=== PATIENT | female | born 1950 | race Caucasian/White ===

== ENCOUNTER 2016-08-06 10:22 | Inpatient (IN) | payer MEDICARE, OTHER ==
[2016-08-06] MEDS ORDERED: SODIUM CHLORIDE 0.9% 1,000 ML IV STA (10:56)
[2016-08-06 11:36] LABS: Basophils % (A) 0 %; CH 31.3; CHCM 31.7; Eosinophils # (A) 0.1 k/uL (0-0.7); Eosinophils % (A) 1 %; HCT 41.4 % (34.0-46.0); HDW 2.43; HGB 13.2 gm/dL (11.4-16.0); Luc # (Auto) 0.05; Luc % (Auto) 0; Lymphocytes # (A) 0.2 k/uL (1.0-4.8); Lymphocytes % (A) 2 %; MCH 31.8 pg (25.0-35.0); MCV 99.3 fL (80.0-100.0); Mean Platelet Volume 8.4; Monocytes # (A) 0.2 k/uL (0-1.0); Monocytes % (A) 2 %; Neutrophils # (A) 13.1 k/uL (1.3-7.7); Neutrophils % (A) 95 %; RBC 4.17 m/uL (3.80-5.40); RDW 14.1 % (11.5-15.5); WBC 13.8 k/uL (3.8-10.6); WBC (Perox) 14.53
[2016-08-06 11:41] LABS: Partial Thromboplastin Time 22.1 sec (22.0-30.0); Prothrombin Time 10.2 sec (9.0-12.0)
[2016-08-06 11:43] LABS: ALT 200 U/L (9-52); AST 137 U/L (14-36); Alkaline Phosphatase 467 U/L (38-126); Amylase <30 U/L (30-110); Anion Gap 12 mmol/L; Bilirubin, Delta 2.8 mg/dL (0.0-0.2); Blood Urea Nitrogen 17 mg/dL (7-17); Calcium 9.4 mg/dL (8.4-10.2); Carbon Dioxide 22 mmol/L (22-30); Chloride 102 mmol/L (98-107); GGT 499 U/L (12-43); Glucose 288 mg/dL (74-99); Magnesium 1.9 mg/dL (1.6-2.3); Non-African American GFR(MDRD) >60 (>60 ml/min/1.73 sqM); Sodium 136 mmol/L (137-145); Total Bilirubin 7.8 mg/dL (0.2-1.3); Total Protein 7.1 g/dL (6.3-8.2)
--- NOTE | 2016-08-06 11:44 | XR ---
EXAMINATION TYPE: XR chest 2V DATE OF EXAM: 08/06/2016 11:40 AM HISTORY: Jaundice. REFERENCE: NONE. FINDINGS: The lungs are clear. Pleural space are clear. Heart size is normal. IMPRESSION: NORMAL CHEST.
--- NOTE | 2016-08-06 11:45 | XR ---
EXAMINATION TYPE: XR KUB DATE OF EXAM ORDERED: 08/06/2016 11:41 AM HISTORY: Jaundice. COMPARISON: None. FINDINGS: The abdominal gas pattern is normal. There is no evidence of obstruction or free air. Ther e are vascular calcifications within the pelvis. There are surgical clips in the mid abdomen. IMPRESSION: NO ACUTE INTRA-ABDOMINAL ABNORMALITY.
[2016-08-06 12:02] LABS: Potassium 4.1 mmol/L (3.5-5.1)
--- NOTE | 2016-08-06 12:20 | ED ---
Abdominal Pain HPI - General Source: patient, family, parts interpreter, RN notes reviewed, old records reviewed Mode of arrival: wheelchair Limitations: language barrier <Wyatt Hargrove - Last Filed: 08/06/16 12:36> <Vaughn Aquino - Last Filed: 08/10/16 15:05> - General Chief Complaint: Abdominal Pain Stated Complaint: jaundice,abd pain Time Seen by Provider: 08/06/16 10:44 - History of Present Illness Initial Comments: 66-year-old female presents emergency Department chief complaints of jaundice. Patient is here with sister who brought her from primary care physician's office secondary to jaundice. Patient had her liver enzymes monitored over the last year or 2. They have been turning off at this point she is jaundice. Patient had a cholecystectomy performed at [facility] in which they did make one of her bile ducts and she had a stent. Patient does complain of some abdominal discomfort. Patient denies any cold like symptoms. Patient states she had some nausea no vomiting. Patient states her stool has been brown and slightly anderson in color. Denies any dysuria hematuria. Patient did not note fever she is told that she was afebrile at her primary care physician's office. (Wyatt Hargrove) - Related Data Home Medications Medication Instructions Recorded Confirmed Aspirin [Adult Low Dose Aspirin EC] 81 mg PO QAM 07/22/15 08/06/16 Calcium Carbonate/Vitamin D3 1 tab PO DAILY 08/22/15 08/06/16 [Os-Triston 500+D3 Caplet] Ursodiol 300 mg PO DAILY 08/22/15 08/06/16 Multivits-Min/Iron/FA/Lutein 1 tab PO DAILY 08/06/16 08/06/16 [Centrum Silver Women Tablet] glipiZIDE [Glipizide ER] 5 mg PO W/BRKFST 08/06/16 08/06/16 Allergies Allergy/AdvReac Type Severity Reaction Status Date / Time No Known Allergies Allergy Verified 08/06/16 11:38 Review of Systems ROS Other: All systems not noted in ROS Statement are negative. <Wyatt Hargrove - Last Filed: 08/06/16 12:36> ROS Other: All systems not noted in ROS Statement are negative. <Vaughn Aquino - Last Filed: 08/10/16 15:05> ROS Statement: Those systems with pertinent positive or pertinent negative responses have been documented in the HPI. Past Medical History Past Medical History: CVA/TIA, Diabetes Mellitus, Hearing Disorder / Deafness, Hyperlipidemia Additional Past Medical History / Comment(s): understands sign language, some lip reading, cannot tolerate diabetic medications, diet controlled at this time ; CVA/TIA residual "memory loss"; History of Any Multi-Drug Resistant Organisms: None Reported Past Surgical History: Cholecystectomy Additional Past Surgical History / Comment(s): september 2014 - gallbladder removed , bypass of liver duct, left carotid endarterectomy September 2014 due to post operative stroke. Past Anesthesia/Blood Transfusion Reactions: No Reported Reaction Past Psychological History: No Psychological Hx Reported Smoking Status: Former smoker Past Alcohol Use History: None Reported Additional Past Alcohol Use History / Comment(s): alcoholic - quit etoh 22 years age. smoking: stopped 09/2014 1ppd Past Drug Use History: None Reported - Past Family History Brother(s) Family Medical History: CVA/TIA Mother Family Medical History: Memory Impairment Additional Family Medical History / Comment(s): "Alzheimer's" Father Family Medical History: No Reported History <Wyatt Hargrove M - Last Filed: 08/06/16 12:36> General Exam Limitations: language barrier General appearance: alert, in no apparent distress Head exam: Present: atraumatic, normocephalic, normal inspection Eye exam: Present: PERRL, EOMI, scleral icterus. Absent: conjunctival injection , periorbital swelling Respiratory exam: Present: normal lung sounds bilaterally. Absent: respiratory distress, wheezes, rales, rhonchi, stridor Cardiovascular Exam: Present: regular rate, normal rhythm, normal heart sounds. Absent: systolic murmur, diastolic murmur, rubs, gallop, clicks GI/Abdominal exam: Present: soft, tenderness (Mild), normal bowel sounds. Absent: distended, guarding, rebound, rigid Back exam: Absent: CVA tenderness (R), CVA tenderness (L) Neurological exam: Present: alert, oriented X3, CN II-XII intact Skin exam: Present: warm, dry, intact. Absent: normal color (Jaundiced), rash <Wyatt Hargrove - Last Filed: 08/06/16 12:36> Medical Decision Making - Lab Data Result diagrams: 08/06/16 11:20 08/06/16 11:20 <Wyatt Hargrove - Last Filed: 08/06/16 12:36> - Lab Data Result diagrams: 08/10/16 09:20 08/10/16 09:20 <Vaughn Aquino - Last Filed: 08/10/16 15:05> - Medical Decision Making I saw this patient in conjunction with the physician law office assistant. I performed independent history and physical exam. Agree with case management. (Vaughn Aquino) - Lab Data Lab Results 08/06/16 08/06/16 08/06/16 Range/Units 11:20 11:20 11:20 WBC 13.8 H (3.8-10.6) k/uL RBC 4.17 (3.80-5.40) m/uL Hgb 13.2 (11.4-16.0) gm/dL Hct 41.4 (34.0-46.0) % MCV 99.3 (80.0-100.0) fL MCH 31.8 (25.0-35.0) pg MCHC 32.0 (31.0-37.0) g/dL RDW 14.1 (11.5-15.5) % Plt Count 263 (150-450) k/uL Neutrophils % 95 % Lymphocytes % 2 % Monocytes % 2 % Eosinophils % 1 % Basophils % 0 % Neutrophils # 13.1 H (1.3-7.7) k/uL Lymphocytes # 0.2 L (1.0-4.8) k/uL Monocytes # 0.2 (0-1.0) k/uL Eosinophils # 0.1 (0-0.7) k/uL Basophils # 0.0 (0-0.2) k/uL PT 10.2 (9.0-12.0) sec INR 1.0 (<1.1) APTT 22.1 (22.0-30.0) sec Sodium 136 L (137-145) mmol/L Potassium 4.1 (3.5-5.1) mmol/L Chloride 102 (98-107) mmol/L Carbon Dioxide 22 (22-30) mmol/L Anion Gap 12 mmol/L BUN 17 (7-17) mg/dL Creatinine 0.70 (0.52-1.04) mg/dL Est GFR (MDRD) Af Amer >60 (>60 ml/min/1.73 sqM) Est GFR (MDRD) Non-Af >60 (>60 ml/min/1.73 sqM) Glucose 288 H (74-99) mg/dL Estimated Ave Glu mg/dL mg/dL Hemoglobin A1c (4.2-6.1) % Calcium 9.4 (8.4-10.2) mg/dL Magnesium 1.9 (1.6-2.3) mg/dL Total Bilirubin 7.8 H (0.2-1.3) mg/dL Conjugated Bilirubin 4.0 H (0.0-0.3) mg/dL Unconjugated Bilirubin 1.0 (0.0-1.1) mg/dL Delta Bilirubin 2.8 H (0.0-0.2) mg/dL GGT 499 H (12-43) U/L AST 137 H (14-36) U/L ALT 200 H (9-52) U/L Alkaline Phosphatase 467 H (38-126) U/L Ammonia (<30) umol/L Total Protein 7.1 (6.3-8.2) g/dL Albumin 3.2 L (3.5-5.0) g/dL Amylase <30 L (30-110) U/L Lipase 37 (23-300) U/L 08/06/16 08/06/16 Range/Units 11:20 11:20 WBC (3.8-10.6) k/uL RBC (3.80-5.40) m/uL Hgb (11.4-16.0) gm/dL Hct (34.0-46.0) % MCV (80.0-100.0) fL MCH (25.0-35.0) pg MCHC (31.0-37.0) g/dL RDW (11.5-15.5) % Plt Count (150-450) k/uL Neutrophils % % Lymphocytes % % Monocytes % % Eosinophils % % Basophils % % Neutrophils # (1.3-7.7) k/uL Lymphocytes # (1.0-4.8) k/uL Monocytes # (0-1.0) k/uL Eosinophils # (0-0.7) k/uL Basophils # (0-0.2) k/uL PT (9.0-12.0) sec INR (<1.1) APTT (22.0-30.0) sec Sodium (137-145) mmol/L Potassium (3.5-5.1) mmol/L Chloride (98-107) mmol/L Carbon Dioxide (22-30) mmol/L Anion Gap mmol/L BUN (7-17) mg/dL Creatinine (0.52-1.04) mg/dL Est GFR (MDRD) Af Amer (>60 ml/min/1.73 sqM) Est GFR (MDRD) Non-Af (>60 ml/min/1.73 sqM) Glucose (74-99) mg/dL Estimated Ave Glu mg/dL 214 mg/dL Hemoglobin A1c 9.1 H (4.2-6.1) % Calcium (8.4-10.2) mg/dL Magnesium (1.6-2.3) mg/dL Total Bilirubin (0.2-1.3) mg/dL Conjugated Bilirubin (0.0-0.3) mg/dL Unconjugated Bilirubin (0.0-1.1) mg/dL Delta Bilirubin (0.0-0.2) mg/dL GGT (12-43) U/L AST (14-36) U/L ALT (9-52) U/L Alkaline Phosphatase (38-126) U/L Ammonia <9 (<30) umol/L Total Protein (6.3-8.2) g/dL Albumin (3.5-5.0) g/dL Amylase (30-110) U/L Lipase (23-300) U/L Disposition <Wyatt Hargrove - Last Filed: 08/06/16 12:36> <Vaughn Aquino - Last Filed: 08/10/16 15:05> Clinical Impression: Jaundice, Hepatitis Disposition: ADMITTED IP TO THIS HOSP Condition: Stable
[2016-08-06] MEDS ORDERED: ONDANSETRON 4 MG/2 ML VIAL IVP PRN (12:37)
[2016-08-06] MEDS: SODIUM CHLORIDE 0.9% 1,000 ML IV SCH (14:25)
[2016-08-06 14:52] VITALS: BMI 23.7
[2016-08-06 15:02] LABS: Appearance,Urine Clear (Clear); Bacteria,Urine Rare /hpf; Bilirubin,Urine 2+ (Negative); Glucose,Urine (UA) 4+ (Negative); Ketones,Urine 1+ (Negative); Leukocyte Esterase,Urine Moderate (Negative); Mucus,Urine Rare /hpf; Nitrite,Urine Negative (Negative); Particle Count 4427; Protein,Urine Trace (Negative); RBC,Urine 1 /hpf (0-5); Squamous Epithelial Cell,Urine 1 /hpf (0-4); UA Billing (MACRO vs. MICRO) MICRO; WBC,Urine 15 /hpf (0-5)
[2016-08-06 17:22] LABS: Glucose,Whole Blood 304 mg/dL (75-99)
[2016-08-06] MEDS: INSULIN LISPRO (humaLOG) 300 UNIT/3 ML VIAL SQ SCH ×2 (17:37→21:46)
[2016-08-06] MEDS: IBUPROFEN 200 MG TAB PO PRN (19:57)
[2016-08-06 20:18] LABS: Hemoglobin A1C 9.1 % (4.2-6.1)
[2016-08-06 21:36] LABS: Glucose,Whole Blood 246 mg/dL (75-99)
[2016-08-07] MEDS: SODIUM CHLORIDE 0.9% 1,000 ML IV SCH ×2 (02:07→17:28)
[2016-08-07] MEDS: LEVOFLOXACIN 500MG-D5W PMX 500 MG in DEXTROSE/WATER 1 100ML.BAG IVPB SCH (04:55)
[2016-08-07 07:07] LABS: Glucose,Whole Blood 107 mg/dL (75-99)
[2016-08-07] MEDS: INSULIN LISPRO (humaLOG) 300 UNIT/3 ML VIAL SQ SCH ×4 (07:39→20:27)
[2016-08-07] MEDS: PIPERACILLIN-TAZOBACTAM 3.375 GM in DEXTROSE/WATER 1 50ML.BAG IVPB SCH ×3 (08:13→23:11)
[2016-08-07] MEDS: ASPIRIN 81 MG CHEW PO SCH (08:13)
[2016-08-07] MEDS: URSODIOL 300 MG CAP PO SCH (08:13)
[2016-08-07 11:47] LABS: Glucose,Whole Blood 162 mg/dL (75-99)
[2016-08-07] MEDS ORDERED: RX INFO: IV CONTRAST WAS GIVEN 1 EACH MISC MISCELLANE PRN (12:08)
[2016-08-07] MEDS: IOHEXOL 350 MG/ML 25 ML BOTTLE (ORAL USE) PO PRN ×2 (12:32→13:30)
[2016-08-07 13:02] LABS: Basophils % (A) 0 %; CH 30.9; CHCM 30.7; Eosinophils # (A) 0.1 k/uL (0-0.7); Eosinophils % (A) 1 %; HCT 37.3 % (34.0-46.0); HGB 11.7 gm/dL (11.4-16.0); Hypochromasia Slight; Luc # (Auto) 0.25; Luc % (Auto) 3; Lymphocytes # (A) 1.2 k/uL (1.0-4.8); Lymphocytes % (A) 16 %; MCH 31.7 pg (25.0-35.0); MCHC 31.3 g/dL (31.0-37.0); MCV 101.3 fL (80.0-100.0); Macrocytosis Slight; Mean Platelet Volume 8.5; Monocytes # (A) 0.3 k/uL (0-1.0); Monocytes % (A) 5 %; Neutrophils # (A) 5.4 k/uL (1.3-7.7); Neutrophils % (A) 74 %; RBC 3.68 m/uL (3.80-5.40); RDW 14.1 % (11.5-15.5); WBC 7.2 k/uL (3.8-10.6); WBC (Perox) 7.55
[2016-08-07 13:08] LABS: ALT 182 U/L (9-52); AST 150 U/L (14-36); Alkaline Phosphatase 339 U/L (38-126); Anion Gap 12 mmol/L; Blood Urea Nitrogen 11 mg/dL (7-17); Calcium 8.7 mg/dL (8.4-10.2); Carbon Dioxide 20 mmol/L (22-30); Chloride 105 mmol/L (98-107); Glucose 140 mg/dL (74-99); Non-African American GFR(MDRD) >60 (>60 ml/min/1.73 sqM); Potassium 4.2 mmol/L (3.5-5.1); Sodium 137 mmol/L (137-145); Total Bilirubin 4.8 mg/dL (0.2-1.3); Total Protein 6.4 g/dL (6.3-8.2)
--- NOTE | 2016-08-07 14:33 | P.HPIM ---
History of Present Illness H&P Date: 08/07/16 Chief Complaint: Abdominal pain and jaundice Patient is a 66-year-old female who presented to [facility] emergency room was a chief complaint of abdominal pain and jaundice, patient has known history of common bile duct injury during surgery for cholecystectomy about 2 years ago. At that time patient was transferred from [facility] to [facility] where she underwent common bile duct repair, since then patient had episodes off and on off jaundice and abdominal pain she has been followed by her primary care physician, however at this time she had worsening jaundice and abdominal pain she was sent to emergency room, and subsequently she was admitted to medical floor. Abdomen x-ray in the ER was negative. Abdomen ultrasound and computed tomography scan of the abdomen were ordered and results are still pending. Gastroenterology consultation was requested and case was discussed was Dr. Kinza Rubio. Past Medical History Past Medical History: CVA/TIA, Diabetes Mellitus, Hearing Disorder / Deafness, Hyperlipidemia Additional Past Medical History / Comment(s): Pt is deaf-understands ASL and some lip reading, CVA residual "memory loss"; NIDDM type II. History of Any Multi-Drug Resistant Organisms: None Reported Past Surgical History: Cholecystectomy Additional Past Surgical History / Comment(s): september- gallbladder removed , bypass of liver duct/stent done at [facility], left carotid endarterectomy September 2014 , colonoscopy. Past Anesthesia/Blood Transfusion Reactions: No Reported Reaction Past Psychological History: Anxiety Additional Psychological History / Comment(s): Pt resides alone. She is indendent. She drives. Smoking Status: Former smoker Past Alcohol Use History: None Reported Additional Past Alcohol Use History / Comment(s): alcoholic - quit etoh 25 years age. smoking: stopped 09/2014 1ppd Past Drug Use History: None Reported - Past Family History Brother(s) Family Medical History: CVA/TIA Mother Family Medical History: Memory Impairment Additional Family Medical History / Comment(s): "Alzheimer's". Mother is . Father Family Medical History: No Reported History Additional Family Medical History / Comment(s): Father is 93 yrs old. Medications and Allergies Home Medications Medication Instructions Recorded Confirmed Type Aspirin [Adult Low Dose Aspirin EC] 81 mg PO QAM 07/22/15 08/06/16 History Calcium Carbonate/Vitamin D3 1 tab PO DAILY 08/22/15 08/06/16 History [Os-Triston 500+D3 Caplet] Ursodiol 300 mg PO DAILY 08/22/15 08/06/16 History Multivits-Min/Iron/FA/Lutein 1 tab PO DAILY 08/06/16 08/06/16 History [Centrum Silver Women Tablet] glipiZIDE [Glipizide ER] 5 mg PO W/BRKFST 08/06/16 08/06/16 History Allergies Allergy/AdvReac Type Severity Reaction Status Date / Time No Known Allergies Allergy Verified 08/06/16 11:38 Physical Exam Vitals: Vital Signs Temp Pulse Resp BP BP Pulse Ox 08/07/16 08:00 24 08/07/16 07:00 97.6 F 67 24 111/61 95 08/06/16 21:47 96.8 F L 70 16 95/50 96 08/06/16 15:27 18 08/06/16 15:00 97.7 F 98 18 120/72 98 Intake and Output 08/06/16 08/07/16 08/07/16 22:59 06:59 14:59 Intake Total 350 250 Balance 350 250 Intake: Oral 350 250 Other: Voiding Method Toilet Toilet # Voids 2 2 In general patient is alert and oriented in no distress, patient is deaf HEENT head normocephalic and atraumatic Neck is supple no JVD no goiter no lymphadenopathy Chest exam is clear to auscultation no crackles no wheezing Cardiac exam reveals regular heart sounds S1 and S2 no gallops no murmurs Abdomen is soft with mild epigastric and right upper quadrant tenderness no organomegaly no distention no guarding or rebound no rigidity normal bowel sounds Extremity exam reveals no edema no cyanosis or clubbing Results CBC & Chem 7: 08/07/16 12:28 08/07/16 12:28 Labs: Abnormal Lab Results - Last 24 Hours (Table) 08/06/16 08/06/16 08/06/16 Range/Units 14:35 17:19 21:05 RBC (3.80-5.40) m/uL MCV (80.0-100.0) fL Carbon Dioxide (22-30) mmol/L Creatinine (0.52-1.04) mg/dL Glucose (74-99) mg/dL POC Glucose (mg/dL) 304 H 246 H (75-99) mg/dL Total Bilirubin (0.2-1.3) mg/dL AST (14-36) U/L ALT (9-52) U/L Alkaline Phosphatase (38-126) U/L Albumin (3.5-5.0) g/dL Urine Protein Trace H (Negative) Urine Glucose (UA) 4+ H (Negative) Urine Ketones 1+ H (Negative) Urine Bilirubin 2+ H (Negative) Ur Leukocyte Esterase Moderate H (Negative) Urine WBC 15 H (0-5) /hpf Urine Bacteria Rare H (None) /hpf Urine Mucus Rare H (None) /hpf 08/07/16 08/07/16 08/07/16 Range/Units 07:06 11:45 12:28 RBC 3.68 L (3.80-5.40) m/uL MCV 101.3 H (80.0-100.0) fL Carbon Dioxide (22-30) mmol/L Creatinine (0.52-1.04) mg/dL Glucose (74-99) mg/dL POC Glucose (mg/dL) 107 H 162 H (75-99) mg/dL Total Bilirubin (0.2-1.3) mg/dL AST (14-36) U/L ALT (9-52) U/L Alkaline Phosphatase (38-126) U/L Albumin (3.5-5.0) g/dL Urine Protein (Negative) Urine Glucose (UA) (Negative) Urine Ketones (Negative) Urine Bilirubin (Negative) Ur Leukocyte Esterase (Negative) Urine WBC (0-5) /hpf Urine Bacteria (None) /hpf Urine Mucus (None) /hpf 08/07/16 Range/Units 12:28 RBC (3.80-5.40) m/uL MCV (80.0-100.0) fL Carbon Dioxide 20 L (22-30) mmol/L Creatinine 0.51 L (0.52-1.04) mg/dL Glucose 140 H (74-99) mg/dL POC Glucose (mg/dL) (75-99) mg/dL Total Bilirubin 4.8 H (0.2-1.3) mg/dL AST 150 H (14-36) U/L ALT 182 H (9-52) U/L Alkaline Phosphatase 339 H (38-126) U/L Albumin 2.7 L (3.5-5.0) g/dL Urine Protein (Negative) Urine Glucose (UA) (Negative) Urine Ketones (Negative) Urine Bilirubin (Negative) Ur Leukocyte Esterase (Negative) Urine WBC (0-5) /hpf Urine Bacteria (None) /hpf Urine Mucus (None) /hpf Microbiology - Last 24 Hours (Table) 08/06/16 14:35 Urine Culture - Preliminary Urine,Clean Catch Thrombosis Risk Factor Assmnt - Choose All That Apply Any of the Below Risk Factors Present?: Yes Other Risk Factors: Yes Each Risk Factor Represents 2 Points: Age 61-74 years Other congenital or acquired thrombophilia - If yes, enter type in comment: No Thrombosis Risk Factor Assessment Total Risk Factor Score: 2 Thrombosis Risk Factor Assessment Level: Low Risk Assessment and Plan Plan: #1 obstructive jaundice with abdominal pain #2 previous history of common bile duct injury with surgical repair at [facility] At this time gastroenterology consultation was requested and patient was seen by Dr. Castro ultrasound and computed tomography scan of the abdomen were ordered. Depending on results patient may need a transfer back to [facility] for intervention on common bile duct Shouldn't was started on IV antibiotic in the emergency room will continue at this time
[2016-08-07] MEDS: MULTIVITAMINS, THERA 1 EACH TAB PO SCH (14:43)
[2016-08-07] MEDS: CALCIUM CARB-VIT D 500MG-200UN 1 EACH TAB PO SCH (14:43)
--- NOTE | 2016-08-07 14:50 | CT ---
EXAMINATION TYPE: CT abdomen pelvis w con DATE OF EXAM: 08/07/2016 2:42 PM COMPARISON: 04/11/2015 HISTORY: Jaundice CT DLP: 552 mGycm Automated exposure control for dose reduction was used. TECHNIQUE: Helical acquisition of images was performed from the lung bases through the pelvis. CONTRAST: Performed with Oral Contrast and with IV Contrast, patient injected with 100 mL of Omnipaque 300. FINDINGS: Lung bases are clear of consolidation. There is no pleural effusion. There are air bubbles in the biliary tree. Cholecystectomy is noted. Bile ducts are not dilated. Ther e is no focal liver defect. Spleen and pancreas appear normal. There is no adrenal mass. Kidneys show satisfactory contrast opacification. There is no hydronephrosi s. There is no retroperitoneal adenopathy. Abdominal aorta is atheromatous. I see no intestinal wall thickening. There are no dilated loops. Appendix appears normal. Bladder dis tends smoothly. There is no sign of a pelvic mass. I see no bony destructive process. IMPRESSION: THERE ARE A FEW AIR BUBBLES IN THE BILIARY TREE CONSISTENT WITH PREVIOUS SURGERY. THIS IS SIMILAR TO OLD CT SCAN. NO SIGN OF ACUTE ABDOMEN AND PELVIS. ATHEROSCLEROTIC VASCULAR DISEASE. I DO NOT SEE A CA USE FOR JAUNDICE. NO FOCAL LIVER DEFECT.
--- NOTE | 2016-08-07 15:37 | CONS ---
DATE OF CONSULTATION: 08/07/2016 REASON FOR CONSULTATION: Painless obstructive jaundice. HISTORY OF PRESENT ILLNESS: The patient is a 66-year-old pleasant lady who is deaf and nonverbal, has a senior gamemaster at the bedside, was brought into the emergency room by her sister and she noticed jaundice for the last 3 to 4 days duration. The patient was diagnosed with diabetes mellitus recently and follows with Dr. Post on an outpatient basis. Recently she was started on glipizide and despite which her blood sugars were somewhat high and the medication dose has been changed. In the meantime on her routine labs about 2 weeks ago, she was told that her LFTs were slightly elevated; however, in the meantime, her sister noticed her to become extremely fatigued, tired with some vague epigastric discomfort, some nausea and vomiting, and became more concerned and brought her to the emergency room. She was noted to have a bilirubin of 7.8 and alkaline phosphatase of 467 with ALT and AST in the range of 137 and 200 respectively. The patient states that in September of 2013 she was admitted to [facility] wherein she underwent gallbladder surgery by Dr. Trujillo and during the surgery she encountered some problem and the patient was flown out to [facility]. The next morning, according to patient's family, she had another surgery done and apparently there was some injury noted to the common bile duct and underwent bypass surgery, possibly hepaticojejunostomy as per the patient's family. Subsequently she was in the hospital for a whole month before being discharged. Following discharge from the hospital, she had done extremely well. No records available at the time of this dictation. Most of this history was obtained from the patient's sister who is at the bedside. She denies any fever, chills, night sweats. She reports no recent weight loss, other than 5 pounds since her diabetes has been uncontrolled. Her past medical history is significant for diabetes mellitus. MEDICATIONS AT HOME: 1. Multivitamin. 2. Ursodiol. 3. Glipizide. 4. Aspirin. 5. Calcium. 6. Vitamin D. ALLERGIES: None. SOCIAL HISTORY: No smoking. No alcohol use. FAMILY HISTORY: Father had a CVA. Mother had Alzheimer's. REVIEW OF SYSTEMS: CARDIOPULMONARY: She denies any chest pain or shortness of breath. GENITOURINARY: No dysuria or hematuria. MUSCULOSKELETAL: Unremarkable. SKIN: Unremarkable. ENDOCRINE: Unremarkable. PSYCHIATRIC: Unremarkable. NEUROLOGY: Unremarkable. ENT/VISION: Unremarkable. CONSTITUTIONAL: No recent weight loss. No fever, chills or night sweats. On physical examination, blood pressure 95/50, pulse rate 70, temperature 98.6. HEENT EXAMINATION: Unremarkable. Conjunctivae pink. Sclera icteric. Oral cavity, no lesions. NECK: No JVD or lymph node enlargement. Chest was clear to auscultation. HEART: Regular rate and rhythm. ABDOMEN: Soft. Bowel sounds are positive. No organomegaly. Liver and spleen were not palpable. EXTREMITIES: No pedal edema. SKIN: No rashes. NEURO: Alert and oriented x3. No focal deficits. The following are the labs that were done at the time of admission to the hospital: T-bili was 7.8, alkaline phosphatase 467. AST was 137, ALT was 200. CBC ( ) WBC 13.8, hemoglobin 13.2, platelets are normal. PT, INR is within normal limits. Amylase and lipase are normal IMPRESSION: This is a lady who presents to the hospital with painless jaundice for the last 3 or 4 days duration. Apparently was noted to have mild elevation of serum transaminases about 2 weeks ago on routine labs done on an outpatient basis. Lately for the last few days has been having some vague epigastric discomfort, some nausea and vomiting and weight loss of about 5 pounds. She has history of common bile duct injury at the time of gallbladder surgery in September 2013, at which time she was transferred to [facility] and it sounds like she had hepaticojejunostomy and had a prolonged hospitalization for almost a month at that time complicated with ( ). At this time it appears that most likely, we may be dealing with a stricture of the anastomosis of the hepaticojejunostomy, but at the present time other etiologies cannot be entirely excluded. RECOMMENDATIONS: 1. Will obtain CT of the abdomen and pelvis as well as ultrasound of the abdomen today to evaluate the biliary system. 2. Based on the results, we will decide if she needs tertiary care transfer for further management. The plan was discussed with the patient as well as her sister who is at the bedside. Thank you for this consultation.
[2016-08-07 17:04] LABS: Glucose,Whole Blood 226 mg/dL (75-99)
[2016-08-07] MEDS: ZOLPIDEM 5 MG TAB PO PRN (20:27)
[2016-08-07 20:47] LABS: Glucose,Whole Blood 129 mg/dL (75-99)
[2016-08-08] MEDS: LEVOFLOXACIN 500MG-D5W PMX 500 MG in DEXTROSE/WATER 1 100ML.BAG IVPB SCH (05:07)
[2016-08-08] MEDS: SODIUM CHLORIDE 0.9% 1,000 ML IV SCH ×2 (05:10→15:50)
[2016-08-08 06:49] LABS: Glucose,Whole Blood 168 mg/dL (75-99)
[2016-08-08] MEDS: PIPERACILLIN-TAZOBACTAM 3.375 GM in DEXTROSE/WATER 1 50ML.BAG IVPB SCH ×3 (08:05→23:28)
[2016-08-08] MEDS: ASPIRIN 81 MG CHEW PO SCH (08:06)
[2016-08-08] MEDS: INSULIN LISPRO (humaLOG) 300 UNIT/3 ML VIAL SQ SCH ×4 (08:06→21:33)
[2016-08-08] MEDS: URSODIOL 300 MG CAP PO SCH (08:06)
--- NOTE | 2016-08-08 09:15 | US ---
EXAMINATION TYPE: US abdomen complete DATE OF EXAM: 08/07/2016 2:02 PM COMPARISON: NONE CLINICAL HISTORY: abdominal pain, jaundice. cholecystectomy EXAM MEASUREMENTS: Liver Length: 13.9 cm CBD: 0.5 cm Spleen: 10.0 cm Right Kidney: 10.2 x 4.7 x 4.4 cm Left Kidney: 10.8 x 5.1 x 4.4 cm TECHNOLOGIST IMPRESSION: Limited due to pt unable to hold breath well. Pancreas: not visualized due to overlying bowel gas Liver: portions visualized appear slightly echogenic ?fatty liver Gallbladder: SA Evidence for sonographic Jacob's sign: GB SA CBD: wnl for post cholecystectomy Spleen: wnl Right Kidney: wnl Left Kidney: wnl Upper IVC: portions visualized appear wnl Abd Aorta: portions visualized appear wnl The liver is slightly echogenic, however portal triads and hemidiaphragm are well visualized. The in trahepatic portion of the IVC and proximal abdominal aorta are within normal limits. The gallbladder is surgically absent. Common bile duct is unremarkable. The pancreas is not visualized due to over lying bowel gas. The spleen is unremarkable. Kidneys are symmetric and free of hydronephrosis. No renal lesions are seen. IMPRESSION: Surgical absence of the gallbladder with normal caliber of the common bile duct. Nonvisualization of the pancreas, otherwise unremarkable abdominal ultrasound.
--- NOTE | 2016-08-08 11:19 | PN ---
DATE OF SERVICE: 08/08/2016 REQUESTING PHYSICIAN: Dr. Post. Patient is a 66-year-old pleasant lady admitted to the hospital with mild abdominal discomfort, nausea, vomiting, and jaundice for the last few days duration. At the time of admission to the hospital she was noted to have T-bili 7.2 with alkaline phosphatase of 497 and ALT and AST in the range of 200. She has prior history of gallbladder surgery, which was complicated by CBD injury for which she was transferred to [facility] and underwent hepaticojejunostomy in September 2013. Records are not available at the time of this dictation. She had a CT of the abdomen and pelvis done yesterday that showed few air bubbles the biliary system in the biliary tree consistent with patient's previous surgery, but no evidence of intrahepatic biliary ductal dilation. She also had ultrasound of abdomen done that showed a normal appearing CBD, fatty liver, but otherwise unremarkable. This morning the patient is feeling better. She has some vague abdominal discomfort. No nausea, no vomiting. On physical examination, appears comfortable in no apparent distress. Vitals as are stable. Blood pressure is 115/63, pulse of 71, temperature 97. HEENT: Unremarkable. Conjunctivae pink. Sclerae slightly icteric. Oral cavity with no lesions. NECK: No JVD or chest was clear to auscultation. HEART: Regular rate and rhythm. ABDOMEN: Soft. Bowel sounds are positive. Mild tenderness in the epigastric area. EXTREMITIES: No pedal edema. SKIN: No rashes. NEURO: Alert and oriented x3. No focal deficits. Labs from today: WBC 7.2, hemoglobin 11.7, platelets are within normal limits. T-bili is down to 4.8. AST 150, ALT 182 and alkaline phosphatase is 339. IMPRESSION: This is a lady who presents with vague abdominal pain, nausea, vomiting, and jaundice for the last 1 or 2 weeks' duration. She has prior history of gallbladder surgery in September 2013 complicated by common bile duct injury for which she was transferred to [facility] and it appears that she had a hepaticojejunostomy and was uneventful. She now presents with elevated serum transaminases and jaundice and ultrasound as well as CAT scan of the abdomen that were done yesterday did not show any evidence of intrahepatic biliary ductal dilation and no obvious etiology identified. It is likely we are dealing with a stricture at the hepaticojejunostomy. Of course, other etiologies cannot be excluded. The patient was empirically started on broad-spectrum antibiotics today and doing much better. She was also noted to have gram-negative bacilli in the blood. Cultures are still pending. This raises the possibility of ascending cholangitis. RECOMMENDATIONS: 1. Continue with broad-spectrum antibiotics. 2. Will obtain M.R.C.P. to delineate the biliary system. 3. I had a discussion with the patient as well as her sister who is at the bedside about transferring her to [facility], but at this time they would like to continue further care in this hospital, unless it is absolutely necessary. Hence, at this time I suggested that we will proceed with an M.R.C.P. today and based on her response to the antibiotics as well as in the findings of M.R.C.P. further decisions will be made. Thank you for this consultation.
[2016-08-08 11:40] LABS: Glucose,Whole Blood 186 mg/dL (75-99)
[2016-08-08] MEDS: MULTIVITAMINS, THERA 1 EACH TAB PO SCH (12:47)
[2016-08-08] MEDS: CALCIUM CARB-VIT D 500MG-200UN 1 EACH TAB PO SCH (12:47)
--- NOTE | 2016-08-08 15:05 | P.PN ---
Subjective Principal diagnosis: Elevated liver enzymes, sepsis Patient is a 66-year-old female admitted to [facility] was abdominal pain and jaundice and elevated liver enzymes, she had previous history of cholecystectomy with injury to the common bile duct requiring surgical repair 3 years ago. At this time she is present presenting with jaundice and abdominal pain. She was admitted to medical floor computed tomography scan and ultrasound of the abdomen were ordered consultation for gastroenterology was requested. Yesterday patient had positive blood cultures she was started on IV Zosyn and IV Levaquin possible acute cholangitis infectious disease consultation was requested. Clinically patient is feeling better abdominal pain has resolved since yesterday. Objective - Vital Signs Vital signs: Vital Signs Temp 97.4 F L 08/08/16 07:00 Pulse 81 08/08/16 07:00 Resp 20 08/08/16 14:47 BP 135/72 08/08/16 07:00 Pulse Ox 95 08/08/16 07:00 Intake & Output 08/07/16 08/08/16 08/08/16 18:59 06:59 18:59 Intake Total 700 Balance 700 Intake: Oral 700 Other: Voiding Method Toilet Toilet Toilet # Voids 2 5 - Exam In general patient is alert and oriented she is deaf HEENT without any acute abnormality Neck is supple no JVD no goiter no lymphadenopathy Chest is clear to auscultation no wheezing Cardiac exam reveals regular heart sounds no murmurs Abdomen is soft nontender no organomegaly Extremity exam reveals no edema - Labs CBC & Chem 7: 08/07/16 12:28 08/07/16 12:28 Labs: Abnormal Lab Results - Last 24 Hours (Table) 08/07/16 08/07/16 08/08/16 Range/Units 17:02 20:08 06:47 POC Glucose (mg/dL) 226 H 129 H 168 H (75-99) mg/dL 08/08/16 Range/Units 11:38 POC Glucose (mg/dL) 186 H (75-99) mg/dL Microbiology - Last 24 Hours (Table) 08/06/16 14:35 Urine Culture - Final Urine,Clean Catch Strep agalactiae - (group b) Assessment and Plan Plan: #1 obstructive jaundice with abdominal pain #2 previous history of common bile duct injury with surgical repair at [facility] #3 sepsis with positive blood cultures patient was started on IV Zosyn and IV Levaquin consultation for Dr. Peterson was initiated At this time gastroenterology consultation was requested and patient was seen by Dr. Castro at this time she is recommending MRCP Continue with current management will follow in a.m.
[2016-08-08 16:57] LABS: Basophils % (A) 1 %; CH 31.2; CHCM 31.3; Eosinophils # (A) 0.1 k/uL (0-0.7); Eosinophils % (A) 2 %; HCT 38.9 % (34.0-46.0); HDW 2.54; HGB 12.3 gm/dL (11.4-16.0); Hypochromasia Slight; Luc # (Auto) 0.16; Luc % (Auto) 3; Lymphocytes # (A) 1.3 k/uL (1.0-4.8); Lymphocytes % (A) 25 %; MCH 31.8 pg (25.0-35.0); MCHC 31.6 g/dL (31.0-37.0); MCV 100.5 fL (80.0-100.0); Macrocytosis Slight; Mean Platelet Volume 9.4; Monocytes # (A) 0.4 k/uL (0-1.0); Monocytes % (A) 8 %; Neutrophils % (A) 60 %; RBC 3.87 m/uL (3.80-5.40); RDW 14.3 % (11.5-15.5); WBC (Perox) 5.02
[2016-08-08 16:59] LABS: Glucose,Whole Blood 183 mg/dL (75-99)
[2016-08-08 17:04] LABS: ALT 153 U/L (9-52); AST 98 U/L (14-36); Alkaline Phosphatase 341 U/L (38-126); Anion Gap 10 mmol/L; Blood Urea Nitrogen 7 mg/dL (7-17); Calcium 8.9 mg/dL (8.4-10.2); Carbon Dioxide 24 mmol/L (22-30); Chloride 103 mmol/L (98-107); Glucose 180 mg/dL (74-99); Non-African American GFR(MDRD) >60 (>60 ml/min/1.73 sqM); Potassium 4.4 mmol/L (3.5-5.1); Sodium 137 mmol/L (137-145); Total Bilirubin 2.9 mg/dL (0.2-1.3); Total Protein 6.4 g/dL (6.3-8.2)
[2016-08-08 17:31] LABS: Large Platelets Present; Manual Review Performed; Target Cells Present
--- NOTE | 2016-08-08 20:49 | P.CONS ---
History of Present Illness - Reason for Consult Consult date: 08/08/16 - Chief Complaint Jaundice - History of Present Illness 66-year-old female presents to Hospital after being noted to have difficulties with jaundice without significant pain. This pleasant woman does have a history of being deaf and mute and has a wind farm designer present to help with the evaluation. She relates that she' s feeling better evidence since coming to hospital. She relates that in the days before coming to hospital she wasn't feeling well. Increasing fatigue and malaise. She had some epigastric discomfort that was associated with nausea and emesis. Her urine was dark. She had not had high- grade fever, chills or rigors. The was feeling considerably worse. In 2013 she has a history of significant cholelithiasis and underwent surgical resection by Dr. Griffin at [facility]. She over had complications required care and further surgery at the [facility]. She did have a biliary bypass performed. She had a protracted hospitalization at that time. But has done well since. No difficulties with her gastrointestinal system or jaundice until the onset of the current illness. She is noted to have recent diagnosis of diabetes and was started on glipizide and follow blood work was showing the increasing liver function tests. And now is hospitalized. Patient denies other acute changes. Her pain is improved tonight. She is not having fever, chills or rigors. Review of Systems HEENT:Denies headache or acute visual change. Denies sinus or mouth discomforts. Denies neck stiffness or pain. Denies significant oral cavity pain. Denies difficulty on swallowing. Lungs: Denies significant shortness of breath, cough, sputum production, or hemoptysis. Cardiovascular: Denies significant shortness of breath, chest pain, chest wall pain, orthopnea, dyspnea on exertion, syncope Gastrointestinal:Denies nausea, vomiting, diarrhea, constipation, hematemesis, melena, hematochezia. No no significant change of bowel habit noticed. Musculoskeletal: denies significant myalgias or arthralgias. No new joint swelling. Denies new back pain. Skin: Sr. noted onset of jaundice Neuro: Denies headache or visual change. Denies any new onset weakness or difficulty with ambulation. Denies falls or seizures. Psychiatric:Denies anxiety or depression. Endocrine: Fatigue but without weight change has occurred Past Medical History Past Medical History: CVA/TIA, Diabetes Mellitus, Hearing Disorder / Deafness, Hyperlipidemia Additional Past Medical History / Comment(s): Pt is deaf-understands ASL and some lip reading, CVA residual "memory loss"; NIDDM type II. History of Any Multi-Drug Resistant Organisms: None Reported Past Surgical History: Cholecystectomy Additional Past Surgical History / Comment(s): september- gallbladder removed , bypass of liver duct/stent done at [facility], left carotid endarterectomy September 2014 , colonoscopy. Past Anesthesia/Blood Transfusion Reactions: No Reported Reaction Past Psychological History: Anxiety Additional Psychological History / Comment(s): Pt resides alone. She is indendent. She drives. Sister is the primary contact. Retired. No experience. Tobacco smoker stopped in 2013. 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 smoking: stopped 09/2014 1ppd Past Drug Use History: None Reported - Past Family History Brother(s) Family Medical History: CVA/TIA Mother Family Medical History: Memory Impairment Additional Family Medical History / Comment(s): "Alzheimer's". Mother is . Father Family Medical History: No Reported History Additional Family Medical History / Comment(s): Father is 93 yrs old. Medications and Allergies Home Medications and Allergies Comment(s): Current Medications Aspirin (Aspirin) 81 mg PO QAM [facility] Last Admin: 08/08/16 08:06 Dose: 81 mg Calcium Carbonate (Oscal 500+D) 1 each PO 1200 [facility] Last Admin: 08/08/16 12:47 Dose: 1 each Diazepam (Valium) 5 mg PO ONCE PRN PRN Reason: Anxiety Sodium Chloride (Saline 0.9%) 1,000 mls @ 75 mls/hr IV .[id number] [facility] Last Admin: 08/08/16 15:50 Dose: 75 mls/hr Piperacillin/Tazobactam/ (Dextrose 3.375 gm/ IV Solution) 50 mls @ 12.5 mls/hr IVPB Q8HR [facility] Last Admin: 08/08/16 15:49 Dose: 12.5 mls/hr Ibuprofen (Advil) 200 mg PO Q6HR PRN PRN Reason: Pain Last Admin: 08/06/16 19:57 Dose: 200 mg Insulin Human Lispro (Humalog) 0 unit SQ ACHS [facility] PRN Reason: Protocol Last Admin: 08/08/16 18:02 Dose: 2 unit Miscellaneous Information (Rx Info: Iv Contrast Was Given) 1 each MISCELLANE DAILY PRN PRN Reason: Per Protocol Stop: 08/09/16 12:09 Multivitamins (Theragran) 1 each PO 1200 [facility] Last Admin: 08/08/16 12:47 Dose: 1 each Ondansetron HCl (Zofran) 4 mg IVP Q8HR PRN PRN Reason: Nausea And Vomiting Ursodiol (Actigall) 300 mg PO DAILY [facility] Last Admin: 08/08/16 08:06 Dose: 300 mg Zolpidem Tartrate (Ambien) 5 mg PO HS PRN PRN Reason: Insomnia Last Admin: 08/07/16 20:27 Dose: 5 mg Home Medications Medication Instructions Recorded Confirmed Type Aspirin [Adult Low Dose Aspirin EC] 81 mg PO QAM 07/22/15 08/06/16 History Calcium Carbonate/Vitamin D3 1 tab PO DAILY 08/22/15 08/06/16 History [Os-[place] 500+D3 Caplet] Ursodiol 300 mg PO DAILY 08/22/15 08/06/16 History Multivits-Min/Iron/FA/Lutein 1 tab PO DAILY 08/06/16 08/06/16 History [Centrum Silver Women Tablet] glipiZIDE [Glipizide ER] 5 mg PO W/BRKFST 08/06/16 08/06/16 History Allergies Allergy/AdvReac Type Severity Reaction Status Date / Time No Known Allergies Allergy Verified 08/06/16 11:38 Physical Exam Vitals: Vital Signs Temp Pulse Resp BP Pulse Ox 08/08/16 15:00 97.6 F 61 16 136/65 96 08/08/16 14:47 20 08/08/16 08:00 20 08/08/16 07:00 97.4 F L 81 20 135/72 95 08/07/16 23:00 97.1 F L 71 18 115/63 95 Intake and Output 08/08/16 08/08/16 08/08/16 06:59 14:59 22:59 Intake Total 350 Balance 350 Intake: Oral 350 Other: Voiding Method Toilet # Voids 5 2 Pleasant 60 for a woman who is in no gwendolyn distress. HEENT: Sclera still mildly icteric, conjunctiva are pink and moist nasal mucosa grossly intact without significant lesions, there is no thrush. Neck: The neck is supple without significant lymphadenopathy or thyromegaly. Lungs: Good bilateral air entry without significant crackles or wheezing. There is no significant bronchial sounds. There is no egophony or dullness. Heart: Regular rate and rhythm with an audible S1-S2, no S3 no S4. There is no significant murmur click or rub, PMI was nondisplaced. Abdomen: Positive bowel sounds soft without palpable masses or organomegaly. There was no guarding or rebound. Does have tenderness to the right flank on exam no bruising or ecchymosis is noted in the region. Extremities: The upper extremities have excellent pulses they are symmetric, no significant petechiae or telangiectasia. No splinter hemorrhages were noted. The lower extremities are free from significant edema. The peripheral pulses were 2+ and symmetric. Neuro: Awake alert oriented to person place and time. There are no acute new gross focal sensory motor deficits. As noted deaf and mute but with the wind farm designer is an excellent historian Results CBC & Chem 7: 08/08/16 16:07 08/08/16 16:07 Labs: Abnormal Lab Results - Last 24 Hours (Table) 08/07/16 08/08/16 08/08/16 Range/Units 20:08 06:47 11:38 MCV (80.0-100.0) fL Glucose (74-99) mg/dL POC Glucose (mg/dL) 129 H 168 H 186 H (75-99) mg/dL Total Bilirubin (0.2-1.3) mg/dL AST (14-36) U/L ALT (9-52) U/L Alkaline Phosphatase (38-126) U/L Albumin (3.5-5.0) g/dL 08/08/16 08/08/16 08/08/16 Range/Units 16:07 16:07 16:56 MCV 100.5 H (80.0-100.0) fL Glucose 180 H (74-99) mg/dL POC Glucose (mg/dL) 183 H (75-99) mg/dL Total Bilirubin 2.9 H (0.2-1.3) mg/dL AST 98 H (14-36) U/L ALT 153 H (9-52) U/L Alkaline Phosphatase 341 H (38-126) U/L Albumin 2.8 L (3.5-5.0) g/dL Microbiology - Last 24 Hours (Table) 08/06/16 14:35 Urine Culture - Final Urine,Clean Catch Strep agalactiae - (group b) Laboratory Results WBC 5.0 k/uL (3.8-10.6) 08/08/16 16:07 RBC 3.87 m/uL (3.80-5.40) 08/08/16 16:07 Hgb 12.3 gm/dL (11.4-16.0) 08/08/16 16:07 Hct 38.9 % (34.0-46.0) 08/08/16 16:07 MCV 100.5 fL (80.0-100.0) H 08/08/16 16:07 MCH 31.8 pg (25.0-35.0) 08/08/16 16:07 MCHC 31.6 g/dL (31.0-37.0) 08/08/16 16:07 RDW 14.3 % (11.5-15.5) 08/08/16 16:07 Plt Count 244 k/uL (150-450) 08/08/16 16:07 Neutrophils % 60 % 08/08/16 16:07 Lymphocytes % 25 % 08/08/16 16:07 Monocytes % 8 % 08/08/16 16:07 Eosinophils % 2 % 08/08/16 16:07 Basophils % 1 % 08/08/16 16:07 Neutrophils # 3.0 k/uL (1.3-7.7) 08/08/16 16:07 Lymphocytes # 1.3 k/uL (1.0-4.8) 08/08/16 16:07 Monocytes # 0.4 k/uL (0-1.0) 08/08/16 16:07 Eosinophils # 0.1 k/uL (0-0.7) 08/08/16 16:07 Basophils # 0.0 k/uL (0-0.2) 08/08/16 16:07 Manual Slide Review Performed 08/08/16 16:07 Large Platelets Present 08/08/16 16:07 Hypochromasia Slight 08/08/16 16:07 Macrocytosis Slight 08/08/16 16:07 Target Cells Present 08/08/16 16:07 PT 10.2 sec (9.0-12.0) 08/06/16 11:20 INR 1.0 (<1.1) 08/06/16 11:20 APTT 22.1 sec (22.0-30.0) 08/06/16 11:20 Sodium 137 mmol/L (137-145) 08/08/16 16:07 Potassium 4.4 mmol/L (3.5-5.1) 08/08/16 16:07 Chloride 103 mmol/L (98-107) 08/08/16 16:07 Carbon Dioxide 24 mmol/L (22-30) 08/08/16 16:07 Anion Gap 10 mmol/L 08/08/16 16:07 BUN 7 mg/dL (7-17) 08/08/16 16:07 Creatinine 0.59 mg/dL (0.52-1.04) 08/08/16 16:07 Est GFR (MDRD) Af Amer >60 (>60 ml/min/1.73 sqM) 08/08/16 16:07 Est GFR (MDRD) Non-Af >60 (>60 ml/min/1.73 sqM) 08/08/16 16:07 Glucose 180 mg/dL (74-99) H 08/08/16 16:07 POC Glucose (mg/dL) 183 mg/dL (75-99) H 08/08/16 16:56 POC Glu Mathematics Academic Chair ID Destinee Chaves 08/08/16 16:[address] Glu mg/dL 214 mg/dL 08/06/16 11:20 Hemoglobin A1c 9.1 % (4.2-6.1) H 08/06/16 11:20 Calcium 8.9 mg/dL (8.4-10.2) 08/08/16 16:07 Magnesium 1.9 mg/dL (1.6-2.3) 08/06/16 11:20 Total Bilirubin 2.9 mg/dL (0.2-1.3) H 08/08/16 16:07 Conjugated Bilirubin 4.0 mg/dL (0.0-0.3) H 08/06/16 11:20 Unconjugated Bilirubin 1.0 mg/dL (0.0-1.1) 08/06/16 11:20 Delta Bilirubin 2.8 mg/dL (0.0-0.2) H 08/06/16 11:20 GGT 499 U/L (12-43) H 08/06/16 11:20 AST 98 U/L (14-36) H 08/08/16 16:07 ALT 153 U/L (9-52) H 08/08/16 16:07 Alkaline Phosphatase 341 U/L (38-126) H 08/08/16 16:07 Ammonia <9 umol/L (<30) 08/06/16 11:20 Total Protein 6.4 g/dL (6.3-8.2) 08/08/16 16:07 Albumin 2.8 g/dL (3.5-5.0) L 08/08/16 16:07 Amylase <30 U/L (30-110) L 08/06/16 11:20 Lipase 37 U/L (23-300) 08/06/16 11:20 Urine Color Dark Yellow 08/06/16 14:35 Urine Appearance Clear (Clear) 08/06/16 14:35 Urine pH 6.0 (5.0-8.0) 08/06/16 14:35 Ur Specific [place] 1.020 (1.001-1.035) 08/06/16 14:35 Urine Protein Trace (Negative) H 08/06/16 14:35 Urine Glucose (UA) 4+ (Negative) H 08/06/16 14:35 Urine Ketones 1+ (Negative) H 08/06/16 14:35 Urine Blood Negative (Negative) 08/06/16 14:35 Urine Nitrate Negative (Negative) 08/06/16 14:35 Urine Bilirubin 2+ (Negative) H 08/06/16 14:35 Urine Urobilinogen 2.0 mg/dL (<2.0) 08/06/16 14:35 Ur Leukocyte Esterase Moderate (Negative) H 08/06/16 14:35 Urine RBC 1 /hpf (0-5) 08/06/16 14:35 Urine WBC 15 /hpf (0-5) H 08/06/16 14:35 Ur Squamous Epith Cells 1 /hpf (0-4) 08/06/16 14:35 Urine Bacteria Rare /hpf (None) H 08/06/16 14:35 Urine Mucus Rare /hpf (None) H 08/06/16 14:35 Microbiology 08/06/16 14:35 Urine,Clean Catch Urine Culture - Final Strep agalactiae - (group b) 08/06/16 11:20 Blood Blood Culture Gram Stain - Preliminary 08/06/16 11:20 Blood Blood Culture - Preliminary Gram Neg Bacilli 08/06/16 11:20 Blood Blood Culture - Preliminary Bilirubin admission was 7.8 now improved Assessment and Plan (1) Jaundice Status: Acute (2) Gram negative sepsis Narrative/Plan: 66-year-old woman with a history of cholelithiasis. She had a cholecystectomy but had significant complications and requires what appears to be have had a hepaticojejunostomy.. She has been seen by gastroenterology with concerns with potential stricture of the site. Infectious disease consult regarding the significant sepsis that she is suffering from. She is evidence of gram-negative bacteria in her blood at this point in time await identification. Given biliary tract origination piperacillin tazobactam is being utilized pending further cultures and vancomycin may be discontinued. Follow up blood cultures have been requested Ongoing supportive care Patient has had a marked improvement of her status with hydration and supportive care. She's being followed by gastroenterology after her computed tomography scan and ultrasound, neither have shown significant obstruction. However she could have had a small biliary stone that caused some obstruction that is now relieved. Fortunately she is improving. Cultures with a retrohepatic therapy once they are available as to whether will be intravenous or oral will be determined at that time. She's having some mild right flank pain likely related to the current infection. Status: Acute (3) Biliary obstruction Status: Acute
[2016-08-08 20:51] LABS: Glucose,Whole Blood 217 mg/dL (75-99)
[2016-08-08] MEDS: ZOLPIDEM 5 MG TAB PO PRN (21:34)
[2016-08-09 07:11] LABS: Glucose,Whole Blood 131 mg/dL (75-99)
[2016-08-09] MEDS: INSULIN LISPRO (humaLOG) 300 UNIT/3 ML VIAL SQ SCH ×4 (07:51→21:14)
[2016-08-09] MEDS: PIPERACILLIN-TAZOBACTAM 3.375 GM in DEXTROSE/WATER 1 50ML.BAG IVPB SCH ×2 (07:52→17:40)
[2016-08-09] MEDS ORDERED: DIAZEPAM 5 MG TAB PO PRN (08:00)
[2016-08-09 08:06] LABS: Basophils # (A) 0.1 k/uL (0-0.2); Basophils % (A) 1 %; CH 31.1; CHCM 31.3; Eosinophils # (A) 0.1 k/uL (0-0.7); Eosinophils % (A) 3 %; HCT 41.3 % (34.0-46.0); HDW 2.54; HGB 12.6 gm/dL (11.4-16.0); Hypochromasia Slight; Luc # (Auto) 0.16; Luc % (Auto) 3; Lymphocytes # (A) 1.2 k/uL (1.0-4.8); Lymphocytes % (A) 23 %; MCH 30.6 pg (25.0-35.0); MCHC 30.5 g/dL (31.0-37.0); MCV 100.1 fL (80.0-100.0); Macrocytosis Slight; Mean Platelet Volume 9.3; Monocytes # (A) 0.4 k/uL (0-1.0); Monocytes % (A) 7 %; Neutrophils # (A) 3.4 k/uL (1.3-7.7); Neutrophils % (A) 64 %; RBC 4.13 m/uL (3.80-5.40); RDW 14.2 % (11.5-15.5); WBC 5.3 k/uL (3.8-10.6)
[2016-08-09 08:15] LABS: ALT 144 U/L (9-52); AST 89 U/L (14-36); Alkaline Phosphatase 342 U/L (38-126); Anion Gap 11 mmol/L; Blood Urea Nitrogen 6 mg/dL (7-17); Calcium 9.1 mg/dL (8.4-10.2); Carbon Dioxide 26 mmol/L (22-30); Chloride 104 mmol/L (98-107); Glucose 146 mg/dL (74-99); Non-African American GFR(MDRD) >60 (>60 ml/min/1.73 sqM); Sodium 141 mmol/L (137-145); Total Bilirubin 3.3 mg/dL (0.2-1.3); Total Protein 6.6 g/dL (6.3-8.2)
[2016-08-09 08:17] LABS: Potassium 4.3 mmol/L (3.5-5.1)
[2016-08-09 12:27] LABS: Glucose,Whole Blood 131 mg/dL (75-99)
[2016-08-09] MEDS ORDERED: Magnesium Replacement Protocol 1 EACH MISC MISCELLANE PRN (13:01)
[2016-08-09] MEDS ORDERED: Potassium Replacement Protocol 1 EACH MISC MISCELLANE PRN (13:01)
[2016-08-09] MEDS ORDERED: ONDANSETRON 4 MG/2 ML VIAL IVP PRN (13:02)
--- NOTE | 2016-08-09 13:07 | P.PN ---
Subjective Patient is doing fairly well today. Signed buckle sorter not available at bedside but I was able to communicate with patient via writing on a piece of paper. She denies any pain or discomfort. She is nothing by mouth for anticipated MRCP later today. She does not have any concerns. Objective - Vital Signs Vital signs: Vital Signs Temp 97.3 F L 08/09/16 07:00 Pulse 90 08/09/16 07:00 Resp 16 08/09/16 08:00 BP 141/89 08/09/16 07:00 Pulse Ox 95 08/09/16 07:00 Intake & Output 08/08/16 08/09/16 08/09/16 18:59 06:59 18:59 Other: Voiding Method Toilet Toilet # Voids 2 4 - Exam General: The patient is awake and alert, in no distress Eye: there is normal conjunctiva bilaterally. Neck: The neck is supple, there is no JVD. Cardiovascular: Normal S1-S2, no S3-S4, no murmurs. Respiratory: Lungs clear to auscultation bilaterally Gastrointestinal: Abdomen is soft, nontender Musculoskeletal: There is no pedal edema. Skin: Skin is warm and dry - Labs CBC & Chem 7: 08/09/16 07:38 08/09/16 07:38 Labs: Abnormal Lab Results - Last 24 Hours (Table) 08/08/16 08/08/16 08/08/16 Range/Units 16:07 16:07 16:56 MCV 100.5 H (80.0-100.0) fL MCHC (31.0-37.0) g/dL BUN (7-17) mg/dL Glucose 180 H (74-99) mg/dL POC Glucose (mg/dL) 183 H (75-99) mg/dL Total Bilirubin 2.9 H (0.2-1.3) mg/dL AST 98 H (14-36) U/L ALT 153 H (9-52) U/L Alkaline Phosphatase 341 H (38-126) U/L Albumin 2.8 L (3.5-5.0) g/dL 08/08/16 08/09/16 08/09/16 Range/Units 20:50 07:06 07:38 MCV 100.1 H (80.0-100.0) fL MCHC 30.5 L (31.0-37.0) g/dL BUN (7-17) mg/dL Glucose (74-99) mg/dL POC Glucose (mg/dL) 217 H 131 H (75-99) mg/dL Total Bilirubin (0.2-1.3) mg/dL AST (14-36) U/L ALT (9-52) U/L Alkaline Phosphatase (38-126) U/L Albumin (3.5-5.0) g/dL 08/09/16 08/09/16 Range/Units 07:38 12:20 MCV (80.0-100.0) fL MCHC (31.0-37.0) g/dL BUN 6 L (7-17) mg/dL Glucose 146 H (74-99) mg/dL POC Glucose (mg/dL) 131 H (75-99) mg/dL Total Bilirubin 3.3 H (0.2-1.3) mg/dL AST 89 H (14-36) U/L ALT 144 H (9-52) U/L Alkaline Phosphatase 342 H (38-126) U/L Albumin 2.9 L (3.5-5.0) g/dL Assessment and Plan Plan: #1 obstructive jaundice with abdominal pain #2 previous history of common bile duct injury status post hepaticojejunostomy in September 2013 #3 sepsis with E. coli bacteremia awaiting sensitivity Patient is improving clinically overall. Bilirubin trending down. Scheduled for MRCP today. Awaiting repeat blood culture. Appreciate netsuite consultant's recommendations. Repeat lab work in the morning.
[2016-08-09] MEDS: SODIUM CHLORIDE 0.9% 1,000 ML IV SCH (13:17)
--- NOTE | 2016-08-09 17:26 | PN ---
DATE OF DICTATION: 08/09/2016 Patient is a 66-year-old pleasant lady admitted to the hospital with abdominal pain, nausea, vomiting and jaundice. She was subsequently diagnosed with E coli bacteremia and is at present on broad-spectrum antibiotics. Dr. Peterson has been consulted. She has a history of cholecystectomy complicated by CBD injury, following which she was transferred to [facility] 2 years ago and had a hepaticojejunostomy. At the time of admission to the hospital, her bilirubin was up to 7. Today it is down to 3.4. She is feeling much better on broad-spectrum antibiotics. Abdominal pain has resolved. Nausea and vomiting have completely resolved. She did have an ultrasound as well as a CT scan of the abdomen done which did not show any significant abnormalities in the liver. No biliary ductal dilation. The patient was scheduled for an M.R.C.P. yesterday, but it was not done so far. On physical examination, she appears comfortable, in no apparent distress. Vitals signs are stable. Blood pressure 136/65, pulse rate 61, temperature 97.6. HEENT EXAMINATION: Unremarkable. Conjunctivae pink. Sclerae anicteric. Oral cavity: No lesions. NECK: No JVD or lymph node enlargement. Chest was clear to auscultation. HEART: Regular rate and rhythm. ABDOMEN: Soft. Bowel sounds are positive. No organomegaly. EXTREMITIES: No pedal edema. SKIN: No rashes. NEUROLOGICAL: Alert and oriented x3. No focal deficits. LABS FROM TODAY: T-bili is 3.3. AST is down to 89. ALT is down to 144. Alkaline phosphatase is 342. CBC shows a WBC of 5.3, hemoglobin 12.6, and platelets are normal. IMPRESSION: Escherichia coli bacteremia, most likely related to ascending cholangitis. Patient presented with jaundice, elevated LFTs and epigastric pain, most likely related to obstructive etiology, possibly stricture at the previous hepaticojejunostomy surgery done 2 years ago following the CBD injury curing gallbladder surgery. She is at present on broad-spectrum antibiotics, doing extremely well. Ultrasound and CT scan were negative. RECOMMENDATIONS: 1. Await M.R.C.P. results. 2. Continue broad-spectrum antibiotics. 3. Repeat labs in the morning. Will follow her closely.
[2016-08-09] MEDS: ASPIRIN 81 MG CHEW PO SCH (17:40)
[2016-08-09] MEDS: URSODIOL 300 MG CAP PO SCH (17:40)
[2016-08-09] MEDS: MULTIVITAMINS, THERA 1 EACH TAB PO SCH (17:40)
[2016-08-09] MEDS: CALCIUM CARB-VIT D 500MG-200UN 1 EACH TAB PO SCH (17:40)
[2016-08-09 17:46] LABS: Glucose,Whole Blood 121 mg/dL (75-99)
--- NOTE | 2016-08-09 18:47 | P.PN ---
Subjective Principal diagnosis: Jaundice 66-year-old female presents to Hospital after being noted to have difficulties with jaundice without significant pain. This pleasant woman does have a history of being deaf and mute and has a mechanical design engineer present to help with the evaluation. She relates that she' s feeling better evidence since coming to hospital. She relates that in the days before coming to hospital she wasn't feeling well. Increasing fatigue and malaise. She had some epigastric discomfort that was associated with nausea and emesis. Her urine was dark. She had not had high- grade fever, chills or rigors. The was feeling considerably worse. In 2013 she has a history of significant cholelithiasis and underwent surgical resection by Dr. Griffin at [facility]. She over had complications required care and further surgery at the [facility]. She did have a biliary bypass performed. She had a protracted hospitalization at that time. But has done well since. No difficulties with her gastrointestinal system or jaundice until the onset of the current illness. She is noted to have recent diagnosis of diabetes and was started on glipizide and follow blood work was showing the increasing liver function tests. And now is hospitalized. Patient denies other acute changes. Her pain is improved tonight. She is not having fever, chills or rigors. Will be going for her MRCP momentarily to evaluate for abnormality within the biliary tract Objective - Vital Signs Vital signs: Vital Signs Temp 97.6 F 08/09/16 15:00 Pulse 71 08/09/16 15:00 Resp 16 08/09/16 15:40 BP 134/76 08/09/16 15:00 Pulse Ox 94 L 08/09/16 15:00 Intake & Output 08/08/16 08/09/16 08/09/16 18:59 06:59 18:59 Other: Voiding Method Toilet Toilet # Voids 2 4 2 # Bowel Movements 0 - Exam Pleasant 62 for a woman who is in no gwendolyn distress. HEENT: Sclera still mildly icteric, conjunctiva are pink and moist nasal mucosa grossly intact without significant lesions, there is no thrush. Neck: The neck is supple without significant lymphadenopathy or thyromegaly. Lungs: Good bilateral air entry without significant crackles or wheezing. There is no significant bronchial sounds. There is no egophony or dullness. Heart: Regular rate and rhythm with an audible S1-S2, no S3 no S4. There is no significant murmur click or rub, PMI was nondisplaced. Abdomen: Positive bowel sounds soft without palpable masses or organomegaly. There was no guarding or rebound. The tenderness on the right flank is almost completely resolved, no bruising or ecchymosis is noted in the region. Extremities: The upper extremities have excellent pulses they are symmetric, no significant petechiae or telangiectasia. No splinter hemorrhages were noted. The lower extremities are free from significant edema. The peripheral pulses were 2+ and symmetric. Neuro: Awake alert oriented to person place and time. There are no acute new gross focal sensory motor deficits. As noted deaf and mute but with the mechanical design engineer is an excellent historian - Labs CBC & Chem 7: 08/09/16 07:38 08/09/16 07:38 Labs: Abnormal Lab Results - Last 24 Hours (Table) 08/08/16 08/09/16 08/09/16 Range/Units 20:50 07:06 07:38 MCV 100.1 H (80.0-100.0) fL MCHC 30.5 L (31.0-37.0) g/dL BUN (7-17) mg/dL Glucose (74-99) mg/dL POC Glucose (mg/dL) 217 H 131 H (75-99) mg/dL Total Bilirubin (0.2-1.3) mg/dL AST (14-36) U/L ALT (9-52) U/L Alkaline Phosphatase (38-126) U/L Albumin (3.5-5.0) g/dL 08/09/16 08/09/16 08/09/16 Range/Units 07:38 12:20 17:43 MCV (80.0-100.0) fL MCHC (31.0-37.0) g/dL BUN 6 L (7-17) mg/dL Glucose 146 H (74-99) mg/dL POC Glucose (mg/dL) 131 H 121 H (75-99) mg/dL Total Bilirubin 3.3 H (0.2-1.3) mg/dL AST 89 H (14-36) U/L ALT 144 H (9-52) U/L Alkaline Phosphatase 342 H (38-126) U/L Albumin 2.9 L (3.5-5.0) g/dL Laboratory Results WBC 5.3 k/uL (3.8-10.6) 08/09/16 07:38 RBC 4.13 m/uL (3.80-5.40) 08/09/16 07:38 Hgb 12.6 gm/dL (11.4-16.0) 08/09/16 07:38 Hct 41.3 % (34.0-46.0) 08/09/16 07:38 MCV 100.1 fL (80.0-100.0) H 08/09/16 07:38 MCH 30.6 pg (25.0-35.0) 08/09/16 07:38 MCHC 30.5 g/dL (31.0-37.0) L 08/09/16 07:38 RDW 14.2 % (11.5-15.5) 08/09/16 07:38 Plt Count 262 k/uL (150-450) 08/09/16 07:38 Neutrophils % 64 % 08/09/16 07:38 Lymphocytes % 23 % 08/09/16 07:38 Monocytes % 7 % 08/09/16 07:38 Eosinophils % 3 % 08/09/16 07:38 Basophils % 1 % 08/09/16 07:38 Neutrophils # 3.4 k/uL (1.3-7.7) 08/09/16 07:38 Lymphocytes # 1.2 k/uL (1.0-4.8) 08/09/16 07:38 Monocytes # 0.4 k/uL (0-1.0) 08/09/16 07:38 Eosinophils # 0.1 k/uL (0-0.7) 08/09/16 07:38 Basophils # 0.1 k/uL (0-0.2) 08/09/16 07:38 Manual Slide Review Performed 08/08/16 16:07 Large Platelets Present 08/08/16 16:07 Hypochromasia Slight 08/09/16 07:38 Macrocytosis Slight 08/09/16 07:38 Target Cells Present 08/08/16 16:07 PT 10.2 sec (9.0-12.0) 08/06/16 11:20 INR 1.0 (<1.1) 08/06/16 11:20 APTT 22.1 sec (22.0-30.0) 08/06/16 11:20 Sodium 141 mmol/L (137-145) 08/09/16 07:38 Potassium 4.3 mmol/L (3.5-5.1) 08/09/16 07:38 Chloride 104 mmol/L (98-107) 08/09/16 07:38 Carbon Dioxide 26 mmol/L (22-30) 08/09/16 07:38 Anion Gap 11 mmol/L 08/09/16 07:38 BUN 6 mg/dL (7-17) L 08/09/16 07:38 Creatinine 0.64 mg/dL (0.52-1.04) 08/09/16 07:38 Est GFR (MDRD) Af Amer >60 (>60 ml/min/1.73 sqM) 08/09/16 07:38 Est GFR (MDRD) Non-Af >60 (>60 ml/min/1.73 sqM) 08/09/16 07:38 Glucose 146 mg/dL (74-99) H 08/09/16 07:38 POC Glucose (mg/dL) 121 mg/dL (75-99) H 08/09/16 17:43 POC Glu [employer] ID 08/09/16 17:[address] Glu mg/dL 214 mg/dL 08/06/16 11:20 Hemoglobin A1c 9.1 % (4.2-6.1) H 08/06/16 11:20 Calcium 9.1 mg/dL (8.4-10.2) 08/09/16 07:38 Magnesium 1.9 mg/dL (1.6-2.3) 08/06/16 11:20 Total Bilirubin 3.3 mg/dL (0.2-1.3) H 08/09/16 07:38 Conjugated Bilirubin 4.0 mg/dL (0.0-0.3) H 08/06/16 11:20 Unconjugated Bilirubin 1.0 mg/dL (0.0-1.1) 08/06/16 11:20 Delta Bilirubin 2.8 mg/dL (0.0-0.2) H 08/06/16 11:20 GGT 499 U/L (12-43) H 08/06/16 11:20 AST 89 U/L (14-36) H 08/09/16 07:38 ALT 144 U/L (9-52) H 08/09/16 07:38 Alkaline Phosphatase 342 U/L (38-126) H 08/09/16 07:38 Ammonia <9 umol/L (<30) 08/06/16 11:20 Total Protein 6.6 g/dL (6.3-8.2) 08/09/16 07:38 Albumin 2.9 g/dL (3.5-5.0) L 08/09/16 07:38 Amylase <30 U/L (30-110) L 08/06/16 11:20 Lipase 37 U/L (23-300) 08/06/16 11:20 Urine Color Dark Yellow 08/06/16 14:35 Urine Appearance Clear (Clear) 08/06/16 14:35 Urine pH 6.0 (5.0-8.0) 08/06/16 14:35 Ur Specific Trinity 1.020 (1.001-1.035) 08/06/16 14:35 Urine Protein Trace (Negative) H 08/06/16 14:35 Urine Glucose (UA) 4+ (Negative) H 08/06/16 14:35 Urine Ketones 1+ (Negative) H 08/06/16 14:35 Urine Blood Negative (Negative) 08/06/16 14:35 Urine Nitrate Negative (Negative) 08/06/16 14:35 Urine Bilirubin 2+ (Negative) H 08/06/16 14:35 Urine Urobilinogen 2.0 mg/dL (<2.0) 08/06/16 14:35 Ur Leukocyte Esterase Moderate (Negative) H 08/06/16 14:35 Urine RBC 1 /hpf (0-5) 08/06/16 14:35 Urine WBC 15 /hpf (0-5) H 08/06/16 14:35 Ur Squamous Epith Cells 1 /hpf (0-4) 08/06/16 14:35 Urine Bacteria Rare /hpf (None) H 08/06/16 14:35 Urine Mucus Rare /hpf (None) H 08/06/16 14:35 Microbiology 08/06/16 11:20 Blood Blood Culture Gram Stain - Final 08/06/16 11:20 Blood Blood Culture - Final Escherichia coli 08/06/16 14:35 Urine,Clean Catch Urine Culture - Final Strep agalactiae - (group b) 08/06/16 11:20 Blood Blood Culture - Preliminary Assessment and Plan (1) Jaundice Status: Acute (2) Gram negative sepsis Narrative/Plan: 66-year-old woman with a history of cholelithiasis. She had a cholecystectomy but had significant complications and requires what appears to be have had a hepaticojejunostomy.. She has been seen by gastroenterology with concerns with potential stricture of the site. Infectious disease consult regarding the significant sepsis that she is suffering from. She is evidence of gram-negative bacteria in her blood at this point in time await identification. Given biliary tract origination piperacillin tazobactam is being utilized pending further cultures and vancomycin was discontinued. The culture is finalized to Escherichia coli. It is quinolone resistant. It is also trimethoprim sulfamethoxazole resistant. Depending on the findings of the MRCP determine the need for intravenous antibiotic therapy at home and the potential need for further surgical intervention. Follow up blood cultures have been requested Ongoing supportive care Patient has had a marked improvement of her status with hydration and supportive care. She's being followed by gastroenterology after her computed tomography scan and ultrasound, neither have shown significant obstruction. However she could have had a small biliary stone that caused some obstruction that is now relieved. Fortunately she is improving. She's having some mild right flank pain likely related to the current infection. MRCP will be helpful in determining further evidence of blockage. Status: Acute (3) Biliary obstruction Status: Acute
--- NOTE | 2016-08-09 21:04 | MR ---
"EXAMINATION TYPE: MR MRCP DATE OF EXAM: 08/09/2016 5:55 PM COMPARISON: CT abdomen and pelvis August 07, 2016 HISTORY: Abd pain, jaundice. History of hepatocolic jejunostomy per order and 2014. Standard multiplanar, multisequence MRI departmental protocol. Thin and thick slice MRCP imaging is a cquired without contrast. Imaging of the abdomen focusing on the liver pancreas and biliary system is performed. FINDINGS: Exam is noted suboptimal as patient is deaf and thus cannot cooperate with MRI audible inst ructions. LIVER/GB/PANCREAS/BILIARY SYSTEM: Liver is normal to somewhat small in size. No suspicious solid or c ystic intrahepatic mass is identified. Pancreas is felt within normal limits. Gallbladder is not iden tified and presumed surgically absent. Surgical clips anterior to left lobe of liver seen better on C T. There is no pancreatic ductal dilatation. There is no central intrahepatic or extrahepatic biliary dilatation. Portions of bile duct are obscur ed possibly by overlying artifact particularly near milli hepatis. There is suggestion of a round les ion at this level on CT coronal image 40 just inferior to the main portal vein. It however is not cau sing significant biliary dilatation. Consider focal blood clot as is soft tissue density on CT. Bile duct distal to this shows no suspicious dilatation with better filling to the ampulla on MRCP imaging . There may be additional filling defect left central intrahepatic portal vein on image 34 series 901 . Seen better on recent CT there is pneumobilia. There is also clot suspected in the main and right por juana vein branches. OTHER: Heart size is upper limits of normal. No pleural or pericardial effusion is seen. Spleen and both adrenal glands are normal in size and appear grossly unremarkable. There is no suspicious small or large bowel dilatation. Visualized portion of kidneys is felt within normal limits. There is promi nent hemangioma at left L3 vertebral body level. There is overall heterogeneity of bone marrow signal intensity. There is no suspicious abdominal fluid collection. No concerning abdominal adenopathy is seen. IMPRESSION: Suboptimal study, there is suggestion of possible filling defects in the biliary system near the leve l of milli hepatis but no suspicious intrahepatic or extra hepatic biliary dilatation. Consider blood clots and fungal balls as possible etiologies. Consider ERCP correlation. Pneumobilia is noted. More importantly partial occlusive thrombus in the main and right portal vein branches is suspected, lena ot exclude linear clot extending into intrahepatic IVC on CT imaging. A Yellow message has been communicated to Kinza Rubio via the [employer] [facility] | Critical Result syst em on 08/09/2016 9:01 PM, Message ID [id number]."
[2016-08-09 21:08] LABS: Glucose,Whole Blood 214 mg/dL (75-99)
[2016-08-09] MEDS: HEPARIN SODIUM,PORCINE 5,000 UNIT/ML 1 ML VIAL SQ SCH (21:14)
[2016-08-09] MEDS: ZOLPIDEM 5 MG TAB PO PRN (21:21)
[2016-08-10] MEDS: PIPERACILLIN-TAZOBACTAM 3.375 GM in DEXTROSE/WATER 1 50ML.BAG IVPB SCH ×3 (01:00→17:13)
[2016-08-10 07:23] LABS: Glucose,Whole Blood 131 mg/dL (75-99)
[2016-08-10 07:36] VITALS: RESP 18
[2016-08-10] MEDS: INSULIN LISPRO (humaLOG) 300 UNIT/3 ML VIAL SQ SCH ×3 (07:43→17:44)
[2016-08-10] MEDS: ASPIRIN 81 MG CHEW PO SCH (07:43)
[2016-08-10] MEDS: URSODIOL 300 MG CAP PO SCH (07:43)
[2016-08-10] MEDS: HEPARIN SODIUM,PORCINE 5,000 UNIT/ML 1 ML VIAL SQ SCH (07:43)
[2016-08-10 10:13] LABS: Basophils % (A) 1 %; CH 30.9; CHCM 31.1; Eosinophils # (A) 0.1 k/uL (0-0.7); Eosinophils % (A) 3 %; HCT 42.1 % (34.0-46.0); HDW 2.41; HGB 13.2 gm/dL (11.4-16.0); Hypochromasia Slight; Luc % (Auto) 3; Lymphocytes # (A) 0.7 k/uL (1.0-4.8); Lymphocytes % (A) 19 %; MCH 31.2 pg (25.0-35.0); MCHC 31.2 g/dL (31.0-37.0); Macrocytosis Slight; Mean Platelet Volume 8.3; Monocytes # (A) 0.2 k/uL (0-1.0); Monocytes % (A) 6 %; Neutrophils # (A) 2.7 k/uL (1.3-7.7); Neutrophils % (A) 70 %; RBC 4.21 m/uL (3.80-5.40); RDW 14.4 % (11.5-15.5); WBC 3.9 k/uL (3.8-10.6); WBC (Perox) 4.15
--- NOTE | 2016-08-10 10:20 | P.PN ---
Subjective Principal diagnosis: Jaundice 66-year-old female admitted with E. coli bacteremia with a history of hepaticojejunostomy 2 years ago secondary to complicated cholecystectomy with CBD injury. MRCP yesterday reported possible filling defect in the biliary system near the level of milli hepatis without intra-or extrahepatic biliary dilatation. Blood clots and fungal balls as possible etiology. Partial occlusive thrombus in the main and right portal vein branches suspected, could not exclude linear clot extending into the intrahepatic IVC. Resting comfortably. Presently denies abdominal pain. Afebrile. White count 3.9. Objective - Vital Signs Vital signs: Vital Signs Temp 97.7 F 08/10/16 07:00 Pulse 82 08/10/16 07:00 Resp 18 08/10/16 07:00 BP 126/78 08/10/16 07:00 Pulse Ox 96 08/10/16 07:00 Intake & Output 08/09/16 08/10/16 08/10/16 18:59 06:59 18:59 Other: Voiding Method Toilet # Voids 2 3 # Bowel Movements 0 - Exam General appearance: The patient is alert, oriented, in no acute distress. Deaf. Capacity Analyst at bedside. HET: Head is normocephalic and atraumatic. Pupils are equal and reactive. Oropharynx is clear without lesions. Neck: Supple without lymphadenopathy. Trachea midline. Heart: S1 S2. Regular rate and rhythm. Lungs: No crackles or wheezes are heard. Abdomen: Soft, nontender, nondistended with bowel sounds. No peritoneal signs. No palpable organomegaly or masses. Extremities: Normal skin color and turgor. No cyanosis, rash, ulceration, clubbing, or edema. Radial and pedal pulses are 2/4 bilaterally. Neurological: No focal deficits. Strength and sensation are grossly intact. - Labs CBC & Chem 7: 08/10/16 09:20 08/09/16 07:38 Labs: Abnormal Lab Results - Last 24 Hours (Table) 08/09/16 08/09/16 08/09/16 Range/Units 12:20 17:43 21:06 Lymphocytes # (1.0-4.8) k/uL POC Glucose (mg/dL) 131 H 121 H 214 H (75-99) mg/dL 08/10/16 08/10/16 Range/Units 07:17 09:20 Lymphocytes # 0.7 L (1.0-4.8) k/uL POC Glucose (mg/dL) 131 H (75-99) mg/dL Microbiology - Last 24 Hours (Table) 08/09/16 07:38 Blood Culture - Preliminary Blood No Growth after 24 hours Assessment and Plan Plan: Impression: 1. E. coli bacteremia with MRCP reporting possible filling defect in the biliary system to the level of milli hepatis without extra or intrahepatic biliary dilatation. Possible blood clots and fungal balls as possible etiologies. Partial occlusive thrombus in the main and right portal vein branches suspected cannot exclude a linear clot extending into intrahepatic IVC. 2. History of complicated cholecystectomy with CBD injury with hepaticojejunostomy 2 years ago at [facility]. 3. Jaundice with elevated transaminases and hyperbilirubinemia. Plan: 1. Case was discussed with Dr. Peterson infectious disease. MRCP findings were reviewed together. Recommend transfer to tertiary care center; [facility] for further evaluation and care. Patient and her sister were updated with MRCP findings and GI recommendations; they are agreeable with plan of care and transfer. Continue supportive measures and antibiotics. Assessment and plan a care discussed with Dr. Rubio.
[2016-08-10 10:34] LABS: Anion Gap 13 mmol/L; Blood Urea Nitrogen 9 mg/dL (7-17); Carbon Dioxide 23 mmol/L (22-30); Chloride 101 mmol/L (98-107); Glucose 300 mg/dL (74-99); Magnesium 1.9 mg/dL (1.6-2.3); Non-African American GFR(MDRD) >60 (>60 ml/min/1.73 sqM); Phosphorous 3.5 mg/dL (2.5-4.5); Potassium 4.4 mmol/L (3.5-5.1); Sodium 137 mmol/L (137-145)
[2016-08-10] MEDS ORDERED: HEPARIN SODIUM,PORCINE/D5W PMX 25,000 UNIT in DEXTROSE/WATER 1 500ML.BAG IV SCH (11:15)
--- NOTE | 2016-08-10 12:44 | P.DS ---
Providers Date of admission: 08/06/16 12:37 Expected date of discharge: 08/10/16 Attending physician: Latoya Cr Consults: 08/08/16 14:58 Consult Physician Routine Consulting Provider: Delroy Peterson Consult Reason/Comments: sepsis Do you want consulting provider notified?: Yes Primary care physician: [facility] Course: This is a 66-year-old very pleasant and legally deaf female with past medical history detailed in her chart significant for prior cholecystectomy in September 2013 at [facility] for her on that was complicated and subsequently patient was transferred to [facility] where she underwent hepatic jejunostomy. Patient has been doing fairly well since then. She presented to the emergency room said that her primary care physician with concerns about possible UTI as she was having problem with foul-smelling and dark urine. Patient was evaluated in the emergency room and was found to be septic. Initial bilirubin was noted to be 7.8. Patient remained hemodynamically stable. She was started on broad-spectrum antibiotic with suspected ascending cholangitis. Patient underwent computed tomography scan of the abdomen and ultrasound of the liver in the emergency room that were nonremarkable. She was admitted and was seen and evaluated by GI. MRCP was done showing findings suspicious for portal vein thrombosis. Or so filling defects noted within the biliary system with blood clots and fungal ball in the differential. Portal vein ultrasound ordered awaiting report. Patient was started on anticoagulation with IV heparin. ERCP recommended for direct visualization but given the complexity of her anatomy patient will be transferred to [facility] for GI and possibly surgery evaluation. Patient has improved clinically throughout her hospital stay. She does not have any abdominal pain. She is able to tolerate diet with no difficulty. Below is a list of her medical problems 1. Suspected cholangitis on presentation 2. E. coli bacteremia: Repeat blood cultures are negative 3. Suspected portal vein thrombosis 4. Prior cholecystectomy with hepatojejunostomy in September 2013 5. Bilateral hearing loss/legally deaf Patient Condition at Discharge: Stable Plan - Discharge Summary Discharge Medication List Aspirin [Adult Low Dose Aspirin EC] 81 mg PO QAM 07/22/15 [History] Calcium Carbonate/Vitamin D3 [Os-T[place] 500+D3 Caplet] 1 tab PO DAILY 08/22/15 [ History] Ursodiol 300 mg PO DAILY 08/22/15 [History] Multivits-Min/Iron/FA/Lutein [Centrum Silver Women Tablet] 1 tab PO DAILY [History] glipiZIDE [Glipizide ER] 5 mg PO W/BRKFST 08/06/16 [History] Follow up Appointment(s)/Referral(s): Capri Post MD [Primary Care Provider] - 1-2 days [facility], [NON-STAFF] - Patient Instructions/Handouts: Type 2 Diabetes in Adults (DC)
[2016-08-10 13:00] LABS: Glucose,Whole Blood 175 mg/dL (75-99)
[2016-08-10] MEDS: MULTIVITAMINS, THERA 1 EACH TAB PO SCH (13:04)
[2016-08-10] MEDS: CALCIUM CARB-VIT D 500MG-200UN 1 EACH TAB PO SCH (13:04)
--- NOTE | 2016-08-10 13:12 | US ---
EXAMINATION TYPE: US portal vein DATE OF EXAM: 08/10/2016 12:44 PM COMPARISON: NONE CLINICAL HISTORY: VTE?. Gb removed and bypass to liver in 09/2013 EXAM MEASUREMENTS: Liver Length: 13.0 cm Gallbladder Wall: surgically removed CBD: 0.3 cm Right Kidney: 9.1 x 4.6 x 4.0 cm TECHNOLOGIST IMPRESSION: Limited exam. Occlusion not seen on ultrasound from previous MR study due to small vessel Pancreas: Obscured by bowel gas. Liver: Homogeneous without mass. Color flow patency within the portal vein: yes Portal Vein Flow: Hepatopetal grade portal vein appears patent. Gallbladder: Surgically removed CBD: wnl Right Kidney: wnl Ascites noted? No IMPRESSION: 1. Portal vein demonstrates hepatopedal flow. Areas suspicious for filling defect and portal vein thr ombus on the MRI is not well seen by ultrasound.
[2016-08-10 14:42] VITALS: BP 118/64; PULSE 65; TEMP 97
[2016-08-10 17:17] LABS: Glucose,Whole Blood 154 mg/dL (75-99)
[2016-08-10] MEDS: IBUPROFEN 200 MG TAB PO PRN (17:44)
--- NOTE | 2016-08-10 23:22 | P.PN ---
Subjective Principal diagnosis: Jaundice 66-year-old female presents to Hospital after being noted to have difficulties with jaundice without significant pain. This pleasant woman does have a history of being deaf and mute and has a instructor industrial design present to help with the evaluation. She relates that she' s feeling better evidence since coming to hospital. She relates that in the days before coming to hospital she wasn't feeling well. Increasing fatigue and malaise. She had some epigastric discomfort that was associated with nausea and emesis. Her urine was dark. She had not had high- grade fever, chills or rigors. The was feeling considerably worse. In 2013 she has a history of significant cholelithiasis and underwent surgical resection by Dr. Griffin at [facility]. She over had complications required care and further surgery at the [facility] She did have a biliary bypass performed. She had a protracted hospitalization at that time. But has done well since. No difficulties with her gastrointestinal system or jaundice until the onset of the current illness. She is noted to have recent diagnosis of diabetes and was started on glipizide and follow blood work was showing the increasing liver function tests. And now is hospitalized. Patient denies other acute changes. Her pain is improved tonight. She is not having fever, chills or rigors. Has had MRCP with abnormality to the hepatic veins with clot Objective - Vital Signs Vital signs: Vital Signs Temp 97.0 F L 08/10/16 14:42 Pulse 65 08/10/16 14:42 Resp 18 08/10/16 14:42 BP 118/64 08/10/16 14:42 Pulse Ox 96 08/10/16 14:42 Intake & Output 08/10/16 08/10/16 08/11/16 06:59 18:59 06:59 Intake Total 500 Balance 500 Intake: Oral 500 Other: # Voids 3 3 # Bowel Movements 0 - Exam Pleasant 62 for a woman who is in no gwendolyn distress. HEENT: Sclera still mildly icteric, conjunctiva are pink and moist nasal mucosa grossly intact without significant lesions, there is no thrush. Neck: The neck is supple without significant lymphadenopathy or thyromegaly. Lungs: Good bilateral air entry without significant crackles or wheezing. There is no significant bronchial sounds. There is no egophony or dullness. Heart: Regular rate and rhythm with an audible S1-S2, no S3 no S4. There is no significant murmur click or rub, PMI was nondisplaced. Abdomen: Positive bowel sounds soft without palpable masses or organomegaly. There was no guarding or rebound. The tenderness on the right flank is almost completely resolved, no bruising or ecchymosis is noted in the region. Extremities: The upper extremities have excellent pulses they are symmetric, no significant petechiae or telangiectasia. No splinter hemorrhages were noted. The lower extremities are free from significant edema. The peripheral pulses were 2+ and symmetric. Neuro: Awake alert oriented to person place and time. There are no acute new gross focal sensory motor deficits. As noted deaf and mute but with the instructor industrial design is an excellent historian - Labs CBC & Chem 7: 08/10/16 09:20 08/10/16 09:20 Labs: Abnormal Lab Results - Last 24 Hours (Table) 08/10/16 08/10/16 08/10/16 Range/Units 07:17 09:20 09:20 Lymphocytes # 0.7 L (1.0-4.8) k/uL Glucose 300 H (74-99) mg/dL POC Glucose (mg/dL) 131 H (75-99) mg/dL 08/10/16 08/10/16 Range/Units 12:58 17:15 Lymphocytes # (1.0-4.8) k/uL Glucose (74-99) mg/dL POC Glucose (mg/dL) 175 H 154 H (75-99) mg/dL Microbiology - Last 24 Hours (Table) 08/09/16 08:02 Blood Culture - Preliminary Blood No Growth after 24 hours 08/09/16 07:38 Blood Culture - Preliminary Blood No Growth after 24 hours Laboratory Results WBC 3.9 k/uL (3.8-10.6) 08/10/16 09:20 RBC 4.21 m/uL (3.80-5.40) 08/10/16 09:20 Hgb 13.2 gm/dL (11.4-16.0) 08/10/16 09:20 Hct 42.1 % (34.0-46.0) 08/10/16 09:20 MCV 100.0 fL (80.0-100.0) 08/10/16 09:20 MCH 31.2 pg (25.0-35.0) 08/10/16 09:20 MCHC 31.2 g/dL (31.0-37.0) 08/10/16 09:20 RDW 14.4 % (11.5-15.5) 08/10/16 09:20 Plt Count 297 k/uL (150-450) 08/10/16 09:20 Neutrophils % 70 % 08/10/16 09:20 Lymphocytes % 19 % 08/10/16 09:20 Monocytes % 6 % 08/10/16 09:20 Eosinophils % 3 % 08/10/16 09:20 Basophils % 1 % 08/10/16 09:20 Neutrophils # 2.7 k/uL (1.3-7.7) 08/10/16 09:20 Lymphocytes # 0.7 k/uL (1.0-4.8) L 08/10/16 09:20 Monocytes # 0.2 k/uL (0-1.0) 08/10/16 09:20 Eosinophils # 0.1 k/uL (0-0.7) 08/10/16 09:20 Basophils # 0.0 k/uL (0-0.2) 08/10/16 09:20 Manual Slide Review Performed 08/08/16 16:07 Large Platelets Present 08/08/16 16:07 Hypochromasia Slight 08/10/16 09:20 Macrocytosis Slight 08/10/16 09:20 Target Cells Present 08/08/16 16:07 PT 10.2 sec (9.0-12.0) 08/06/16 11:20 INR 1.0 (<1.1) 08/06/16 11:20 APTT 22.1 sec (22.0-30.0) 08/06/16 11:20 Sodium 137 mmol/L (137-145) 08/10/16 09:20 Potassium 4.4 mmol/L (3.5-5.1) 08/10/16 09:20 Chloride 101 mmol/L (98-107) 08/10/16 09:20 Carbon Dioxide 23 mmol/L (22-30) 08/10/16 09:20 Anion Gap 13 mmol/L 08/10/16 09:20 BUN 9 mg/dL (7-17) 08/10/16 09:20 Creatinine 0.72 mg/dL (0.52-1.04) 08/10/16 09:20 Est GFR (MDRD) Af Amer >60 (>60 ml/min/1.73 sqM) 08/10/16 09:20 Est GFR (MDRD) Non-Af >60 (>60 ml/min/1.73 sqM) 08/10/16 09:20 Glucose 300 mg/dL (74-99) H 08/10/16 09:20 POC Glucose (mg/dL) 154 mg/dL (75-99) H 08/10/16 17:15 POC Glu Celery Wrapper ID Catherine Sheeahn 08/10/16 17:[address] Glu mg/dL 214 mg/dL 08/06/16 11:20 Hemoglobin A1c 9.1 % (4.2-6.1) H 08/06/16 11:20 Calcium 9.0 mg/dL (8.4-10.2) 08/10/16 09:20 Phosphorus 3.5 mg/dL (2.5-4.5) 08/10/16 09:20 Magnesium 1.9 mg/dL (1.6-2.3) 08/10/16 09:20 Total Bilirubin 3.3 mg/dL (0.2-1.3) H 08/09/16 07:38 Conjugated Bilirubin 4.0 mg/dL (0.0-0.3) H 08/06/16 11:20 Unconjugated Bilirubin 1.0 mg/dL (0.0-1.1) 08/06/16 11:20 Delta Bilirubin 2.8 mg/dL (0.0-0.2) H 08/06/16 11:20 GGT 499 U/L (12-43) H 08/06/16 11:20 AST 89 U/L (14-36) H 08/09/16 07:38 ALT 144 U/L (9-52) H 08/09/16 07:38 Alkaline Phosphatase 342 U/L (38-126) H 08/09/16 07:38 Ammonia <9 umol/L (<30) 08/06/16 11:20 Total Protein 6.6 g/dL (6.3-8.2) 08/09/16 07:38 Albumin 2.9 g/dL (3.5-5.0) L 08/09/16 07:38 Amylase <30 U/L (30-110) L 08/06/16 11:20 Lipase 37 U/L (23-300) 08/06/16 11:20 Urine Color Dark Yellow 08/06/16 14:35 Urine Appearance Clear (Clear) 08/06/16 14:35 Urine pH 6.0 (5.0-8.0) 08/06/16 14:35 Ur Specific Marion 1.020 (1.001-1.035) 08/06/16 14:35 Urine Protein Trace (Negative) H 08/06/16 14:35 Urine Glucose (UA) 4+ (Negative) H 08/06/16 14:35 Urine Ketones 1+ (Negative) H 08/06/16 14:35 Urine Blood Negative (Negative) 08/06/16 14:35 Urine Nitrate Negative (Negative) 08/06/16 14:35 Urine Bilirubin 2+ (Negative) H 08/06/16 14:35 Urine Urobilinogen 2.0 mg/dL (<2.0) 08/06/16 14:35 Ur Leukocyte Esterase Moderate (Negative) H 08/06/16 14:35 Urine RBC 1 /hpf (0-5) 08/06/16 14:35 Urine WBC 15 /hpf (0-5) H 08/06/16 14:35 Ur Squamous Epith Cells 1 /hpf (0-4) 08/06/16 14:35 Urine Bacteria Rare /hpf (None) H 08/06/16 14:35 Urine Mucus Rare /hpf (None) H 08/06/16 14:35 Microbiology 08/09/16 08:02 Blood Blood Culture - Preliminary No Growth after 24 hours 08/09/16 07:38 Blood Blood Culture - Preliminary No Growth after 24 hours 08/06/16 11:20 Blood Blood Culture Gram Stain - Final 08/06/16 11:20 Blood Blood Culture - Final Escherichia coli 08/06/16 14:35 Urine,Clean Catch Urine Culture - Final Strep agalactiae - (group b) 08/06/16 11:20 Blood Blood Culture - Preliminary Assessment and Plan (1) Jaundice Status: Acute (2) Gram negative sepsis Narrative/Plan: 66-year-old woman with a history of cholelithiasis. She had a cholecystectomy but had significant complications and requires what appears to be have had a hepaticojejunostomy.. She has been seen by gastroenterology with concerns with potential stricture of the site. Infectious disease consult regarding the significant sepsis that she is suffering from. She is evidence of gram-negative bacteria in her blood at this point in time await identification. Given biliary tract origination piperacillin tazobactam is being utilized pending further cultures and vancomycin was discontinued. The culture is finalized to Escherichia coli. It is quinolone resistant. It is also trimethoprim sulfamethoxazole resistant. Depending on the findings of the MRCP determine the need for intravenous antibiotic therapy at home and the potential need for further surgical intervention. Follow up blood cultures have been requested Ongoing supportive care Patient has had a marked improvement of her status with hydration and supportive care. She's being followed by gastroenterology after her computed tomography scan and ultrasound, neither have shown significant obstruction. Fortunately she is improving. She's having some mild right flank pain likely related to the current infection. MRCP Reveal evidence of clot within the hepatic veins. This is a great significance given her E. coli bacteremia and gwendolyn jaundice at admission. Given her history of prior surgical intervention arrangements are being made for her to be transferred to [facility] for reevaluation by her surgeons from her prior hepaticojejunostomy. Status: Acute (3) Biliary obstruction Status: Acute
== END 2016-08-10 19:45 | disposition short-term general hospital (02) | DRG 872 ==
LOC: EC 10:22 → 4MS4W 12:37
PROVIDERS: ADMIT Internal Medicine; ATTEND Internal Medicine
DX: A41.51 Sepsis due to Escherichia coli [E. coli] (principal); K83.0 Cholangitis; K76.0 Fatty (change of) liver, not elsewhere classified; E11.9 Type 2 diabetes mellitus without complications; E78.5 Hyperlipidemia, unspecified; Z87.891 Personal history of nicotine dependence; H91.93 Unspecified hearing loss, bilateral; H91.90 Unspecified hearing loss, unspecified ear; Z79.82 Long term (current) use of aspirin; Z86.73 Personal history of transient ischemic attack (TIA), and cerebral infarction without residual deficits; Z82.3 Family history of stroke; Z90.49 Acquired absence of other specified parts of digestive tract; Z79.4 Long term (current) use of insulin
CPT/HCPCS: 36415; 71020; 74000; 74177; 74181; 76700; 80048; 80053; 81001; 82140; 82150; 82248; 82977; 83036; 83690; 83735; 84100; 85025; 85610; 85730; 87040; 87077; 87086; 87186; 93976; 96360; 96361; 99285

== ENCOUNTER → 2017-01-18 | Outpatient (CLI) | payer MEDICARE, OTHER ==
--- NOTE | 2017-01-18 08:53 | US ---
EXAMINATION TYPE: US abdomen limited DATE OF EXAM: 01/18/2017 COMPARISON: 08/07/2016 CLINICAL HISTORY: 66-year-old female R74.8 elevated liver enzymes R17 jaundice. GB removed September 2015 . TECHNIQUE: Multiple sonographic images of the right upper quadrant are obtained. FINDINGS: Liver Length: 12.1 cm CBD: 0.5 cm Right Kidney: 10.2 x 4.1 x 4.2 cm Pancreas: Obscured by bowel gas. Only a small portion of the pancreatic neck and distal body is seen . Liver: No focal lesion. There is branching echogenicity along the milli hepatic biliary tree. Gallbladder: Surgically absent Evidence for sonographic Jacob's sign: neg CHD: wnl Right Kidney: No hydronephrosis IMPRESSION: 1. Branching pattern of echogenicity within the central liver. Findings are suggestive of pneumobilia as seen on prior CT. 2. Status post cholecystectomy. No biliary ductal dilatation. 3. Suboptimal visualization of the pancreas.
== END | disposition home or self-care (01) ==
LOC: RADUSWWP 06:42
PROVIDERS: ATTEND Family Medicine
DX: K76.9 Liver disease, unspecified (principal); R74.8 Abnormal levels of other serum enzymes; Z90.49 Acquired absence of other specified parts of digestive tract
CPT/HCPCS: 76705

== ENCOUNTER 2017-03-07 14:18 | Inpatient (IN) | payer MEDICARE, OTHER ==
[2017-03-07] MEDS ORDERED: HYDROcodone/APAP 5-325MG 1 EACH TAB PO STA (16:14)
--- NOTE | 2017-03-07 16:26 | ED ---
General Adult HPI - General Chief complaint: Back Pain/Injury Stated complaint: back pain Time Seen by Provider: 03/07/17 15:58 Source: patient, family, RN notes reviewed Mode of arrival: wheelchair Limitations: no limitations, language barrier - History of Present Illness Initial comments: Chief complaint history of present illness a 66-year-old female here with her brother. The patient's he uses sign language to communicate. He states 1 week ago she started having pain he went over to assess she lives across the street from them. She was on the floor. She denies falling or injuring herself. Throughout the week or pains become persistently worse. She does have an appointment to follow-up with a family physician tomorrow but she needed to come today because of the discomfort. Patient points to the right paralumbar region into the right buttock area. She indicates through him by translation and sign language that she did not fall. No bruising noted in the area. - Related Data Home Medications Medication Instructions Recorded Confirmed Calcium Carbonate/Vitamin D3 1 tab PO DAILY 08/22/15 03/07/17 [[place] 500+D3 Caplet] Ursodiol 300 mg PO DAILY 08/22/15 03/07/17 Multivitamins, Thera [Multivitamin 1 tab PO DAILY 03/07/17 03/07/17 (formulary)] Omeprazole [PriLOSEC] 40 mg PO BID 03/07/17 03/07/17 Allergies Allergy/AdvReac Type Severity Reaction Status Date / Time No Known Allergies Allergy Verified 03/07/17 15:59 Review of Systems ROS Statement: Those systems with pertinent positive or pertinent negative responses have been documented in the HPI. Review of systems she is not complaining of any headache chest pain shows breath GI/ problems. Her pain is the right paralumbar to the right buttock and hip area. Does not radiate past that. Again denies any direct injury or trauma. Brother reports that she's never had lumbar pain or sciatica in the past. He denies it denies any other significant medical problems. Past medical problems TIA from what she really covered. Non-insulin diabetes mellitus, patient is deaf. She has hyperlipidemia. Surgeries cholecystectomy in September 2014. Family history noncontributory no known ALLERGIES. The patient quit smoking denies alcohol use ROS Other: All systems not noted in ROS Statement are negative. Past Medical History Past Medical History: CVA/TIA, Diabetes Mellitus, Hearing Disorder / Deafness, Hyperlipidemia Additional Past Medical History / Comment(s): Pt is deaf-understands ASL and some lip reading, CVA residual "memory loss"; NIDDM type II. History of Any Multi-Drug Resistant Organisms: None Reported Past Surgical History: Cholecystectomy Additional Past Surgical History / Comment(s): september- gallbladder removed , bypass of liver duct/stent done at [facility], left carotid endarterectomy September 2014 , colonoscopy. Past Anesthesia/Blood Transfusion Reactions: No Reported Reaction Past Psychological History: Anxiety Smoking Status: Former smoker Past Alcohol Use History: None Reported Past Drug Use History: None Reported - Past Family History Brother(s) Family Medical History: CVA/TIA Mother Family Medical History: Memory Impairment Additional Family Medical History / Comment(s): "Alzheimer's". Mother is . Father Family Medical History: No Reported History Additional Family Medical History / Comment(s): Father is 93 yrs old. General Exam - General Exam Comments Initial Comments: General: The patient is awake and alert, planes still complains of pain to the right lumbar to the right hip area. Vital signs temperature 97.3 pulse 72 respiratory rate 18 pulse ox 93% room air blood pressure 93/50 Eye: Pupils are equal, round and reactive to light, extra-ocular movements are intact ; there is normal conjunctiva bilaterally. No signs of icterus. Ears, nose, mouth and throat: There are moist mucous membranes and no oral lesions. Patient is edentulous. Neck: The neck is supple, there is no tenderness Cardiovascular: There is a regular rate and rhythm. No murmur, rub or gallop is appreciated. Respiratory: Upper rales appreciated on auscultation, respirations are non-labored, Gastrointestinal: Soft, non-distended, non-tender abdomen without masses or organomegaly noted. Back: Pain for the right paralumbar region to the buttock the top of the posterior right thigh. No evidence of any bumps bruise injuries. Pain increases with active and passive range of motion. No evidence of any rash. Early shingles was discussed. Musculoskeletal: Right sciatica type distribution pain Neurological: Right paralumbar pain Skin: Skin is warm and dry and no rashes or lesions are noted. Limitations: no limitations, language barrier Course Vital Signs 03/07/17 03/07/17 03/07/17 14:58 16:31 18:50 Temperature 97.3 F L Pulse Rate 72 76 Respiratory 18 55 H 18 Rate Blood Pressure 93/50 109/60 91/49 O2 Sat by Pulse 93 L 95 95 Oximetry 03/07/17 20:10 Temperature 103.0 F H Pulse Rate 96 Respiratory 24 Rate Blood Pressure O2 Sat by Pulse 95 Oximetry Medical Decision Making - Medical Decision Making Medical decision making; the patient's labs show white count of 17.4 hemoglobin 11 hematocrit 36. Potassium is 4.6 with a BUN of 31 creatinine 0.6 GFR greater than 60. Glucose is elevated at 468. Total bilirubin mildly elevated 1.6, AST ALT mildly elevated. Acetone negative. Patient received IV fluids +5 units of insulin and a repeat Accu-Chek was 380. This will be checked hourly. X-ray of the lumbosacral spine were done and reviewed by radiologist findings include changes of osteomalacia the lumbar spine. No acute fracture seen. No significant change compared to computed tomography scan of 08/07/2016 Chest x-ray done 2 views reviewed by radiologist and his impression is there is mild coarsening of interstitial markings and more in the right middle lobe and lingual left upper lobe. There is some coalescent density in the anterior right middle lobe. There is no heart failure. There is no pleural effusion. Bones are osteopenic. Impression pulmonary fibrotic changes. Right middle lobe pneumonia compared to old exam. Atheromatous aorta. As read by Dr. Valenzuela X-rays of the pelvis is done and reviewed by radiologist his impression is the pelvic ring is intact. Proximal femurs and hip joints are intact. Sacroiliac joints appear normal. Impression negative pelvic x-ray exam. As read by Dr. Valenzuela Once the diagnosis of pneumonia was made by chest x-ray the patient was started on Levaquin. She the starting Levaquin the patient starting having shakes. Repeat temperature showed a fever to be 103. No ALLERGIES known. It is felt that the rigors were secondary to her fever. No rash, no difficulty breathing. Patient also receiving 750 bolus of fluid. Her initial vital signs show temperature 97.3 pulse 72 respiratory rate 18 pulse ox 93% room air blood pressure 93/50. Several hours after being here she started to have rigors her temperature was rechecked at 103 orally a heart rate of 100. Respiratory rate 20. Blood pressure better than upon arrival. The patient be admitted diagnosis of pneumonia and suspected sepsis. As well as uncontrolled diabetes. The patient will be admitted for Dr. Cr service - Lab Data Result diagrams: 03/07/17 17:27 03/07/17 17:27 Lab Results 03/07/17 03/07/17 03/07/17 Range/Units 17:27 17:27 18:22 WBC 17.4 H (3.8-10.6) k/uL RBC 3.73 L (3.80-5.40) m/uL Hgb 11.6 (11.4-16.0) gm/dL Hct 36.1 (34.0-46.0) % MCV 96.7 (80.0-100.0) fL MCH 31.2 (25.0-35.0) pg MCHC 32.2 (31.0-37.0) g/dL RDW 15.3 (11.5-15.5) % Plt Count 275 (150-450) k/uL Neutrophils % 91 % Lymphocytes % 4 % Monocytes % 3 % Eosinophils % 0 % Basophils % 0 % Neutrophils # 15.8 H (1.3-7.7) k/uL Lymphocytes # 0.7 L (1.0-4.8) k/uL Monocytes # 0.5 (0-1.0) k/uL Eosinophils # 0.0 (0-0.7) k/uL Basophils # 0.0 (0-0.2) k/uL Sodium 123 L (137-145) mmol/L Potassium 4.6 (3.5-5.1) mmol/L Chloride 96 L (98-107) mmol/L Carbon Dioxide 18 L (22-30) mmol/L Anion Gap 9 mmol/L BUN 31 H (7-17) mg/dL Creatinine 0.60 (0.52-1.04) mg/dL Est GFR (MDRD) Af Amer >60 (>60 ml/min/1.73 sqM) Est GFR (MDRD) Non-Af >60 (>60 ml/min/1.73 sqM) Glucose 468 H* (74-99) mg/dL POC Glucose (mg/dL) (75-99) mg/dL POC Glu Certified Registered Dental Assistant ID Calcium 8.8 (8.4-10.2) mg/dL Total Bilirubin 1.6 H (0.2-1.3) mg/dL AST 121 H (14-36) U/L ALT 82 H (9-52) U/L Alkaline Phosphatase 446 H (38-126) U/L Total Protein 6.2 L (6.3-8.2) g/dL Albumin 2.6 L (3.5-5.0) g/dL Acetone, Qual Negative (Negative) 03/07/17 Range/Units 19:32 WBC (3.8-10.6) k/uL RBC (3.80-5.40) m/uL Hgb (11.4-16.0) gm/dL Hct (34.0-46.0) % MCV (80.0-100.0) fL MCH (25.0-35.0) pg MCHC (31.0-37.0) g/dL RDW (11.5-15.5) % Plt Count (150-450) k/uL Neutrophils % % Lymphocytes % % Monocytes % % Eosinophils % % Basophils % % Neutrophils # (1.3-7.7) k/uL Lymphocytes # (1.0-4.8) k/uL Monocytes # (0-1.0) k/uL Eosinophils # (0-0.7) k/uL Basophils # (0-0.2) k/uL Sodium (137-145) mmol/L Potassium (3.5-5.1) mmol/L Chloride (98-107) mmol/L Carbon Dioxide (22-30) mmol/L Anion Gap mmol/L BUN (7-17) mg/dL Creatinine (0.52-1.04) mg/dL Est GFR (MDRD) Af Amer (>60 ml/min/1.73 sqM) Est GFR (MDRD) Non-Af (>60 ml/min/1.73 sqM) Glucose (74-99) mg/dL POC Glucose (mg/dL) 380 H (75-99) mg/dL POC Glu Certified Registered Dental Assistant ID Kimmy Mg Calcium (8.4-10.2) mg/dL Total Bilirubin (0.2-1.3) mg/dL AST (14-36) U/L ALT (9-52) U/L Alkaline Phosphatase (38-126) U/L Total Protein (6.3-8.2) g/dL Albumin (3.5-5.0) g/dL Acetone, Qual (Negative) Disposition Clinical Impression: Pneumonia, Uncontrolled diabetes mellitus, Right sided sciatica Disposition: ADMITTED IP TO THIS [facility] Condition: Serious Referrals: Capri Post MD [Primary Care Provider] - 1-2 days
[2017-03-07 17:40] LABS: Basophils % (A) 0 %; CH 30.9; CHCM 32.2; Eosinophils % (A) 0 %; HCT 36.1 % (34.0-46.0); HDW 2.82; HGB 11.6 gm/dL (11.4-16.0); Luc % (Auto) 2; Lymphocytes # (A) 0.7 k/uL (1.0-4.8); Lymphocytes % (A) 4 %; MCH 31.2 pg (25.0-35.0); MCHC 32.2 g/dL (31.0-37.0); MCV 96.7 fL (80.0-100.0); Monocytes # (A) 0.5 k/uL (0-1.0); Monocytes % (A) 3 %; Neutrophils # (A) 15.8 k/uL (1.3-7.7); Neutrophils % (A) 91 %; RBC 3.73 m/uL (3.80-5.40); RDW 15.3 % (11.5-15.5); WBC 17.4 k/uL (3.8-10.6)
[2017-03-07 18:02] LABS: ALT 82 U/L (9-52); AST 121 U/L (14-36); Alkaline Phosphatase 446 U/L (38-126); Anion Gap 9 mmol/L; Blood Urea Nitrogen 31 mg/dL (7-17); Calcium 8.8 mg/dL (8.4-10.2); Carbon Dioxide 18 mmol/L (22-30); Chloride 96 mmol/L (98-107); Non-African American GFR(MDRD) >60 (>60 ml/min/1.73 sqM); Potassium 4.6 mmol/L (3.5-5.1); Sodium 123 mmol/L (137-145); Total Bilirubin 1.6 mg/dL (0.2-1.3); Total Protein 6.2 g/dL (6.3-8.2)
[2017-03-07 18:13] LABS: Glucose 468 mg/dL (74-99)
[2017-03-07] MEDS ORDERED: INSULIN REGULAR 100 UNIT/ML VIAL IV ONE (18:30)
--- NOTE | 2017-03-07 18:45 | XR ---
EXAMINATION TYPE: XR pelvis AP view DATE OF EXAM: 03/07/2017 COMPARISON: NONE HISTORY: Back pain TECHNIQUE: Single view FINDINGS: The pelvic ring is intact. Proximal femurs and hip joints are intact. Sacroiliac joints haylee ear normal. IMPRESSION: Negative pelvis x-ray exam.
--- NOTE | 2017-03-07 18:47 | XR ---
EXAMINATION TYPE: XR lumbosacral spine min 4V DATE OF EXAM: 03/07/2017 COMPARISON: NONE HISTORY: Low back pain TECHNIQUE: 5 views FINDINGS: Vertebra have fairly normal alignment. There is mild biconcave change in the L4 vertebra. T here is osteopenia. Abdominal aorta is atheromatous. Sacroiliac joints are intact. There is a 1 cm ar ea of sclerosis in the left iliac bone that is probably bone island. IMPRESSION: There are changes of osteomalacia in the lumbar spine. No acute fracture seen. No signifi cant change compared to CT scan of 08/07/2016
--- NOTE | 2017-03-07 18:49 | XR ---
EXAMINATION TYPE: XR chest 2V DATE OF EXAM: 03/07/2017 COMPARISON: 08/06/2016 HISTORY: Cough TECHNIQUE: Frontal and lateral views of the chest are obtained. FINDINGS: There is mild coarsening of interstitial markings and more in the right middle lobe and li ngula left upper lobe. There is some coalescent density in the anterior right middle lobe. There is n o heart failure. There is no pleural effusion. Bones are osteopenic. IMPRESSION: Pulmonary fibrotic changes. New right middle lobe pneumonia compared to old exam. Athero matous aorta. .
[2017-03-07] MEDS ORDERED: LEVOFLOXACIN 500MG-D5W PMX 500 MG in DEXTROSE/WATER 1 100ML.BAG IVPB STA (19:11)
[2017-03-07] MEDS: SODIUM CHLORIDE 0.9% 1,000 ML IV SCH ×2 (19:29→20:42)
[2017-03-07 19:35] LABS: Glucose,Whole Blood 380 mg/dL (75-99)
[2017-03-07] MEDS ORDERED: NALOXONE 0.4 MG/ML 1 ML VIAL IV PRN (20:25)
[2017-03-07] MEDS ORDERED: IBUPROFEN 600 MG TAB PO STA (20:25)
[2017-03-07] MEDS ORDERED: ONDANSETRON 4 MG/2 ML VIAL IVP PRN (20:25)
[2017-03-07] MEDS ORDERED: SODIUM CHLORIDE 0.9% 750 ML IV STA (20:39)
[2017-03-07 20:55] LABS: Appearance,Urine Clear (Clear); Bacteria,Urine Rare /hpf; Bilirubin,Urine Negative (Negative); Glucose,Urine (UA) 4+ (Negative); Ketones,Urine Negative (Negative); Leukocyte Esterase,Urine Negative (Negative); Mucus,Urine Rare /hpf; Nitrite,Urine Negative (Negative); Particle Count 91342; Protein,Urine Negative (Negative); RBC,Urine 4 /hpf (0-5); Specific Gravity,Urine 1.019 (1.001-1.035); Squamous Epithelial Cell,Urine 1 /hpf (0-4); UA Billing (MACRO vs. MICRO) MICRO; Urobilinogen,Urine <2.0 mg/dL (<2.0); WBC,Urine 2 /hpf (0-5)
[2017-03-07 21:40] LABS: Glucose,Whole Blood 307 mg/dL (75-99)
[2017-03-07 23:14] LABS: Glucose,Whole Blood 249 mg/dL (75-99)
[2017-03-08] MEDS ORDERED: SODIUM CHLORIDE 0.9% 500 ML IV ONE ×2 (02:10→14:45)
[2017-03-08] MEDS: ACETAMINOPHEN TAB 325 MG TAB PO PRN ×2 (03:03→16:10)
[2017-03-08 05:54] LABS: Glucose,Whole Blood 246 mg/dL (75-99)
[2017-03-08] MEDS: INSULIN LISPRO (humaLOG) 300 UNIT/3 ML VIAL SQ SCH ×4 (06:47→17:13)
[2017-03-08 07:02] LABS: Basophils % (A) 0 %; CH 30.4; CHCM 30.4; Eosinophils # (A) 0.1 k/uL (0-0.7); Eosinophils % (A) 1 %; HDW 2.71; HGB 10.2 gm/dL (11.4-16.0); Hypochromasia Moderate; Luc % (Auto) 4; Lymphocytes # (A) 0.8 k/uL (1.0-4.8); Lymphocytes % (A) 6 %; MCH 31.1 pg (25.0-35.0); MCHC 30.8 g/dL (31.0-37.0); MCV 100.8 fL (80.0-100.0); Macrocytosis Slight; Mean Platelet Volume 9.5; Monocytes # (A) 0.5 k/uL (0-1.0); Monocytes % (A) 4 %; Neutrophils # (A) 11.8 k/uL (1.3-7.7); Neutrophils % (A) 86 %; RBC 3.28 m/uL (3.80-5.40); WBC 13.7 k/uL (3.8-10.6); WBC (Perox) 15.09
[2017-03-08] MEDS: FAMOTIDINE 20 MG TAB PO SCH ×3 (07:07→22:11)
[2017-03-08] MEDS: SODIUM CHLORIDE 0.9% 1,000 ML IV SCH ×4 (07:09→17:18)
[2017-03-08 07:24] LABS: ALT 115 U/L (9-52); AST 141 U/L (14-36); Alkaline Phosphatase 322 U/L (38-126); Anion Gap 8 mmol/L; Blood Urea Nitrogen 30 mg/dL (7-17); Calcium 8.1 mg/dL (8.4-10.2); Carbon Dioxide 16 mmol/L (22-30); Chloride 105 mmol/L (98-107); Glucose 258 mg/dL (74-99); Non-African American GFR(MDRD) >60 (>60 ml/min/1.73 sqM); Potassium 4.6 mmol/L (3.5-5.1); Sodium 129 mmol/L (137-145); Total Bilirubin 1.6 mg/dL (0.2-1.3); Total Protein 5.1 g/dL (6.3-8.2)
[2017-03-08] MEDS: MULTIVITAMINS, THERA 1 EACH TAB PO SCH (08:52)
[2017-03-08] MEDS: CALCIUM CARB-VIT D 500MG-200UN 1 EACH TAB PO SCH (08:52)
[2017-03-08] MEDS: URSODIOL 300 MG CAP PO SCH (08:52)
[2017-03-08] MEDS: oxyCODONE-APAP 5-325MG 1 EACH TAB PO PRN ×2 (11:19→15:51)
[2017-03-08] MEDS ORDERED: Magnesium Replacement Protocol 1 EACH MISC MISCELLANE PRN (14:30)
[2017-03-08] MEDS ORDERED: Potassium Replacement Protocol 1 EACH MISC MISCELLANE PRN (14:30)
[2017-03-08] MEDS ORDERED: ONDANSETRON 4 MG/2 ML VIAL IVP PRN (14:35)
--- NOTE | 2017-03-08 15:36 | P.HPIM ---
History of Present Illness H&P Date: 03/08/17 Chief Complaint: Back pain Patient is legally deaf and medical history was obtained with the assistance of a sign spanish interpreter/translator. Patient is a relatively poor historian. Most of the medical history was obtained by her brother at bedside as well as nursing staff and chart review. This is a 66-year-old female with past medical history noted below who presented to the emergency room with worsening back pain. Apparently patient was found on the floor approximately a week ago but at that time she was doing okay. Subsequently her pain was getting persistently worse. She tried taking [id number] pain medication with minimal relief. She was scheduled to see her primary care physician but was in a lot of pain so decided to come to the emergency room for further evaluation. In the emergency room, x-rays of the lumbar spine and pelvis were unremarkable for any acute fractures. Patient was noted to be septic and was diagnosed with a right middle lobe pneumonia and is currently admitted to the hospital for further evaluation. She was associated with adequate IV fluid that her blood pressure is still borderline low. Lactic acid has resolved. She is currently on IV Levaquin. Patient herself denies any significant cough or shortness of breath. Her main complaint is back pain. When I saw her she appeared very comfortable. She was unable to sit up in bed secondary to pain. I was able to trigger severe tenderness to palpation to spinal processes of the lumbar spine level. Review of Systems Review of system: 14 points review of systems were obtained and were negative except to what were mentioned in the HPI. Past Medical History Past Medical History: CVA/TIA, Diabetes Mellitus, Hearing Disorder / Deafness, Hyperlipidemia Additional Past Medical History / Comment(s): Pt is deaf-understands ASL and some lip reading, CVA residual "memory loss"; NIDDM type II. History of Any Multi-Drug Resistant Organisms: None Reported Past Surgical History: Cholecystectomy Additional Past Surgical History / Comment(s): september- gallbladder removed , bypass of liver duct/stent done at [facility], left carotid endarterectomy September 2014 , colonoscopy. Past Anesthesia/Blood Transfusion Reactions: No Reported Reaction Past Psychological History: Anxiety Additional Psychological History / Comment(s): PT LIVES WITH HER BROTHER. She is indendent. She drives. Sister is the primary contact. Retired. No experience. Tobacco smoker stopped in 2013. 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 smoking: stopped 09/2014 1ppd Past Drug Use History: None Reported - Past Family History Brother(s) Family Medical History: CVA/TIA Mother Family Medical History: Memory Impairment Additional Family Medical History / Comment(s): "Alzheimer's". Mother is . Father Family Medical History: No Reported History Additional Family Medical History / Comment(s): Father is 93 yrs old. Medications and Allergies Home Medications Medication Instructions Recorded Confirmed Type Calcium Carbonate/Vitamin D3 1 tab PO DAILY 08/22/15 03/07/17 History [Os-Triston 500+D3 Caplet] Ursodiol 300 mg PO DAILY 08/22/15 03/07/17 History Multivitamins, Thera [Multivitamin 1 tab PO DAILY 03/07/17 03/07/17 History (formulary)] Omeprazole [PriLOSEC] 40 mg PO BID 03/07/17 03/07/17 History Allergies Allergy/AdvReac Type Severity Reaction Status Date / Time No Known Allergies Allergy Verified 03/07/17 15:59 Physical Exam Vitals: Vital Signs Temp Pulse Pulse Resp BP BP BP 03/08/17 12:00 96.3 F L 79 18 92/49 03/08/17 07:55 97.3 F L 73 18 80/42 03/08/17 04:00 98.8 F 92 17 140/77 03/08/17 00:00 98.2 F 81 18 85/73 03/07/17 21:52 99.2 F 92 18 77/52 03/07/17 21:41 100.6 F H 98 18 91/53 03/07/17 20:25 132 H 154/83 03/07/17 20:10 103.0 F H 96 24 03/07/17 18:50 76 18 91/49 03/07/17 16:31 55 H 109/60 Pulse Ox 03/08/17 12:00 93 L 03/08/17 07:55 93 L 03/08/17 04:00 96 03/08/17 00:00 95 03/07/17 21:52 97 03/07/17 21:41 96 03/07/17 20:25 94 L 03/07/17 20:10 95 03/07/17 18:50 95 03/07/17 16:31 95 Intake and Output 03/08/17 03/08/17 03/08/17 06:59 14:59 22:59 Intake Total 1500 237 Output Total 100 Balance 1400 237 Intake: IV 1000 Levofloxacin 500Mg-D5w 100 Pmx 500 mg In Dextrose/ Water 1 100ml.bag @ 100 mls/hr IVPB ONCE STA Rx#: [id number] Sodium Chloride 0.9% 1, 900 000 ml @ 100 mls/hr IV . Q10H MEGHAN Rx#:[id number] Intake, IV Titration 500 Amount Sodium Chloride 0.9% 500 500 ml @ 999 mls/hr IV .Q31M ONE Rx#:[id number] Oral 237 Output: Urine 100 Other: # Voids 1 Weight 59 kg 59 kg Patient Weight 03/09/17 06:59 Weight 59 kg General: The patient is sleepy but easily arousable Eye: there is normal conjunctiva bilaterally. Neck: The neck is supple, there is no JVD. Cardiovascular: Normal S1-S2, no S3-S4, no murmurs. Respiratory: Lungs clear to auscultation bilaterally Gastrointestinal: Abdomen is soft, nontender Musculoskeletal: There is no pedal edema. Skin: Skin is warm and dry Results CBC & Chem 7: 03/08/17 06:43 03/08/17 06:43 Labs: Abnormal Lab Results - Last 24 Hours (Table) 03/07/17 03/07/17 03/07/17 Range/Units 17:27 17:27 17:27 WBC 17.4 H (3.8-10.6) k/uL RBC 3.73 L (3.80-5.40) m/uL Hgb (11.4-16.0) gm/dL Hct (34.0-46.0) % MCV (80.0-100.0) fL MCHC (31.0-37.0) g/dL Neutrophils # 15.8 H (1.3-7.7) k/uL Lymphocytes # 0.7 L (1.0-4.8) k/uL Sodium 123 L (137-145) mmol/L Chloride 96 L (98-107) mmol/L Carbon Dioxide 18 L (22-30) mmol/L BUN 31 H (7-17) mg/dL Glucose 468 H* (74-99) mg/dL POC Glucose (mg/dL) (75-99) mg/dL Hemoglobin A1c 10.0 H (4.2-6.1) % Plasma Lactic Acid Nazario (0.7-2.0) mmol/L Calcium (8.4-10.2) mg/dL Total Bilirubin 1.6 H (0.2-1.3) mg/dL AST 121 H (14-36) U/L ALT 82 H (9-52) U/L Alkaline Phosphatase 446 H (38-126) U/L Total Protein 6.2 L (6.3-8.2) g/dL Albumin 2.6 L (3.5-5.0) g/dL Urine Glucose (UA) (Negative) Urine Blood (Negative) Urine WBC Clumps (None) /hpf Urine Bacteria (None) /hpf Urine Mucus (None) /hpf Urine Yeast (Budding) (None) /hpf 03/07/17 03/07/17 03/07/17 Range/Units 17:27 19:32 20:35 WBC (3.8-10.6) k/uL RBC (3.80-5.40) m/uL Hgb (11.4-16.0) gm/dL Hct (34.0-46.0) % MCV (80.0-100.0) fL MCHC (31.0-37.0) g/dL Neutrophils # (1.3-7.7) k/uL Lymphocytes # (1.0-4.8) k/uL Sodium (137-145) mmol/L Chloride (98-107) mmol/L Carbon Dioxide (22-30) mmol/L BUN (7-17) mg/dL Glucose (74-99) mg/dL POC Glucose (mg/dL) 380 H (75-99) mg/dL Hemoglobin A1c (4.2-6.1) % Plasma Lactic Acid Nazario 3.8 H* (0.7-2.0) mmol/L Calcium (8.4-10.2) mg/dL Total Bilirubin (0.2-1.3) mg/dL AST (14-36) U/L ALT (9-52) U/L Alkaline Phosphatase (38-126) U/L Total Protein (6.3-8.2) g/dL Albumin (3.5-5.0) g/dL Urine Glucose (UA) 4+ H (Negative) Urine Blood Trace H (Negative) Urine WBC Clumps Rare H (None) /hpf Urine Bacteria Rare H (None) /hpf Urine Mucus Rare H (None) /hpf Urine Yeast (Budding) Rare H (None) /hpf 03/07/17 03/07/17 03/08/17 Range/Units 21:39 23:12 05:53 WBC (3.8-10.6) k/uL RBC (3.80-5.40) m/uL Hgb (11.4-16.0) gm/dL Hct (34.0-46.0) % MCV (80.0-100.0) fL MCHC (31.0-37.0) g/dL Neutrophils # (1.3-7.7) k/uL Lymphocytes # (1.0-4.8) k/uL Sodium (137-145) mmol/L Chloride (98-107) mmol/L Carbon Dioxide (22-30) mmol/L BUN (7-17) mg/dL Glucose (74-99) mg/dL POC Glucose (mg/dL) 307 H 249 H 246 H (75-99) mg/dL Hemoglobin A1c (4.2-6.1) % Plasma Lactic Acid Nazario (0.7-2.0) mmol/L Calcium (8.4-10.2) mg/dL Total Bilirubin (0.2-1.3) mg/dL AST (14-36) U/L ALT (9-52) U/L Alkaline Phosphatase (38-126) U/L Total Protein (6.3-8.2) g/dL Albumin (3.5-5.0) g/dL Urine Glucose (UA) (Negative) Urine Blood (Negative) Urine WBC Clumps (None) /hpf Urine Bacteria (None) /hpf Urine Mucus (None) /hpf Urine Yeast (Budding) (None) /hpf 03/08/17 03/08/17 Range/Units 06:43 06:43 WBC 13.7 H (3.8-10.6) k/uL RBC 3.28 L (3.80-5.40) m/uL Hgb 10.2 L (11.4-16.0) gm/dL Hct 33.0 L (34.0-46.0) % MCV 100.8 H (80.0-100.0) fL MCHC 30.8 L (31.0-37.0) g/dL Neutrophils # 11.8 H (1.3-7.7) k/uL Lymphocytes # 0.8 L (1.0-4.8) k/uL Sodium 129 L (137-145) mmol/L Chloride (98-107) mmol/L Carbon Dioxide 16 L (22-30) mmol/L BUN 30 H (7-17) mg/dL Glucose 258 H (74-99) mg/dL POC Glucose (mg/dL) (75-99) mg/dL Hemoglobin A1c (4.2-6.1) % Plasma Lactic Acid Nazario (0.7-2.0) mmol/L Calcium 8.1 L (8.4-10.2) mg/dL Total Bilirubin 1.6 H (0.2-1.3) mg/dL AST 141 H (14-36) U/L ALT 115 H (9-52) U/L Alkaline Phosphatase 322 H (38-126) U/L Total Protein 5.1 L (6.3-8.2) g/dL Albumin 2.1 L (3.5-5.0) g/dL Urine Glucose (UA) (Negative) Urine Blood (Negative) Urine WBC Clumps (None) /hpf Urine Bacteria (None) /hpf Urine Mucus (None) /hpf Urine Yeast (Budding) (None) /hpf Microbiology - Last 24 Hours (Table) 03/07/17 20:35 Blood Culture Gram Stain - Preliminary Blood 03/07/17 20:35 Blood Culture - Final Blood 03/07/17 17:27 Urine Culture - Preliminary Urine,Voided Thrombosis Risk Factor Assmnt - Choose All That Apply Each Risk Factor Represents 2 Points: Age 61-74 years Thrombosis Risk Factor Assessment Total Risk Factor Score: 2 Thrombosis Risk Factor Assessment Level: Low Risk Assessment and Plan Plan: 1. Severe sepsis with septic shock 2. The right middle lobe pneumonia 3. Severe back pain with no acute findings on lumbar spine x-ray 4. Uncontrolled type 2 diabetes mellitus A1c 10.0 Today, I reviewed her medication list and lab work results. Continue IV fluid with normal saline at the 100 the med per hour. I will also ordered a bolus of 500 and then normal saline. Continue antibiotic with IV Levaquin 500 mg once a day. No more fever documented since admission. We'll consult infectious disease for further evaluation. Lactic acid is back to normal. Would obtain computed tomography scan of the lumbosacral spine for further evaluation of severe pain. Repeat lab work in the morning. Pain control.
[2017-03-08 15:54] LABS: Glucose,Whole Blood 311 mg/dL (75-99)
[2017-03-08] MEDS: PIPERACILLIN-TAZOBACTAM 3.375 GM in DEXTROSE/WATER 1 50ML.BAG IVPB SCH (16:10)
[2017-03-08 16:57] LABS: Glucose,Whole Blood 213 mg/dL (75-99)
--- NOTE | 2017-03-08 18:17 | CT ---
EXAMINATION TYPE: CT sacrum wo con DATE OF EXAM: 03/08/2017 COMPARISON: NONE HISTORY: Low back and buttock pain, CT DLP: 575.4 mGycm Automated exposure control for dose reduction was used. FINDINGS: Multiple axial sections were obtained from the level of L5-S5 with no contrast. The segments have normal alignment. There is mild narrowing at L5-S1 disc space. Sacroiliac joints ar e intact. There is a rounded fluid density on the right side of the spinal canal at the S1-S2 level c onsistent with a sacral cyst. There is a small amount of free fluid in the pelvis. Presacral soft ti ssues are not thickened. IMPRESSION: There is a small sacral cyst. Minimal free fluid in the pelvis of uncertain significance. No fracture. No focal bone destruction.
--- NOTE | 2017-03-08 18:24 | CT ---
EXAMINATION TYPE: CT lumbar spine wo con DATE OF EXAM: 03/08/2017 6:04 PM COMPARISON: NONE HISTORY: Low back and buttock pain, CT DLP: 545.7 mGycm Automated exposure control for dose reduction was used. Unenhanced CT of the lumbar spine was performed. Bone and soft tissue window settings are submitted as well as coronal and sagittal reconstructions. Lumbar vertebra have fairly normal alignment. There is osteopenia. There is a 2 cm defect in the supe rior endplate of L5 4 on the right side. There is some sclerosis around the lucency. There is some pa raspinal soft tissue air at L4 on the right side. There is also small air bubbles in the spinal canal posterior to the L4 vertebral body. I see no compression fracture. The facet joints are intact. Abdo colton aorta is atheromatous. IMPRESSION: Lucent lesion in the L4 vertebral body with some mild surrounding sclerosis. There is soft tissue par aspinal air as well as small air bubbles in the spinal canal at L4 level that is suggestive of discit is and osteomyelitis with developing paraspinal abscess. There are mild posterior lumbar disc herniat ions noted at L4-5 and L5-S1. There is developmentally adequate spinal canal and no spinal stenosis. There is room entry S1-S2 disc noted.
[2017-03-08] MEDS ORDERED: LEVOFLOXACIN 500MG-D5W PMX 500 MG in DEXTROSE/WATER 1 100ML.BAG IVPB SCH (19:00)
--- NOTE | 2017-03-08 20:09 | CONS ---
CONSULTATION DATE OF SERVICE: 03/08/2017 REASON FOR CONSULTATION: Dyspnea. This is a very pleasant 66-year-old female patient who is deaf and requires an recreation adviser for communication. She was brought in yesterday, 03/07/2017, with her brother, who state she lives across the street from them and when they went to check on her she was on the floor. She denied falling or injuring herself. She states she had been getting right paralumbar region and right buttock area pain that has been progressing throughout the week. She was planning to see a physician about that today. In the emergency room they found her to have uncontrolled diabetes mellitus, right- sided sciatica and possible pneumonia. Her chest x-ray revealed fibrotic changes and a new right middle lobe infiltrate compared to previous from July 2016. The patient does admit to having some shortness of breath. She has not been coughing. No fever, chills or night sweats. She is maintaining oxygen saturations in the 90s on room air. She is afebrile. She does have a significant smoking history; however, she has quit. She has not been seen by a sheet heater helper in the past. She is not on any inhalers. PAST MEDICAL HISTORY: Past medical history includes: 1. CVA/TIA. 2. Deafness. 3. Hyperlipidemia. PAST SURGICAL HISTORY: Past surgical history includes: 1. Cholecystectomy. 2. Biopsy of the liver. 3. Left carotid endarterectomy. 4. Colonoscopy. SOCIAL HISTORY: The patient is a former smoker. No excessive alcohol use or illicit drug use. FAMILY HISTORY: Positive for CVA in her brother and Alzheimer's in her mother. ALLERGIES: NO KNOWN DRUG ALLERGIES. HOME MEDICATIONS: 1. Ursodiol 300 mg daily. 2. Prilosec 40 mg b.i.d. 3. Multivitamin. 4. Vitamin D3. REVIEW OF SYSTEMS: Fourteen-point review of systems was conducted; all negative other than as mentioned in the HPI. PHYSICAL EXAM: She is alert and oriented, in no acute distress. Vital signs revealed blood pressure 92/49, heart rate 79, respirations 18, temperature 96.3. She has 93% oxygen saturation on room air. HEAD: Normocephalic. Sclerae anicteric. NECK: Supple. Trachea midline. LUNGS: A few scattered rhonchi, more so on the right. Her heart is regular. S1, S2. ABDOMEN: Soft, nontender. Bowel sounds are present. There is trace peripheral edema. No clubbing. No cyanosis. Peripheral pulses are intact. INVESTIGATIONS: Chest x-ray shows a new right middle lobe infiltrate. LABS: WBC 13.7, hemoglobin 10.2, platelet count 209,000. Sodium 129, potassium 4.6, chloride 105, CO2 16. BUN 30, creatinine 0.80. AST is 141, ALT 115, alkaline phosphatase 322. Her medications are reviewed. IMPRESSION: 1. Lumbar back pain with lower extremity weakness. X-ray revealed no acute fracture; no significant change compared to a CT scan in July 2016. There are changes of osteomalacia in the lumbar spine. 2. Dyspnea secondary to right middle lobe infiltrate/pneumonia. 3. History of chronic tobacco dependence. 4. Elevated liver enzymes of unclear etiology. 5. Diabetes mellitus. 6. ( ). 7. Hyperlipidemia. 8. History of cerebrovascular accident/transient ischemic attack with residual memory loss. PLAN: The patient was seen and evaluated by Dr. Galaviz. We are unable to visualize the chest x- ray based on the computers being down today. Report reveals a right middle lobe infiltrate. We will continue with her current medications. She probably has some component of COPD based on her multiple years of smoking. She is on Levaquin. Will add bronchodilators. We will continue to follow and make further recommendations based on her clinical status. MMODL / IJN: [id number] /
[2017-03-08 20:50] LABS: Glucose,Whole Blood 178 mg/dL (75-99)
[2017-03-08 21:57] LABS: CH 30.6; CHCM 31.5; HDW 2.85; HGB 9.4 gm/dL (11.4-16.0); Hypochromasia Slight; MCH 30.6 pg (25.0-35.0); MCHC 31.4 g/dL (31.0-37.0); MCV 97.7 fL (80.0-100.0); Mean Platelet Volume 9.9; RBC 3.07 m/uL (3.80-5.40); WBC 20.9 k/uL (3.8-10.6)
[2017-03-08 22:08] LABS: Anion Gap 8 mmol/L; Blood Urea Nitrogen 24 mg/dL (7-17); Carbon Dioxide 14 mmol/L (22-30); Chloride 109 mmol/L (98-107); Glucose 168 mg/dL (74-99); Non-African American GFR(MDRD) >60 (>60 ml/min/1.73 sqM); Potassium 4.3 mmol/L (3.5-5.1); Sodium 131 mmol/L (137-145)
[2017-03-08] MEDS: INSULIN GLARGINE 100 UNIT/ML 10 ML VIAL SQ SCH (22:11)
[2017-03-08] MEDS: HEPARIN SODIUM,PORCINE 5,000 UNIT/ML 1 ML VIAL SQ SCH (22:11)
[2017-03-08] MEDS ORDERED: IV VANCOMYCIN PER PHARMACY 1 EACH MISC MISCELLANE PRN (22:16)
[2017-03-08 22:47] LABS: Glucose,Whole Blood 177 mg/dL (75-99)
[2017-03-08] MEDS ORDERED: VANCOMYCIN 1,000 MG in SODIUM CHLORIDE 0.9% 250 ML IVPB SCH (23:00)
[2017-03-08 23:01] LABS: Magnesium 1.6 mg/dL (1.6-2.3); Phosphorous 2.9 mg/dL (2.5-4.5)
[2017-03-08 23:05] LABS: INR 1.1 (<1.2); Prothrombin Time 11.3 sec (9.0-12.0)
[2017-03-08] MEDS ORDERED: SODIUM CHLORIDE 0.9% 1,000 ML IV ONE (23:19)
[2017-03-09] MEDS: oxyCODONE-APAP 5-325MG 1 EACH TAB PO PRN ×2 (00:08→18:15)
[2017-03-09] MEDS: SODIUM CHLORIDE 0.9% 1,000 ML IV SCH ×3 (00:09→14:29)
[2017-03-09] MEDS: MAGNESIUM SULFATE-D5W PMX 1 GM in DEXTROSE/WATER 1 100ML.BAG IVPB SCH ×2 (00:09→01:53)
[2017-03-09] MEDS: PIPERACILLIN-TAZOBACTAM 3.375 GM in DEXTROSE/WATER 1 50ML.BAG IVPB SCH ×3 (00:15→15:44)
[2017-03-09] MEDS ORDERED: NOREPINEPHRIN 4 MG-0.9% NS PMX 4 MG/250 ML ML IV SCH (00:15)
[2017-03-09] MEDS: INSULIN LISPRO (humaLOG) 300 UNIT/3 ML VIAL SQ SCH ×4 (02:02→18:28)
[2017-03-09] MEDS: MORPHINE SULFATE 2 MG/ML SYRINGE IVP PRN ×4 (04:35→18:16)
[2017-03-09 05:05] LABS: Basophils % (A) 0 %; CH 30.2; CHCM 30.2; Eosinophils % (A) 0 %; HCT 35.9 % (34.0-46.0); HDW 2.95; HGB 10.8 gm/dL (11.4-16.0); Hypochromasia Marked; Luc # (Auto) 0.16; Luc % (Auto) 1; Lymphocytes # (A) 0.6 k/uL (1.0-4.8); Lymphocytes % (A) 4 %; MCH 30.4 pg (25.0-35.0); MCHC 30.2 g/dL (31.0-37.0); MCV 100.6 fL (80.0-100.0); Macrocytosis Slight; Mean Platelet Volume 9.7; Monocytes # (A) 0.2 k/uL (0-1.0); Monocytes % (A) 1 %; Neutrophils # (A) 14.3 k/uL (1.3-7.7); Neutrophils % (A) 93 %; RBC 3.57 m/uL (3.80-5.40); RDW 15.4 % (11.5-15.5); WBC 15.3 k/uL (3.8-10.6); WBC (Perox) 15.72
[2017-03-09 05:21] LABS: ALT 137 U/L (9-52); AST 145 U/L (14-36); Alkaline Phosphatase 384 U/L (38-126); Anion Gap 9 mmol/L; Blood Urea Nitrogen 20 mg/dL (7-17); Calcium 8.3 mg/dL (8.4-10.2); Carbon Dioxide 12 mmol/L (22-30); Chloride 110 mmol/L (98-107); Glucose 203 mg/dL (74-99); Magnesium 2.4 mg/dL (1.6-2.3); Non-African American GFR(MDRD) >60 (>60 ml/min/1.73 sqM); Potassium 4.1 mmol/L (3.5-5.1); Sodium 131 mmol/L (137-145); Total Bilirubin 1.7 mg/dL (0.2-1.3); Total Protein 5.2 g/dL (6.3-8.2)
[2017-03-09 08:02] LABS: Glucose,Whole Blood 192 mg/dL (75-99)
--- NOTE | 2017-03-09 08:38 | XR ---
EXAMINATION TYPE: XR chest 1V DATE OF EXAM: 03/09/2017 COMPARISON: 03/07/2017 HISTORY: 66 year-old female follow-up pneumonia TECHNIQUE: Single frontal view of the chest is obtained. FINDINGS: The heart is upper limits of normal in size. Atherosclerotic arch calcifications. Diffuse interstitia l prominence is unchanged and has a somewhat chronic appearance. Peribronchial cuffing is also presen t. Strandy atelectasis at the left base. Improving aeration at the medial right base. No significant pleural effusion. IMPRESSION: Chronic-appearing changes, possible chronic bronchitis/asthma. Suggestion of some probable atelectasi s, less likely infiltrate at the left base. Improved aeration in the region of the right middle lobe.
[2017-03-09] MEDS: HEPARIN SODIUM,PORCINE 5,000 UNIT/ML 1 ML VIAL SQ SCH (09:14)
[2017-03-09] MEDS: FAMOTIDINE 20 MG TAB PO SCH (09:14)
[2017-03-09] MEDS: URSODIOL 300 MG CAP PO SCH (09:15)
[2017-03-09] MEDS: CALCIUM CARB-VIT D 500MG-200UN 1 EACH TAB PO SCH (09:16)
[2017-03-09] MEDS: MULTIVITAMINS, THERA 1 EACH TAB PO SCH (09:16)
--- NOTE | 2017-03-09 10:01 | P.PN ---
Subjective This is a very pleasant 66 year-old female patient who is deaf and requires an videotape recording engineer for communication. She was admitted on 03/07/2017 after being found on the floor by her brother. She denied falling or significant injury. She's been having pain in her lumbar spine with radiation to the right buttock and her legs have been progressively weak. In the emergency room she was found to have possible pneumonia and we're consulted for the same. Her chest x-ray revealed fibrotic changes and a new right middle lobe infiltrate. The patient does have some shortness of breath. No real cough or congestion. At the time of her consult yesterday she is maintaining good O2 saturations in the 90s on room air. She was subsequently found to have hypotension and was transferred to the intensive care unit last evening. She was placed on levophed. She is now down to 1 mcg/m. She is awake and alert in no acute distress. She does have some shortness of breath. Still no cough or congestion. She is still having ongoing issues with lumbar pain. Computed tomography scan of the sacrum revealed a small sacral cyst and some free fluid in the pelvis of unclear significance. No focal bone destruction. No fracture. A computed tomography scan of the lumbar spine revealed soft tissue paraspinal air as well as small air bubbles in the spinal canal at L4 suggestive of discitis and osteomyelitis with developing paraspinal abscess. Orthopedics has been consulted. Objective - Vital Signs Vital signs: Vital Signs Temp 98.9 F 03/09/17 04:00 Pulse 88 03/09/17 07:00 Resp 22 03/09/17 07:00 BP 113/53 03/09/17 07:00 Pulse Ox 94 L 03/09/17 07:00 Intake & Output 03/08/17 03/09/17 03/09/17 18:59 06:59 18:59 Intake Total 1537 2255.0 145.938 Output Total 500 560 45 Balance 1037 1695.0 100.938 Weight 59 kg 60.2 kg Intake: IV 800 2212.5 100 Magnesium Sulfate-D5w Pmx 200 1 gm In Dextrose/Water 1 100ml.bag @ 100 mls/hr IVPB Q1H [facility] Rx#: [id number] Piperacillin-Tazobactam 3 62.5 .375 gm In Dextrose/Water 1 50ml.bag @ 12.5 mls/hr IVPB Q8HR [facility] Rx#: [id number] Sodium Chloride 0.9% 1, 800 700 100 000 ml @ 100 mls/hr IV . Q10H [facility] Rx#:[id number] Sodium Chloride 0.9% 1, 1000 000 ml @ 999 mls/hr IV . Q1H1M [facility] Rx#:[id number] Vancomycin 1,000 mg In 250 Sodium Chloride 0.9% 250 ml @ 125 mls/hr IVPB Q16H [facility] Rx#:[id number] Intake, IV Titration 500 42.5 45.938 Amount Norepinephrin 4 mg-0.9% 42.5 45.938 Ns Pmx 4 mg In 250 ml @ Titrate IV .Q0M [facility] Rx#: [id number] Sodium Chloride 0.9% 500 500 ml @ 999 mls/hr IV .Q31M [facility] Rx#:[id number] Oral 237 Output: Urine 500 560 45 Other: Voiding Method Indwelling Catheter # Voids 1 - Exam GENERAL EXAM: Deaf. Alert, fairly comfortable in no apparent distress. HEAD: Normocephalic. EYES: Normal reaction of pupils, equal size. NOSE: Clear with pink turbinates. THROAT: No erythema or exudates. NECK: No masses, no JVD. CHEST: No chest wall deformity. LUNGS: Equal air entry with no crackles, wheeze, rhonchi or dullness. CVS: S1 and S2 normal with no audible murmurs, regular rhythm. ABDOMEN: No hepatosplenomegaly, normal bowel sounds, no guarding or rigidity. SKIN: No rashes CENTRAL NERVOUS SYSTEM: No focal deficits, tone is normal in all 4 extremities. Extremities: There is trace peripheral edema. No clubbing, no cyanosis. Peripheral pulses are intact. - Labs CBC & Chem 7: 03/09/17 04:28 03/09/17 04:28 Labs: Abnormal Lab Results - Last 24 Hours (Table) 03/08/17 03/08/17 03/08/17 Range/Units 11:44 16:45 20:48 WBC (3.8-10.6) k/uL RBC (3.80-5.40) m/uL Hgb (11.4-16.0) gm/dL Hct (34.0-46.0) % MCV (80.0-100.0) fL MCHC (31.0-37.0) g/dL Neutrophils # (1.3-7.7) k/uL Lymphocytes # (1.0-4.8) k/uL Sodium (137-145) mmol/L Chloride (98-107) mmol/L Carbon Dioxide (22-30) mmol/L BUN (7-17) mg/dL Glucose (74-99) mg/dL POC Glucose (mg/dL) 311 H 213 H 178 H (75-99) mg/dL Calcium (8.4-10.2) mg/dL Ionized Calcium Margaux (4.5-5.3) mg/dL Magnesium (1.6-2.3) mg/dL Total Bilirubin (0.2-1.3) mg/dL AST (14-36) U/L ALT (9-52) U/L Alkaline Phosphatase (38-126) U/L Total Protein (6.3-8.2) g/dL Albumin (3.5-5.0) g/dL 03/08/17 03/08/17 03/08/17 Range/Units 21:45 21:45 22:45 WBC 20.9 H (3.8-10.6) k/uL RBC 3.07 L (3.80-5.40) m/uL Hgb 9.4 L (11.4-16.0) gm/dL Hct 30.0 L (34.0-46.0) % MCV (80.0-100.0) fL MCHC (31.0-37.0) g/dL Neutrophils # (1.3-7.7) k/uL Lymphocytes # (1.0-4.8) k/uL Sodium 131 L (137-145) mmol/L Chloride 109 H (98-107) mmol/L Carbon Dioxide 14 L (22-30) mmol/L BUN 24 H (7-17) mg/dL Glucose 168 H (74-99) mg/dL POC Glucose (mg/dL) 177 H (75-99) mg/dL Calcium 8.0 L (8.4-10.2) mg/dL Ionized Calcium Margaux (4.5-5.3) mg/dL Magnesium (1.6-2.3) mg/dL Total Bilirubin (0.2-1.3) mg/dL AST (14-36) U/L ALT (9-52) U/L Alkaline Phosphatase (38-126) U/L Total Protein (6.3-8.2) g/dL Albumin (3.5-5.0) g/dL 03/08/17 03/09/17 03/09/17 Range/Units 22:51 04:28 04:28 WBC 15.3 H (3.8-10.6) k/uL RBC 3.57 L (3.80-5.40) m/uL Hgb 10.8 L (11.4-16.0) gm/dL Hct (34.0-46.0) % MCV 100.6 H (80.0-100.0) fL MCHC 30.2 L (31.0-37.0) g/dL Neutrophils # 14.3 H (1.3-7.7) k/uL Lymphocytes # 0.6 L (1.0-4.8) k/uL Sodium 131 L (137-145) mmol/L Chloride 110 H (98-107) mmol/L Carbon Dioxide 12 L (22-30) mmol/L BUN 20 H (7-17) mg/dL Glucose 203 H (74-99) mg/dL POC Glucose (mg/dL) (75-99) mg/dL Calcium 8.3 L (8.4-10.2) mg/dL Ionized Calcium Margaux 5.4 H (4.5-5.3) mg/dL Magnesium 2.4 H (1.6-2.3) mg/dL Total Bilirubin 1.7 H (0.2-1.3) mg/dL AST 145 H (14-36) U/L ALT 137 H (9-52) U/L Alkaline Phosphatase 384 H (38-126) U/L Total Protein 5.2 L (6.3-8.2) g/dL Albumin 2.0 L (3.5-5.0) g/dL 03/09/17 Range/Units 08:00 WBC (3.8-10.6) k/uL RBC (3.80-5.40) m/uL Hgb (11.4-16.0) gm/dL Hct (34.0-46.0) % MCV (80.0-100.0) fL MCHC (31.0-37.0) g/dL Neutrophils # (1.3-7.7) k/uL Lymphocytes # (1.0-4.8) k/uL Sodium (137-145) mmol/L Chloride (98-107) mmol/L Carbon Dioxide (22-30) mmol/L BUN (7-17) mg/dL Glucose (74-99) mg/dL POC Glucose (mg/dL) 192 H (75-99) mg/dL Calcium (8.4-10.2) mg/dL Ionized Calcium Margaux (4.5-5.3) mg/dL Magnesium (1.6-2.3) mg/dL Total Bilirubin (0.2-1.3) mg/dL AST (14-36) U/L ALT (9-52) U/L Alkaline Phosphatase (38-126) U/L Total Protein (6.3-8.2) g/dL Albumin (3.5-5.0) g/dL Microbiology - Last 24 Hours (Table) 03/08/17 15:35 Blood Culture - Final Blood 03/08/17 15:35 Blood Culture Gram Stain - Preliminary Blood 03/07/17 17:27 Urine Culture - Preliminary Urine,Voided Gram Neg Bacilli 03/07/17 20:35 Blood Culture Gram Stain - Preliminary Blood Blood Culture - Preliminary Gram Neg Bacilli 03/07/17 20:35 Blood Culture - Final Blood Assessment and Plan Plan: Impression: #1 Lumbar back pain with lower extremity weakness. Computed tomography scan of the lumbar spine reveals a pleasant 30 with her last week and 5:30 yesterday with him which was soft tissue paraspinal air as well as small air bubbles in the spinal canal at L4 that is suggestive of discitis and osteomyelitis with a developing paraspinal abscess. Soft tissue paraspinal air as well as small air bubbles in the spinal canal at L4 level that is suggestive of discitis and osteomyelitis with developing paraspinal abscess. Orthopedics has been consulted. #2 Dyspnea secondary to right middle lobe infiltrate/pneumonia. #3 History of chronic tobacco dependence. #4 Elevated liver enzymes of unclear etiology. #5 Diabetes mellitus. #6 Hyperlipidemia. 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 #8 Hearing disorder. Plan: The patient was seen and evaluated by Dr. Galaviz. We will wean off the levo fed today and continue monitoring her blood pressure throughout the afternoon. She could be transferred out to the regular medical floor if she remains stable. We 'll continue with her current medications. We'll use cautious amounts of narcotics to avoid recurrent drops in blood pressure. Orthopedics has been consulted. She remains on antibiotics and bronchodilators. We'll continue to follow.
--- NOTE | 2017-03-09 10:42 | CONS ---
CONSULTATION DATE OF SERVICE: 03/08/2017 REASON FOR CONSULTATION: Fever and gram-negative bacteremia. HISTORY OF PRESENT ILLNESS: The patient is a 66-year-old female, who was legally deaf, has been brought into the ER by the family for her worsening back pain. Apparently, the patient was found on the floor approximately about a week ago. However, the patient was doing okay at that time. It was not clear to the level of injury to her; however, subsequently the patient started having pain in the lower back area, that is getting worse in her response to [id number] medication as the patient was brought into the ER for further evaluation. The patient did have lumbosacral spine x-rays that were negative for any acute fracture. A chest x-ray was suggestive of right middle lung pneumonia. The patient was spiking a fever of 103 degrees Fahrenheit and did have elevated white count of 13,000. The patient has been treated with Levaquin. The blood culture subsequently came back positive, hence ID was consulted for further recommendation regarding antibiotic therapy. A CT of the lumbosacral spine has been ordered as well, which is now showing evidence of L4 diskitis with developing paraspinal abscess. Most of this information has been obtained from review of the chart as the patient's history has been limited and will get caught through the assistance of the sign per diem interpreter. REVIEW OF SYSTEMS: Could not be obtained, the positive ones have been mentioned in the HPI. PAST MEDICAL HISTORY: Significant for hyperlipidemia, deafness, diabetes mellitus, CVA, TIA. PAST SURGICAL HISTORY: Cholecystectomy. Abscess of the liver, duct stent at [facility], left carotid endarterectomy, colonoscopy. SOCIAL HISTORY: Remote history of smoking. Quit back in September of 2014. 23 years ago. FAMILY HISTORY: Brother with history of CVA, TIA. Mother with history of memory impairment. ALLERGIES: No known drug allergies. MEDICATION: The patient is currently on Tylenol, Os-Triston, Pepcid, heparin, Lantus, Humalog, morphine sulfate, Theragran, Narcan, Zofran, Percocet, Actigall. PHYSICAL EXAMINATION: Blood pressure is 109/53 with a pulse of 110, T-MAX of 103. She is 93% on 2 L nasal cannula. General description is middle-aged female, lying in bed, in no distress. No tachypnea or accessory muscle for respiration use. HEENT examination shows slight pallor, no scleral icterus. Oral mucous membranes dry. NECK: Trachea is central. No thyromegaly. Lungs unlabored breathing. Decreased breath sounds at the base. No wheeze. HEART: S1, S2. Regular rate and rhythm. ABDOMEN: Soft, no tenderness. No rigidity. EXTREMITIES: No edema of the feet. SKIN EXAMINATION: No rash or mass palpable. NEUROLOGICAL EXAMINATION: Could not be done because of the limited hearing. LABS: Hemoglobin 9.4, white count of 20,000 with a BUN of 30, creatinine 0.88. Liver enzymes are elevated. Urine is negative. Blood culture with gram-negative bacilli. CT report as mentioned above. X-ray report with right midlung pneumonia. DIAGNOSTIC IMPRESSION AND PLAN: Patient with sepsis in a patient who did have a fever of 103 degrees Fahrenheit. The patient did have elevated white count of 13,000 which is up to 20,900 today in a patient who did have elevated lactic acid of 3.8, it did come down to 1.5. Source is likely combination of right mid lung pneumonia and a question of diskitis in a patient who does have a history of injury about a week ago but no other clear focus history where the patient was bacteremic and may have led to seeding of this area. PLAN: 1. Zosyn has been added at 3.375 g IV q.6 hours. Continue with Levaquin. 2. Will review the CT with the radiologist tomorrow to see if the fluid can be aspirated for microbiological diagnosis. 3. Increase IV fluids. 4. We will follow up on the clinical condition and culture to further adjust medication if needed. Thank you for this consultation. Will follow this patient along with you. MMODL / IJN: [id number] /
[2017-03-09] MEDS ORDERED: VANCOMYCIN 1,000 MG in SODIUM CHLORIDE 0.9% 250 ML IVPB SCH (12:00)
--- NOTE | 2017-03-09 13:10 | P.PN ---
Subjective Patient is sleepy but easily arousable. She was transferred to the intensive care unit overnight. Vasopressors were stopped and our 2 ago. Objective - Vital Signs Vital signs: Vital Signs Temp 97.8 F 03/09/17 08:00 Pulse 91 03/09/17 10:30 Resp 19 03/09/17 10:30 BP 128/60 03/09/17 10:30 Pulse Ox 94 L 03/09/17 10:30 Intake & Output 03/08/17 03/09/17 03/09/17 18:59 06:59 18:59 Intake Total 1537 2255.0 495.938 Output Total 500 560 220 Balance 1037 1695.0 275.938 Weight 59 kg 60.2 kg Intake: IV 800 2212.5 450 Magnesium Sulfate-D5w Pmx 200 1 gm In Dextrose/Water 1 100ml.bag @ 100 mls/hr IVPB Q1H [facility] Rx#: [id number] Piperacillin-Tazobactam 3 62.5 50 .375 gm In Dextrose/Water 1 50ml.bag @ 12.5 mls/hr IVPB Q8HR [facility] Rx#: [id number] Sodium Chloride 0.9% 1, 800 700 400 000 ml @ 100 mls/hr IV . Q10H [facility] Rx#:[id number] Sodium Chloride 0.9% 1, 1000 000 ml @ 999 mls/hr IV . Q1H1M [facility] Rx#:[id number] Vancomycin 1,000 mg In 250 Sodium Chloride 0.9% 250 ml @ 125 mls/hr IVPB Q16H [facility] Rx#:[id number] Intake, IV Titration 500 42.5 45.938 Amount Norepinephrin 4 mg-0.9% 42.5 45.938 Ns Pmx 4 mg In 250 ml @ Titrate IV .Q0M [facility] Rx#: [id number] Sodium Chloride 0.9% 500 500 ml @ 999 mls/hr IV .Q31M [facility] Rx#:[id number] Oral 237 Output: Urine 500 560 220 Other: Voiding Method Indwelling Catheter # Voids 1 - Exam General: The patient is awake and alert, in no distress. Patient is legally deaf Eye: there is normal conjunctiva bilaterally. Neck: The neck is supple, there is no JVD. Cardiovascular: Normal S1-S2, no S3-S4, no murmurs. Respiratory: Lungs clear to auscultation bilaterally Gastrointestinal: Abdomen is soft, nontender Musculoskeletal: There is no pedal edema. Skin: Skin is warm and dry - Labs CBC & Chem 7: 03/09/17 04:28 03/09/17 04:28 Labs: Abnormal Lab Results - Last 24 Hours (Table) 03/08/17 03/08/17 03/08/17 Range/Units 11:44 16:45 20:48 WBC (3.8-10.6) k/uL RBC (3.80-5.40) m/uL Hgb (11.4-16.0) gm/dL Hct (34.0-46.0) % MCV (80.0-100.0) fL MCHC (31.0-37.0) g/dL Neutrophils # (1.3-7.7) k/uL Lymphocytes # (1.0-4.8) k/uL Sodium (137-145) mmol/L Chloride (98-107) mmol/L Carbon Dioxide (22-30) mmol/L BUN (7-17) mg/dL Glucose (74-99) mg/dL POC Glucose (mg/dL) 311 H 213 H 178 H (75-99) mg/dL Calcium (8.4-10.2) mg/dL Ionized Calcium Margaux (4.5-5.3) mg/dL Magnesium (1.6-2.3) mg/dL Total Bilirubin (0.2-1.3) mg/dL AST (14-36) U/L ALT (9-52) U/L Alkaline Phosphatase (38-126) U/L Total Protein (6.3-8.2) g/dL Albumin (3.5-5.0) g/dL 03/08/17 03/08/17 03/08/17 Range/Units 21:45 21:45 22:45 WBC 20.9 H (3.8-10.6) k/uL RBC 3.07 L (3.80-5.40) m/uL Hgb 9.4 L (11.4-16.0) gm/dL Hct 30.0 L (34.0-46.0) % MCV (80.0-100.0) fL MCHC (31.0-37.0) g/dL Neutrophils # (1.3-7.7) k/uL Lymphocytes # (1.0-4.8) k/uL Sodium 131 L (137-145) mmol/L Chloride 109 H (98-107) mmol/L Carbon Dioxide 14 L (22-30) mmol/L BUN 24 H (7-17) mg/dL Glucose 168 H (74-99) mg/dL POC Glucose (mg/dL) 177 H (75-99) mg/dL Calcium 8.0 L (8.4-10.2) mg/dL Ionized Calcium Margaux (4.5-5.3) mg/dL Magnesium (1.6-2.3) mg/dL Total Bilirubin (0.2-1.3) mg/dL AST (14-36) U/L ALT (9-52) U/L Alkaline Phosphatase (38-126) U/L Total Protein (6.3-8.2) g/dL Albumin (3.5-5.0) g/dL 03/08/17 03/09/17 03/09/17 Range/Units 22:51 04:28 04:28 WBC 15.3 H (3.8-10.6) k/uL RBC 3.57 L (3.80-5.40) m/uL Hgb 10.8 L (11.4-16.0) gm/dL Hct (34.0-46.0) % MCV 100.6 H (80.0-100.0) fL MCHC 30.2 L (31.0-37.0) g/dL Neutrophils # 14.3 H (1.3-7.7) k/uL Lymphocytes # 0.6 L (1.0-4.8) k/uL Sodium 131 L (137-145) mmol/L Chloride 110 H (98-107) mmol/L Carbon Dioxide 12 L (22-30) mmol/L BUN 20 H (7-17) mg/dL Glucose 203 H (74-99) mg/dL POC Glucose (mg/dL) (75-99) mg/dL Calcium 8.3 L (8.4-10.2) mg/dL Ionized Calcium Margaux 5.4 H (4.5-5.3) mg/dL Magnesium 2.4 H (1.6-2.3) mg/dL Total Bilirubin 1.7 H (0.2-1.3) mg/dL AST 145 H (14-36) U/L ALT 137 H (9-52) U/L Alkaline Phosphatase 384 H (38-126) U/L Total Protein 5.2 L (6.3-8.2) g/dL Albumin 2.0 L (3.5-5.0) g/dL 03/09/17 Range/Units 08:00 WBC (3.8-10.6) k/uL RBC (3.80-5.40) m/uL Hgb (11.4-16.0) gm/dL Hct (34.0-46.0) % MCV (80.0-100.0) fL MCHC (31.0-37.0) g/dL Neutrophils # (1.3-7.7) k/uL Lymphocytes # (1.0-4.8) k/uL Sodium (137-145) mmol/L Chloride (98-107) mmol/L Carbon Dioxide (22-30) mmol/L BUN (7-17) mg/dL Glucose (74-99) mg/dL POC Glucose (mg/dL) 192 H (75-99) mg/dL Calcium (8.4-10.2) mg/dL Ionized Calcium Margaux (4.5-5.3) mg/dL Magnesium (1.6-2.3) mg/dL Total Bilirubin (0.2-1.3) mg/dL AST (14-36) U/L ALT (9-52) U/L Alkaline Phosphatase (38-126) U/L Total Protein (6.3-8.2) g/dL Albumin (3.5-5.0) g/dL Microbiology - Last 24 Hours (Table) 03/08/17 15:35 Blood Culture Gram Stain - Preliminary Blood 03/08/17 15:35 Blood Culture - Final Blood 03/07/17 17:27 Urine Culture - Preliminary Urine,Voided Gram Neg Bacilli 03/07/17 20:35 Blood Culture Gram Stain - Preliminary Blood Blood Culture - Preliminary Gram Neg Bacilli 03/07/17 20:35 Blood Culture - Final Blood Assessment and Plan Plan: 1. Severe sepsis with septic shock 2. Spinal abscess with evidence of osteomyelitis at L4 3. Gram-negative bacteremia awaiting repeat blood culture and final identification 4. Uncontrolled type 2 diabetes mellitus A1c 10.0 Today, I reviewed her medication list and lab work results. Awaiting MRI of the lumbar spine. Spine surgery consulted. Continue broad spectrum antibiotic. Awaiting repeat blood culture. No family member at bedside to give an update. Continue ICU care for now. Repeat lab work in the morning. Pain control.
[2017-03-09 14:28] LABS: Glucose,Whole Blood 185 mg/dL (75-99)
--- NOTE | 2017-03-09 17:04 | PN ---
PROGRESS NOTE DATE OF SERVICE: 03/09/2017 REASON FOR FOLLOWUP: Bacteremia and sepsis. INTERVAL HISTORY: The patient overall feels better and has improved with no fever this morning. The patient needed to be transferred to the ICU because of hypotension that did require pressor in the form of Levophed. That has been off since morning. The patient seems to be comfortable. She is a little bit hard to communicate with because of deafness. She did mention that she ( ) overall and breathing comfortably and the back pain seems to be improved. PHYSICAL EXAMINATION: Blood pressure 94/46 with a pulse of 88, temperature 98.2. She is 94% on 3 L nasal cannula. General description is a middle-aged female lying in bed in no distress. RESPIRATORY SYSTEM: Unlabored breathing. Some coarse breath sounds in the bases. No wheeze. HEART: S1, S2. Regular rate and rhythm. ABDOMEN: Soft. No tenderness. LAB: Hemoglobin 10.8, white count 15.3, BUN of 20, creatinine 0.66. Blood culture with a Gram-negative. DIAGNOSTIC IMPRESSION/PLAN: Patient admitted to hospital with sepsis with Gram-negative bacteremia, source questionably right middle lobe pneumonia versus L4 diskitis, for which an MRI has been ordered. We are waiting for it to be finalized. Will keep the patient on Zosyn, discontinue the vancomycin, as no Gram-positive has been grown, and add p.o. Cipro to cover for the Gram-negative. Repeat a blood culture x1 to document clearance of her bacteremia. MMODL / IJN: [id number] /
[2017-03-09 17:14] LABS: Glucose,Whole Blood 215 mg/dL (75-99)
[2017-03-09] MEDS ORDERED: LEVOFLOXACIN 500 MG TAB PO SCH (18:00)
[2017-03-09] MEDS: ACETAMINOPHEN TAB 325 MG TAB PO PRN (21:05)
[2017-03-09 21:17] LABS: Glucose,Whole Blood 162 mg/dL (75-99)
[2017-03-09] MEDS ORDERED: MORPHINE SULFATE 2 MG/ML SYRINGE IVP STA (21:25)
--- NOTE | 2017-03-09 21:48 | XR ---
EXAMINATION TYPE: XR chest 1V portable DATE OF EXAM: 03/09/2017 COMPARISON: 03/09/2017 HISTORY: Fever TECHNIQUE: Single frontal view of the chest is obtained. FINDINGS: There is general coarsening of interstitial pulmonary markings. There is pulmonary edema. Heart size is normal. Pulmonary vascularity is difficult to evaluate because of the lung disease. Tho racic aorta is atheromatous. There is no definite pleural effusion. IMPRESSION: Coarse interstitial pulmonary infiltrate appears worse than last exam this morning. I wo uld consider heart failure superimposed on pulmonary fibrosis..
[2017-03-09 21:54] LABS: ALT 116 U/L (9-52); AST 86 U/L (14-36); Alkaline Phosphatase 415 U/L (38-126); Anion Gap 12 mmol/L; Blood Urea Nitrogen 15 mg/dL (7-17); Calcium 8.8 mg/dL (8.4-10.2); Carbon Dioxide 11 mmol/L (22-30); Chloride 111 mmol/L (98-107); Glucose 184 mg/dL (74-99); Magnesium 2.2 mg/dL (1.6-2.3); Non-African American GFR(MDRD) >60 (>60 ml/min/1.73 sqM); Potassium 4.5 mmol/L (3.5-5.1); Sodium 134 mmol/L (137-145); Total Bilirubin 1.7 mg/dL (0.2-1.3); Total Protein 6.2 g/dL (6.3-8.2)
[2017-03-09 21:58] LABS: CH 29.6; CHCM 30.6; HCT 37.4 % (34.0-46.0); HDW 3.08; HGB 11.9 gm/dL (11.4-16.0); Hypochromasia Moderate; MCH 31.1 pg (25.0-35.0); MCHC 31.9 g/dL (31.0-37.0); MCV 97.6 fL (80.0-100.0); RBC 3.83 m/uL (3.80-5.40); WBC (Perox) 11.92
[2017-03-09] MEDS ORDERED: ACETAMINOPHEN IV (For NPO) 1,000 MG in EMPTY BAG 1 BAG IVPB ONE (22:00)
[2017-03-09 22:18] LABS: Add Differential Manual Differential
[2017-03-09 22:23] LABS: Band Neutrophils % 17 %; Metamyelocytes % 1 %; Nucleated Red Blood Cells 0 /100 WBC (0-0); Total Cells Counted 200
[2017-03-09 22:29] LABS: Manual Review Performed
[2017-03-09 22:30] LABS: Polychromasia Present
[2017-03-10] MEDS: CIPROFLOXACIN HCL 500 MG TAB PO SCH ×2 (00:12→09:22)
[2017-03-10] MEDS: FAMOTIDINE 20 MG TAB PO SCH ×3 (00:13→20:03)
[2017-03-10] MEDS: HEPARIN SODIUM,PORCINE 5,000 UNIT/ML 1 ML VIAL SQ SCH ×3 (00:13→20:03)
[2017-03-10] MEDS: INSULIN GLARGINE 100 UNIT/ML 10 ML VIAL SQ SCH ×2 (00:13→20:07)
[2017-03-10] MEDS: SODIUM CHLORIDE 0.9% 1,000 ML IV SCH ×5 (00:15→16:55)
[2017-03-10] MEDS ORDERED: SODIUM CHLORIDE 0.9% 3,000 ML IV ONE (00:27)
[2017-03-10] MEDS: INSULIN LISPRO (humaLOG) 300 UNIT/3 ML VIAL SQ SCH ×7 (00:41→20:08)
[2017-03-10] MEDS: PIPERACILLIN-TAZOBACTAM 3.375 GM in DEXTROSE/WATER 1 50ML.BAG IVPB SCH ×2 (01:05→09:13)
[2017-03-10 01:09] LABS: Amorphous Sediment,Urine Rare /hpf; Appearance,Urine Cloudy (Clear); Bilirubin,Urine Negative (Negative); Glucose,Urine (UA) 2+ (Negative); Ketones,Urine Negative (Negative); Leukocyte Esterase,Urine Negative (Negative); Nitrite,Urine Negative (Negative); PH, Urine 5.5 (5.0-8.0); Particle Count 24512; Protein,Urine 1+ (Negative); RBC,Urine 8 /hpf (0-5); Specific Gravity,Urine 1.019 (1.001-1.035); UA Billing (MACRO vs. MICRO) MICRO; WBC,Urine 5 /hpf (0-5)
[2017-03-10] MEDS ORDERED: NOREPINEPHRIN 4 MG-0.9% NS PMX 4 MG/250 ML ML IV SCH (02:45)
[2017-03-10 05:25] LABS: ALT 97 U/L (9-52); AST 52 U/L (14-36); Alkaline Phosphatase 370 U/L (38-126); Anion Gap 10 mmol/L; Blood Urea Nitrogen 15 mg/dL (7-17); Carbon Dioxide 11 mmol/L (22-30); Chloride 114 mmol/L (98-107); Glucose 149 mg/dL (74-99); Magnesium 1.9 mg/dL (1.6-2.3); Non-African American GFR(MDRD) >60 (>60 ml/min/1.73 sqM); Phosphorous 2.9 mg/dL (2.5-4.5); Potassium 3.8 mmol/L (3.5-5.1); Sodium 135 mmol/L (137-145); Total Bilirubin 1.6 mg/dL (0.2-1.3); Total Protein 5.1 g/dL (6.3-8.2)
[2017-03-10 05:41] LABS: Basophils # (A) 0.1 k/uL (0-0.2); Basophils % (A) 0 %; CH 29.3; CHCM 29.2; Eosinophils % (A) 0 %; HDW 2.99; HGB 10.4 gm/dL (11.4-16.0); Hypochromasia Marked; Luc # (Auto) 0.95; Luc % (Auto) 4; Lymphocytes # (A) 0.9 k/uL (1.0-4.8); Lymphocytes % (A) 3 %; MCH 31.8 pg (25.0-35.0); MCHC 31.5 g/dL (31.0-37.0); MCV 100.9 fL (80.0-100.0); Macrocytosis Slight; Mean Platelet Volume 9.8; Monocytes # (A) 0.7 k/uL (0-1.0); Monocytes % (A) 3 %; Neutrophils # (A) 24.4 k/uL (1.3-7.7); Neutrophils % (A) 90 %; RBC 3.27 m/uL (3.80-5.40); WBC (Perox) 26.03
[2017-03-10 05:44] LABS: WBC 27.1 k/uL (3.8-10.6)
[2017-03-10] MEDS ORDERED: Potassium Replacement Protocol 1 EACH MISC MISCELLANE PRN (05:56)
[2017-03-10 06:09] LABS: Manual Review Performed
[2017-03-10] MEDS: MAGNESIUM SULFATE-D5W PMX 1 GM in DEXTROSE/WATER 1 100ML.BAG IVPB SCH ×2 (06:44→09:04)
--- NOTE | 2017-03-10 06:45 | ECHOF ---
Referral Reason:Rule out endocarditis MEASUREMENTS -------- HEIGHT: 160.0 cm WEIGHT: 59.9 kg BP: 128/60 IVSd: 1.2 cm (0.6 - 1.1) LVIDd: 3.6 cm (3.9 - 5.3) LVPWd: 1.1 cm (0.6 - 1.1) IVSs: 1.7 cm LVIDs: 1.5 cm LVPWs: 1.4 cm Ao Diam: 3.0 cm (2.0 - 3.7) AV Cusp: 1.7 cm (1.5 - 2.6) LA Diam: 3.8 cm (2.7 - 3.8) MV EXCURSION: 16.312 mm (> 18.000) MV EF SLOPE: 95 mm/s (70 - 150) EPSS: 0.3 cm MV E Gurinder: 1.02 m/s MV DecT: 191 ms MV A Gurinder: 1.10 m/s MV E/A Ratio: 0.93 RAP: 5.00 mmHg RVSP: 26.47 mmHg FINDINGS -------- Sinus rhythm. This was a technically good study. The left ventricular size is normal. There is mild concentric left ventricular hypertrophy. Overall left ventricular systolic function is normal with, an EF between 55 - 60 %. The right ventricle is normal in size and function. The left atrium is normal in size. The right atrium is normal in size. The aortic valve is trileaflet, and appears structurally normal. No aortic stenosis or regurgitation. There is trace mitral regurgitation. Trace tricuspid regurgitation present. The right ventricular systolic pressure, as measured by Doppler, is 26.47mmHg. Pulmonic valve appears structurally normal. The aortic root size is normal. The pericardium is normal. CONCLUSIONS -------- 1. Sinus rhythm. 2. There is trace mitral regurgitation. 3. Trace tricuspid regurgitation present. 4. The right ventricular systolic pressure, as measured by Doppler, is 26.47mmHg. 5. Pulmonic valve appears structurally normal. 6. The aortic root size is normal. 7. The pericardium is normal. 8. This was a technically good study. 9. The left ventricular size is normal. 10. There is mild concentric left ventricular hypertrophy. 11. Overall left ventricular systolic function is normal with, an EF between 55 - 60 %. 12. The right ventricle is normal in size and function. 13. The left atrium is normal in size. 14. The right atrium is normal in size. 15. The aortic valve is trileaflet, and appears structurally normal. No aortic stenosis or regurgitation. ASSISTANT W[employer] COACH: Jessica Aguayo RDCS
[2017-03-10] MEDS ORDERED: POTASSIUM CHLORIDE ER 20 MEQ TAB.ER PO SCH (07:00)
[2017-03-10] MEDS: ACETAMINOPHEN TAB 325 MG TAB PO PRN ×2 (08:50→16:54)
--- NOTE | 2017-03-10 09:37 | P.CNOR ---
History of Present Illness - [facility] Consult date: 03/10/17 Consult reason: low back pain History of present illness: The patient is a pleasant 66-year-old female who presented regards to sepsis and has significant back pain. 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 Her sister is also present at bedside we spoke with her as well. The patient states that the symptoms have been going on for about about 1 month. She did not have any specific incident of trauma that started the issues. She had some nausea the recent issues with her liver and gallbladder surgery for which she had infection and surgical intervention at outside hospital where she was transferred. She was brought to the hospital here in regards to her sepsis and persistent back pain. She's been treated with IV antibiotics and had an issue with hypotension and was transferred to the intensive care unit in that regard. She is found to have gram-negative bacilli in her blood cultures and has been treated properly for this. She has not had any growth of any gram-positive's. Her pain is at her back and is constant particularly with any movement. She is not having any numbness tingling in her lower extremity. She is not complaining of any neurologic deficits. Denies any changes in bowel bladder function. She does not feel like she is weak at her lower extremities but has great difficulty moving because of the pain at her lower back. Review of Systems Positive fevers. Denies any changes in the lower extremity. No numbness tingling lower extremity is. Pain is mainly at the right side of her lower back. Denies any changes in bowel bladder function. Denies any chest pain or shortness of breath. Past Medical History Past Medical History: CVA/TIA, Diabetes Mellitus, Hearing Disorder / Deafness, Hyperlipidemia Additional Past Medical History / Comment(s): Pt is deaf-understands ASL and some lip reading, CVA residual "memory loss"; NIDDM type II. History of Any Multi-Drug Resistant Organisms: None Reported Past Surgical History: Cholecystectomy Additional Past Surgical History / Comment(s): september- gallbladder removed , bypass of liver duct/stent done at [facility], left carotid endarterectomy September 2014 , colonoscopy. Past Anesthesia/Blood Transfusion Reactions: No Reported Reaction Past Psychological History: Anxiety Additional Psychological History / Comment(s): PT LIVES WITH HER BROTHER. She is indendent. She drives. Sister is the primary contact. Retired. No experience. Tobacco smoker stopped in 2013. 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 smoking: stopped 09/2014 1ppd Past Drug Use History: None Reported - Past Family History Brother(s) Family Medical History: CVA/TIA Mother Family Medical History: Memory Impairment Additional Family Medical History / Comment(s): "Alzheimer's". Mother is . Father Family Medical History: No Reported History Additional Family Medical History / Comment(s): Father is 93 yrs old. Medications and Allergies Home Medications Medication Instructions Recorded Confirmed Type Calcium Carbonate/Vitamin D3 1 tab PO DAILY 08/22/15 03/07/17 History [Os-Triston 500+D3 Caplet] Ursodiol 300 mg PO DAILY 08/22/15 03/07/17 History Multivitamins, Thera [Multivitamin 1 tab PO DAILY 03/07/17 03/07/17 History (formulary)] Omeprazole [PriLOSEC] 40 mg PO BID 03/07/17 03/07/17 History Allergies Allergy/AdvReac Type Severity Reaction Status Date / Time No Known Allergies Allergy Verified 03/07/17 15:59 Physical Examination Osteopathic Statement: *. No significant issues noted on an osteopathic structural exam other than those noted in the History and Physical/Consult. - L Spine: dermatomal strength & reflexes right Strength: hip flexion: 5/5 (At the patient's back there is no open wounds lacerations or abrasions. There is no erythema. She has significant difficulty due to her back pain with any motion able walk she is in bed. She is tender to palpation over the midline and diffusely over the right side. At her hip she has appropriate internal/external rotation without specific hip pain. She is able to flex and extend her ankle foot toes and knee with appropriate strength but does have pain in her back with these motions. Her left lower extremity does not have as much pain and she has good strength intact at her left lower extremity. Her abdomen soft or chest has good excursion with deep inspiration and expiration her upper extremity is have full active and passive range motion without any neurologic deficits. There is no hyperreflexia. The does not appear to be motor loss. Her neck is nontender to palpation range of motion.) Results - Labs Labs: Abnormal Lab Results - Last 24 Hours (Table) 03/09/17 03/09/17 03/09/17 Range/Units 13:34 17:12 21:03 WBC (3.8-10.6) k/uL RBC (3.80-5.40) m/uL Hgb (11.4-16.0) gm/dL Hct (34.0-46.0) % MCV (80.0-100.0) fL Neutrophils # (1.3-7.7) k/uL Neutrophils # (Manual) (1.3-7.7) k/uL Lymphocytes # (1.0-4.8) k/uL Metamyelocytes # (Man) (0) k/uL Sodium (137-145) mmol/L Chloride (98-107) mmol/L Carbon Dioxide (22-30) mmol/L Glucose (74-99) mg/dL POC Glucose (mg/dL) 185 H 215 H 162 H (75-99) mg/dL Plasma Lactic Acid Nazario (0.7-2.0) mmol/L Calcium (8.4-10.2) mg/dL Total Bilirubin (0.2-1.3) mg/dL AST (14-36) U/L ALT (9-52) U/L Alkaline Phosphatase (38-126) U/L Total Protein (6.3-8.2) g/dL Albumin (3.5-5.0) g/dL Urine Appearance (Clear) Urine Protein (Negative) Urine Glucose (UA) (Negative) Urine Blood (Negative) Urine RBC (0-5) /hpf Amorphous Sediment (None) /hpf Urine Yeast (Budding) (None) /hpf 03/09/17 03/09/17 03/09/17 Range/Units 21:23 21:23 21:23 WBC 12.0 H (3.8-10.6) k/uL RBC (3.80-5.40) m/uL Hgb (11.4-16.0) gm/dL Hct (34.0-46.0) % MCV (80.0-100.0) fL Neutrophils # (1.3-7.7) k/uL Neutrophils # (Manual) 10.60 H (1.3-7.7) k/uL Lymphocytes # (1.0-4.8) k/uL Metamyelocytes # (Man) 0.12 H (0) k/uL Sodium 134 L (137-145) mmol/L Chloride 111 H (98-107) mmol/L Carbon Dioxide 11 L (22-30) mmol/L Glucose 184 H (74-99) mg/dL POC Glucose (mg/dL) (75-99) mg/dL Plasma Lactic Acid Nazario 3.0 H* (0.7-2.0) mmol/L Calcium (8.4-10.2) mg/dL Total Bilirubin 1.7 H (0.2-1.3) mg/dL AST 86 H (14-36) U/L ALT 116 H (9-52) U/L Alkaline Phosphatase 415 H (38-126) U/L Total Protein 6.2 L (6.3-8.2) g/dL Albumin 2.4 L (3.5-5.0) g/dL Urine Appearance (Clear) Urine Protein (Negative) Urine Glucose (UA) (Negative) Urine Blood (Negative) Urine RBC (0-5) /hpf Amorphous Sediment (None) /hpf Urine Yeast (Budding) (None) /hpf 03/10/17 03/10/17 03/10/17 Range/Units 00:30 04:41 04:41 WBC 27.1 H* (3.8-10.6) k/uL RBC 3.27 L (3.80-5.40) m/uL Hgb 10.4 L (11.4-16.0) gm/dL Hct 33.0 L (34.0-46.0) % MCV 100.9 H (80.0-100.0) fL Neutrophils # 24.4 H (1.3-7.7) k/uL Neutrophils # (Manual) (1.3-7.7) k/uL Lymphocytes # 0.9 L (1.0-4.8) k/uL Metamyelocytes # (Man) (0) k/uL Sodium 135 L (137-145) mmol/L Chloride 114 H (98-107) mmol/L Carbon Dioxide 11 L (22-30) mmol/L Glucose 149 H (74-99) mg/dL POC Glucose (mg/dL) (75-99) mg/dL Plasma Lactic Acid Nazario (0.7-2.0) mmol/L Calcium 8.0 L (8.4-10.2) mg/dL Total Bilirubin 1.6 H (0.2-1.3) mg/dL AST 52 H (14-36) U/L ALT 97 H (9-52) U/L Alkaline Phosphatase 370 H (38-126) U/L Total Protein 5.1 L (6.3-8.2) g/dL Albumin 2.0 L (3.5-5.0) g/dL Urine Appearance Cloudy H (Clear) Urine Protein 1+ H (Negative) Urine Glucose (UA) 2+ H (Negative) Urine Blood Small H (Negative) Urine RBC 8 H (0-5) /hpf Amorphous Sediment Rare H (None) /hpf Urine Yeast (Budding) Few H (None) /hpf Microbiology - Last 24 Hours (Table) 03/08/17 15:35 Blood Culture Gram Stain - Final Blood Blood Culture - Final Escherichia coli 03/09/17 13:28 Blood Culture Gram Stain - Preliminary Blood 03/09/17 13:28 Blood Culture - Final Blood 03/07/17 20:35 Blood Culture Gram Stain - Final Blood Blood Culture - Final Escherichia coli 03/07/17 17:27 Urine Culture - Final Urine,Voided Escherichia coli 03/08/17 15:35 Blood Culture - Final Blood H & H 03/07/17 03/08/17 03/08/17 Range/Units 17:27 06:43 21:45 Hgb 11.6 10.2 L 9.4 L (11.4-16.0) gm/dL Hct 36.1 33.0 L 30.0 L (34.0-46.0) % 03/09/17 03/09/17 03/10/17 Range/Units 04:28 21:23 04:41 Hgb 10.8 L 11.9 10.4 L (11.4-16.0) gm/dL Hct 35.9 37.4 33.0 L (34.0-46.0) % Coagulation 03/08/17 Range/Units 21:45 INR 1.1 (<1.2) Result Diagrams: 03/10/17 04:41 03/10/17 04:41 - Diagnostic results CT Scan - lumbar: report reviewed, image reviewed (The computed tomography scan shows a change at L3 4 with decreased disc height and some possible air around the prevertebral disc space possibly into the right psoas. There is a lucency at the L4 vertebral body at the right superior area with some sclerosis around margins.) Assessment and Plan Plan: Bacteremia with sepsis, gram-negative bacilli on culture Hypotension which appears to be stabilizing with treatment in the intensive care unit Severe low back pain without radiculopathy and without neurologic deficit The patient is being treated appropriately for her bacteremia and sepsis. She seems to be stabilizing to some degree and globally feeling somewhat better. She is continuing her IV antibiotic per medicine and infectious disease. Her blood pressure appears to be stabilizing and she'll continue his medical management for these issues. In regards to her low back, she has significant pain which seems to be related to his status at L3 4. There is some air around the disc space and at the paravertebral soft tissues and into the psoas at L3 4. This may represent a parrot spinal abscess or psoas abscess. She is not having any neurologic deficit and I do not plan acute neural decompression today. We do need an MRI of her lower back to better evaluate the tissue and the possible discitis. The lucency at L4 is present but it does have some sclerotic margins which would suggest that this would be slow growing and does not necessarily correlate with acute osteomyelitis but may represent some sort of involucrum at the L4 vertebral body. An MRI would help discern this further and we're awaiting the MRI to be completed when she is more medically stable to undergo the test. She should continue with antibiotics and IV medication for treatment of this as per infectious disease. If she is not responding to the antibiotics or if she has a specific psoas abscess she may need general surgical consultation for evaluation of possible treatment of this as well. We will await the MRI for further recommendations. I tried to answer the patient's and the patient's sister's questions best my ability and they are agreeable. Time with Patient: Greater than 30
[2017-03-10] MEDS: URSODIOL 300 MG CAP PO SCH (09:38)
[2017-03-10] MEDS: MULTIVITAMINS, THERA 1 EACH TAB PO SCH (09:39)
[2017-03-10] MEDS: CALCIUM CARB-VIT D 500MG-200UN 1 EACH TAB PO SCH (09:39)
[2017-03-10] MEDS ORDERED: POTASSIUM CHLORIDE ER 20 MEQ TAB.ER PO STA (10:20)
--- NOTE | 2017-03-10 10:58 | P.PN ---
Subjective This is a very pleasant 66 year-old female patient who is deaf and requires an full time staff interpreter for communication. She was admitted on 03/07/2017 after being found on the floor by her brother. She denied falling or significant injury. She's been having pain in her lumbar spine with radiation to the right buttock and her legs have been progressively weak. In the emergency room she was found to have possible pneumonia and we're consulted for the same. Her chest x-ray revealed fibrotic changes and a new right middle lobe infiltrate. The patient does have some shortness of breath. No real cough or congestion. At the time of her consult yesterday she is maintaining good O2 saturations in the 90s on room air. She was subsequently found to have hypotension and was transferred to the intensive care unit last evening. She was placed on levophed. She is now down to 1 mcg/m. She is awake and alert in no acute distress. She does have some shortness of breath. Still no cough or congestion. She is still having ongoing issues with lumbar pain. Computed tomography scan of the sacrum revealed a small sacral cyst and some free fluid in the pelvis of unclear significance. No focal bone destruction. No fracture. A computed tomography scan of the lumbar spine revealed soft tissue paraspinal air as well as small air bubbles in the spinal canal at L4 suggestive of discitis and osteomyelitis with developing paraspinal abscess. Orthopedics has been consulted. The patient was seen and evaluated again today 03/10/2017 in follow-up in the intensive care unit. She had subsequently been transferred out to the regular floor yesterday but later in the evening she developed an elevated temperature of 101.3, increased heart rate and respiratory rate and an A team was called she was transferred back into the intensive care unit. She did receive 3 L of IV fluid resuscitation and was started on pressors. Her current white count is 27.1. She was found to have E. coli in both the urine and the blood. She is currently on Zosyn. She is maintaining good O2 saturations in the high 90s on 5 L/m per nasal cannula. Her chest x-ray reveals interstitial pulmonary infiltrate. Objective - Vital Signs Vital signs: Vital Signs Temp 98.7 F 03/10/17 08:00 Pulse 71 03/10/17 10:00 Resp 25 H 03/10/17 10:00 BP 93/52 03/10/17 10:00 Pulse Ox 99 03/10/17 10:00 Intake & Output 03/09/17 03/10/17 03/10/17 18:59 06:59 18:59 Intake Total 751.461 4613.187 543.125 Output Total 435 340 175 Balance 560.938 777.187 368.125 Weight 68.1 kg Intake: IV 950 900 412.5 Piperacillin-Tazobactam 3 50 100 12.5 .375 gm In Dextrose/Water 1 50ml.bag @ 12.5 mls/hr IVPB Q8HR [facility] Rx#: [id number] Sodium Chloride 0.9% 1, 800 400 000 ml @ 100 mls/hr IV . Q10H [facility] Rx#:[id number] Sodium Chloride 0.9% 1, 900 000 ml @ 100 mls/hr IV . Q10H [facility] Rx#:[id number] Intake, IV Titration 45.938 162.187 130.625 Amount ACETAMINOPHEN IV (For NPO 100 ) 1,000 mg In Empty Bag 1 bag @ 400 mls/hr IVPB ONCE ONE Rx#:[id number] Magnesium Sulfate-D5w Pmx 100 1 gm In Dextrose/Water 1 100ml.bag @ 100 mls/hr IVPB Q1H [facility] Rx#: [id number] Norepinephrin 4 mg-0.9% 45.938 Ns Pmx 4 mg In 250 ml @ Titrate IV .Q0M [facility] Rx#: [id number] Norepinephrin 4 mg-0.9% 62.187 30.625 Ns Pmx 4 mg In 250 ml @ Titrate IV .Q0M [facility] Rx#: [id number] Oral 55 Output: Urine 435 340 175 Other: Voiding Method Indwelling Catheter Indwelling Catheter - Exam GENERAL EXAM: Deaf. Alert, fairly comfortable in no apparent distress. HEAD: Normocephalic. EYES: Normal reaction of pupils, equal size. NOSE: Clear with pink turbinates. THROAT: No erythema or exudates. NECK: No masses, no JVD. CHEST: No chest wall deformity. LUNGS: Equal air entry with worse crackles in the bases.. CVS: S1 and S2 normal with no audible murmurs, regular rhythm. ABDOMEN: No hepatosplenomegaly, normal bowel sounds, no guarding or rigidity. SKIN: No rashes CENTRAL NERVOUS SYSTEM: No focal deficits, tone is normal in all 4 extremities. Extremities: There is trace peripheral edema. No clubbing, no cyanosis. Peripheral pulses are intact. - Labs CBC & Chem 7: 03/10/17 04:41 03/10/17 08:56 Labs: Abnormal Lab Results - Last 24 Hours (Table) 03/09/17 03/09/17 03/09/17 Range/Units 13:34 17:12 21:03 WBC (3.8-10.6) k/uL RBC (3.80-5.40) m/uL Hgb (11.4-16.0) gm/dL Hct (34.0-46.0) % MCV (80.0-100.0) fL Neutrophils # (1.3-7.7) k/uL Neutrophils # (Manual) (1.3-7.7) k/uL Lymphocytes # (1.0-4.8) k/uL Metamyelocytes # (Man) (0) k/uL Sodium (137-145) mmol/L Chloride (98-107) mmol/L Carbon Dioxide (22-30) mmol/L Glucose (74-99) mg/dL POC Glucose (mg/dL) 185 H 215 H 162 H (75-99) mg/dL Plasma Lactic Acid Nazario (0.7-2.0) mmol/L Calcium (8.4-10.2) mg/dL Total Bilirubin (0.2-1.3) mg/dL AST (14-36) U/L ALT (9-52) U/L Alkaline Phosphatase (38-126) U/L Total Protein (6.3-8.2) g/dL Albumin (3.5-5.0) g/dL Urine Appearance (Clear) Urine Protein (Negative) Urine Glucose (UA) (Negative) Urine Blood (Negative) Urine RBC (0-5) /hpf Amorphous Sediment (None) /hpf Urine Yeast (Budding) (None) /hpf 03/09/17 03/09/17 03/09/17 Range/Units 21:23 21:23 21:23 WBC 12.0 H (3.8-10.6) k/uL RBC (3.80-5.40) m/uL Hgb (11.4-16.0) gm/dL Hct (34.0-46.0) % MCV (80.0-100.0) fL Neutrophils # (1.3-7.7) k/uL Neutrophils # (Manual) 10.60 H (1.3-7.7) k/uL Lymphocytes # (1.0-4.8) k/uL Metamyelocytes # (Man) 0.12 H (0) k/uL Sodium 134 L (137-145) mmol/L Chloride 111 H (98-107) mmol/L Carbon Dioxide 11 L (22-30) mmol/L Glucose 184 H (74-99) mg/dL POC Glucose (mg/dL) (75-99) mg/dL Plasma Lactic Acid Nazairo 3.0 H* (0.7-2.0) mmol/L Calcium (8.4-10.2) mg/dL Total Bilirubin 1.7 H (0.2-1.3) mg/dL AST 86 H (14-36) U/L ALT 116 H (9-52) U/L Alkaline Phosphatase 415 H (38-126) U/L Total Protein 6.2 L (6.3-8.2) g/dL Albumin 2.4 L (3.5-5.0) g/dL Urine Appearance (Clear) Urine Protein (Negative) Urine Glucose (UA) (Negative) Urine Blood (Negative) Urine RBC (0-5) /hpf Amorphous Sediment (None) /hpf Urine Yeast (Budding) (None) /hpf 03/10/17 03/10/17 03/10/17 Range/Units 00:30 04:41 04:41 WBC 27.1 H* (3.8-10.6) k/uL RBC 3.27 L (3.80-5.40) m/uL Hgb 10.4 L (11.4-16.0) gm/dL Hct 33.0 L (34.0-46.0) % MCV 100.9 H (80.0-100.0) fL Neutrophils # 24.4 H (1.3-7.7) k/uL Neutrophils # (Manual) (1.3-7.7) k/uL Lymphocytes # 0.9 L (1.0-4.8) k/uL Metamyelocytes # (Man) (0) k/uL Sodium 135 L (137-145) mmol/L Chloride 114 H (98-107) mmol/L Carbon Dioxide 11 L (22-30) mmol/L Glucose 149 H (74-99) mg/dL POC Glucose (mg/dL) (75-99) mg/dL Plasma Lactic Acid Nazario (0.7-2.0) mmol/L Calcium 8.0 L (8.4-10.2) mg/dL Total Bilirubin 1.6 H (0.2-1.3) mg/dL AST 52 H (14-36) U/L ALT 97 H (9-52) U/L Alkaline Phosphatase 370 H (38-126) U/L Total Protein 5.1 L (6.3-8.2) g/dL Albumin 2.0 L (3.5-5.0) g/dL Urine Appearance Cloudy H (Clear) Urine Protein 1+ H (Negative) Urine Glucose (UA) 2+ H (Negative) Urine Blood Small H (Negative) Urine RBC 8 H (0-5) /hpf Amorphous Sediment Rare H (None) /hpf Urine Yeast (Budding) Few H (None) /hpf Microbiology - Last 24 Hours (Table) 03/08/17 15:35 Blood Culture Gram Stain - Final Blood Blood Culture - Final Escherichia coli 03/09/17 13:28 Blood Culture Gram Stain - Preliminary Blood 03/09/17 13:28 Blood Culture - Final Blood 03/07/17 20:35 Blood Culture Gram Stain - Final Blood Blood Culture - Final Escherichia coli 03/07/17 17:27 Urine Culture - Final Urine,Voided Escherichia coli 03/08/17 15:35 Blood Culture - Final Blood Assessment and Plan Plan: Impression: #1 Lumbar back pain with lower extremity weakness. Computed tomography scan of the lumbar spine reveals a pleasant 30 with her last week and 5:30 yesterday with him which was soft tissue paraspinal air as well as small air bubbles in the spinal canal at L4 that is suggestive of discitis and osteomyelitis with a developing paraspinal abscess. Soft tissue paraspinal air as well as small air bubbles in the spinal canal at L4 level that is suggestive of discitis and osteomyelitis with developing paraspinal abscess. Orthopedics has been consulted. #2 Acute sepsis with hypotension requiring pressors secondary to E. coli in both the urine and blood. #3 Dyspnea secondary to right middle lobe infiltrate/pneumonia. #4 Elevated liver enzymes, improving. #5 Diabetes mellitus. #6 Hyperlipidemia. 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 #8 Hearing disorder. Plan: The patient was seen and evaluated by Dr. Galaviz. We will attempt to wean off the levophed again today and continue monitoring her blood pressure throughout the afternoon. We'll continue with Zosyn. Infectious diseases on the case as well. We'll continue with her current medications. We'll use cautious amounts of narcotics to avoid recurrent drops in blood pressure. Orthopedics has been consulted and are recommending an MRI and possibly a surgical consultation regarding the psoas abscess if she does not respond antibiotics.. She remains on antibiotics and bronchodilators. We'll continue to follow.
--- NOTE | 2017-03-10 11:28 | P.PN ---
Subjective Patient is awake and alert today. Sign valet cashier at bedside. Patient's report that her back pain is better. She became hemodynamically unstable last night and was transferred back to the ICU. She is currently on vasopressors. Objective - Vital Signs Vital signs: Vital Signs Temp 98.7 F 03/10/17 08:00 Pulse 78 03/10/17 11:00 Resp 20 03/10/17 11:00 BP 104/48 03/10/17 11:00 Pulse Ox 97 03/10/17 11:00 Intake & Output 03/09/17 03/10/17 03/10/17 18:59 06:59 18:59 Intake Total 625.073 6182.187 655.625 Output Total 435 340 195 Balance 560.938 777.187 460.625 Weight 68.1 kg Intake: IV 950 900 525.0 Piperacillin-Tazobactam 3 50 100 25.0 .375 gm In Dextrose/Water 1 50ml.bag @ 12.5 mls/hr IVPB Q8HR [facility] Rx#: [id number] Sodium Chloride 0.9% 1, 800 500 000 ml @ 100 mls/hr IV . Q10H [facility] Rx#:[id number] Sodium Chloride 0.9% 1, 900 000 ml @ 100 mls/hr IV . Q10H [facility] Rx#:[id number] Intake, IV Titration 45.938 162.187 130.625 Amount ACETAMINOPHEN IV (For NPO 100 ) 1,000 mg In Empty Bag 1 bag @ 400 mls/hr IVPB ONCE ONE Rx#:[id number] Magnesium Sulfate-D5w Pmx 100 1 gm In Dextrose/Water 1 100ml.bag @ 100 mls/hr IVPB Q1H [facility] Rx#: [id number] Norepinephrin 4 mg-0.9% 45.938 Ns Pmx 4 mg In 250 ml @ Titrate IV .Q0M [facility] Rx#: [id number] Norepinephrin 4 mg-0.9% 62.187 30.625 Ns Pmx 4 mg In 250 ml @ Titrate IV .Q0M [facility] Rx#: [id number] Oral 55 Output: Urine 435 340 195 Other: Voiding Method Indwelling Catheter Indwelling Catheter - Exam General: The patient is awake and alert, in no distress. Patient is legally deaf Eye: there is normal conjunctiva bilaterally. Neck: The neck is supple, there is no JVD. Cardiovascular: Normal S1-S2, no S3-S4, no murmurs. Respiratory: Lungs clear to auscultation bilaterally Gastrointestinal: Abdomen is soft, nontender Musculoskeletal: There is no pedal edema. Skin: Skin is warm and dry - Labs CBC & Chem 7: 03/10/17 04:41 03/10/17 08:56 Labs: Abnormal Lab Results - Last 24 Hours (Table) 03/09/17 03/09/17 03/09/17 Range/Units 13:34 17:12 21:03 WBC (3.8-10.6) k/uL RBC (3.80-5.40) m/uL Hgb (11.4-16.0) gm/dL Hct (34.0-46.0) % MCV (80.0-100.0) fL Neutrophils # (1.3-7.7) k/uL Neutrophils # (Manual) (1.3-7.7) k/uL Lymphocytes # (1.0-4.8) k/uL Metamyelocytes # (Man) (0) k/uL Sodium (137-145) mmol/L Chloride (98-107) mmol/L Carbon Dioxide (22-30) mmol/L Glucose (74-99) mg/dL POC Glucose (mg/dL) 185 H 215 H 162 H (75-99) mg/dL Plasma Lactic Acid Nazario (0.7-2.0) mmol/L Calcium (8.4-10.2) mg/dL Total Bilirubin (0.2-1.3) mg/dL AST (14-36) U/L ALT (9-52) U/L Alkaline Phosphatase (38-126) U/L Total Protein (6.3-8.2) g/dL Albumin (3.5-5.0) g/dL Urine Appearance (Clear) Urine Protein (Negative) Urine Glucose (UA) (Negative) Urine Blood (Negative) Urine RBC (0-5) /hpf Amorphous Sediment (None) /hpf Urine Yeast (Budding) (None) /hpf 03/09/17 03/09/17 03/09/17 Range/Units 21:23 21:23 21:23 WBC 12.0 H (3.8-10.6) k/uL RBC (3.80-5.40) m/uL Hgb (11.4-16.0) gm/dL Hct (34.0-46.0) % MCV (80.0-100.0) fL Neutrophils # (1.3-7.7) k/uL Neutrophils # (Manual) 10.60 H (1.3-7.7) k/uL Lymphocytes # (1.0-4.8) k/uL Metamyelocytes # (Man) 0.12 H (0) k/uL Sodium 134 L (137-145) mmol/L Chloride 111 H (98-107) mmol/L Carbon Dioxide 11 L (22-30) mmol/L Glucose 184 H (74-99) mg/dL POC Glucose (mg/dL) (75-99) mg/dL Plasma Lactic Acid Nazario 3.0 H* (0.7-2.0) mmol/L Calcium (8.4-10.2) mg/dL Total Bilirubin 1.7 H (0.2-1.3) mg/dL AST 86 H (14-36) U/L ALT 116 H (9-52) U/L Alkaline Phosphatase 415 H (38-126) U/L Total Protein 6.2 L (6.3-8.2) g/dL Albumin 2.4 L (3.5-5.0) g/dL Urine Appearance (Clear) Urine Protein (Negative) Urine Glucose (UA) (Negative) Urine Blood (Negative) Urine RBC (0-5) /hpf Amorphous Sediment (None) /hpf Urine Yeast (Budding) (None) /hpf 03/10/17 03/10/17 03/10/17 Range/Units 00:30 04:41 04:41 WBC 27.1 H* (3.8-10.6) k/uL RBC 3.27 L (3.80-5.40) m/uL Hgb 10.4 L (11.4-16.0) gm/dL Hct 33.0 L (34.0-46.0) % MCV 100.9 H (80.0-100.0) fL Neutrophils # 24.4 H (1.3-7.7) k/uL Neutrophils # (Manual) (1.3-7.7) k/uL Lymphocytes # 0.9 L (1.0-4.8) k/uL Metamyelocytes # (Man) (0) k/uL Sodium 135 L (137-145) mmol/L Chloride 114 H (98-107) mmol/L Carbon Dioxide 11 L (22-30) mmol/L Glucose 149 H (74-99) mg/dL POC Glucose (mg/dL) (75-99) mg/dL Plasma Lactic Acid Nazario (0.7-2.0) mmol/L Calcium 8.0 L (8.4-10.2) mg/dL Total Bilirubin 1.6 H (0.2-1.3) mg/dL AST 52 H (14-36) U/L ALT 97 H (9-52) U/L Alkaline Phosphatase 370 H (38-126) U/L Total Protein 5.1 L (6.3-8.2) g/dL Albumin 2.0 L (3.5-5.0) g/dL Urine Appearance Cloudy H (Clear) Urine Protein 1+ H (Negative) Urine Glucose (UA) 2+ H (Negative) Urine Blood Small H (Negative) Urine RBC 8 H (0-5) /hpf Amorphous Sediment Rare H (None) /hpf Urine Yeast (Budding) Few H (None) /hpf Microbiology - Last 24 Hours (Table) 03/08/17 15:35 Blood Culture Gram Stain - Final Blood Blood Culture - Final Escherichia coli 03/09/17 13:28 Blood Culture Gram Stain - Preliminary Blood 03/09/17 13:28 Blood Culture - Final Blood 03/07/17 20:35 Blood Culture Gram Stain - Final Blood Blood Culture - Final Escherichia coli 03/07/17 17:27 Urine Culture - Final Urine,Voided Escherichia coli 03/08/17 15:35 Blood Culture - Final Blood Assessment and Plan Plan: 1. Severe sepsis with septic shock 2. 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 E. coli bacteremia, persistent. We will repeat blood culture today. Antibiotic management by infectious disease. 4. Uncontrolled type 2 diabetes mellitus A1c 10.0 Today, I reviewed her medication list and lab work results. Awaiting MRI of the lumbar spine. Spine and Gen. surgery consulted. Continue broad spectrum antibiotic. Awaiting repeat blood culture. Her sister at bedside updated about her current clinical condition. Continue ICU care for now. Repeat lab work in the morning. Pain control.
[2017-03-10 12:11] LABS: Glucose,Whole Blood 174 mg/dL (75-99)
[2017-03-10 12:11] LABS: Glucose,Whole Blood 150 mg/dL (75-99)
[2017-03-10 13:43] LABS: Glucose,Whole Blood 173 mg/dL (75-99)
[2017-03-10] MEDS ORDERED: LACTULOSE 20 GM/30 ML CUP PO ONE (14:23)
[2017-03-10] MEDS ORDERED: BISACODYL 5 MG TABLET.DR PO PRN (14:23)
[2017-03-10] MEDS: MEROPENEM 1 GM in SODIUM CHLORIDE 0.9% 100 ML IVPB SCH (15:03)
--- NOTE | 2017-03-10 16:25 | P.GSCN ---
History of Present Illness Consult date: 03/10/17 Reason for Consult: Possible psoas abscess History of present illness: Patient presents to the hospital with complaints of pain. The patient is nonverbal and communicates by sign language. She is having fevers and leukocytosis and evidence of sepsis. Blood cultures positive for E. coli. She has been on vasopressors in the form of Levophed. Currently the Levophed as on hold. Systolic blood pressure currently 100. I do not see evidence of prior complaints of abdominal pain. CT of the back reveals a small amount of air adjacent to L4 without sizable abscess or fluid collection. Orthospine is following. Infectious disease is following. We were asked to see this patient to determine if any general surgical intervention is required. Patient is liver enzymes have been elevated as well. She has a history of prior elevated liver enzymes and underwent a liver biopsy a year ago or so. I do not see that a etiology for the patient's elevated liver enzymes has been identified with the previous workup. Previous ultrasound last year and CAT scan from earlier this year were reviewed. The patient is postcholecystectomy. Some air in the biliary tree is evident from suspected prior intervention. Common bile duct was normal in size at the time of the ultrasound last year. Review of Systems Due to nonverbal status Past Medical History Past Medical History: CVA/TIA, Diabetes Mellitus, Hearing Disorder / Deafness, Hyperlipidemia Additional Past Medical History / Comment(s): Pt is deaf-understands ASL and some lip reading, CVA residual "memory loss"; NIDDM type II. History of Any Multi-Drug Resistant Organisms: None Reported Past Surgical History: Cholecystectomy Additional Past Surgical History / Comment(s): september- gallbladder removed , bypass of liver duct/stent done at [facility], left carotid endarterectomy September 2014 , colonoscopy. Past Anesthesia/Blood Transfusion Reactions: No Reported Reaction Past Psychological History: Anxiety Additional Psychological History / Comment(s): PT LIVES WITH HER BROTHER. She is indendent. She drives. Sister is the primary contact. Retired. No experience. Tobacco smoker stopped in 2013. 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 smoking: stopped 09/2014 1ppd Past Drug Use History: None Reported - Past Family History Brother(s) Family Medical History: CVA/TIA Mother Family Medical History: Memory Impairment Additional Family Medical History / Comment(s): "Alzheimer's". Mother is . Father Family Medical History: No Reported History Additional Family Medical History / Comment(s): Father is 93 yrs old. Medications and Allergies Home Medications Medication Instructions Recorded Confirmed Type Calcium Carbonate/Vitamin D3 1 tab PO DAILY 08/22/15 03/07/17 History [Os-Triston 500+D3 Caplet] Ursodiol 300 mg PO DAILY 08/22/15 03/07/17 History Multivitamins, Thera [Multivitamin 1 tab PO DAILY 03/07/17 03/07/17 History (formulary)] Omeprazole [PriLOSEC] 40 mg PO BID 03/07/17 03/07/17 History Allergies Allergy/AdvReac Type Severity Reaction Status Date / Time No Known Allergies Allergy Verified 03/07/17 15:59 Surgical - Exam Vital Signs Temp Pulse Resp BP Pulse Ox 97.3 F L 72 18 93/50 93 L 03/07/17 14:58 03/07/17 14:58 03/07/17 14:58 03/07/17 14:58 03/07/17 14:58 Physical exam: General: Well-developed, well-nourished HEENT: Normocephalic, sclerae nonicteric Abdomen: Nontender, minimally distended Extremities: Back tenderness present lower lumbar Neuro: Alert and oriented Results - Labs 03/10/17 04:41 03/10/17 13:14 Abnormal Lab Results - Last 24 Hours (Table) 03/09/17 03/09/17 03/09/17 Range/Units 17:12 21:03 21:23 WBC 12.0 H (3.8-10.6) k/uL RBC (3.80-5.40) m/uL Hgb (11.4-16.0) gm/dL Hct (34.0-46.0) % MCV (80.0-100.0) fL Neutrophils # (1.3-7.7) k/uL Neutrophils # (Manual) 10.60 H (1.3-7.7) k/uL Lymphocytes # (1.0-4.8) k/uL Metamyelocytes # (Man) 0.12 H (0) k/uL Sodium (137-145) mmol/L Chloride (98-107) mmol/L Carbon Dioxide (22-30) mmol/L Glucose (74-99) mg/dL POC Glucose (mg/dL) 215 H 162 H (75-99) mg/dL Plasma Lactic Acid Nazario (0.7-2.0) mmol/L Calcium (8.4-10.2) mg/dL Total Bilirubin (0.2-1.3) mg/dL AST (14-36) U/L ALT (9-52) U/L Alkaline Phosphatase (38-126) U/L Total Protein (6.3-8.2) g/dL Albumin (3.5-5.0) g/dL Urine Appearance (Clear) Urine Protein (Negative) Urine Glucose (UA) (Negative) Urine Blood (Negative) Urine RBC (0-5) /hpf Amorphous Sediment (None) /hpf Urine Yeast (Budding) (None) /hpf 03/09/17 03/09/17 03/09/17 Range/Units 21:23 21:23 22:25 WBC (3.8-10.6) k/uL RBC (3.80-5.40) m/uL Hgb (11.4-16.0) gm/dL Hct (34.0-46.0) % MCV (80.0-100.0) fL Neutrophils # (1.3-7.7) k/uL Neutrophils # (Manual) (1.3-7.7) k/uL Lymphocytes # (1.0-4.8) k/uL Metamyelocytes # (Man) (0) k/uL Sodium 134 L (137-145) mmol/L Chloride 111 H (98-107) mmol/L Carbon Dioxide 11 L (22-30) mmol/L Glucose 184 H (74-99) mg/dL POC Glucose (mg/dL) 174 H (75-99) mg/dL Plasma Lactic Acid Nazario 3.0 H* (0.7-2.0) mmol/L Calcium (8.4-10.2) mg/dL Total Bilirubin 1.7 H (0.2-1.3) mg/dL AST 86 H (14-36) U/L ALT 116 H (9-52) U/L Alkaline Phosphatase 415 H (38-126) U/L Total Protein 6.2 L (6.3-8.2) g/dL Albumin 2.4 L (3.5-5.0) g/dL Urine Appearance (Clear) Urine Protein (Negative) Urine Glucose (UA) (Negative) Urine Blood (Negative) Urine RBC (0-5) /hpf Amorphous Sediment (None) /hpf Urine Yeast (Budding) (None) /hpf 03/10/17 03/10/17 03/10/17 Range/Units 00:30 04:41 04:41 WBC 27.1 H* (3.8-10.6) k/uL RBC 3.27 L (3.80-5.40) m/uL Hgb 10.4 L (11.4-16.0) gm/dL Hct 33.0 L (34.0-46.0) % MCV 100.9 H (80.0-100.0) fL Neutrophils # 24.4 H (1.3-7.7) k/uL Neutrophils # (Manual) (1.3-7.7) k/uL Lymphocytes # 0.9 L (1.0-4.8) k/uL Metamyelocytes # (Man) (0) k/uL Sodium 135 L (137-145) mmol/L Chloride 114 H (98-107) mmol/L Carbon Dioxide 11 L (22-30) mmol/L Glucose 149 H (74-99) mg/dL POC Glucose (mg/dL) (75-99) mg/dL Plasma Lactic Acid Nazario (0.7-2.0) mmol/L Calcium 8.0 L (8.4-10.2) mg/dL Total Bilirubin 1.6 H (0.2-1.3) mg/dL AST 52 H (14-36) U/L ALT 97 H (9-52) U/L Alkaline Phosphatase 370 H (38-126) U/L Total Protein 5.1 L (6.3-8.2) g/dL Albumin 2.0 L (3.5-5.0) g/dL Urine Appearance Cloudy H (Clear) Urine Protein 1+ H (Negative) Urine Glucose (UA) 2+ H (Negative) Urine Blood Small H (Negative) Urine RBC 8 H (0-5) /hpf Amorphous Sediment Rare H (None) /hpf Urine Yeast (Budding) Few H (None) /hpf 03/10/17 03/10/17 Range/Units 06:51 13:30 WBC (3.8-10.6) k/uL RBC (3.80-5.40) m/uL Hgb (11.4-16.0) gm/dL Hct (34.0-46.0) % MCV (80.0-100.0) fL Neutrophils # (1.3-7.7) k/uL Neutrophils # (Manual) (1.3-7.7) k/uL Lymphocytes # (1.0-4.8) k/uL Metamyelocytes # (Man) (0) k/uL Sodium (137-145) mmol/L Chloride (98-107) mmol/L Carbon Dioxide (22-30) mmol/L Glucose (74-99) mg/dL POC Glucose (mg/dL) 150 H 173 H (75-99) mg/dL Plasma Lactic Acid Nazario (0.7-2.0) mmol/L Calcium (8.4-10.2) mg/dL Total Bilirubin (0.2-1.3) mg/dL AST (14-36) U/L ALT (9-52) U/L Alkaline Phosphatase (38-126) U/L Total Protein (6.3-8.2) g/dL Albumin (3.5-5.0) g/dL Urine Appearance (Clear) Urine Protein (Negative) Urine Glucose (UA) (Negative) Urine Blood (Negative) Urine RBC (0-5) /hpf Amorphous Sediment (None) /hpf Urine Yeast (Budding) (None) /hpf Microbiology - Last 24 Hours (Table) 03/09/17 13:28 Blood Culture Gram Stain - Preliminary Blood 03/10/17 00:30 Urine Culture - Preliminary Urine,Catheterized 03/08/17 15:35 Blood Culture Gram Stain - Final Blood Blood Culture - Final Escherichia coli 03/09/17 13:28 Blood Culture - Final Blood 03/07/17 20:35 Blood Culture Gram Stain - Final Blood Blood Culture - Final Escherichia coli 03/07/17 17:27 Urine Culture - Final Urine,Voided Escherichia coli Diabetes panel 03/09/17 03/10/17 03/10/17 Range/Units 21:23 04:41 08:56 Sodium 134 L 135 L (137-145) mmol/L Potassium 4.5 3.8 3.8 (3.5-5.1) mmol/L Chloride 111 H 114 H (98-107) mmol/L Carbon Dioxide 11 L 11 L (22-30) mmol/L BUN 15 15 (7-17) mg/dL Creatinine 0.61 0.60 (0.52-1.04) mg/dL Glucose 184 H 149 H (74-99) mg/dL Calcium 8.8 8.0 L (8.4-10.2) mg/dL AST 86 H 52 H (14-36) U/L ALT 116 H 97 H (9-52) U/L Alkaline Phosphatase 415 H 370 H (38-126) U/L Total Protein 6.2 L 5.1 L (6.3-8.2) g/dL Albumin 2.4 L 2.0 L (3.5-5.0) g/dL 03/10/17 Range/Units 13:14 Sodium (137-145) mmol/L Potassium 4.5 (3.5-5.1) mmol/L Chloride (98-107) mmol/L Carbon Dioxide (22-30) mmol/L BUN (7-17) mg/dL Creatinine (0.52-1.04) mg/dL Glucose (74-99) mg/dL Calcium (8.4-10.2) mg/dL AST (14-36) U/L ALT (9-52) U/L Alkaline Phosphatase (38-126) U/L Total Protein (6.3-8.2) g/dL Albumin (3.5-5.0) g/dL Calcium panel 03/09/17 03/10/17 Range/Units 21:23 04:41 Calcium 8.8 8.0 L (8.4-10.2) mg/dL Phosphorus 3.0 2.9 (2.5-4.5) mg/dL Albumin 2.4 L 2.0 L (3.5-5.0) g/dL Pituitary panel 03/09/17 03/10/17 03/10/17 Range/Units 21:23 04:41 08:56 Sodium 134 L 135 L (137-145) mmol/L Potassium 4.5 3.8 3.8 (3.5-5.1) mmol/L Chloride 111 H 114 H (98-107) mmol/L Carbon Dioxide 11 L 11 L (22-30) mmol/L BUN 15 15 (7-17) mg/dL Creatinine 0.61 0.60 (0.52-1.04) mg/dL Glucose 184 H 149 H (74-99) mg/dL Calcium 8.8 8.0 L (8.4-10.2) mg/dL 03/10/17 Range/Units 13:14 Sodium (137-145) mmol/L Potassium 4.5 (3.5-5.1) mmol/L Chloride (98-107) mmol/L Carbon Dioxide (22-30) mmol/L BUN (7-17) mg/dL Creatinine (0.52-1.04) mg/dL Glucose (74-99) mg/dL Calcium (8.4-10.2) mg/dL Adrenal panel 03/09/17 03/10/17 03/10/17 Range/Units 21:23 04:41 08:56 Sodium 134 L 135 L (137-145) mmol/L Potassium 4.5 3.8 3.8 (3.5-5.1) mmol/L Chloride 111 H 114 H (98-107) mmol/L Carbon Dioxide 11 L 11 L (22-30) mmol/L BUN 15 15 (7-17) mg/dL Creatinine 0.61 0.60 (0.52-1.04) mg/dL Glucose 184 H 149 H (74-99) mg/dL Calcium 8.8 8.0 L (8.4-10.2) mg/dL Total Bilirubin 1.7 H 1.6 H (0.2-1.3) mg/dL AST 86 H 52 H (14-36) U/L ALT 116 H 97 H (9-52) U/L Alkaline Phosphatase 415 H 370 H (38-126) U/L Total Protein 6.2 L 5.1 L (6.3-8.2) g/dL Albumin 2.4 L 2.0 L (3.5-5.0) g/dL 03/10/17 Range/Units 13:14 Sodium (137-145) mmol/L Potassium 4.5 (3.5-5.1) mmol/L Chloride (98-107) mmol/L Carbon Dioxide (22-30) mmol/L BUN (7-17) mg/dL Creatinine (0.52-1.04) mg/dL Glucose (74-99) mg/dL Calcium (8.4-10.2) mg/dL Total Bilirubin (0.2-1.3) mg/dL AST (14-36) U/L ALT (9-52) U/L Alkaline Phosphatase (38-126) U/L Total Protein (6.3-8.2) g/dL Albumin (3.5-5.0) g/dL Assessment and Plan (1) Gram negative sepsis Narrative/Plan: Patient with back pain gram-negative sepsis and abnormal CAT scan findings. No sizable abscess. Defer decision regarding debridement/drainage of the abnormalities seen on recent CAT scan to orthospine. No general surgery intervention planned at this point. Status: Acute
[2017-03-10] MEDS ORDERED: FUROSEMIDE 10 MG/ML 4 ML VIAL IV STA (16:44)
[2017-03-10] MEDS: IPRATROPIUM-ALBUTEROL 3 ML NEB INHALATION PRN ×2 (17:27→19:53)
[2017-03-10 18:43] LABS: Glucose,Whole Blood 208 mg/dL (75-99)
[2017-03-10 20:06] LABS: Glucose,Whole Blood 199 mg/dL (75-99)
[2017-03-10] MEDS: oxyCODONE-APAP 5-325MG 1 EACH TAB PO PRN (21:54)
[2017-03-11] MEDS: MORPHINE SULFATE 2 MG/ML SYRINGE IVP PRN ×2 (00:16→21:00)
[2017-03-11] MEDS: MEROPENEM 1 GM in SODIUM CHLORIDE 0.9% 100 ML IVPB SCH ×4 (00:17→23:59)
[2017-03-11 05:06] LABS: Aty Lym Flag Slight; CH 29.9; CHCM 31.3; HCT 31.1 % (34.0-46.0); HDW 3.23; HGB 9.8 gm/dL (11.4-16.0); Hypochromasia Moderate; MCH 30.5 pg (25.0-35.0); MCHC 31.7 g/dL (31.0-37.0); MCV 96.2 fL (80.0-100.0); Mean Platelet Volume 8.6; RBC 3.23 m/uL (3.80-5.40); WBC 13.4 k/uL (3.8-10.6); WBC (Perox) 13.43
[2017-03-11 05:19] LABS: ALT 70 U/L (9-52); AST 35 U/L (14-36); Alkaline Phosphatase 324 U/L (38-126); Anion Gap 6 mmol/L; Blood Urea Nitrogen 14 mg/dL (7-17); Calcium 8.3 mg/dL (8.4-10.2); Carbon Dioxide 17 mmol/L (22-30); Chloride 109 mmol/L (98-107); Glucose 162 mg/dL (74-99); Magnesium 1.8 mg/dL (1.6-2.3); Non-African American GFR(MDRD) >60 (>60 ml/min/1.73 sqM); Phosphorous 2.9 mg/dL (2.5-4.5); Potassium 3.3 mmol/L (3.5-5.1); Sodium 132 mmol/L (137-145); Total Protein 4.7 g/dL (6.3-8.2)
[2017-03-11 06:11] LABS: Add Differential Manual Differential
[2017-03-11 06:13] LABS: Band Neutrophils % 1 %; Manual Review Performed; Nucleated Red Blood Cells 0 /100 WBC (0-0); Total Cells Counted 100; Toxic Vacuolation Present
[2017-03-11 06:14] LABS: Target Cells Present
[2017-03-11] MEDS: MAGNESIUM SULFATE-D5W PMX 1 GM in DEXTROSE/WATER 1 100ML.BAG IVPB SCH ×2 (06:58→08:24)
[2017-03-11] MEDS: POTASSIUM CHLORIDE ER 20 MEQ TAB.ER PO SCH ×2 (06:59→08:28)
[2017-03-11 07:33] LABS: Glucose,Whole Blood 161 mg/dL (75-99)
[2017-03-11] MEDS: FAMOTIDINE 20 MG TAB PO SCH ×2 (08:23→20:41)
[2017-03-11] MEDS: HEPARIN SODIUM,PORCINE 5,000 UNIT/ML 1 ML VIAL SQ SCH ×2 (08:24→20:43)
[2017-03-11] MEDS: MULTIVITAMINS, THERA 1 EACH TAB PO SCH (08:24)
[2017-03-11] MEDS: CALCIUM CARB-VIT D 500MG-200UN 1 EACH TAB PO SCH (08:24)
[2017-03-11] MEDS: INSULIN LISPRO (humaLOG) 300 UNIT/3 ML VIAL SQ SCH ×7 (08:41→20:57)
[2017-03-11] MEDS: URSODIOL 300 MG CAP PO SCH (08:42)
--- NOTE | 2017-03-11 09:58 | P.PN ---
Subjective Progress note dated 03/11/2017 66-year-old female admitted with a diagnosis of urosepsis. She also has low back pain with lower extremity weakness. She is deaf. She needs an skip tracer. Other medical problems include the acute sepsis secondary to E. coli urinary tract infection/urosepsis with hypotension, dyspnea secondary to mild fluid overload and/or pneumonia elevated liver enzymes diabetes mellitus hyperlipidemia CVA and the hearing loss. The patient's doing much better. She is on O2 at 2 L. Skin appointment 9 IV at 20 mL an hour. Norepinephrine has been off since 3:00 yesterday. Blood cultures and urine cultures were positive for Escherichia coli. Chest x-ray shows some mild diffuse interstitial changes possibly consistent with acute pulmonary venous hypertension or interstitial edema. Doubt pneumonia. Anyway the patient's doing reasonably well. Orthopedic surgery has been consulted. Objective - Vital Signs Vital signs: Vital Signs Temp 96.8 F L 03/11/17 08:00 Pulse 85 03/11/17 09:00 Resp 22 03/11/17 09:00 BP 139/64 03/11/17 09:00 Pulse Ox 95 03/11/17 09:00 Intake & Output 03/10/17 03/11/17 03/11/17 18:59 06:59 18:59 Intake Total 1633.000 440 160 Output Total 1220 2125 150 Balance 413.000 -1685 10 Weight 70.7 kg Intake: IV 1077.5 220 60 Piperacillin-Tazobactam 3 37.5 .375 gm In Dextrose/Water 1 50ml.bag @ 12.5 mls/hr IVPB Q8HR [facility] Rx#: [id number] Sodium Chloride 0.9% 1, 1040 220 60 000 ml @ 20 mls/hr IV . Q24H [facility] Rx#:[id number] Intake, IV Titration 255.500 100 100 Amount Magnesium Sulfate-D5w Pmx 100 1 gm In Dextrose/Water 1 100ml.bag @ 100 mls/hr IVPB Q1H [facility] Rx#: [id number] Magnesium Sulfate-D5w Pmx 100 1 gm In Dextrose/Water 1 100ml.bag @ 100 mls/hr IVPB Q1H [facility] Rx#: [id number] Meropenem 1 gm In Sodium 100 100 Chloride 0.9% 100 ml @ 200 mls/hr IVPB Q8HR [facility] Rx#:[id number] Norepinephrin 4 mg-0.9% 55.500 Ns Pmx 4 mg In 250 ml @ Titrate IV .Q0M [facility] Rx#: [id number] Oral 300 120 Output: Urine 1220 2125 150 Other: Voiding Method Indwelling Catheter Indwelling Catheter Indwelling Catheter # Bowel Movements 1 0 - Exam No acute distress, oriented 3. HEENT examination is grossly unremarkable. Mucous membranes are moist. No oral lesions. Neck supple. Full range of motion. No adenopathy. No thyromegaly. Cardiovascular examination reveals regular rhythm rate. S1-S2 normal. No S3- S4 or murmur. Lungs reveal clear breath sounds. No wheezes rhonchi or crackles. Breath sounds are diminished throughout. Abdomen soft bowel sounds are heard. Extremities are intact. No cyanosis clubbing or edema. Skin without rash. Neurologic examination is difficult performed because of her deafness. - Labs CBC & Chem 7: 03/11/17 04:39 03/11/17 04:39 Labs: Abnormal Lab Results - Last 24 Hours (Table) 03/09/17 03/10/17 03/10/17 Range/Units 22:25 06:51 13:30 WBC (3.8-10.6) k/uL RBC (3.80-5.40) m/uL Hgb (11.4-16.0) gm/dL Hct (34.0-46.0) % Neutrophils # (Manual) (1.3-7.7) k/uL Lymphocytes # (Manual) (1.0-4.8) k/uL Sodium (137-145) mmol/L Potassium (3.5-5.1) mmol/L Chloride (98-107) mmol/L Carbon Dioxide (22-30) mmol/L Glucose (74-99) mg/dL POC Glucose (mg/dL) 174 H 150 H 173 H (75-99) mg/dL Calcium (8.4-10.2) mg/dL ALT (9-52) U/L Alkaline Phosphatase (38-126) U/L Total Protein (6.3-8.2) g/dL Albumin (3.5-5.0) g/dL 03/10/17 03/10/17 03/11/17 Range/Units 18:41 20:05 04:39 WBC 13.4 H (3.8-10.6) k/uL RBC 3.23 L (3.80-5.40) m/uL Hgb 9.8 L (11.4-16.0) gm/dL Hct 31.1 L (34.0-46.0) % Neutrophils # (Manual) 12.10 H (1.3-7.7) k/uL Lymphocytes # (Manual) 0.54 L (1.0-4.8) k/uL Sodium (137-145) mmol/L Potassium (3.5-5.1) mmol/L Chloride (98-107) mmol/L Carbon Dioxide (22-30) mmol/L Glucose (74-99) mg/dL POC Glucose (mg/dL) 208 H 199 H (75-99) mg/dL Calcium (8.4-10.2) mg/dL ALT (9-52) U/L Alkaline Phosphatase (38-126) U/L Total Protein (6.3-8.2) g/dL Albumin (3.5-5.0) g/dL 03/11/17 03/11/17 Range/Units 04:39 07:30 WBC (3.8-10.6) k/uL RBC (3.80-5.40) m/uL Hgb (11.4-16.0) gm/dL Hct (34.0-46.0) % Neutrophils # (Manual) (1.3-7.7) k/uL Lymphocytes # (Manual) (1.0-4.8) k/uL Sodium 132 L (137-145) mmol/L Potassium 3.3 L (3.5-5.1) mmol/L Chloride 109 H (98-107) mmol/L Carbon Dioxide 17 L (22-30) mmol/L Glucose 162 H (74-99) mg/dL POC Glucose (mg/dL) 161 H (75-99) mg/dL Calcium 8.3 L (8.4-10.2) mg/dL ALT 70 H (9-52) U/L Alkaline Phosphatase 324 H (38-126) U/L Total Protein 4.7 L (6.3-8.2) g/dL Albumin 1.8 L (3.5-5.0) g/dL Microbiology - Last 24 Hours (Table) 03/10/17 11:17 Blood Culture Gram Stain - Preliminary Blood 03/10/17 11:17 Blood Culture - Final Blood 03/09/17 13:28 Blood Culture Gram Stain - Preliminary Blood Blood Culture - Preliminary Gram Neg Bacilli 03/10/17 00:30 Urine Culture - Preliminary Urine,Catheterized 03/08/17 15:35 Blood Culture Gram Stain - Final Blood Blood Culture - Final Escherichia coli Assessment and Plan (1) Urinary tract infection Status: Acute (2) Hypotension Status: Acute (3) Hyperlipidemia Status: Acute (4) Diabetes mellitus Status: Acute (5) CVA (cerebral vascular accident) Status: Acute (6) CHF (congestive heart failure) Status: Acute (7) Sepsis Status: Acute (8) Septic shock due to Escherichia coli Status: Acute (9) Pneumonia Status: Acute (10) Uncontrolled diabetes mellitus Status: Acute (11) Gram negative sepsis Status: Acute (12) Hepatitis Status: Acute Plan: Plan dated 03/11/2017 The patient is doing well. She can be transferred out of the unit. No additional recommendations are made. We'll continue to follow closely. Prognosis is guarded. The patient was refusing to eat or putting this morning which had her medications and it. Encouraged to do so. Additional recommendations are made. The norepinephrine has been off since 3:00 yesterday. Time with Patient: Less than 30
--- NOTE | 2017-03-11 10:04 | PN ---
PROGRESS NOTE DATE OF SERVICE: 03/10/2017 REASON FOR FOLLOWUP: Gram-negative bacteremia. INTERVAL HISTORY: The patient noticed to have still running of fever with a fever of 101.8 last night. This morning the patient was afebrile, however, the patient is still requiring pressor support in the form of Levophed. The patient has been more awake and alert, has been breathing comfortably. Still complaining of some pain in the low back area. No nausea or vomiting has been noticed or any diarrhea. PHYSICAL EXAMINATION: On examination, blood pressure is 113/57 with a pulse of 95, temperature 98.1. She is 94% on 2 L nasal cannula. General description is a middle aged female lying in bed, in no distress. RESPIRATORY SYSTEM: Unlabored breathing. Coarse breath sounds bilaterally. Occasional wheeze. HEART: S1, S2. Regular rate and rhythm. ABDOMEN: Soft, no tenderness. Extremities: No edema of feet. LABS: Hemoglobin 10.4, white count up to 27.1. BUN is 15, creatinine 0.60. Blood cultures and urine cultures same pathogen in this is showing a multi-drug resistant pattern and the blood cultures from 03/09 are positive as well. DIAGNOSTIC IMPRESSION AND PLAN: Patient with gram-negative sepsis in a patient who did have evidence of right lower lobe pneumonia and possible L4 diskitis. An MRI has been ordered which is currently put on hold as the patient is requiring pressor support. In view of the jump in white count and significant resistant pathogen of this Escherichia coli. Antibiotic will be in to meropenem 1 gram q.8 and discontinue the Zosyn. Overall prognosis remains to be guarded. We will continue to monitor closely and follow up on the MRI once completed. Blood culture repeated today to document clearance. MMODL / IJN: [id number] /
--- NOTE | 2017-03-11 11:22 | P.PN ---
Subjective Patient is doing well today. She's been off vasopressors since 3 PM yesterday. No events overnight Objective - Vital Signs Vital signs: Vital Signs Temp 96.8 F L 03/11/17 08:00 Pulse 85 03/11/17 09:00 Resp 22 03/11/17 09:00 BP 139/64 03/11/17 09:00 Pulse Ox 95 03/11/17 09:00 Intake & Output 03/10/17 03/11/17 03/11/17 18:59 06:59 18:59 Intake Total 1633.000 440 160 Output Total 1220 2125 150 Balance 413.000 -1685 10 Weight 70.7 kg Intake: IV 1077.5 220 60 Piperacillin-Tazobactam 3 37.5 .375 gm In Dextrose/Water 1 50ml.bag @ 12.5 mls/hr IVPB Q8HR [facility] Rx#: [id number] Sodium Chloride 0.9% 1, 1040 220 60 000 ml @ 20 mls/hr IV . Q24H [facility] Rx#:[id number] Intake, IV Titration 255.500 100 100 Amount Magnesium Sulfate-D5w Pmx 100 1 gm In Dextrose/Water 1 100ml.bag @ 100 mls/hr IVPB Q1H [facility] Rx#: [id number] Magnesium Sulfate-D5w Pmx 100 1 gm In Dextrose/Water 1 100ml.bag @ 100 mls/hr IVPB Q1H [facility] Rx#: [id number] Meropenem 1 gm In Sodium 100 100 Chloride 0.9% 100 ml @ 200 mls/hr IVPB Q8HR [facility] Rx#:[id number] Norepinephrin 4 mg-0.9% 55.500 Ns Pmx 4 mg In 250 ml @ Titrate IV .Q0M [facility] Rx#: [id number] Oral 300 120 Output: Urine 1220 2125 150 Other: Voiding Method Indwelling Catheter Indwelling Catheter Indwelling Catheter # Bowel Movements 1 0 - Exam General: The patient is awake and alert, in no distress. Patient is legally deaf Eye: there is normal conjunctiva bilaterally. Neck: The neck is supple, there is no JVD. Cardiovascular: Normal S1-S2, no S3-S4, no murmurs. Respiratory: Lungs clear to auscultation bilaterally Gastrointestinal: Abdomen is soft, nontender Musculoskeletal: There is no pedal edema. Skin: Skin is warm and dry - Labs CBC & Chem 7: 03/11/17 04:39 03/11/17 04:39 Labs: Abnormal Lab Results - Last 24 Hours (Table) 03/09/17 03/10/17 03/10/17 Range/Units 22:25 06:51 13:30 WBC (3.8-10.6) k/uL RBC (3.80-5.40) m/uL Hgb (11.4-16.0) gm/dL Hct (34.0-46.0) % Neutrophils # (Manual) (1.3-7.7) k/uL Lymphocytes # (Manual) (1.0-4.8) k/uL Sodium (137-145) mmol/L Potassium (3.5-5.1) mmol/L Chloride (98-107) mmol/L Carbon Dioxide (22-30) mmol/L Glucose (74-99) mg/dL POC Glucose (mg/dL) 174 H 150 H 173 H (75-99) mg/dL Calcium (8.4-10.2) mg/dL ALT (9-52) U/L Alkaline Phosphatase (38-126) U/L Total Protein (6.3-8.2) g/dL Albumin (3.5-5.0) g/dL 03/10/17 03/10/17 03/11/17 Range/Units 18:41 20:05 04:39 WBC 13.4 H (3.8-10.6) k/uL RBC 3.23 L (3.80-5.40) m/uL Hgb 9.8 L (11.4-16.0) gm/dL Hct 31.1 L (34.0-46.0) % Neutrophils # (Manual) 12.10 H (1.3-7.7) k/uL Lymphocytes # (Manual) 0.54 L (1.0-4.8) k/uL Sodium (137-145) mmol/L Potassium (3.5-5.1) mmol/L Chloride (98-107) mmol/L Carbon Dioxide (22-30) mmol/L Glucose (74-99) mg/dL POC Glucose (mg/dL) 208 H 199 H (75-99) mg/dL Calcium (8.4-10.2) mg/dL ALT (9-52) U/L Alkaline Phosphatase (38-126) U/L Total Protein (6.3-8.2) g/dL Albumin (3.5-5.0) g/dL 03/11/17 03/11/17 Range/Units 04:39 07:30 WBC (3.8-10.6) k/uL RBC (3.80-5.40) m/uL Hgb (11.4-16.0) gm/dL Hct (34.0-46.0) % Neutrophils # (Manual) (1.3-7.7) k/uL Lymphocytes # (Manual) (1.0-4.8) k/uL Sodium 132 L (137-145) mmol/L Potassium 3.3 L (3.5-5.1) mmol/L Chloride 109 H (98-107) mmol/L Carbon Dioxide 17 L (22-30) mmol/L Glucose 162 H (74-99) mg/dL POC Glucose (mg/dL) 161 H (75-99) mg/dL Calcium 8.3 L (8.4-10.2) mg/dL ALT 70 H (9-52) U/L Alkaline Phosphatase 324 H (38-126) U/L Total Protein 4.7 L (6.3-8.2) g/dL Albumin 1.8 L (3.5-5.0) g/dL Microbiology - Last 24 Hours (Table) 03/10/17 00:30 Urine Culture - Final Urine,Catheterized 03/10/17 11:17 Blood Culture Gram Stain - Preliminary Blood 03/10/17 11:17 Blood Culture - Final Blood 03/09/17 13:28 Blood Culture Gram Stain - Preliminary Blood Blood Culture - Preliminary Gram Neg Bacilli 03/08/17 15:35 Blood Culture Gram Stain - Final Blood Blood Culture - Final Escherichia coli Assessment and Plan Plan: 1. Severe sepsis with septic shock 2. 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 E. coli bacteremia, persistent. We will repeat blood culture today. 4. Uncontrolled type 2 diabetes mellitus A1c 10.0 Today, I reviewed her medication list and lab work results. Awaiting MRI of the lumbar spine. Spine and Gen. surgery consulted no immediate surgical intervention recommended. Continue broad spectrum antibiotic management by infectious disease. Awaiting repeat blood culture today. Continue ICU care for now. Repeat lab work in the morning. Pain control.
[2017-03-11] MEDS: oxyCODONE-APAP 5-325MG 1 EACH TAB PO PRN (11:50)
[2017-03-11 12:42] LABS: Glucose,Whole Blood 171 mg/dL (75-99)
--- NOTE | 2017-03-11 15:56 | MR ---
EXAMINATION TYPE: MR lumbar spine wo/w con DATE OF EXAM: 03/11/2017 COMPARISON: CT lumbar spine dated 03/08/2017 HISTORY: abscess/cyst, ongoing pain TECHNIQUE: Multiplanar, multisequence images of the lumbar spine were acquired utilizing [address] gadolinium contrast. Large T1/T2 hyperintense lesion is seen within the L3 vertebral body that decreases signal on fat sat uration sequence compatible with a benign hemangioma. There is overall decreased and heterogenous T1 bone marrow signal seen throughout the visualized lumb ar spine and visualized pelvis. L1-L2: Normal disc appearance without desiccation. No herniation, protrusion or disc bulging. No ca nal stenosis is present. Foramina are patent bilaterally. L2-L3: Small broad-based disc bulge is seen without significant neural foraminal stenosis or spinal c anal stenosis. L3-L4: Decreased T1 signal, increased T2 signal, and increased T2/fat sat signal is seen within the L 4 vertebral body and into the intervertebral disc with extensive bone marrow edema and foci of decrea sed signal indicative of air. Phlegmonous changes are seen within the right iliopsoas muscle demonstr ating enhancement and indistinct T2 hyperintensity without discrete focal fluid collection to suggest current abscess. Phlegmonous changes extend inferiorly to the level of L5 within the iliopsoas muscl e. No evidence of spinal canal stenosis or epidural abscess. L4-L5: Broad-based disc bulge is seen in concert with facet arthropathy and ligamentum flavum hypertr ophy creating mild right neural foraminal narrowing. Spinal canal and left neural foramen are patent. L5-S1: Small focal central disc protrusion/herniation is superimposed upon a broad-based disc bulge. In combination with facet arthropathy and ligamentum flavum buckling there is resultant mild bilatera l neural foraminal narrowing. No spinal canal stenosis. Lumbar segments are intact. No paraspinal masses are identified. Conus medullaris has a normal appe arance. Large nonenhancing perineural cyst is seen at S2 on the right. IMPRESSION: 1. Findings of acute osteomyelitis discitis at L4 with bone marrow edema and reactive phlegmonous amurice nges of the right iliopsoas muscle without definitive measurable abscess. No discrete evidence of rec urrent epidural abscess. 2. Diffuse heterogeneity and decreased signal of the bone marrow, most commonly relating to anemia an d correlation with CBC is recommended as other etiologies are possible. 3. Central disc herniation at L5-S1 without spinal canal stenosis.
[2017-03-11] MEDS ORDERED: RX INFO: IV CONTRAST WAS GIVEN 1 EACH MISC MISCELLANE PRN (16:05)
--- NOTE | 2017-03-11 16:08 | P.PN ---
Subjective Principal diagnosis: Abdominal pain Patient was transferred out of the ICU earlier today. Her MRI was completed however the results are pending. She per the family has had increased abdominal pain today. Her sister was present at the bedside. She is able to describe her recent medical history. She apparently had a biliary ductal injury at the time of a cholecystectomy 2 years ago. She required a hepaticojejunostomy. She has had issues with that anastomosis since that time. There have been episodes of obstructive jaundice and bacteremia related to her obstructive jaundice in the past. Today she seems to be having more pain in the left lower abdomen. Still with some back pain. Seems to be slightly confused and it is thought to be related to the pain medications given while in the ICU. She is afebrile. Her white blood cell count is improved at 13.4. Objective - Vital Signs Vital signs: Vital Signs Temp 99.5 F 03/11/17 15:00 Pulse 84 03/11/17 15:00 Resp 16 03/11/17 15:00 BP 124/65 03/11/17 15:00 Pulse Ox 93 L 03/11/17 15:00 Intake & Output 03/10/17 03/11/17 03/11/17 18:59 06:59 18:59 Intake Total 1633.000 440 760 Output Total 1220 2125 150 Balance 413.000 -1685 610 Weight 70.7 kg Intake: IV 1077.5 220 60 Piperacillin-Tazobactam 3 37.5 .375 gm In Dextrose/Water 1 50ml.bag @ 12.5 mls/hr IVPB Q8HR [facility] Rx#: [id number] Sodium Chloride 0.9% 1, 1040 220 60 000 ml @ 20 mls/hr IV . Q24H [facility] Rx#:[id number] Intake, IV Titration 255.500 100 100 Amount Magnesium Sulfate-D5w Pmx 100 1 gm In Dextrose/Water 1 100ml.bag @ 100 mls/hr IVPB Q1H [facility] Rx#: [id number] Magnesium Sulfate-D5w Pmx 100 1 gm In Dextrose/Water 1 100ml.bag @ 100 mls/hr IVPB Q1H [facility] Rx#: [id number] Meropenem 1 gm In Sodium 100 100 Chloride 0.9% 100 ml @ 200 mls/hr IVPB Q8HR [facility] Rx#:[id number] Norepinephrin 4 mg-0.9% 55.500 Ns Pmx 4 mg In 250 ml @ Titrate IV .Q0M [facility] Rx#: [id number] Oral 300 120 600 Output: Urine 1220 2125 150 Other: Voiding Method Indwelling Catheter Indwelling Catheter Indwelling Catheter # Bowel Movements 1 0 - Exam Abdomen: Soft, mild distention, mild to moderate left lower abdominal tenderness , mild diffuse tenderness - Labs CBC & Chem 7: 03/11/17 04:39 03/11/17 04:39 Labs: Abnormal Lab Results - Last 24 Hours (Table) 03/10/17 03/10/17 03/11/17 Range/Units 18:41 20:05 04:39 WBC 13.4 H (3.8-10.6) k/uL RBC 3.23 L (3.80-5.40) m/uL Hgb 9.8 L (11.4-16.0) gm/dL Hct 31.1 L (34.0-46.0) % Neutrophils # (Manual) 12.10 H (1.3-7.7) k/uL Lymphocytes # (Manual) 0.54 L (1.0-4.8) k/uL Sodium (137-145) mmol/L Potassium (3.5-5.1) mmol/L Chloride (98-107) mmol/L Carbon Dioxide (22-30) mmol/L Glucose (74-99) mg/dL POC Glucose (mg/dL) 208 H 199 H (75-99) mg/dL Calcium (8.4-10.2) mg/dL ALT (9-52) U/L Alkaline Phosphatase (38-126) U/L Total Protein (6.3-8.2) g/dL Albumin (3.5-5.0) g/dL 03/11/17 03/11/17 03/11/17 Range/Units 04:39 07:30 12:33 WBC (3.8-10.6) k/uL RBC (3.80-5.40) m/uL Hgb (11.4-16.0) gm/dL Hct (34.0-46.0) % Neutrophils # (Manual) (1.3-7.7) k/uL Lymphocytes # (Manual) (1.0-4.8) k/uL Sodium 132 L (137-145) mmol/L Potassium 3.3 L (3.5-5.1) mmol/L Chloride 109 H (98-107) mmol/L Carbon Dioxide 17 L (22-30) mmol/L Glucose 162 H (74-99) mg/dL POC Glucose (mg/dL) 161 H 171 H (75-99) mg/dL Calcium 8.3 L (8.4-10.2) mg/dL ALT 70 H (9-52) U/L Alkaline Phosphatase 324 H (38-126) U/L Total Protein 4.7 L (6.3-8.2) g/dL Albumin 1.8 L (3.5-5.0) g/dL Microbiology - Last 24 Hours (Table) 03/08/17 15:35 Blood Culture Gram Stain - Final Blood Blood Culture - Final Escherichia coli 03/10/17 11:17 Blood Culture Gram Stain - Preliminary Blood 03/10/17 00:30 Urine Culture - Final Urine,Catheterized 03/10/17 11:17 Blood Culture - Final Blood 03/09/17 13:28 Blood Culture Gram Stain - Preliminary Blood Blood Culture - Preliminary Gram Neg Bacilli Assessment and Plan (1) Gram negative sepsis Narrative/Plan: Patient's abdominal exam shows more tenderness than yesterday. We'll order CT abdomen and pelvis to better identify evaluate for other sources of bacteremia. Continue IV antibiotics. Await MRI results. Further recommendations will follow. Status: Acute
[2017-03-11] MEDS: IOHEXOL 350 MG/ML 25 ML BOTTLE (ORAL USE) PO PRN ×2 (16:22→17:30)
[2017-03-11 16:57] LABS: Glucose,Whole Blood 109 mg/dL (75-99)
[2017-03-11] MEDS: SODIUM CHLORIDE 0.9% 1,000 ML IV SCH (17:34)
--- NOTE | 2017-03-11 18:56 | CT ---
EXAMINATION TYPE: CT abdomen pelvis w con DATE OF EXAM: 03/11/2017 COMPARISON: 08/07/2016 HISTORY: Abdominal pain CT DLP: 1205 mGycm Automated exposure control for dose reduction was used. TECHNIQUE: Helical acquisition of images was performed from the lung bases through the pelvis. CONTRAST: Performed with Oral Contrast and with IV Contrast, patient injected with 100 mL of Omnipaque 300. FINDINGS: There are bilateral pleural effusions. Heart is enlarged. There is consolidation and atelectasis at t he posterior lung bases. There is irregular hypodensity in the posterior right lobe of the liver. Bile ducts are not dilated. There is small amount of air in the biliary tree. There is cholecystectomy. There is no evidence of a splenic mass. I see no pancreatic mass. Kidneys show satisfactory contrast opacification. There is no hydronephrosi s. There is no adrenal mass. There is no retroperitoneal adenopathy. Abdominal aorta is atheromatous. There is mild free fluid in the pelvis. There are air bubbles in the anterior urinary bladder. I see no intestinal wall thickening. There are no dilated loops. There is no sign of a bowel obstruction. There is a large Schmorl node in the superior endplate of L4 vertebra. There is subcutaneous edema ov er the lower lumbar spine. IMPRESSION: THERE ARE NEW BILATERAL BASILAR PULMONARY INFILTRATES AND ATELECTASIS AND PLEURAL EFFUSIONS COMPARED TO OLD EXAM. CARDIOMEGALY. THERE IS A NEW 2 CM SEPTATED FLUID COLLECTION IN THE POSTERIOR RIGHT LOBE OF THE LIVER COMPARED TO OL D EXAM. THERE IS NO SURROUNDING MASS EFFECT. THIS COULD BE HEMATOMA DUE TO BIOPSY. CLINICAL CORRELATI ON IS RECOMMENDED. THERE IS SMALL AMOUNT OF AIR IN THE ANTERIOR BILIARY TREE CONSISTENT WITH INCOMPET ENT BILE DUCT SPHINCTER THAT IS SIMILAR TO OLD EXAM. SMALL AMOUNT OF AIR IN THE URINARY BLADDER THAT COULD BE FROM CATHETERIZATION. CLINICAL CORRELATION I S NEEDED. THERE IS EXTENSIVE SUBCUTANEOUS EDEMA AROUND THE ABDOMEN THAT IS NEW COMPARED TO OLD EXAM. ATHEROSCLEROTIC VASCULAR DISEASE. MILD ASCITES IS NEW..
[2017-03-11 20:57] LABS: Glucose,Whole Blood 89 mg/dL (75-99)
[2017-03-11] MEDS: INSULIN GLARGINE 100 UNIT/ML 10 ML VIAL SQ SCH (20:57)
[2017-03-11] MEDS: ACETAMINOPHEN TAB 325 MG TAB PO PRN (23:21)
[2017-03-12 02:11] LABS: Glucose,Whole Blood 106 mg/dL (75-99)
[2017-03-12] MEDS: MORPHINE SULFATE 2 MG/ML SYRINGE IVP PRN (06:03)
[2017-03-12 07:29] LABS: Glucose,Whole Blood 115 mg/dL (75-99)
[2017-03-12 07:40] LABS: Basophils % (A) 0 %; CH 29.9; CHCM 31.8; Eosinophils # (A) 0.1 k/uL (0-0.7); Eosinophils % (A) 1 %; HCT 31.2 % (34.0-46.0); HGB 9.9 gm/dL (11.4-16.0); Hypochromasia Slight; Luc # (Auto) 0.43; Luc % (Auto) 3; Lymphocytes # (A) 0.9 k/uL (1.0-4.8); Lymphocytes % (A) 7 %; MCHC 31.6 g/dL (31.0-37.0); MCV 94.7 fL (80.0-100.0); Mean Platelet Volume 8.5; Monocytes # (A) 0.5 k/uL (0-1.0); Monocytes % (A) 4 %; Neutrophils # (A) 11.4 k/uL (1.3-7.7); Neutrophils % (A) 86 %; WBC 13.3 k/uL (3.8-10.6)
[2017-03-12] MEDS: INSULIN LISPRO (humaLOG) 300 UNIT/3 ML VIAL SQ SCH ×7 (07:45→21:14)
[2017-03-12 07:51] LABS: ALT 52 U/L (9-52); AST 29 U/L (14-36); Alkaline Phosphatase 357 U/L (38-126); Anion Gap 7 mmol/L; Blood Urea Nitrogen 11 mg/dL (7-17); Calcium 8.6 mg/dL (8.4-10.2); Carbon Dioxide 19 mmol/L (22-30); Chloride 106 mmol/L (98-107); Glucose 114 mg/dL (74-99); Magnesium 1.8 mg/dL (1.6-2.3); Non-African American GFR(MDRD) >60 (>60 ml/min/1.73 sqM); Phosphorous 2.9 mg/dL (2.5-4.5); Potassium 3.4 mmol/L (3.5-5.1); Sodium 132 mmol/L (137-145); Total Bilirubin 1.1 mg/dL (0.2-1.3); Total Protein 4.8 g/dL (6.3-8.2)
[2017-03-12] MEDS: MULTIVITAMINS, THERA 1 EACH TAB PO SCH (07:59)
[2017-03-12] MEDS: HEPARIN SODIUM,PORCINE 5,000 UNIT/ML 1 ML VIAL SQ SCH ×2 (07:59→21:15)
[2017-03-12] MEDS: URSODIOL 300 MG CAP PO SCH (07:59)
[2017-03-12] MEDS: FAMOTIDINE 20 MG TAB PO SCH ×2 (07:59→21:15)
[2017-03-12] MEDS: CALCIUM CARB-VIT D 500MG-200UN 1 EACH TAB PO SCH (07:59)
[2017-03-12] MEDS: MEROPENEM 1 GM in SODIUM CHLORIDE 0.9% 100 ML IVPB SCH ×2 (08:00→16:51)
--- NOTE | 2017-03-12 08:49 | PN ---
PROGRESS NOTE DATE OF SERVICE: 03/11/2017. REASON FOR FOLLOWUP VISIT: E coli bacteremia secondary to L4 diskitis. INTERVAL HISTORY: The patient overall fever pattern has improved. She seemed to be more awake, alert and breathing comfortably. No nausea or vomiting has been noticed. No diarrhea. Back pain seems to be slightly improved. EXAMINATION: Blood pressure 124/65 with a pulse of 84, temperature 99.5. General description is a middle aged female, lying in bed, in no distress. RESPIRATORY SYSTEM: Unlabored breathing. Clear to auscultation anteriorly. HEART: S1, S2. Regular rate and rhythm. ABDOMEN: Soft, no tenderness. LABS: Hemoglobin 9.8, white count 13.4, with a BUN of 14, creatinine 0.60: An MRI suspicious for L4 level diskitis but no drainable abscess. DIAGNOSTIC IMPRESSION AND PLAN: Patient with E coli bacteremia source likely L4 diskitis. The patient currently covered with broad spectrum antibiotic therapy and the white count did show a downward trend. We will repeat blood cultures times one in the a.m. to document clearance of her bacteremia. Continue supportive care. MMODL / IJN: [id number] /
[2017-03-12 09:22] LABS: Erythrocyte Sedimentation Rate 78 mm/hr (0-20)
--- NOTE | 2017-03-12 11:31 | P.PN ---
<Hitesh Goldstein - Last Filed: 03/12/17 11:24> Subjective Principal diagnosis: Severe low back pain and sepsis at admittance Patient is a pleasant 66-year-old female who is hearing-impaired who is seen and examined at the bedside with manager play present for follow-up evaluation for her lumbar spine. An MRI of the lumbar spine with and without contrast was able to be performed yesterday. Patient is continuing to be seen by Gen. surgery and infectious disease. All communication was done through the manager play. Patient states she feels okay today. She continues to have some back pain. She is not currently complaining of lower extremity leg pain. She does have difficulty with responding to commands with trying to have her move her bilateral lower extremities. Patient's MRI results lumbar spine were discussed in detail with the patient. Patient does not currently have any new complaints at the bedside. Objective - Vital Signs Vital signs: Vital Signs Temp 98.4 F 03/12/17 07:00 Pulse 103 H 03/12/17 07:00 Resp 18 03/12/17 07:00 BP 133/67 03/12/17 07:00 Pulse Ox 93 L 03/12/17 07:00 Intake & Output 03/11/17 03/12/17 03/12/17 18:59 06:59 18:59 Intake Total 760 Output Total 150 Balance 610 Intake: IV 60 Sodium Chloride 0.9% 1, 60 000 ml @ 20 mls/hr IV . Q24H [facility] Rx#:[id number] Intake, IV Titration 100 Amount Magnesium Sulfate-D5w Pmx 100 1 gm In Dextrose/Water 1 100ml.bag @ 100 mls/hr IVPB Q1H [facility] Rx#: [id number] Oral 600 Output: Urine 150 Other: Voiding Method Bedside Commode # Voids 3 # Bowel Movements 0 - Exam Physical Exam: She has significant difficulty with understanding and performing commands being asked of her Patient is awake, alert, and oriented 3 Patient is communicating through an manager play was sign language Vital signs stable Good chest excursion with deep inspiration and expiration Abdomen soft nontender No signs or symptoms of DVT; no calf pain Patient is lying comfortably on her back She is unable to lift legs independently at the bedside during physical examination No pain with palpation of the legs bilaterally Increased low back pain when bilateral lower extremities are lifted independently with passive range - Labs CBC & Chem 7: 03/12/17 07:10 03/12/17 07:10 Labs: Abnormal Lab Results - Last 24 Hours (Table) 03/11/17 03/11/17 03/12/17 Range/Units 12:33 16:52 02:10 WBC (3.8-10.6) k/uL RBC (3.80-5.40) m/uL Hgb (11.4-16.0) gm/dL Hct (34.0-46.0) % Neutrophils # (1.3-7.7) k/uL Lymphocytes # (1.0-4.8) k/uL ESR (0-20) mm/hr Sodium (137-145) mmol/L Potassium (3.5-5.1) mmol/L Carbon Dioxide (22-30) mmol/L Creatinine (0.52-1.04) mg/dL Glucose (74-99) mg/dL POC Glucose (mg/dL) 171 H 109 H 106 H (75-99) mg/dL Alkaline Phosphatase (38-126) U/L Total Protein (6.3-8.2) g/dL Albumin (3.5-5.0) g/dL 03/12/17 03/12/17 03/12/17 Range/Units 07:10 07:10 07:17 WBC 13.3 H (3.8-10.6) k/uL RBC 3.30 L (3.80-5.40) m/uL Hgb 9.9 L (11.4-16.0) gm/dL Hct 31.2 L (34.0-46.0) % Neutrophils # 11.4 H (1.3-7.7) k/uL Lymphocytes # 0.9 L (1.0-4.8) k/uL ESR 78 H (0-20) mm/hr Sodium 132 L (137-145) mmol/L Potassium 3.4 L (3.5-5.1) mmol/L Carbon Dioxide 19 L (22-30) mmol/L Creatinine 0.50 L (0.52-1.04) mg/dL Glucose 114 H (74-99) mg/dL POC Glucose (mg/dL) 115 H (75-99) mg/dL Alkaline Phosphatase 357 H (38-126) U/L Total Protein 4.8 L (6.3-8.2) g/dL Albumin 1.8 L (3.5-5.0) g/dL Microbiology - Last 24 Hours (Table) 03/10/17 11:17 Blood Culture Gram Stain - Preliminary Blood Blood Culture - Preliminary Gram Neg Bacilli 03/09/17 13:28 Blood Culture Gram Stain - Final Blood Blood Culture - Final Escherichia coli 03/08/17 15:35 Blood Culture Gram Stain - Final Blood Blood Culture - Final Escherichia coli 03/10/17 00:30 Urine Culture - Final Urine,Catheterized Assessment and Plan (1) Severe low back pain Status: Acute (2) Osteomyelitis of lumbar vertebra Status: Acute (3) Gram negative sepsis Status: Acute Plan: Pertinent studies: MRI lumbar spine with and without contrast: Large T1/T2 hyperintense lesion seen within the L3 vertebral body that decreases signal on fat saturation sequence compatible with benign hemangioma. L3-4 decreased T1 signal, increased T2 signal, and increased T2/fat saturation signal seen within the L4 vertebral body and into the intervertebral disc with extensive bone marrow edema and foci of decreased signal indicative of air. Phlegmonous changes are seen within the right iliopsoas muscle demonstrating enhancement an indistinct T2 hyperintensity without discrete focal collection. Phlegmonous changes extended inferiorly to the level of L5 within the iliopsoas muscle. There is no evidence of spinal canal stenosis or epidural abscess. L4-5 broad-based disc bulge with facet arthropathy and ligamentum hypertrophy resulting right neural foraminal narrowing. L5-S1 broad-based disc bulge, facet arthropathy, and ligamentum flavum hypertrophy resulting in bilateral neural foraminal narrowing. Diffuse heterogeneity and decreased signal on the bone marrow most commonly relating to anemia Assessment: Acute osteomyelitis discitis at L4 with bone marrow edema Reactive phlegmonous changes in the right iliopsoas muscle without discrete evidence of epidural abscess or spinal canal stenosis Severe low back pain without radiculopathy and without neurologic deficit Bacteremia or sepsis, gram-negative bacilli culture Plan: 1. Patient has been discussed in detail with Dr. Jacob Black. Lumbar MRI imaging with and without contrast has been reviewed by Dr. Jacob Black and myself. We are not currently planning for surgical intervention in regards the patient's lumbar spine from orthopedic spine standpoint. She does not have evidence of significant spinal canal stenosis or evidence of epidural abscess. She does have evidence of acute osteomyelitis discitis at L4 along with changes of the right iliopsoas muscle. At this time we feel patient would benefit by continued treatment with infectious disease and general surgery. We do not currently feel that surgical intervention in regards to her lumbar spine would provide significant relief of her symptoms. At this time we will continue with conservative treatment in terms of surgical intervention of her lumbar spine from orthopedic spine standpoint. At this time, patient may plan to follow-up in the outpatient setting in approximately 2 weeks for further evaluation. 2. She continues to be seen and examined by Dr. Gallagher infectious disease who feels she has been improving and may plan to clear her of bacteremia today. 3. Patient continues to be seen by Dr. Oneil in general surgery who did order a CT abdomen and pelvis yesterday. He will continue to follow her for further treatment and evaluation. 4. Patient will continue to be seen by Dr. Galaviz in pulmonology and Dr. Franco in medicine Time with Patient: Less than 30 <May Black - Last Filed: 03/14/17 14:37> Objective - Vital Signs Vital signs: Vital Signs Temp 98.7 F 03/14/17 07:00 Pulse 74 03/14/17 07:00 Resp 20 03/14/17 07:00 BP 124/71 03/14/17 07:00 Pulse Ox 92 L 03/14/17 07:00 Intake & Output 03/13/17 03/14/17 03/14/17 18:59 06:59 18:59 Intake Total 860 965 Output Total 3 Balance 860 965 -3 Weight 70.7 kg Intake: IV 160 240 Sodium Chloride 0.9% 1, 160 240 000 ml @ 20 mls/hr IV . Q24H [facility] Rx#:[id number] Intake, IV Titration 100 100 Amount Meropenem 1 gm In Sodium 100 100 Chloride 0.9% 100 ml @ 200 mls/hr IVPB Q8HR [facility] Rx#:[id number] Oral 600 625 Output: Urine 3 Other: Voiding Method Bedside Commode Bedside Commode # Voids 1 4 # Bowel Movements 1 2 - Labs CBC & Chem 7: 03/12/17 07:10 03/12/17 07:10 Labs: Abnormal Lab Results - Last 24 Hours (Table) 09/17/17 09/17/17 09/18/17 Range/Units 17:03 20:47 07:25 POC Glucose (mg/dL) 202 H 173 H 140 H (75-99) mg/dL 03/14/17 Range/Units 12:19 POC Glucose (mg/dL) 143 H (75-99) mg/dL Microbiology - Last 24 Hours (Table) 03/11/17 11:09 Blood Culture - Preliminary Blood No Growth after 72 hours 03/12/17 07:10 Blood Culture - Preliminary Blood No Growth after 48 hours Assessment and Plan Plan: I reviewed the allen scan myself and I've evaluated the patient. I'm in agreement with the above statement. There is evidence of osteomyelitis with some edema in the psoas muscle. There is no evidence of neurologic decline or epidural abscess and I do not plan surgical intervention for his spine at this point. She should continue with medical management. If she were to develop an abscess at her psoas that would be managed with general surgery. We will can follow her up outpatient basis in her and about regimen will be determined by infectious disease.
--- NOTE | 2017-03-12 12:06 | P.PN ---
Subjective Patient was feeling slightly confused last night and she appeared more sleepy today. Last blood culture were still positive. Objective - Vital Signs Vital signs: Vital Signs Temp 98.4 F 03/12/17 07:00 Pulse 103 H 03/12/17 07:00 Resp 18 03/12/17 07:00 BP 133/67 03/12/17 07:00 Pulse Ox 93 L 03/12/17 07:00 Intake & Output 03/11/17 03/12/17 03/12/17 18:59 06:59 18:59 Intake Total 760 Output Total 150 Balance 610 Intake: IV 60 Sodium Chloride 0.9% 1, 60 000 ml @ 20 mls/hr IV . Q24H [facility] Rx#:[id number] Intake, IV Titration 100 Amount Magnesium Sulfate-D5w Pmx 100 1 gm In Dextrose/Water 1 100ml.bag @ 100 mls/hr IVPB Q1H [facility] Rx#: [id number] Oral 600 Output: Urine 150 Other: Voiding Method Bedside Commode # Voids 3 # Bowel Movements 0 - Exam General: The patient is awake and alert, in no distress. Patient is legally deaf Eye: there is normal conjunctiva bilaterally. Neck: The neck is supple, there is no JVD. Cardiovascular: Normal S1-S2, no S3-S4, no murmurs. Respiratory: Lungs clear to auscultation bilaterally Gastrointestinal: Abdomen is soft, nontender Musculoskeletal: There is no pedal edema. Skin: Skin is warm and dry - Labs CBC & Chem 7: 03/12/17 07:10 03/12/17 07:10 Labs: Abnormal Lab Results - Last 24 Hours (Table) 03/11/17 03/11/17 03/12/17 Range/Units 12:33 16:52 02:10 WBC (3.8-10.6) k/uL RBC (3.80-5.40) m/uL Hgb (11.4-16.0) gm/dL Hct (34.0-46.0) % Neutrophils # (1.3-7.7) k/uL Lymphocytes # (1.0-4.8) k/uL ESR (0-20) mm/hr Sodium (137-145) mmol/L Potassium (3.5-5.1) mmol/L Carbon Dioxide (22-30) mmol/L Creatinine (0.52-1.04) mg/dL Glucose (74-99) mg/dL POC Glucose (mg/dL) 171 H 109 H 106 H (75-99) mg/dL Alkaline Phosphatase (38-126) U/L Total Protein (6.3-8.2) g/dL Albumin (3.5-5.0) g/dL 03/12/17 03/12/17 03/12/17 Range/Units 07:10 07:10 07:17 WBC 13.3 H (3.8-10.6) k/uL RBC 3.30 L (3.80-5.40) m/uL Hgb 9.9 L (11.4-16.0) gm/dL Hct 31.2 L (34.0-46.0) % Neutrophils # 11.4 H (1.3-7.7) k/uL Lymphocytes # 0.9 L (1.0-4.8) k/uL ESR 78 H (0-20) mm/hr Sodium 132 L (137-145) mmol/L Potassium 3.4 L (3.5-5.1) mmol/L Carbon Dioxide 19 L (22-30) mmol/L Creatinine 0.50 L (0.52-1.04) mg/dL Glucose 114 H (74-99) mg/dL POC Glucose (mg/dL) 115 H (75-99) mg/dL Alkaline Phosphatase 357 H (38-126) U/L Total Protein 4.8 L (6.3-8.2) g/dL Albumin 1.8 L (3.5-5.0) g/dL Microbiology - Last 24 Hours (Table) 03/10/17 11:17 Blood Culture Gram Stain - Preliminary Blood Blood Culture - Preliminary Gram Neg Bacilli 03/09/17 13:28 Blood Culture Gram Stain - Final Blood Blood Culture - Final Escherichia coli 03/08/17 15:35 Blood Culture Gram Stain - Final Blood Blood Culture - Final Escherichia coli 03/10/17 00:30 Urine Culture - Final Urine,Catheterized Assessment and Plan Plan: 1. Severe sepsis with septic shock 2. Acute osteomyelitis/discitis at L4 3. E. coli bacteremia, persistent. We will repeat blood culture today. 4. Uncontrolled type 2 diabetes mellitus A1c 10.0 5. History of cholecystectomy and hepaticojejunostomy in September 2013 Today, I reviewed her medication list and lab work results. Spine and Gen. surgery consulted no immediate surgical intervention recommended. Computed tomography scan of the abdomen and pelvis and lumbar spine MRI report reviewed. Continue broad spectrum antibiotic management by infectious disease. Awaiting repeat blood culture today. Repeat lab work in the morning. Pain control.
--- NOTE | 2017-03-12 12:10 | P.PN ---
Subjective Progress note dated 03/11/2017 66-year-old female admitted with a diagnosis of urosepsis. She also has low back pain with lower extremity weakness. She is deaf. She needs an human resources coordinator. Other medical problems include the acute sepsis secondary to E. coli urinary tract infection/urosepsis with hypotension, dyspnea secondary to mild fluid overload and/or pneumonia elevated liver enzymes diabetes mellitus hyperlipidemia CVA and the hearing loss. The patient's doing much better. She is on O2 at 2 L. Skin appointment 9 IV at 20 mL an hour. Norepinephrine has been off since 3:00 yesterday. Blood cultures and urine cultures were positive for Escherichia coli. Chest x-ray shows some mild diffuse interstitial changes possibly consistent with acute pulmonary venous hypertension or interstitial edema. Doubt pneumonia. Anyway the patient's doing reasonably well. Orthopedic surgery has been consulted. Progress note dated 03/12/2017 66-year-old female admitted with diagnosis of urosepsis secondary to E. coli. The patient seemed be doing relatively well. Transferred out of the ICU. She is definitely needs an human resources coordinator. Anyway other than sepsis/urinary tract infection, she has a history of hypotension, treated with fluids and pressors and also has had a history of diabetes mellitus elevated liver enzymes pneumonia hyperlipidemia CVA and hearing loss. Again the patient is doing very well. Not requiring any supplemental oxygen. Nothing to support her blood pressure. She was transferred out to the fourth floor yesterday. Objective - Vital Signs Vital signs: Vital Signs Temp 98.4 F 03/12/17 07:00 Pulse 103 H 03/12/17 07:00 Resp 18 03/12/17 07:00 BP 133/67 03/12/17 07:00 Pulse Ox 93 L 03/12/17 07:00 Intake & Output 03/11/17 03/12/17 03/12/17 18:59 06:59 18:59 Intake Total 760 Output Total 150 Balance 610 Intake: IV 60 Sodium Chloride 0.9% 1, 60 000 ml @ 20 mls/hr IV . Q24H [facility] Rx#:[id number] Intake, IV Titration 100 Amount Magnesium Sulfate-D5w Pmx 100 1 gm In Dextrose/Water 1 100ml.bag @ 100 mls/hr IVPB Q1H [facility] Rx#: [id number] Oral 600 Output: Urine 150 Other: Voiding Method Bedside Commode # Voids 3 # Bowel Movements 0 - Exam No acute distress, oriented 3. HEENT examination is grossly unremarkable. Mucous membranes are moist. No oral lesions. Neck supple. Full range of motion. No adenopathy. No thyromegaly. Cardiovascular examination reveals regular rhythm rate. S1-S2 normal. No S3- S4 or murmur. Lungs reveal clear breath sounds. No wheezes rhonchi or crackles. Breath sounds are diminished throughout. Abdomen soft bowel sounds are heard. Extremities are intact. No cyanosis clubbing or edema. Skin without rash. Neurologic examination is difficult performed because of her deafness. - Labs CBC & Chem 7: 03/12/17 07:10 03/12/17 07:10 Labs: Abnormal Lab Results - Last 24 Hours (Table) 03/11/17 03/11/17 03/12/17 Range/Units 12:33 16:52 02:10 WBC (3.8-10.6) k/uL RBC (3.80-5.40) m/uL Hgb (11.4-16.0) gm/dL Hct (34.0-46.0) % Neutrophils # (1.3-7.7) k/uL Lymphocytes # (1.0-4.8) k/uL ESR (0-20) mm/hr Sodium (137-145) mmol/L Potassium (3.5-5.1) mmol/L Carbon Dioxide (22-30) mmol/L Creatinine (0.52-1.04) mg/dL Glucose (74-99) mg/dL POC Glucose (mg/dL) 171 H 109 H 106 H (75-99) mg/dL Alkaline Phosphatase (38-126) U/L Total Protein (6.3-8.2) g/dL Albumin (3.5-5.0) g/dL 03/12/17 03/12/17 03/12/17 Range/Units 07:10 07:10 07:17 WBC 13.3 H (3.8-10.6) k/uL RBC 3.30 L (3.80-5.40) m/uL Hgb 9.9 L (11.4-16.0) gm/dL Hct 31.2 L (34.0-46.0) % Neutrophils # 11.4 H (1.3-7.7) k/uL Lymphocytes # 0.9 L (1.0-4.8) k/uL ESR 78 H (0-20) mm/hr Sodium 132 L (137-145) mmol/L Potassium 3.4 L (3.5-5.1) mmol/L Carbon Dioxide 19 L (22-30) mmol/L Creatinine 0.50 L (0.52-1.04) mg/dL Glucose 114 H (74-99) mg/dL POC Glucose (mg/dL) 115 H (75-99) mg/dL Alkaline Phosphatase 357 H (38-126) U/L Total Protein 4.8 L (6.3-8.2) g/dL Albumin 1.8 L (3.5-5.0) g/dL Microbiology - Last 24 Hours (Table) 03/10/17 11:17 Blood Culture Gram Stain - Preliminary Blood Blood Culture - Preliminary Gram Neg Bacilli 03/09/17 13:28 Blood Culture Gram Stain - Final Blood Blood Culture - Final Escherichia coli 03/08/17 15:35 Blood Culture Gram Stain - Final Blood Blood Culture - Final Escherichia coli 03/10/17 00:30 Urine Culture - Final Urine,Catheterized Assessment and Plan (1) Urinary tract infection Status: Acute (2) Hypotension Status: Acute (3) Hyperlipidemia Status: Acute (4) Diabetes mellitus Status: Acute (5) CVA (cerebral vascular accident) Status: Acute (6) CHF (congestive heart failure) Status: Acute (7) Sepsis Status: Acute (8) Septic shock due to Escherichia coli Status: Acute (9) Pneumonia Status: Acute (10) Uncontrolled diabetes mellitus Status: Acute (11) Gram negative sepsis Status: Acute (12) Hepatitis Status: Acute Plan: Plan dated 03/11/2017 The patient is doing well. She can be transferred out of the unit. No additional recommendations are made. We'll continue to follow closely. Prognosis is guarded. The patient was refusing to eat or putting this morning which had her medications and it. Encouraged to do so. Additional recommendations are made. The norepinephrine has been off since 3:00 yesterday. Plan dated 03/12/2017 The patient's doing well. The patient will be seen on a when necessary basis. No respiratory issues. Not requiring any supplemental oxygen. Blood pressure stable. Infection control. The E. coli was very sensitive to most antibiotics. Time with Patient: Less than 30
[2017-03-12 12:12] LABS: Glucose,Whole Blood 133 mg/dL (75-99)
[2017-03-12] MEDS: IPRATROPIUM-ALBUTEROL 3 ML NEB INHALATION PRN (12:29)
--- NOTE | 2017-03-12 15:49 | P.PN ---
Subjective The patient is admitted with sepsis. This is a felt to be due to osteomyelitis. She's having some pain in her abdomen. She is tolerating a diet without nausea or vomiting. An managing partner is present during visit. Objective - Vital Signs Vital signs: Vital Signs Temp 98.4 F 03/12/17 07:00 Pulse 82 03/12/17 12:39 Resp 16 03/12/17 12:39 BP 133/67 03/12/17 07:00 Pulse Ox 93 L 03/12/17 07:00 Intake & Output 03/11/17 03/12/17 03/12/17 18:59 06:59 18:59 Intake Total 760 Output Total 150 Balance 610 Intake: IV 60 Sodium Chloride 0.9% 1, 60 000 ml @ 20 mls/hr IV . Q24H [facility] Rx#:[id number] Intake, IV Titration 100 Amount Magnesium Sulfate-D5w Pmx 100 1 gm In Dextrose/Water 1 100ml.bag @ 100 mls/hr IVPB Q1H [facility] Rx#: [id number] Oral 600 Output: Urine 150 Other: Voiding Method Bedside Commode # Voids 3 # Bowel Movements 0 - Constitutional General appearance: Present: cooperative, no acute distress - EENT ENT: Present: hard of hearing (Patient is deaf) - Respiratory Respiratory: bilateral: CTA - Gastrointestinal Gastrointestinal Comment(s): Several areas of ecchymosis are present on her abdomen. Per nursing she is receiving subcutaneous heparin. General gastrointestinal: Present: normal bowel sounds, soft - Labs CBC & Chem 7: 03/12/17 07:10 03/12/17 07:10 Labs: Abnormal Lab Results - Last 24 Hours (Table) 03/11/17 03/12/17 03/12/17 Range/Units 16:52 02:10 07:10 WBC 13.3 H (3.8-10.6) k/uL RBC 3.30 L (3.80-5.40) m/uL Hgb 9.9 L (11.4-16.0) gm/dL Hct 31.2 L (34.0-46.0) % Neutrophils # 11.4 H (1.3-7.7) k/uL Lymphocytes # 0.9 L (1.0-4.8) k/uL ESR 78 H (0-20) mm/hr Sodium (137-145) mmol/L Potassium (3.5-5.1) mmol/L Carbon Dioxide (22-30) mmol/L Creatinine (0.52-1.04) mg/dL Glucose (74-99) mg/dL POC Glucose (mg/dL) 109 H 106 H (75-99) mg/dL Alkaline Phosphatase (38-126) U/L Total Protein (6.3-8.2) g/dL Albumin (3.5-5.0) g/dL 03/12/17 03/12/17 03/12/17 Range/Units 07:10 07:17 11:57 WBC (3.8-10.6) k/uL RBC (3.80-5.40) m/uL Hgb (11.4-16.0) gm/dL Hct (34.0-46.0) % Neutrophils # (1.3-7.7) k/uL Lymphocytes # (1.0-4.8) k/uL ESR (0-20) mm/hr Sodium 132 L (137-145) mmol/L Potassium 3.4 L (3.5-5.1) mmol/L Carbon Dioxide 19 L (22-30) mmol/L Creatinine 0.50 L (0.52-1.04) mg/dL Glucose 114 H (74-99) mg/dL POC Glucose (mg/dL) 115 H 133 H (75-99) mg/dL Alkaline Phosphatase 357 H (38-126) U/L Total Protein 4.8 L (6.3-8.2) g/dL Albumin 1.8 L (3.5-5.0) g/dL Microbiology - Last 24 Hours (Table) 03/11/17 11:09 Blood Culture - Preliminary Blood No Growth after 24 hours 03/10/17 11:17 Blood Culture Gram Stain - Preliminary Blood Blood Culture - Preliminary Gram Neg Bacilli 03/09/17 13:28 Blood Culture Gram Stain - Final Blood Blood Culture - Final Escherichia coli 03/08/17 15:35 Blood Culture Gram Stain - Final Blood Blood Culture - Final Escherichia coli Assessment and Plan (1) Osteomyelitis Status: Acute (2) Gram negative sepsis Status: Acute Plan: The patient's abdominal pain may be related to the osteomyelitis. She hAs had a previous hepaticojejunostomy. There is no sign that this is the source of sepsis however.
--- NOTE | 2017-03-12 17:05 | PN ---
PROGRESS NOTE DATE OF SERVICE: 03/12/2017 REASON FOR FOLLOWUP: E. coli bacteremia secondary to the L4 diskitis. INTERVAL HISTORY: The patient overall fever pattern has improved. Afebrile this morning. He has been breathing comfortably. Denies any chest pain, no shortness of breath. No cough, no abdominal pain. No diarrhea. PHYSICAL EXAMINATION: Blood pressure is 113/68 with a pulse of 90, temperature 97.1, showing is 92% on room air. General description is a middle-aged female, lying in bed, in no distress. RESPIRATORY SYSTEM: Unlabored breathing. Clear to auscultation anteriorly. HEART: S1, S2. Regular rate and rhythm. ABDOMEN: Soft, no tenderness. LABS: Hemoglobin 9.9, white count of 13.3 with BUN of 11, creatinine 0.50. Blood culture of 03/11 has been negative so far. DIAGNOSTIC IMPRESSION AND PLAN: Patient with an Escherichia coli bacteremia in a patient who did have evidence of L4 diskitis and a question of right . for further information surgery and Ortho on the case and not recommending any surgical intervention. She is currently on meropenem. Blood culture from yesterday morning has been negative. Will be continued on meropenem, switching over to Rocephin on discharge for at least a 6 to 8 week course. Continue supportive care. MMODL / IJN: [id number] /
[2017-03-12 17:19] LABS: Glucose,Whole Blood 289 mg/dL (75-99)
[2017-03-12] MEDS: SODIUM CHLORIDE 0.9% 1,000 ML IV SCH (17:33)
[2017-03-12 20:43] LABS: Glucose,Whole Blood 126 mg/dL (75-99)
[2017-03-12] MEDS: INSULIN GLARGINE 100 UNIT/ML 10 ML VIAL SQ SCH (21:14)
[2017-03-13] MEDS: MEROPENEM 1 GM in SODIUM CHLORIDE 0.9% 100 ML IVPB SCH ×4 (00:01→23:15)
[2017-03-13] MEDS: oxyCODONE-APAP 5-325MG 1 EACH TAB PO PRN ×2 (01:22→06:03)
[2017-03-13 07:20] LABS: Glucose,Whole Blood 108 mg/dL (75-99)
[2017-03-13] MEDS: INSULIN LISPRO (humaLOG) 300 UNIT/3 ML VIAL SQ SCH ×7 (10:26→22:00)
--- NOTE | 2017-03-13 11:31 | P.PN ---
Subjective Patient is awake and alert today. She denies any pain. No abdominal pain or back pain. Objective - Vital Signs Vital signs: Vital Signs Temp 97.2 F L 03/13/17 07:00 Pulse 67 03/13/17 07:00 Resp 16 03/13/17 07:00 BP 126/62 03/13/17 07:00 Pulse Ox 92 L 03/13/17 07:00 Intake & Output 03/12/17 03/13/17 03/13/17 18:59 06:59 18:59 Intake Total 600 Balance 600 Intake: Oral 600 Other: Voiding Method Bedside Commode Bedside Commode # Voids 1 4 # Bowel Movements 1 1 - Exam General: The patient is awake and alert, in no distress. Patient is legally deaf Eye: there is normal conjunctiva bilaterally. Neck: The neck is supple, there is no JVD. Cardiovascular: Normal S1-S2, no S3-S4, no murmurs. Respiratory: Lungs clear to auscultation bilaterally Gastrointestinal: Abdomen is soft, nontender Musculoskeletal: There is no pedal edema. Skin: Skin is warm and dry - Labs CBC & Chem 7: 03/12/17 07:10 03/12/17 07:10 Labs: Abnormal Lab Results - Last 24 Hours (Table) 03/12/17 03/12/17 03/12/17 Range/Units 11:57 17:17 20:41 POC Glucose (mg/dL) 133 H 289 H 126 H (75-99) mg/dL 03/13/17 Range/Units 07:01 POC Glucose (mg/dL) 108 H (75-99) mg/dL Microbiology - Last 24 Hours (Table) 03/12/17 07:10 Blood Culture - Preliminary Blood No Growth after 24 hours 03/10/17 11:17 Blood Culture Gram Stain - Final Blood Blood Culture - Final Escherichia coli 03/11/17 11:09 Blood Culture - Preliminary Blood No Growth after 24 hours Assessment and Plan Plan: 1. Severe sepsis with septic shock 2. Acute osteomyelitis/discitis at L4 3. E. coli bacteremia, persistent. We will repeat blood culture today. 4. Uncontrolled type 2 diabetes mellitus A1c 10.0 5. History of cholecystectomy and hepaticojejunostomy in September 2013 Today, I reviewed her medication list and lab work results. Spine and Gen. surgery consulted no immediate surgical intervention recommended. Computed tomography scan of the abdomen and pelvis and lumbar spine MRI report reviewed. Continue broad spectrum antibiotic management by infectious disease. Awaiting repeat blood culture today. Repeat lab work in the morning. Pain control.
--- NOTE | 2017-03-13 11:40 | P.PN ---
Progress Note - Text The patient's abdomen still fairly benign. There is a possible fluid collection in her liver posteriorly. If she continues to spike fevers consider repeating a CAT scan mid week to reevaluate that size make sure she is not developing a liver abscess. Currently nonsurgical
[2017-03-13 12:04] LABS: Glucose,Whole Blood 159 mg/dL (75-99)
[2017-03-13] MEDS: FAMOTIDINE 20 MG TAB PO SCH ×2 (13:15→20:07)
[2017-03-13] MEDS: HEPARIN SODIUM,PORCINE 5,000 UNIT/ML 1 ML VIAL SQ SCH ×2 (13:15→20:07)
[2017-03-13] MEDS: CALCIUM CARB-VIT D 500MG-200UN 1 EACH TAB PO SCH (13:15)
[2017-03-13] MEDS: MULTIVITAMINS, THERA 1 EACH TAB PO SCH (13:16)
[2017-03-13] MEDS: URSODIOL 300 MG CAP PO SCH (13:16)
[2017-03-13 17:06] LABS: Glucose,Whole Blood 202 mg/dL (75-99)
--- NOTE | 2017-03-13 18:00 | PN ---
PROGRESS NOTE DATE OF SERVICE: 03/13/2017. REASON FOR FOLLOWUP: E coli bacteremia secondary to the L4 diskitis. INTERVAL HISTORY: The patient is afebrile. She is breathing comfortably. Denies any chest pain, shortness of breath. No cough. No worsening back pain. Most information has been obtained through the comb tender present at the bedside. EXAMINATION: Her blood pressure is 104/60 with a pulse of 88, temperature 97.1. She is 92% on room air. General description is a middle aged female, lying in bed, in no distress. RESPIRATORY SYSTEM: Unlabored breathing. Clear to auscultation anteriorly. HEART: S1, S2. Regular rate and rhythm. ABDOMEN: Soft, no tenderness. LABS: Hemoglobin is 9.8, white count 13.3 as of yesterday. BUN of 11, creatinine 0.50. Blood cultures 03/11 and 03/12 have been negative. DIAGNOSTIC IMPRESSION AND PLAN: Patient with a E coli bacteremia, source likely L4 diskitis with no evidence of any drainable abscess. The patient at this time will continue with the meropenem. She should be able to get a PICC line as the blood culture has been negative with plan for 6-8 weeks of IV Rocephin in outpatient setting. Continue supportive care. MMODL / IJN: [id number] /
[2017-03-13] MEDS: SODIUM CHLORIDE 0.9% 1,000 ML IV SCH (20:07)
[2017-03-13 20:56] LABS: Glucose,Whole Blood 173 mg/dL (75-99)
[2017-03-13] MEDS: INSULIN GLARGINE 100 UNIT/ML 10 ML VIAL SQ SCH (22:05)
[2017-03-13] MEDS: ACETAMINOPHEN TAB 325 MG TAB PO PRN (23:14)
[2017-03-14 07:41] LABS: Glucose,Whole Blood 140 mg/dL (75-99)
[2017-03-14] MEDS: FAMOTIDINE 20 MG TAB PO SCH ×2 (08:32→22:18)
[2017-03-14] MEDS: HEPARIN SODIUM,PORCINE 5,000 UNIT/ML 1 ML VIAL SQ SCH ×2 (08:32→22:17)
[2017-03-14] MEDS: CALCIUM CARB-VIT D 500MG-200UN 1 EACH TAB PO SCH (08:32)
[2017-03-14] MEDS: MEROPENEM 1 GM in SODIUM CHLORIDE 0.9% 100 ML IVPB SCH (08:32)
[2017-03-14] MEDS: MULTIVITAMINS, THERA 1 EACH TAB PO SCH (08:32)
[2017-03-14] MEDS: URSODIOL 300 MG CAP PO SCH (08:32)
[2017-03-14] MEDS: INSULIN LISPRO (humaLOG) 300 UNIT/3 ML VIAL SQ SCH ×7 (08:33→22:18)
[2017-03-14] MEDS: ACETAMINOPHEN TAB 325 MG TAB PO PRN ×2 (10:42→18:31)
--- NOTE | 2017-03-14 12:00 | P.PN ---
Subjective Patient is awake and alert today. No events overnight Objective - Vital Signs Vital signs: Vital Signs Temp 98.7 F 03/14/17 07:00 Pulse 74 03/14/17 07:00 Resp 20 03/14/17 07:00 BP 124/71 03/14/17 07:00 Pulse Ox 92 L 03/14/17 07:00 Intake & Output 03/13/17 03/14/17 03/14/17 18:59 06:59 18:59 Intake Total 860 965 Balance 860 965 Intake: IV 160 240 Sodium Chloride 0.9% 1, 160 240 000 ml @ 20 mls/hr IV . Q24H MEGHAN Rx#:[id number] Intake, IV Titration 100 100 Amount Meropenem 1 gm In Sodium 100 100 Chloride 0.9% 100 ml @ 200 mls/hr IVPB Q8HR MEGHAN Rx#:[id number] Oral 600 625 Other: Voiding Method Bedside Commode Bedside Commode # Voids 1 4 # Bowel Movements 1 - Exam General: The patient is awake and alert, in no distress. Patient is legally deaf Eye: there is normal conjunctiva bilaterally. Neck: The neck is supple, there is no JVD. Cardiovascular: Normal S1-S2, no S3-S4, no murmurs. Respiratory: Lungs clear to auscultation bilaterally Gastrointestinal: Abdomen is soft, nontender Musculoskeletal: There is no pedal edema. Skin: Skin is warm and dry - Labs CBC & Chem 7: 03/12/17 07:10 03/12/17 07:10 Labs: Abnormal Lab Results - Last 24 Hours (Table) 03/13/17 03/13/17 03/13/17 Range/Units 11:58 17:03 20:47 POC Glucose (mg/dL) 159 H 202 H 173 H (75-99) mg/dL 03/14/17 Range/Units 07:25 POC Glucose (mg/dL) 140 H (75-99) mg/dL Microbiology - Last 24 Hours (Table) 03/12/17 07:10 Blood Culture - Preliminary Blood No Growth after 48 hours 03/11/17 11:09 Blood Culture - Preliminary Blood No Growth after 48 hours Assessment and Plan Plan: 1. Severe sepsis with septic shock 2. Acute osteomyelitis/discitis at L4 3. E. coli bacteremia, persistent. We will repeat blood culture today. 4. Uncontrolled type 2 diabetes mellitus A1c 10.0 5. History of cholecystectomy and hepaticojejunostomy in September 2013 Today, I reviewed her medication list and lab work results. Spine and Gen. surgery consulted no immediate surgical intervention recommended. Computed tomography scan of the abdomen and pelvis and lumbar spine MRI report reviewed. Continue broad spectrum antibiotic management by infectious disease. Awaiting repeat blood culture today. Repeat lab work in the morning. Pain control. PICC line placement today. Discharge to retirement tomorrow.
[2017-03-14 12:21] LABS: Glucose,Whole Blood 143 mg/dL (75-99)
--- NOTE | 2017-03-14 14:09 | P.PN ---
Subjective Principal diagnosis: Abdominal pain Patient denies abdominal pain today. Back pain is improved as well. CT abdomen results were reviewed. No additional pathology to explain her abdominal pain on Tuesday. The septated lesion in the liver does not have the typical findings associated with a hepatic abscess. The visualized bowel appears normal. Objective - Vital Signs Vital signs: Vital Signs Temp 98.7 F 03/14/17 07:00 Pulse 74 03/14/17 07:00 Resp 20 03/14/17 07:00 BP 124/71 03/14/17 07:00 Pulse Ox 92 L 03/14/17 07:00 Intake & Output 03/13/17 03/14/17 03/14/17 18:59 06:59 18:59 Intake Total 860 965 Balance 860 965 Intake: IV 160 240 Sodium Chloride 0.9% 1, 160 240 000 ml @ 20 mls/hr IV . Q24H MEGHAN Rx#:[id number] Intake, IV Titration 100 100 Amount Meropenem 1 gm In Sodium 100 100 Chloride 0.9% 100 ml @ 200 mls/hr IVPB Q8HR MEGHAN Rx#:[id number] Oral 600 625 Other: Voiding Method Bedside Commode Bedside Commode # Voids 1 4 # Bowel Movements 1 - Exam Abdomen: Soft, nontender, nondistended - Labs CBC & Chem 7: 03/12/17 07:10 03/12/17 07:10 Labs: Abnormal Lab Results - Last 24 Hours (Table) 03/13/17 03/13/17 03/14/17 Range/Units 17:03 20:47 07:25 POC Glucose (mg/dL) 202 H 173 H 140 H (75-99) mg/dL 03/14/17 Range/Units 12:19 POC Glucose (mg/dL) 143 H (75-99) mg/dL Microbiology - Last 24 Hours (Table) 03/11/17 11:09 Blood Culture - Preliminary Blood No Growth after 72 hours 03/12/17 07:10 Blood Culture - Preliminary Blood No Growth after 48 hours Assessment and Plan (1) Gram negative sepsis Narrative/Plan: Continue IV antibiotics per infectious disease for the paraspinal infection. Consider follow-up with [facility] hepatobiliary service given the recurrent bacteremia, elevated liver enzymes, and CT scan findings. No general surgery intervention planned at this time. We'll sign off. Please contact if needed. Status: Acute
[2017-03-14 14:33] VITALS: BMI 27.6
[2017-03-14] MEDS: IPRATROPIUM-ALBUTEROL 3 ML NEB INHALATION PRN ×2 (15:09→19:26)
--- NOTE | 2017-03-14 15:12 | IR ---
EXAMINATION TYPE: IR cvc insert >=5 years DATE OF EXAM: 03/14/2017 COMPARISON: NONE CLINICAL HISTORY: Infection Needs long-term intravenous access for antibiotics. PROCEDURE: After informed consent, the skin overlying the left basilic vein was localized with ultrasound and no jason to be compressible and patent. An ultrasound image was obtained and submitted on the patient's c castillo. The overlying skin was prepped and draped and Lidocaine was used for local anesthesia. A skin gayathri was made with a scalpel. Access was gained to the vein under ultrasound guidance with a 21 gau ge needle and a 0.018 inch wire was advanced. Access site was dilated with Peel-Away sheath and cath eter tailored to the appropriate length and advanced such that the distal tip is at the cavoatrial ju nction. Spot image was obtained verifying placement. Catheter was fixed to the skin with suture and a sterile dressing was placed following hemostasis. Catheter was aspirated and flushed with saline. Patient was discharged in stable condition without complication. Maximal barrier technique is utili zed. Ultrasound image is documented on the chart. Ultrasound used with sterile technique. Fluoro time and fluoroscopic images submitted to document procedure: 66 intraoperative procedure imag es, 0.2 minutes fluoroscopy time IMPRESSION: STATUS POST ULTRASOUND AND FLUOROSCOPIC GUIDED PICC LINE PLACEMENT, READY FOR USE. THIS PROCEDURE WAS PERFORMED BY THE UNDERSIGNED.
[2017-03-14 17:30] LABS: Glucose,Whole Blood 133 mg/dL (75-99)
[2017-03-14] MEDS: cefTRIAXone 2,000 MG in SODIUM CHLORIDE 0.9% 100 ML IVPB SCH (17:43)
[2017-03-14] MEDS: SODIUM CHLORIDE 0.9% 1,000 ML IV SCH (18:36)
[2017-03-14 21:06] LABS: Glucose,Whole Blood 156 mg/dL (75-99)
[2017-03-14] MEDS: INSULIN GLARGINE 100 UNIT/ML 10 ML VIAL SQ SCH (22:18)
[2017-03-15] MEDS: ACETAMINOPHEN TAB 325 MG TAB PO PRN (00:16)
--- NOTE | 2017-03-15 05:55 | PN ---
PROGRESS NOTE DATE OF SERVICE: 03/14/2017 REASON FOR FOLLOWUP: E. Coli bacteremia source is the L4 discitis. INTERVAL HISTORY: The patient is afebrile. She has been breathing comfortably. Denies having any chest pain or shortness of breath or cough. No abdominal pain and the back pain seemed to have improved as per interpretation with pcb design engineer. PHYSICAL EXAMINATION: On examination, blood pressure is 111/59 with a pulse of 74, temperature 97.4. She is 92% on room air. General description is a middle aged female, lying in bed, in no distress. RESPIRATORY SYSTEM: Unlabored breathing. Clear to auscultation anteriorly. HEART: S1, S2. Regular rate and rhythm. ABDOMEN: Soft, no tenderness. LABS: No new labs been obtained today. Blood culture 03/11 and has been negative. DIAGNOSTIC IMPRESSION AND PLAN: Patient with Escherichia coli bacteremia source likely L4 discitis from paraspinal enhancement or any component. Both surgery and ortho has been recommended against any surgical intervention. Blood culture has . Patient will get a PICC line for outpatient antibiotics in the form of Rocephin 2 gram daily for at least 6 to 8 weeks with weekly monitoring of her blood work. Family was present at bedside. All their questions and concerns were answered. MMODL / IJN: [id number] /
[2017-03-15 07:23] LABS: Glucose,Whole Blood 140 mg/dL (75-99)
[2017-03-15] MEDS: INSULIN LISPRO (humaLOG) 300 UNIT/3 ML VIAL SQ SCH ×4 (08:12→12:36)
[2017-03-15] MEDS: URSODIOL 300 MG CAP PO SCH (08:12)
[2017-03-15] MEDS: FAMOTIDINE 20 MG TAB PO SCH (08:12)
[2017-03-15] MEDS: MULTIVITAMINS, THERA 1 EACH TAB PO SCH (08:12)
[2017-03-15] MEDS: HEPARIN SODIUM,PORCINE 5,000 UNIT/ML 1 ML VIAL SQ SCH (08:12)
[2017-03-15] MEDS: CALCIUM CARB-VIT D 500MG-200UN 1 EACH TAB PO SCH (08:12)
[2017-03-15] MEDS: cefTRIAXone 2,000 MG in SODIUM CHLORIDE 0.9% 100 ML IVPB SCH (08:13)
[2017-03-15] MEDS: oxyCODONE-APAP 5-325MG 1 EACH TAB PO PRN ×2 (08:16→13:43)
[2017-03-15 08:57] VITALS: BP 112/60; RESP 16; TEMP 98.8
--- NOTE | 2017-03-15 10:18 | P.DS ---
Providers Date of admission: 03/07/17 20:25 Expected date of discharge: 03/15/17 Attending physician: Latoya Cr Consults: 03/08/17 02:06 Consult Physician Routine Consulting Provider: Master Galaviz Consult Reason/Comments: pneumonia Do you want consulting provider notified?: Yes, Notify in am 03/08/17 14:31 Consult Physician Routine Consulting Provider: Renae Gallagher Consult Reason/Comments: sepsis, bacteremia Do you want consulting provider notified?: Yes 03/08/17 22:06 Consult Physician Routine Consulting Provider: Master Galaviz Consult Reason/Comments: district manager primary care sales Do you want consulting provider notified?: Yes Consult Physician Routine Consulting Provider: May Black Consult Reason/Comments: spinal surgeon Do you want consulting provider notified?: Yes, Notify in am 03/10/17 10:20 Consult Physician Routine Consulting Provider: Galo Oneil Consult Reason/Comments: psoas abscess? Do you want consulting provider notified?: Yes Primary care physician: Capri Post Hospital Course: 1. Severe sepsis with septic shock on presentation 2. Acute osteomyelitis/discitis at L4 3. E. coli bacteremia, persistent. Eventually cleared after a few days in the hospital 4. Uncontrolled type 2 diabetes mellitus A1c 10.0 5. 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 Patient was found to have evidence of acute osteomyelitis/discitis at L4. She had persistent E. coli bacteremia for 3-4 days. She was admitted to the intensive care unit initially and was treated aggressively with IV fluids, vasopressors, and broad-spectrum antibiotic. She was seen and evaluated by multiple specialists including infectious disease, Gen. surgery, or spine surgery, and the district manager primary care sales. Her overall condition improved throughout her hospital stay. Source of bacteremia was thought to be an underlying urinary tract infection versus possible biliary source given her prior surgeries. Patient was eventually stable. She will be discharged to [facility] to finish 6-8 weeks of IV antibiotic via PICC line as recommended by infectious disease. Patient should also have a follow-up appointment arranged with the hepatobiliary surgery clinic at [facility] within the next couple of weeks. Patient Condition at Discharge: Fair Plan - Discharge Summary New Discharge Prescriptions: New cefTRIAXone [Rocephin] 2,000 mg IVPB Q24HR #42 vial Acetaminophen Tab [Tylenol] 650 mg PO Q6HR PRN tab PRN Reason: Mild Pain Or Fever > 100.5 Insulin Glargine [Lantus] 10 unit SQ HS vial metFORMIN HCL [Glucophage] 500 mg PO BID #60 tab oxyCODONE-APAP 5-325MG [Percocet 5-325 mg] 1 each PO Q6HR PRN #60 tab PRN Reason: Severe Pain Continue Ursodiol 300 mg PO DAILY Calcium Carbonate/Vitamin D3 [Os-Triston 500-Vit D3 200 Caplet] 1 tab PO DAILY Multivitamins, Thera [Multivitamin (formulary)] 1 tab PO DAILY Changed Omeprazole [PriLOSEC] 40 mg PO DAILY #0 Discharge Medication List Calcium Carbonate/Vitamin D3 [Os-Triston 500-Vit D3 200 Caplet] 1 tab PO DAILY 08/22 [History] Ursodiol 300 mg PO DAILY 08/22/15 [History] Multivitamins, Thera [Multivitamin (formulary)] 1 tab PO DAILY 03/07/17 [History ] Acetaminophen Tab [Tylenol] 650 mg PO Q6HR PRN tab 03/15/17 [Rx] Insulin Glargine [Lantus] 10 unit SQ HS vial 03/15/17 [Rx] Omeprazole [PriLOSEC] 40 mg PO DAILY #0 03/15/17 [Rx] cefTRIAXone [Rocephin] 2,000 mg IVPB Q24HR #42 vial 03/15/17 [Rx] metFORMIN HCL [Glucophage] 500 mg PO BID #60 tab 03/15/17 [Rx] oxyCODONE-APAP 5-325MG [Percocet 5-325 mg] 1 each PO Q6HR PRN #60 tab 03/15/17 [ Rx] Follow up Appointment(s)/Referral(s): Capri Post MD [Primary Care Provider] - 1-2 days Hitesh Goldstein PAC [PHYSICIAN ZOO DIRECTOR] - 2 Weeks (Patient may follow-up with Hitesh Goldstein PA-C or Dr. Jacob Black at [facility] in 2-3 weeks following discharge. ) Renae Gallagher MD [STAFF PHYSICIAN] - 1 Week Discharge Disposition: TRANSFER TO SNF/ECF
[2017-03-15 11:04] LABS: Anisocytosis Slight; Basophils % (A) 0 %; CH 30.8; Eosinophils # (A) 0.1 k/uL (0-0.7); Eosinophils % (A) 1 %; HCT 32.5 % (34.0-46.0); HDW 3.01; HGB 10.5 gm/dL (11.4-16.0); Luc % (Auto) 2; Lymphocytes % (A) 9 %; MCH 30.4 pg (25.0-35.0); MCHC 32.3 g/dL (31.0-37.0); MCV 94.2 fL (80.0-100.0); Mean Platelet Volume 8.6; Monocytes # (A) 0.3 k/uL (0-1.0); Monocytes % (A) 3 %; Neutrophils # (A) 9.4 k/uL (1.3-7.7); Neutrophils % (A) 85 %; RBC 3.45 m/uL (3.80-5.40); RDW 16.5 % (11.5-15.5); WBC 11.1 k/uL (3.8-10.6); WBC (Perox) 11.45
[2017-03-15 11:13] LABS: Carbon Dioxide 21 mmol/L (22-30); Chloride 104 mmol/L (98-107); Glucose 101 mg/dL (74-99); Potassium 3.5 mmol/L (3.5-5.1); Sodium 130 mmol/L (137-145)
[2017-03-15 11:14] LABS: ALT 42 U/L (9-52); AST 29 U/L (14-36); Alkaline Phosphatase 311 U/L (38-126); Anion Gap 5 mmol/L; Blood Urea Nitrogen 7 mg/dL (7-17); Calcium 7.7 mg/dL (8.4-10.2); Non-African American GFR(MDRD) >60 (>60 ml/min/1.73 sqM); Total Bilirubin 0.6 mg/dL (0.2-1.3); Total Protein 5.2 g/dL (6.3-8.2)
--- NOTE | 2017-03-15 11:30 | PN ---
PROGRESS NOTE DATE OF SERVICE: 03/15/2017. REASON FOR FOLLOWUP: Escherichia coli bacteremia secondary to the L4 diskitis. INTERVAL HISTORY abdominal pain. Malorie had been sent with 02/28/2020. INTERVAL HISTORY: The patient is afebrile. She is breathing comfortably. Denies any chest pain, shortness of breath or cough. Back pain seemed to be slightly improving as informational pain. PHYSICAL EXAMINATION: On examination, blood pressure 112/60 with a pulse of 78, temperature 98.8. She is 94% on 2 L nasal cannula. General description is a middle aged female, lying in bed, in no distress. RESPIRATORY SYSTEM: Unlabored breathing. Clear to auscultation anteriorly. HEART: S1, S2. Regular rate. ABDOMEN: Soft, no tenderness. LABS: No new labs been obtained today. Blood culture 03/11 and 03/12 negative. DIAGNOSTIC IMPRESSION AND PLAN: Patient with Escherichia coli bacteremia, source is likely L4 diskitis. Patient did get a PICC line, will be pending for Rocephin 2 g daily for a total of 6 to 8 weeks with weekly monitoring of CBC, BMP. A CBC and BMP has been ordered for this morning, which if normal, she should go to go home from ID standpoint. MMODL / IJN: [id number] /
[2017-03-15] MEDS: IPRATROPIUM-ALBUTEROL 3 ML NEB INHALATION PRN (12:22)
[2017-03-15 12:26] LABS: Glucose,Whole Blood 127 mg/dL (75-99)
[2017-03-15 12:49] VITALS: PULSE 84
== END 2017-03-15 13:49 | DRG 871 ==
LOC: EC 14:18 → 6SEL 20:25 → 6ICU 03-08 22:34 → 5MS5E 03-09 17:54 → 6ICU 03-09 21:59 → 4MS4W 03-11 12:20 → UNDODISIN 03-12 14:15
PROVIDERS: ADMIT Internal Medicine; ATTEND Internal Medicine
PROC: 0T9B70Z Drainage of Bladder with Drainage Device, Via Natural or Artificial Opening (ICD-10-PCS; 2017-03-09)
PROC: 02HV33Z Insertion of Infusion Device into Superior Vena Cava, Percutaneous Approach (ICD-10-PCS; principal; 2017-03-14 13:50)
DX: A41.51 Sepsis due to Escherichia coli [E. coli] (principal); J18.9 Pneumonia, unspecified organism; R65.21 Severe sepsis with septic shock; E87.2 Acidosis; E11.69 Type 2 diabetes mellitus with other specified complication; K75.9 Inflammatory liver disease, unspecified; M46.26 Osteomyelitis of vertebra, lumbar region; N39.0 Urinary tract infection, site not specified; E11.65 Type 2 diabetes mellitus with hyperglycemia; R10.9 Unspecified abdominal pain; M85.88 Other specified disorders of bone density and structure, other site; F10.20 Alcohol dependence, uncomplicated; M83.9 Adult osteomalacia, unspecified; E87.70 Fluid overload, unspecified; R00.0 Tachycardia, unspecified; R74.0 Nonspecific elevation of levels of transaminase and lactic acid dehydrogenase [LDH]; H91.3 Deaf nonspeaking, not elsewhere classified; M46.46 Discitis, unspecified, lumbar region; F41.9 Anxiety disorder, unspecified; I70.0 Atherosclerosis of aorta; I69.311 Memory deficit following cerebral infarction; E78.5 Hyperlipidemia, unspecified; Z82.3 Family history of stroke; Z82.0 Family history of epilepsy and other diseases of the nervous system; Z90.49 Acquired absence of other specified parts of digestive tract; Z79.899 Other long term (current) drug therapy; Z87.891 Personal history of nicotine dependence; Z71.3 Dietary counseling and surveillance; Z86.79 Personal history of other diseases of the circulatory system; Z87.19 Personal history of other diseases of the digestive system; Z87.828 Personal history of other (healed) physical injury and trauma; Z86.19 Personal history of other infectious and parasitic diseases; Z96.89 Presence of other specified functional implants; Z16.30 Resistance to unspecified antimicrobial drugs
CPT/HCPCS: 36415; 36569; 71010; 71020; 72110; 72131; 72158; 72170; 72192; 74177; 76937; 77001; 80048; 80053; 81001; 82009; 82330; 82533; 83036; 83605; 83735; 84100; 84132; 85025; 85027; 85610; 85652; 87040; 87077; 87086; 87186; 87324; 93306; 94640; 94760; 96365; 96366; 99284

== ENCOUNTER → 2017-05-10 | Outpatient (CLI) | payer MEDICARE, OTHER ==
--- NOTE | 2017-05-11 23:42 | MR ---
EXAMINATION TYPE: MR lumbar spine wo/w con DATE OF EXAM: 05/10/2017 COMPARISON: 03/11/2017 HISTORY: L4 Discitis TECHNIQUE: Multiplanar, multisequence images of the lumbar spine were acquired utilizing 5.5 mL intravenous Gada vist gadolinium contrast. Lumbar vertebra have normal alignment. There is severe narrowing of the L3-4 disc space. There is a r udimentary disc at S1-S2. There is pathologic enhancement on both sides of the L3-4 disc as well as t he posterior longitudinal ligament which appears thickened. There is some hypertrophic facet arthropa thy L3-4. There is lateral recess stenosis. There is some pathologic enhancement enhancement around t he L3 and L4 vertebral bodies. I see no drainable fluid collection. There is also pathologic enhancem ent anterior to the L3 and L4 vertebra. This measures up to 10 mm in thickness. CONCLUSION: Narrowing of the L3-4 disc space with significant pathologic enhancement on both sides of the disc an d around the L3 and L4 vertebral bodies. This is consistent with chronic discitis and osteomyelitis. There is significant progression of the disc space narrowing compared to old exam. There is extensive inflammatory reaction around the vertebra without evidence of a drainable fluid collection. There is mild spinal stenosis related to the inflammatory thickening along the posterior longitudinal ligamen t and the facet arthropathy. Spinal stenosis is worse than last exam.
== END | disposition home or self-care (01) ==
LOC: RADMRIMAIN 12:23
PROVIDERS: ATTEND Internal Medicine Infectious Disease
DX: M48.061 Spinal stenosis, lumbar region without neurogenic claudication (principal); M46.96 Unspecified inflammatory spondylopathy, lumbar region
CPT/HCPCS: 72158; A9581

== ENCOUNTER → 2017-07-07 | Outpatient (CLI) | payer MEDICARE, OTHER ==
--- NOTE | 2017-07-07 20:56 | MR ---
EXAMINATION TYPE: MR lumbar spine wo/w con DATE OF EXAM: 07/07/2017 COMPARISON: 05/10/2017 Contrast: 5 mL Gadavist HISTORY: Discitis L4 TECHNIQUE: T1 and T2 axial and sagittal images of the lumbar spine are submitted. FINDINGS: Large T1/T2 hyperintense lesion is seen within the L3 vertebral body that decreases signal on fat saturation sequence compatible with a benign hemangioma. There is overall decreased and heterogenous T1 bone marrow signal seen throughout the visualized lumbar spine and visualized pelvis. At T12-L1 there is an annular tear and central disc bulging but no canal stenosis or foraminal encroa chment. L1-L2: Normal disc appearance without desiccation. No herniation, protrusion or disc bulging. No canal stenosis is present. Foramina are patent bilaterally. L2-L3: Small broad-based disc bulge is seen without significant neural foraminal stenosis or spinal canal stenosis. L3-L4: Decreased T1 signal, increased T2 signal, and increased T2/fat sat signal is seen within the L3 andL4 vertebral body and into the intervertebral disc with extensive bone marrow edema. There is continued erosion of the endplates with a greater involvem ent of the L4 superior endplate. Phlegmonous changes are seen within the bilateral iliopsoas muscle demonstrating enhancement and maría stinct T2 hyperintensity without discrete focal fluid collection to suggest current abscess. There is circumferential abnormal signal surroundi ng the vertebral segment including anteriorly. Enhancement of the nerve root on right is suspected co mpatible with neuritis. Phlegmonous changes extend inferiorly to the level of L5 within the iliopsoas muscle and extend into both neural foramina at the L3-L4 level. Persistent broad-based disc protrusion noted which results in canal stenosis. There is enhancement in the epidural space likely on the basis of epidural phlegmon. L4-L5: Broad-based disc bulge is seen in concert with facet arthropathy and ligamentum flavum hypertrophy creating mild right neural foraminal narrowing. Spinal canal and left neural foramen are patent. L5-S1: Small focal central disc protrusion/herniation superimposed upon a broad-based disc bulge is less impressive on today's exam. In combination with facet arthropathy and ligamentum flavum buckling there is resultant mild bilateral neural foraminal narrowing. No spinal canal stenosis. Conus medullaris has a normal appearance. Large nonenhancing perineural cyst is seen at S2 on the right. IMPRESSION: The numbering system used on today's exam is consistent with prior exams. Correlate wit h the numbering system utilized on the exam prior to any surgical intervention. 1. Findings of osteomyelitis and disc base persist with mild improvement relative to the previous ex am. phlegmonous changes of the bilateral iliopsoas muscle without definitive measurable abscess. Stable canal stenosis at L3-4 with broad-based disc protrusion. Epidural phlegmon also persists and is slightly improved from the prior exam. 2. Diffuse heterogeneity and decreased signal of the bone marrow, most commonly relating to anemia and correlation with CBC is recommended as other
== END | disposition home or self-care (01) ==
LOC: RADMRIMAIN 17:39
PROVIDERS: ATTEND Internal Medicine Infectious Disease
DX: M48.061 Spinal stenosis, lumbar region without neurogenic claudication (principal); M51.26 Other intervertebral disc displacement, lumbar region; M46.26 Osteomyelitis of vertebra, lumbar region
CPT/HCPCS: 72158; A9581

== ENCOUNTER → 2017-08-29 | Outpatient (CLI) | payer MEDICARE, OTHER ==
--- NOTE | 2017-08-29 22:22 | MR ---
EXAMINATION TYPE: MR lumbar spine wo/w con DATE OF EXAM: 08/29/2017 COMPARISON: MRI lumbar spine July 07, 2017. HISTORY: F/U to osteomyelitis TECHNIQUE: Multiplanar, multisequence images of the lumbar spine is performed without and with IV contrast, util izing 5 mL intravenous Gadavist FINDINGS: Value same counting system is used on prior study. Sagittal images of the lumbar spine show alignment to appear stable and satisfactory. There is large hemangioma involving the L3 vertebra red emonstrated. There is persistent mild to moderate height loss involving the L4 vertebra more prominen t anteriorly. There is persistent fairly advanced disc space narrowing at L3-L4 vertebral body level. Area of diminished T1 and increased T2 signal with postcontrast enhancement involving disc remains p resent at this level. Multilevel disc desiccation is present. Small posterior disc herniations L4-L5 and L5-S1 level are redemonstrated. The conus medullaris is stable in position ending at mid L2 level given above counting sequence. No new areas of suspicious enhancement seen. There is stable Tarlov c yst right superior S3 level sagittal image 12. Axial images will begin at labeled L1-L2 level on current study which is felt to remain within normal limits. Axial images at labeled L2-L3 level redemonstrated mild broad disc bulge but spinal canal is preserve d and bilateral neural foramina are patent. Axial images at L3-L4 level show moderate broad disc bulge with left lateral disc protrusion componen t and heterogeneous disc and endplate enhancement. There is effacement of the anterior thecal sac. Th ere is asymmetric mild to moderate left-sided neural foraminal narrowing. There is interval improveme nt in adjacent iliopsoas inflammatory change. Axial images at L4-L5 level shows central disc protrusion mildly effacing the anterior thecal sac and mild facet degenerative changes ligamentum flavum hypertrophy. Bilateral neural foramina are patent. No significant change from prior. Axial images at L5-S1 level shows central disc protrusion mildly facing anterior thecal sac with mild facet degenerative changes causing mild bilateral neural foraminal narrowing. No significant change from prior study is seen. IMPRESSION: Interval improvement in discitis/osteomyelitis centered at the labeled L3-L4 level. Some residual infection cannot be excluded. Multilevel degenerative changes are redemonstrated without sig nificant change as detailed above.
== END | disposition home or self-care (01) ==
LOC: RADMRIMAIN 17:32
PROVIDERS: ATTEND Internal Medicine Infectious Disease
DX: M48.061 Spinal stenosis, lumbar region without neurogenic claudication (principal); M99.73 Connective tissue and disc stenosis of intervertebral foramina of lumbar region; M51.27 Other intervertebral disc displacement, lumbosacral region; M47.817 Spondylosis without myelopathy or radiculopathy, lumbosacral region
CPT/HCPCS: 72158; A9581

== ENCOUNTER → 2017-09-07 | Outpatient (CLI) | payer MEDICARE, OTHER ==
[2017-09-07 11:07] LABS: ALT 71 U/L (9-52); AST 49 U/L (14-36); Alkaline Phosphatase 380 U/L (38-126); Anion Gap 10 mmol/L; Bilirubin, Delta 0.4 mg/dL (0.0-0.2); Bilirubin,Unconjugated 0.3 mg/dL (0.0-1.1); Blood Urea Nitrogen 15 mg/dL (7-17); C Reactive Protein 29.3 mg/L (<10.0); Calcium 9.9 mg/dL (8.4-10.2); Carbon Dioxide 28 mmol/L (22-30); Chloride 101 mmol/L (98-107); Glucose 207 mg/dL (74-99); Potassium 4.3 mmol/L (3.5-5.1); Sodium 139 mmol/L (137-145); Total Bilirubin 0.7 mg/dL (0.2-1.3); Total Protein 7.7 g/dL (6.3-8.2)
[2017-09-07 11:24] LABS: Basophils % (A) 1 %; Eosinophils # (A) 0.2 k/uL (0-0.7); Eosinophils % (A) 3 %; HCT 43.7 % (34.0-46.0); Lymphocytes # (A) 1.3 k/uL (1.0-4.8); Lymphocytes % (A) 22 %; MCH 31.2 pg (25.0-35.0); MCHC 32.2 g/dL (31.0-37.0); Mean Platelet Volume 8.2; Monocytes # (A) 0.4 k/uL (0-1.0); Monocytes % (A) 6 %; Neutrophils # (A) 3.8 k/uL (1.3-7.7); Neutrophils % (A) 66 %; Platelet Count 281 k/uL (150-450); RDW 13.7 % (11.5-15.5); WBC 5.8 k/uL (3.8-10.6)
[2017-09-07 12:44] LABS: Erythrocyte Sedimentation Rate 68 mm/hr (0-20)
[2017-09-08 22:23] LABS: Hemoglobin A1C 7.4 % (4.0-6.0)
== END | disposition home or self-care (01) ==
LOC: LABWHC1 10:10
PROVIDERS: ATTEND Internal Medicine Infectious Disease
DX: M86.9 Osteomyelitis, unspecified (principal)
CPT/HCPCS: 36415; 80048; 80076; 83036; 85025; 85652; 86140; 87040

== ENCOUNTER → 2018-10-13 | Outpatient (CLI) | payer MEDICARE, OTHER ==
--- NOTE | 2018-10-13 11:04 | US ---
EXAMINATION TYPE: US liver DATE OF EXAM: 10/13/2018 COMPARISON: 01/18/2017 CLINICAL HISTORY: R94.5 ABN LIVER STUDIES. Abnormal labs. Patient was jaundice a few days ago. GB r emoved 2013. Per patients friend, during GB removal, liver vessel was nicked and had to be rerouted. EXAM MEASUREMENTS: Liver Length: 12.3 cm Right Kidney: 8.9 x 5.3 x 3.7 cm Pancreas: Limited visualization due to overlying bowel gas. Tail not visualized. Liver: No prominent masses or lesions visualized Gallbladder: Surgically absent Evidence for sonographic Jacob's sign: neg CBD: Obscured by overlying bowel gas Right Kidney: wnl IMPRESSION: 1. Normal post cholecystectomy right upper quadrant ultrasound.
== END | disposition home or self-care (01) ==
LOC: RADUSWWP 10:11 → EEVIPCON 10:20
PROVIDERS: ATTEND Family Medicine
DX: R94.5 Abnormal results of liver function studies (principal); R17 Unspecified jaundice; Z90.49 Acquired absence of other specified parts of digestive tract
CPT/HCPCS: 76705

== ENCOUNTER → 2019-02-05 | Outpatient (CLI) | payer MEDICARE, OTHER ==
--- NOTE | 2019-02-06 04:52 | MR ---
EXAMINATION TYPE: MR MRCP DATE OF EXAM: 02/05/2019 COMPARISON: CT scan of the abdomen 03/11/2017 HISTORY: Primary sclerosing cholangitis Standard multiplanar, multisequence MRI departmental protocol Multiplanar, multisequence images of the abdomen were acquired. Diffusion weighted imaging was perfor med. FINDINGS: Spleen appears normal. There is no evidence of pancreatic mass. There are some dilated vein s at the splenic hilum. Liver has normal size and contour. There is no discrete liver mass. There is variable narrowing of the bile ducts. There is stricture of the common hepatic duct and the intrahepa tic bile ducts are not dilated. IMPRESSION: There is some stricture formation involving the proximal common hepatic duct on the ERCP images and i s consistent with sclerosing cholangitis. There are multiple splenic varicose veins consistent with portal venous hypertension.
== END | disposition home or self-care (01) ==
LOC: RADMRIMAIN 07:21
DX: K83.1 Obstruction of bile duct (principal); I86.8 Varicose veins of other specified sites
CPT/HCPCS: 36415; 74181; 80076; 82565; 83516; 84520; 85025; 85610; 86038

== ENCOUNTER → 2019-02-05 | Outpatient (CLI) | payer MEDICARE, OTHER ==
[2019-02-05 09:32] LABS: INR 1.2 (<1.2); Prothrombin Time 12.2 sec (9.0-12.0)
[2019-02-05 09:45] LABS: Anisocytosis Slight; HCT 33.3 % (34.0-46.0); HGB 10.1 gm/dL (11.4-16.0); Hypochromasia Moderate; MCH 31.6 pg (25.0-35.0); MCHC 30.3 g/dL (31.0-37.0); MCV 104.3 fL (80.0-100.0); Macrocytosis Moderate; Mean Platelet Volume 9.3; Platelet Count 250 k/uL (150-450); RBC 3.19 m/uL (3.80-5.40); RDW 16.7 % (11.5-15.5); WBC 6.9 k/uL (3.8-10.6)
[2019-02-05 10:48] LABS: Lymphocytes # (M) 0.83 k/uL (1.0-4.8); Monocytes # (M) 0.28 k/uL (0-1.0); Neutrophils % (M) 84 %; Nucleated Red Blood Cells 0 /100 WBC (0-0); Total Cells Counted 100
[2019-02-05 10:49] LABS: Poikilocytosis (M) Present
[2019-02-05 17:19] LABS: African American GFR (CKD) 110.1 (60.0-200.0); Albumin 2.6 g/dL (3.80-4.90); Albumin/Globulin Ratio 0.51 (1.60-3.17); Globulin 5.1 g/dL (1.6-3.3); Total Protein 7.7 g/dL (6.2-8.2)
== END | disposition home or self-care (01) ==
LOC: LABWHC1 08:23
DX: K83.01 Primary sclerosing cholangitis (principal)
CPT/HCPCS: 36415; 80076; 82565; 83516; 84520; 85025; 85610; 86038

== ENCOUNTER 2019-02-27 12:36 | Inpatient (IN) | payer MEDICARE, OTHER ==
[2019-02-27] MEDS ORDERED: SODIUM CHLORIDE 0.9% 500 ML 500 ML IV STA (13:40)
[2019-02-27] MEDS ORDERED: MORPHINE SULFATE 2 MG/ML SYRINGE IVP STA (13:40)
[2019-02-27 14:36] LABS: ALT 40 U/L (9-52); AST 83 U/L (14-36); African American GFR (CKD) >90 (>60 ml/min/1.73 sqM); Albumin 2.6 g/dL (3.5-5.0); Alkaline Phosphatase 640 U/L (38-126); Anion Gap 8 mmol/L; Blood Urea Nitrogen 21 mg/dL (7-17); Calcium 8.9 mg/dL (8.4-10.2); Carbon Dioxide 17 mmol/L (22-30); Chloride 116 mmol/L (98-107); Glucose 137 mg/dL (74-99); Magnesium 1.9 mg/dL (1.6-2.3); Potassium 3.3 mmol/L (3.5-5.1); Sodium 141 mmol/L (137-145); Total Bilirubin 4.6 mg/dL (0.2-1.3); Total Protein 7.9 g/dL (6.3-8.2)
[2019-02-27 14:45] LABS: Anisocytosis Slight; Basophils % (A) 0 %; Eosinophils # (A) 0.1 k/uL (0-0.7); Eosinophils % (A) 1 %; HCT 28.7 % (34.0-46.0); Lymphocytes # (A) 0.6 k/uL (1.0-4.8); Lymphocytes % (A) 10 %; MCH 31.4 pg (25.0-35.0); MCHC 31.4 g/dL (31.0-37.0); MCV 99.9 fL (80.0-100.0); Macrocytosis Slight; Mean Platelet Volume 8.9; Monocytes # (A) 0.2 k/uL (0-1.0); Monocytes % (A) 4 %; Neutrophils # (A) 4.9 k/uL (1.3-7.7); Neutrophils % (A) 83 %; Platelet Count 179 k/uL (150-450); RBC 2.88 m/uL (3.80-5.40); RDW 18.3 % (11.5-15.5); WBC 5.8 k/uL (3.8-10.6)
--- NOTE | 2019-02-27 14:45 | XR ---
EXAMINATION TYPE: XR Hip RT and AP Pelvis DATE OF EXAM: 02/27/2019 COMPARISON: NONE HISTORY: Right-sided pelvic pain TECHNIQUE: A single AP view of the pelvis is obtained. Two views of the right hip are obtained. FINDINGS: There is no acute fracture/dislocation evident in the pelvis. Old healed callused fracture is seen of the right inferior pubic ramus. The hip and sacroiliac joints appear symmetric and narrow ed. Mild acetabular roof sclerosis is also seen. The overlying soft tissue appears unremarkable. Fec al stasis is seen within the rectum. There is diffuse osseous demineralization. Two views of left hip show no acute fracture or dislocation. There is a sclerotic lesion within the l eft iliac bone that is present on CT dating back to 04/11/2015 and most compatible with a benign bone island. The overlying soft tissue is unremarkable. IMPRESSION: 1. There is no acute fracture or dislocation in the pelvis or left hip. 2. Old fracture deformity of the right inferior perinephric ramus. 3. 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
[2019-02-27 15:09] LABS: INR 1.3 (<1.2); Partial Thromboplastin Time 28.7 sec (22.0-30.0); Prothrombin Time 12.9 sec (9.0-12.0)
[2019-02-27 15:11] LABS: Appearance,Urine Clear (Clear); Bilirubin,Urine 1+ (Negative); Blood,Urine Small (Negative); Color,Urine Dark Brown; Glucose,Urine (UA) Negative (Negative); Hyaline Casts,Urine 1 /lpf (0-2); Ketones,Urine Trace (Negative); Leukocyte Esterase,Urine Negative (Negative); Mucus,Urine Occasional /hpf; Nitrite,Urine Negative (Negative); Protein,Urine 1+ (Negative); RBC,Urine 65 /hpf (0-5); Specific Gravity,Urine 1.021 (1.001-1.035); Squamous Epithelial Cell,Urine <1 /hpf (0-4); WBC,Urine 1 /hpf (0-5)
--- NOTE | 2019-02-27 15:33 | ED ---
General Adult HPI - General Source: patient, family, RN notes reviewed Mode of arrival: wheelchair Limitations: language barrier <Troy Mercado - Last Filed: 02/27/19 17:08> <Saloni Fink - Last Filed: 03/05/19 03:00> - General Chief complaint: Recheck/Abnormal Lab/Rx Stated complaint: rt sided buttocks pain Time Seen by Provider: 02/27/19 13:06 - History of Present Illness Initial comments: 68-year-old female with a past medical history of CVA, diabetes myelitis, hyperlipidemia, deafness presents to the emergency department for a chief complaint of right buttock pain. S3 is obtained with friend who is doing sign language for patient. Patient states her right hip has been hurting for the past day. Friend states that he was told by her that she slept on the floor last night. Patient denies feelings of weakness however. States that patient gets physical therapy at home because she has been weak and recently had a biliary stent placed. Denies any other complaints at this time.Patient has no other complaints at this time including shortness of breath, chest pain, abdominal pain, nausea or vomiting, headache, or visual changes. (Troy Mercado) - Related Data Home Medications Medication Instructions Recorded Confirmed Ursodiol 300 mg PO DAILY 08/22/15 02/27/19 Multivitamins, Thera [Multivitamin 1 tab PO DAILY 03/07/17 02/27/19 (formulary)] Folic Acid 1 mg PO DAILY 02/27/19 02/27/19 Levothyroxine Sodium [Synthroid] 100 mcg PO DAILY 02/27/19 02/27/19 Omeprazole [PriLOSEC] 40 mg PO BID 02/27/19 02/27/19 Pioglitazone [Actos] 15 mg PO DAILY 02/27/19 02/27/19 Thiamine [Vitamin B-1] 100 mg PO DAILY 02/27/19 02/27/19 guaiFENesin [guaiFENesin Oral 200 mg PO Q4H PRN 02/27/19 02/27/19 Solution] Allergies Allergy/AdvReac Type Severity Reaction Status Date / Time No Known Allergies Allergy Verified 02/27/19 14:41 Review of Systems ROS Other: All systems not noted in ROS Statement are negative. <Rogelio,Troy P - Last Filed: 02/27/19 17:08> ROS Other: All systems not noted in ROS Statement are negative. <Saloni Fink A - Last Filed: 03/05/19 03:00> ROS Statement: Those systems with pertinent positive or pertinent negative responses have been documented in the HPI. Past Medical History Past Medical History: CVA/TIA, Diabetes Mellitus, Hearing Disorder / Deafness, Hyperlipidemia Additional Past Medical History / Comment(s): Pt is deaf-understands ASL and some lip reading, CVA residual "memory loss"; NIDDM type II. History of Any Multi-Drug Resistant Organisms: None Reported Past Surgical History: Cholecystectomy Additional Past Surgical History / Comment(s): september- gallbladder removed, bypass of liver duct/stent done at [facility], left carotid endarterectomy September 2014, colonoscopy. Past Anesthesia/Blood Transfusion Reactions: No Reported Reaction Past Psychological History: Anxiety Smoking Status: Former smoker Past Alcohol Use History: None Reported Past Drug Use History: None Reported - Past Family History Brother(s) Family Medical History: CVA/TIA Mother Family Medical History: Memory Impairment Additional Family Medical History / Comment(s): "Alzheimer's". Mother is . Father Family Medical History: No Reported History Additional Family Medical History / Comment(s): Father is 93 yrs old. <Troy Mercado P - Last Filed: 02/27/19 17:08> General Exam Limitations: no limitations General appearance: alert, in no apparent distress, cachectic Head exam: Present: atraumatic, normocephalic, normal inspection Eye exam: Present: normal appearance, PERRL, EOMI. Absent: scleral icterus, conjunctival injection, periorbital swelling ENT exam: Present: normal exam, mucous membranes moist Neck exam: Present: normal inspection, full ROM. Absent: tenderness, meningismus, lymphadenopathy Respiratory exam: Present: normal lung sounds bilaterally. Absent: respiratory distress, wheezes, rales, rhonchi, stridor Cardiovascular Exam: Present: regular rate, normal rhythm, normal heart sounds. Absent: systolic murmur, diastolic murmur, rubs, gallop, clicks GI/Abdominal exam: Present: soft, normal bowel sounds. Absent: distended, tenderness, guarding, rebound, rigid Extremities exam: Present: normal capillary refill (Capillary refill less than 2 seconds, DP pulse 2+ in the right lower extremity.). Absent: full ROM (Patient has full flexion and extension over has pain with external rotation of the right hip.), tenderness (No tenderness over the right hip.), joint swelling (No edema erythema or increased warmth noted in the right lower extremity. No significant swelling noted in the right lower extremity) Neurological exam: Present: alert, oriented X3 <Troy Mercado - Last Filed: 02/27/19 17:08> Course Vital Signs 02/27/19 02/27/19 12:57 16:27 Temperature 98.1 F Pulse Rate 86 79 Respiratory 18 16 Rate Blood Pressure 132/65 124/75 O2 Sat by Pulse 97 100 Oximetry Medical Decision Making - Lab Data Result diagrams: 02/27/19 14:12 02/27/19 14:12 <Troy Mercado - Last Filed: 02/27/19 17:08> - Lab Data Result diagrams: 03/04/19 06:35 03/04/19 06:35 <Saloni Fink - Last Filed: 03/05/19 03:00> - Medical Decision Making 68-year-old female presents to the emergency department for a chief complaint of right hip pain and generalized weakness. Patient had a biliary stent placed a few weeks ago according to her friend who is at bedside. Exam and HPI are as documented. Vitals are stable. Patient is afebrile. CBC shows a mild anemia with hemoglobin of 9. This was decreased by 1 point from 10 about 3-4 weeks ago. CMP shows a mild hypokalemia of 3.3. Bilirubin of 4.6 is likely chronic as well as the alkaline phosphatase of 640. Urine does show 65 red blood cells, hematuria of unknown etiology, urine culture pending however only 1 white blood cell. No CVA tenderness or flank pain. X-ray of the right hip and pelvis shows no acute fracture or dislocation. There is an old fracture of the right inferior perinephric ramus and moderate femoral acetabular arthropathy. Chest x-ray shows chronic changes. We did attempt to ambulate patient but she is very weak and requires at least a 1 person assist. Patient lives alone at home and only help as a nearby friend. He is concerned that she is going to fall at home. Given patient's generalized weakness as well as inability to care for self we did contact Dr. Cr and patient was admitted. (Troy Mercado) I evaluated the patient myself and agreed that patient required hospitalization. I called and discussed the case with Dr. Cr who accepted the admission. (Saloni Fink) - Lab Data Lab Results 02/27/19 02/27/19 02/27/19 Range/Units 14:12 14:12 14:12 WBC 5.8 (3.8-10.6) k/uL RBC 2.88 L (3.80-5.40) m/uL Hgb 9.0 L (11.4-16.0) gm/dL Hct 28.7 L (34.0-46.0) % MCV 99.9 (80.0-100.0) fL MCH 31.4 (25.0-35.0) pg MCHC 31.4 (31.0-37.0) g/dL RDW 18.3 H (11.5-15.5) % Plt Count 179 (150-450) k/uL Neutrophils % 83 % Lymphocytes % 10 % Monocytes % 4 % Eosinophils % 1 % Basophils % 0 % Neutrophils # 4.9 (1.3-7.7) k/uL Lymphocytes # 0.6 L (1.0-4.8) k/uL Monocytes # 0.2 (0-1.0) k/uL Eosinophils # 0.1 (0-0.7) k/uL Basophils # 0.0 (0-0.2) k/uL Manual Slide Review Hypochromasia Poikilocytosis (manual Anisocytosis Slight Macrocytosis Slight Rouleaux PT (9.0-12.0) sec INR (<1.2) APTT (22.0-30.0) sec Sodium 141 (137-145) mmol/L Potassium 3.3 L (3.5-5.1) mmol/L Chloride 116 H (98-107) mmol/L Carbon Dioxide 17 L (22-30) mmol/L Anion Gap 8 mmol/L BUN 21 H (7-17) mg/dL Creatinine 0.61 (0.52-1.04) mg/dL Est GFR (CKD-EPI)AfAm >90 (>60 ml/min/1.73 sqM) Est GFR (CKD-EPI)NonAf >90 (>60 ml/min/1.73 sqM) Glucose 137 H (74-99) mg/dL POC Glucose (mg/dL) (75-99) mg/dL POC Glu Upper Trimmer ID Estimated Ave Glu mg/dL Hemoglobin A1c (4.0-6.0) % Plasma Lactic Acid Nazario 1.0 (0.7-2.0) mmol/L Calcium 8.9 (8.4-10.2) mg/dL Magnesium 1.9 (1.6-2.3) mg/dL Total Bilirubin 4.6 H (0.2-1.3) mg/dL AST 83 H (14-36) U/L ALT 40 (9-52) U/L Alkaline Phosphatase 640 H (38-126) U/L Ammonia (<30) umol/L Creatine Kinase (30-135) U/L CK-MB (CK-2) (0.0-2.4) ng/mL Troponin I (0.000-0.034) ng/mL NT-Pro-B Natriuret Pep pg/mL Total Protein 7.9 (6.3-8.2) g/dL Albumin 2.6 L (3.5-5.0) g/dL TSH (0.465-4.680) mIU/L Free T4 (0.78-2.19) ng/dL Urine Color Urine Appearance (Clear) Urine pH (5.0-8.0) Ur Specific [place] (1.001-1.035) Urine Protein (Negative) Urine Glucose (UA) (Negative) Urine Ketones (Negative) Urine Blood (Negative) Urine Nitrite (Negative) Urine Bilirubin (Negative) Urine Urobilinogen (<2.0) mg/dL Ur Leukocyte Esterase (Negative) Urine RBC (0-5) /hpf Urine WBC (0-5) /hpf Ur Squamous Epith Cells (0-4) /hpf Hyaline Casts (0-2) /lpf Urine Mucus (None) /hpf 02/27/19 02/27/19 02/27/19 Range/Units 14:12 14:12 14:12 WBC (3.8-10.6) k/uL RBC (3.80-5.40) m/uL Hgb (11.4-16.0) gm/dL Hct (34.0-46.0) % MCV (80.0-100.0) fL MCH (25.0-35.0) pg MCHC (31.0-37.0) g/dL RDW (11.5-15.5) % Plt Count (150-450) k/uL Neutrophils % % Lymphocytes % % Monocytes % % Eosinophils % % Basophils % % Neutrophils # (1.3-7.7) k/uL Lymphocytes # (1.0-4.8) k/uL Monocytes # (0-1.0) k/uL Eosinophils # (0-0.7) k/uL Basophils # (0-0.2) k/uL Manual Slide Review Hypochromasia Poikilocytosis (manual Anisocytosis Macrocytosis Rouleaux PT 12.9 H (9.0-12.0) sec INR 1.3 H (<1.2) APTT 28.7 (22.0-30.0) sec Sodium (137-145) mmol/L Potassium (3.5-5.1) mmol/L Chloride (98-107) mmol/L Carbon Dioxide (22-30) mmol/L Anion Gap mmol/L BUN (7-17) mg/dL Creatinine (0.52-1.04) mg/dL Est GFR (CKD-EPI)AfAm (>60 ml/min/1.73 sqM) Est GFR (CKD-EPI)NonAf (>60 ml/min/1.73 sqM) Glucose (74-99) mg/dL POC Glucose (mg/dL) (75-99) mg/dL POC Glu Upper Trimmer ID Estimated Ave Glu mg/dL Hemoglobin A1c (4.0-6.0) % Plasma Lactic Acid Nazario (0.7-2.0) mmol/L Calcium (8.4-10.2) mg/dL Magnesium (1.6-2.3) mg/dL Total Bilirubin (0.2-1.3) mg/dL AST (14-36) U/L ALT (9-52) U/L Alkaline Phosphatase (38-126) U/L Ammonia (<30) umol/L Creatine Kinase (30-135) U/L CK-MB (CK-2) (0.0-2.4) ng/mL Troponin I <0.012 (0.000-0.034) ng/mL NT-Pro-B Natriuret Pep 1350 pg/mL Total Protein (6.3-8.2) g/dL Albumin (3.5-5.0) g/dL TSH (0.465-4.680) mIU/L Free T4 (0.78-2.19) ng/dL Urine Color Urine Appearance (Clear) Urine pH (5.0-8.0) Ur Specific [place] (1.001-1.035) Urine Protein (Negative) Urine Glucose (UA) (Negative) Urine Ketones (Negative) Urine Blood (Negative) Urine Nitrite (Negative) Urine Bilirubin (Negative) Urine Urobilinogen (<2.0) mg/dL Ur Leukocyte Esterase (Negative) Urine RBC (0-5) /hpf Urine WBC (0-5) /hpf Ur Squamous Epith Cells (0-4) /hpf Hyaline Casts (0-2) /lpf Urine Mucus (None) /hpf 02/27/19 02/27/19 02/27/19 Range/Units 14:12 14:12 14:50 WBC (3.8-10.6) k/uL RBC (3.80-5.40) m/uL Hgb (11.4-16.0) gm/dL Hct (34.0-46.0) % MCV (80.0-100.0) fL MCH (25.0-35.0) pg MCHC (31.0-37.0) g/dL RDW (11.5-15.5) % Plt Count (150-450) k/uL Neutrophils % % Lymphocytes % % Monocytes % % Eosinophils % % Basophils % % Neutrophils # (1.3-7.7) k/uL Lymphocytes # (1.0-4.8) k/uL Monocytes # (0-1.0) k/uL Eosinophils # (0-0.7) k/uL Basophils # (0-0.2) k/uL Manual Slide Review Hypochromasia Poikilocytosis (manual Anisocytosis Macrocytosis Rouleaux PT (9.0-12.0) sec INR (<1.2) APTT (22.0-30.0) sec Sodium (137-145) mmol/L Potassium (3.5-5.1) mmol/L Chloride (98-107) mmol/L Carbon Dioxide (22-30) mmol/L Anion Gap mmol/L BUN (7-17) mg/dL Creatinine (0.52-1.04) mg/dL Est GFR (CKD-EPI)AfAm (>60 ml/min/1.73 sqM) Est GFR (CKD-EPI)NonAf (>60 ml/min/1.73 sqM) Glucose (74-99) mg/dL POC Glucose (mg/dL) (75-99) mg/dL POC Glu Upper Trimmer ID Estimated Ave Glu mg/dL Hemoglobin A1c (4.0-6.0) % Plasma Lactic Acid Nazario (0.7-2.0) mmol/L Calcium (8.4-10.2) mg/dL Magnesium (1.6-2.3) mg/dL Total Bilirubin (0.2-1.3) mg/dL AST (14-36) U/L ALT (9-52) U/L Alkaline Phosphatase (38-126) U/L Ammonia (<30) umol/L Creatine Kinase 40 (30-135) U/L CK-MB (CK-2) 1.1 (0.0-2.4) ng/mL Troponin I (0.000-0.034) ng/mL NT-Pro-B Natriuret Pep pg/mL Total Protein (6.3-8.2) g/dL Albumin (3.5-5.0) g/dL TSH (0.465-4.680) mIU/L Free T4 (0.78-2.19) ng/dL Urine Color Dark Brown Urine Appearance Clear (Clear) Urine pH 6.0 (5.0-8.0) Ur Specific [place] 1.021 (1.001-1.035) Urine Protein 1+ H (Negative) Urine Glucose (UA) Negative (Negative) Urine Ketones Trace H (Negative) Urine Blood Small H (Negative) Urine Nitrite Negative (Negative) Urine Bilirubin 1+ H (Negative) Urine Urobilinogen 8.0 (<2.0) mg/dL Ur Leukocyte Esterase Negative (Negative) Urine RBC 65 H (0-5) /hpf Urine WBC 1 (0-5) /hpf Ur Squamous Epith Cells <1 (0-4) /hpf Hyaline Casts 1 (0-2) /lpf Urine Mucus Occasional H (None) /hpf 02/27/19 02/27/19 02/27/19 Range/Units 18:02 18:02 20:48 WBC (3.8-10.6) k/uL RBC (3.80-5.40) m/uL Hgb (11.4-16.0) gm/dL Hct (34.0-46.0) % MCV (80.0-100.0) fL MCH (25.0-35.0) pg MCHC (31.0-37.0) g/dL RDW (11.5-15.5) % Plt Count (150-450) k/uL Neutrophils % % Lymphocytes % % Monocytes % % Eosinophils % % Basophils % % Neutrophils # (1.3-7.7) k/uL Lymphocytes # (1.0-4.8) k/uL Monocytes # (0-1.0) k/uL Eosinophils # (0-0.7) k/uL Basophils # (0-0.2) k/uL Manual Slide Review Hypochromasia Poikilocytosis (manual Anisocytosis Macrocytosis Rouleaux PT (9.0-12.0) sec INR (<1.2) APTT (22.0-30.0) sec Sodium (137-145) mmol/L Potassium (3.5-5.1) mmol/L Chloride (98-107) mmol/L Carbon Dioxide (22-30) mmol/L Anion Gap mmol/L BUN (7-17) mg/dL Creatinine (0.52-1.04) mg/dL Est GFR (CKD-EPI)AfAm (>60 ml/min/1.73 sqM) Est GFR (CKD-EPI)NonAf (>60 ml/min/1.73 sqM) Glucose (74-99) mg/dL POC Glucose (mg/dL) 169 H (75-99) mg/dL POC Glu Upper Trimmer ID Saloni Smith Estimated Ave Glu mg/dL Hemoglobin A1c (4.0-6.0) % Plasma Lactic Acid Naazrio (0.7-2.0) mmol/L Calcium (8.4-10.2) mg/dL Magnesium (1.6-2.3) mg/dL Total Bilirubin (0.2-1.3) mg/dL AST (14-36) U/L ALT (9-52) U/L Alkaline Phosphatase (38-126) U/L Ammonia 48 H (<30) umol/L Creatine Kinase (30-135) U/L CK-MB (CK-2) (0.0-2.4) ng/mL Troponin I (0.000-0.034) ng/mL NT-Pro-B Natriuret Pep pg/mL Total Protein (6.3-8.2) g/dL Albumin (3.5-5.0) g/dL TSH 7.190 H (0.465-4.680) mIU/L Free T4 1.73 (0.78-2.19) ng/dL Urine Color Urine Appearance (Clear) Urine pH (5.0-8.0) Ur Specific [place] (1.001-1.035) Urine Protein (Negative) Urine Glucose (UA) (Negative) Urine Ketones (Negative) Urine Blood (Negative) Urine Nitrite (Negative) Urine Bilirubin (Negative) Urine Urobilinogen (<2.0) mg/dL Ur Leukocyte Esterase (Negative) Urine RBC (0-5) /hpf Urine WBC (0-5) /hpf Ur Squamous Epith Cells (0-4) /hpf Hyaline Casts (0-2) /lpf Urine Mucus (None) /hpf 02/28/19 02/28/19 02/28/19 Range/Units 06:34 06:34 06:34 WBC 5.0 (3.8-10.6) k/uL RBC 2.79 L (3.80-5.40) m/uL Hgb 8.7 L (11.4-16.0) gm/dL Hct 28.3 L (34.0-46.0) % MCV 101.5 H (80.0-100.0) fL MCH 31.4 (25.0-35.0) pg MCHC 30.9 L (31.0-37.0) g/dL RDW 17.6 H (11.5-15.5) % Plt Count 154 (150-450) k/uL Neutrophils % 72 % Lymphocytes % 19 % Monocytes % 4 % Eosinophils % 2 % Basophils % 0 % Neutrophils # 3.6 (1.3-7.7) k/uL Lymphocytes # 0.9 L (1.0-4.8) k/uL Monocytes # 0.2 (0-1.0) k/uL Eosinophils # 0.1 (0-0.7) k/uL Basophils # 0.0 (0-0.2) k/uL Manual Slide Review Performed Hypochromasia Moderate Poikilocytosis (manual Present Anisocytosis Slight Macrocytosis Moderate Rouleaux Present PT (9.0-12.0) sec INR (<1.2) APTT (22.0-30.0) sec Sodium 142 (137-145) mmol/L Potassium 4.2 (3.5-5.1) mmol/L Chloride 117 H (98-107) mmol/L Carbon Dioxide 18 L (22-30) mmol/L Anion Gap 7 mmol/L BUN 17 (7-17) mg/dL Creatinine 0.65 (0.52-1.04) mg/dL Est GFR (CKD-EPI)AfAm >90 (>60 ml/min/1.73 sqM) Est GFR (CKD-EPI)NonAf >90 (>60 ml/min/1.73 sqM) Glucose 140 H (74-99) mg/dL POC Glucose (mg/dL) (75-99) mg/dL POC Glu Upper Trimmer ID Estimated Ave Glu mg/dL Hemoglobin A1c (4.0-6.0) % Plasma Lactic Acid Nazario (0.7-2.0) mmol/L Calcium 8.6 (8.4-10.2) mg/dL Magnesium (1.6-2.3) mg/dL Total Bilirubin 3.7 H (0.2-1.3) mg/dL AST 82 H (14-36) U/L ALT 46 (9-52) U/L Alkaline Phosphatase 601 H (38-126) U/L Ammonia (<30) umol/L Creatine Kinase (30-135) U/L CK-MB (CK-2) (0.0-2.4) ng/mL Troponin I (0.000-0.034) ng/mL NT-Pro-B Natriuret Pep 1440 pg/mL Total Protein 7.6 (6.3-8.2) g/dL Albumin 2.5 L (3.5-5.0) g/dL TSH (0.465-4.680) mIU/L Free T4 (0.78-2.19) ng/dL Urine Color Urine Appearance (Clear) Urine pH (5.0-8.0) Ur Specific [place] (1.001-1.035) Urine Protein (Negative) Urine Glucose (UA) (Negative) Urine Ketones (Negative) Urine Blood (Negative) Urine Nitrite (Negative) Urine Bilirubin (Negative) Urine Urobilinogen (<2.0) mg/dL Ur Leukocyte Esterase (Negative) Urine RBC (0-5) /hpf Urine WBC (0-5) /hpf Ur Squamous Epith Cells (0-4) /hpf Hyaline Casts (0-2) /lpf Urine Mucus (None) /hpf 02/28/19 02/28/19 Range/Units 06:34 06:44 WBC (3.8-10.6) k/uL RBC (3.80-5.40) m/uL Hgb (11.4-16.0) gm/dL Hct (34.0-46.0) % MCV (80.0-100.0) fL MCH (25.0-35.0) pg MCHC (31.0-37.0) g/dL RDW (11.5-15.5) % Plt Count (150-450) k/uL Neutrophils % % Lymphocytes % % Monocytes % % Eosinophils % % Basophils % % Neutrophils # (1.3-7.7) k/uL Lymphocytes # (1.0-4.8) k/uL Monocytes # (0-1.0) k/uL Eosinophils # (0-0.7) k/uL Basophils # (0-0.2) k/uL Manual Slide Review Hypochromasia Poikilocytosis (manual Anisocytosis Macrocytosis Rouleaux PT (9.0-12.0) sec INR (<1.2) APTT (22.0-30.0) sec Sodium (137-145) mmol/L Potassium (3.5-5.1) mmol/L Chloride (98-107) mmol/L Carbon Dioxide (22-30) mmol/L Anion Gap mmol/L BUN (7-17) mg/dL Creatinine (0.52-1.04) mg/dL Est GFR (CKD-EPI)AfAm (>60 ml/min/1.73 sqM) Est GFR (CKD-EPI)NonAf (>60 ml/min/1.73 sqM) Glucose (74-99) mg/dL POC Glucose (mg/dL) 127 H (75-99) mg/dL POC Glu Upper Trimmer ID Desiree Cullen Estimated Ave Glu mg/dL 157 Hemoglobin A1c 7.1 H (4.0-6.0) % Plasma Lactic Acid Nazario (0.7-2.0) mmol/L Calcium (8.4-10.2) mg/dL Magnesium (1.6-2.3) mg/dL Total Bilirubin (0.2-1.3) mg/dL AST (14-36) U/L ALT (9-52) U/L Alkaline Phosphatase (38-126) U/L Ammonia (<30) umol/L Creatine Kinase (30-135) U/L CK-MB (CK-2) (0.0-2.4) ng/mL Troponin I (0.000-0.034) ng/mL NT-Pro-B Natriuret Pep pg/mL Total Protein (6.3-8.2) g/dL Albumin (3.5-5.0) g/dL TSH (0.465-4.680) mIU/L Free T4 (0.78-2.19) ng/dL Urine Color Urine Appearance (Clear) Urine pH (5.0-8.0) Ur Specific [place] (1.001-1.035) Urine Protein (Negative) Urine Glucose (UA) (Negative) Urine Ketones (Negative) Urine Blood (Negative) Urine Nitrite (Negative) Urine Bilirubin (Negative) Urine Urobilinogen (<2.0) mg/dL Ur Leukocyte Esterase (Negative) Urine RBC (0-5) /hpf Urine WBC (0-5) /hpf Ur Squamous Epith Cells (0-4) /hpf Hyaline Casts (0-2) /lpf Urine Mucus (None) /hpf Disposition Is patient prescribed a controlled substance at d/c from ED?: No Time of Disposition: 17:08 <Troy Mercado - Last Filed: 02/27/19 17:08> <Saloni Fink - Last Filed: 03/05/19 03:00> Clinical Impression: Hypokalemia, Generalized weakness, Risk for falls Disposition: ADMITTED IP TO THIS HOSP Condition: Fair
--- NOTE | 2019-02-27 15:53 | XR ---
EXAMINATION TYPE: XR chest 2V DATE OF EXAM: 02/27/2019 COMPARISON: 03/09/2017 HISTORY: Chest pain TECHNIQUE: Frontal and lateral views of the chest are obtained. FINDINGS: Interstitial prominence is seen throughout although to a lesser degree than the prior of 2 017. Peribronchial cuffing is noted on the lateral view. Biapical lucency suggests underlying COPD al though there is no pulmonary hyperinflation. Right hemidiaphragm eventration is noted. Diffuse osseou s demineralization. Cardiomediastinal silhouette is stable. IMPRESSION: Diffuse interstitial prominence is seen although improved from 2017. Chronic interstitia l edema could be considered. Peribronchial cuffing is also seen on the lateral view and reactive or i nfectious airway disease should also be considered.
[2019-02-27] MEDS ORDERED: POTASSIUM CHLORIDE ER 20 MEQ TAB.ER PO STA (17:06)
[2019-02-27] MEDS ORDERED: NALOXONE 0.4 MG/ML 1 ML VIAL IV PRN (17:09)
--- NOTE | 2019-02-27 17:47 | P.HPIM ---
History of Present Illness H&P Date: 02/27/19 This is a 68-year-old female patient of Dr. Post. According to ER report and patient's brother at bedside patient was found to be on the floor next to her bed this AM. Patient has has been placed history of deafness in which case with sign language but per patient's brother patient does appear to be confused and not making sense through her sign language right. Patient does appear to be a poor historian. Per patient's family it appears that patient had fallen previously was taken to PCP and was taken to [facility] in which she underwent possible common bile duct stent and was discharged home. Additional medical history includes CVA, diabetes mellitus, hyperlipidemia, cholecystectomy and anxiety. According to ER report patient is complaining of bilateral hip pain. Hip x-ray completed showing no acute Dr. dislocation the pelvis or left hip. Old fracture deformity of the right inferior perinephric ramus. Mild to moderate bilateral femoral acetabular arthropathy.X-ray completed showing diffuse in his prominence seen although improved from 2017 chronic interstitial edema could be considered parabronchial cuffing is also seen on the lateral view and reactive or infectious airway disease should be considered.at this time will order ammonia level, TSH, urine, CBC and CMP Review of Systems Please refer to HPI otherwise unremarkable Past Medical History Past Medical History: CVA/TIA, Diabetes Mellitus, Hearing Disorder / Deafness, Hyperlipidemia Additional Past Medical History / Comment(s): Pt is deaf-understands ASL and some lip reading, CVA residual "memory loss"; NIDDM type II. History of Any Multi-Drug Resistant Organisms: None Reported Past Surgical History: Cholecystectomy Additional Past Surgical History / Comment(s): september- gallbladder removed, bypass of liver duct/stent done at [facility], left carotid endarterectomy September 2014, colonoscopy. Past Anesthesia/Blood Transfusion Reactions: No Reported Reaction Past Psychological History: Anxiety Smoking Status: Former smoker Past Alcohol Use History: None Reported Past Drug Use History: None Reported - Past Family History Brother(s) Family Medical History: CVA/TIA Mother Family Medical History: Memory Impairment Additional Family Medical History / Comment(s): "Alzheimer's". Mother is . Father Family Medical History: No Reported History Additional Family Medical History / Comment(s): Father is 93 yrs old. Medications and Allergies Home Medications Medication Instructions Recorded Confirmed Type Ursodiol 300 mg PO DAILY 08/22/15 02/27/19 History Multivitamins, Thera [Multivitamin 1 tab PO DAILY 03/07/17 02/27/19 History (formulary)] Folic Acid 1 mg PO DAILY 02/27/19 02/27/19 History Levothyroxine Sodium [Synthroid] 100 mcg PO DAILY 02/27/19 02/27/19 History Omeprazole [PriLOSEC] 40 mg PO BID 02/27/19 02/27/19 History Pioglitazone [Actos] 15 mg PO DAILY 02/27/19 02/27/19 History Thiamine [Vitamin B-1] 100 mg PO DAILY 02/27/19 02/27/19 History guaiFENesin [guaiFENesin Oral 200 mg PO Q4H PRN 02/27/19 02/27/19 History Solution] Allergies Allergy/AdvReac Type Severity Reaction Status Date / Time No Known Allergies Allergy Verified 02/27/19 14:41 Physical Exam Vitals: Vital Signs Temp Pulse Resp BP Pulse Ox 02/27/19 16:27 79 16 124/75 100 02/27/19 12:57 98.1 F 86 18 132/65 97 Intake and Output 02/27/19 02/27/19 02/27/19 06:59 14:59 22:59 Other: Weight 48.081 kg Head normocephalic Neck supple Lungs diminished bilaterally Heart regular rate and rhythm S1-S2, no rub or gallop Abdomen is soft nontender nondistended positive bowel sounds no hepatosplenomegaly Extremities no edema Neuro patient is definitely indicating through sign language per patient's brother at bedside patient is confused at times Patient is jaundice Results CBC & Chem 7: 02/27/19 14:12 02/27/19 14:12 Labs: Abnormal Lab Results - Last 24 Hours (Table) 02/27/19 02/27/19 02/27/19 Range/Units 14:12 14:12 14:12 RBC 2.88 L (3.80-5.40) m/uL Hgb 9.0 L (11.4-16.0) gm/dL Hct 28.7 L (34.0-46.0) % RDW 18.3 H (11.5-15.5) % Lymphocytes # 0.6 L (1.0-4.8) k/uL PT 12.9 H (9.0-12.0) sec INR 1.3 H (<1.2) Potassium 3.3 L (3.5-5.1) mmol/L Chloride 116 H (98-107) mmol/L Carbon Dioxide 17 L (22-30) mmol/L BUN 21 H (7-17) mg/dL Glucose 137 H (74-99) mg/dL Total Bilirubin 4.6 H (0.2-1.3) mg/dL AST 83 H (14-36) U/L Alkaline Phosphatase 640 H (38-126) U/L Albumin 2.6 L (3.5-5.0) g/dL Urine Protein (Negative) Urine Ketones (Negative) Urine Blood (Negative) Urine Bilirubin (Negative) Urine RBC (0-5) /hpf Urine Mucus (None) /hpf 02/27/19 Range/Units 14:50 RBC (3.80-5.40) m/uL Hgb (11.4-16.0) gm/dL Hct (34.0-46.0) % RDW (11.5-15.5) % Lymphocytes # (1.0-4.8) k/uL PT (9.0-12.0) sec INR (<1.2) Potassium (3.5-5.1) mmol/L Chloride (98-107) mmol/L Carbon Dioxide (22-30) mmol/L BUN (7-17) mg/dL Glucose (74-99) mg/dL Total Bilirubin (0.2-1.3) mg/dL AST (14-36) U/L Alkaline Phosphatase (38-126) U/L Albumin (3.5-5.0) g/dL Urine Protein 1+ H (Negative) Urine Ketones Trace H (Negative) Urine Blood Small H (Negative) Urine Bilirubin 1+ H (Negative) Urine RBC 65 H (0-5) /hpf Urine Mucus Occasional H (None) /hpf Assessment and Plan Assessment: 1. Increased weakness. Hip x-ray completed showing no acute fracture dislocation in the pelvis or left hip. Old fracture deformity of the right inferior perinephric ramus. Mild to moderate bilateral femoral cerebellar arthopathy 2. Recent procedure at [facility] possible stent placement to common bile duct. Will attempt to obtain [facility] records. Total bili elevated at 4.6 AST 83 alkaline phosphatase 640 3. History of deafness patient communicates with sign language 4. History of CVA and TIA 5. History of diabetes mellitus type 2 6. History of hyperlipidemia 7. History of EtOH she quit 23 years ago 8. Ex-smoker PT/OT and social work services have been consulted Time with Patient: Greater than 30 (I performed an examination of the patient and discussed their management with the Nurse Practitioner. I have reviewed the Nurse Practitioner's notes and agree with the documented findings and plan of care.Greater than 60% of the total time spent in counseling and coordination of care)
[2019-02-27] MEDS: SODIUM CHLORIDE 0.9% 1,000 ML IV SCH ×2 (19:15→20:36)
[2019-02-27 20:09] LABS: T4, Free (Free Thyroxine) 1.73 ng/dL (0.78-2.19)
[2019-02-27] MEDS: PANTOPRAZOLE 40 MG TABLET PO SCH (20:38)
[2019-02-27 20:55] LABS: Glucose,Whole Blood 169 mg/dL (75-99)
--- NOTE | 2019-02-27 21:01 | CT ---
EXAMINATION: CT brain wo con DATE AND TIME: 02/27/2019 8:25 PM CLINICAL INDICATION: PHH; confusion TECHNIQUE: Standard departmental protocol.; 1099.4; COMPARISON: None. FINDINGS: The calvarium is intact, and no intracranial hemorrhage. There is no intracranial mass or mass effect. No definite new intra-axial or extra-axial attenuation defect. Bilateral rose radiata and centrum s emiovale nonspecific low attenuation is noted, in a fairly symmetric pattern. There is a thin band band focal encephalomalacia involving the posterior left parietal lobe, consiste nt with remote infarction in the vascular territory of the left MCA. The paranasal sinuses, middle ear cavities, and mastoid sinus air cells are clear. Orbits are unremar kable. External auditory canals show evidence of excessive cerumen, particularly on the left. IMPRESSION: No definite acute process.
[2019-02-28] MEDS ORDERED: LEVOTHYROXINE 100 MCG TAB PO SCH (06:30)
[2019-02-28] MEDS ORDERED: LEVOTHYROXINE 112 MCG TAB PO SCH (06:30)
[2019-02-28 06:45] LABS: Glucose,Whole Blood 127 mg/dL (75-99)
[2019-02-28 08:11] LABS: ALT 46 U/L (9-52); AST 82 U/L (14-36); African American GFR (CKD) >90 (>60 ml/min/1.73 sqM); Albumin 2.5 g/dL (3.5-5.0); Alkaline Phosphatase 601 U/L (38-126); Anion Gap 7 mmol/L; Blood Urea Nitrogen 17 mg/dL (7-17); Calcium 8.6 mg/dL (8.4-10.2); Carbon Dioxide 18 mmol/L (22-30); Chloride 117 mmol/L (98-107); Glucose 140 mg/dL (74-99); Potassium 4.2 mmol/L (3.5-5.1); Sodium 142 mmol/L (137-145); Total Bilirubin 3.7 mg/dL (0.2-1.3); Total Protein 7.6 g/dL (6.3-8.2)
[2019-02-28 09:16] LABS: Anisocytosis Slight; Basophils % (A) 0 %; Eosinophils # (A) 0.1 k/uL (0-0.7); Eosinophils % (A) 2 %; HCT 28.3 % (34.0-46.0); HGB 8.7 gm/dL (11.4-16.0); Hypochromasia Moderate; Lymphocytes # (A) 0.9 k/uL (1.0-4.8); Lymphocytes % (A) 19 %; MCH 31.4 pg (25.0-35.0); MCHC 30.9 g/dL (31.0-37.0); MCV 101.5 fL (80.0-100.0); Macrocytosis Moderate; Mean Platelet Volume 10.2; Monocytes # (A) 0.2 k/uL (0-1.0); Monocytes % (A) 4 %; Neutrophils # (A) 3.6 k/uL (1.3-7.7); Neutrophils % (A) 72 %; Platelet Count 154 k/uL (150-450); RBC 2.79 m/uL (3.80-5.40); RDW 17.6 % (11.5-15.5)
[2019-02-28] MEDS: PANTOPRAZOLE 40 MG TABLET PO SCH ×2 (09:32→17:07)
[2019-02-28] MEDS: PIOGLITAZONE 15 MG TAB PO SCH (09:32)
[2019-02-28] MEDS: FOLIC ACID 1 MG TAB PO SCH (09:32)
[2019-02-28] MEDS: MULTIVITAMINS, THERA 1 EACH TAB PO SCH (09:32)
[2019-02-28] MEDS: ACETAMINOPHEN TAB 325 MG TAB PO PRN (09:33)
[2019-02-28] MEDS: URSODIOL 300 MG CAP PO SCH (09:33)
[2019-02-28 10:37] LABS: Rouleaux Present
[2019-02-28 10:38] LABS: Poikilocytosis (M) Present
--- NOTE | 2019-02-28 10:53 | XR ---
EXAMINATION TYPE: XR chest 1V DATE OF EXAM: 02/28/2019 COMPARISON: 02/27/2019 INDICATION: Follow-up previous abnormal chest TECHNIQUE: Single frontal view of the chest is obtained. FINDINGS: The heart size is normal. The pulmonary vasculature is normal. The lungs are clear. IMPRESSION: 1. No acute pulmonary process.
[2019-02-28 11:41] LABS: Glucose,Whole Blood 332 mg/dL (75-99)
--- NOTE | 2019-02-28 11:57 | P.PN ---
Subjective Progress Note Date: 02/28/19 This is a 68-year-old female patient of Dr. Post. According to ER report and patient's brother at bedside patient was found to be on the floor next to her bed this AM. Patient has has been placed history of deafness in which case with sign language but per patient's brother patient does appear to be confused and not making sense through her sign language right. Patient does appear to be a poor historian. Per patient's family it appears that patient had fallen previously was taken to PCP and was taken to [facility] in which she underwent possible common bile duct stent and was discharged home. Additional medical history includes CVA, diabetes mellitus, hyperlipidemia, cholecystectomy and an xiety. According to ER report patient is complaining of bilateral hip pain. Hip x-ray completed showing no acute Dr. dislocation the pelvis or left hip. Old fracture deformity of the right inferior perinephric ramus. 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 GI services have been consulted attempting to obtain records from [facility]. Liver enzymes slightly improved today. Patient still having pain in bilateral hips. Repeat chest x-ray ordered. 2-D echo completed fluids DC'd. Patient denies any chest pain or shortness of breath. Patient denies nausea vomiting or diarrhea. Patient denies any urinary burning or frequency Objective - Vital Signs Vital signs: Vital Signs Temp 97.8 F 02/28/19 07:10 Pulse 65 02/28/19 07:10 Resp 18 02/28/19 07:10 BP 100/62 02/28/19 07:10 Pulse Ox 96 02/28/19 07:10 Intake & Output 02/27/19 02/28/19 02/28/19 18:59 06:59 18:59 Intake Total 150 Balance 150 Weight 48.081 kg Intake: Intake, IV Titration 150 Amount Sodium Chloride 0.9% 1, 150 000 ml @ 75 mls/hr IV . [id number] [facility] Rx#:[id number] Other: Voiding Method Bedpan # Voids 1 1 # Bowel Movements 1 - Exam Head normocephalic Neck supple Lungs diminished bilaterally Heart regular rate and rhythm S1-S2, no rub or gallop Abdomen is soft nontender nondistended positive bowel sounds no hepatosplenomegaly Extremities no edema Neuro patient is deaf. Communicates through sign language Patient is jaundice - Labs CBC & Chem 7: 02/28/19 06:34 02/28/19 06:34 Labs: Abnormal Lab Results - Last 24 Hours (Table) 02/27/19 02/27/19 02/27/19 Range/Units 14:12 14:12 14:12 RBC 2.88 L (3.80-5.40) m/uL Hgb 9.0 L (11.4-16.0) gm/dL Hct 28.7 L (34.0-46.0) % MCV (80.0-100.0) fL MCHC (31.0-37.0) g/dL RDW 18.3 H (11.5-15.5) % Lymphocytes # 0.6 L (1.0-4.8) k/uL PT 12.9 H (9.0-12.0) sec INR 1.3 H (<1.2) Potassium 3.3 L (3.5-5.1) mmol/L Chloride 116 H (98-107) mmol/L Carbon Dioxide 17 L (22-30) mmol/L BUN 21 H (7-17) mg/dL Glucose 137 H (74-99) mg/dL POC Glucose (mg/dL) (75-99) mg/dL Total Bilirubin 4.6 H (0.2-1.3) mg/dL AST 83 H (14-36) U/L Alkaline Phosphatase 640 H (38-126) U/L Ammonia (<30) umol/L Albumin 2.6 L (3.5-5.0) g/dL TSH (0.465-4.680) mIU/L Urine Protein (Negative) Urine Ketones (Negative) Urine Blood (Negative) Urine Bilirubin (Negative) Urine RBC (0-5) /hpf Urine Mucus (None) /hpf 02/27/19 02/27/19 02/27/19 Range/Units 14:50 18:02 18:02 RBC (3.80-5.40) m/uL Hgb (11.4-16.0) gm/dL Hct (34.0-46.0) % MCV (80.0-100.0) fL MCHC (31.0-37.0) g/dL RDW (11.5-15.5) % Lymphocytes # (1.0-4.8) k/uL PT (9.0-12.0) sec INR (<1.2) Potassium (3.5-5.1) mmol/L Chloride (98-107) mmol/L Carbon Dioxide (22-30) mmol/L BUN (7-17) mg/dL Glucose (74-99) mg/dL POC Glucose (mg/dL) (75-99) mg/dL Total Bilirubin (0.2-1.3) mg/dL AST (14-36) U/L Alkaline Phosphatase (38-126) U/L Ammonia 48 H (<30) umol/L Albumin (3.5-5.0) g/dL TSH 7.190 H (0.465-4.680) mIU/L Urine Protein 1+ H (Negative) Urine Ketones Trace H (Negative) Urine Blood Small H (Negative) Urine Bilirubin 1+ H (Negative) Urine RBC 65 H (0-5) /hpf Urine Mucus Occasional H (None) /hpf 02/27/19 02/28/19 02/28/19 Range/Units 20:48 06:34 06:34 RBC 2.79 L (3.80-5.40) m/uL Hgb 8.7 L (11.4-16.0) gm/dL Hct 28.3 L (34.0-46.0) % MCV 101.5 H (80.0-100.0) fL MCHC 30.9 L (31.0-37.0) g/dL RDW 17.6 H (11.5-15.5) % Lymphocytes # 0.9 L (1.0-4.8) k/uL PT (9.0-12.0) sec INR (<1.2) Potassium (3.5-5.1) mmol/L Chloride 117 H (98-107) mmol/L Carbon Dioxide 18 L (22-30) mmol/L BUN (7-17) mg/dL Glucose 140 H (74-99) mg/dL POC Glucose (mg/dL) 169 H (75-99) mg/dL Total Bilirubin 3.7 H (0.2-1.3) mg/dL AST 82 H (14-36) U/L Alkaline Phosphatase 601 H (38-126) U/L Ammonia (<30) umol/L Albumin 2.5 L (3.5-5.0) g/dL TSH (0.465-4.680) mIU/L Urine Protein (Negative) Urine Ketones (Negative) Urine Blood (Negative) Urine Bilirubin (Negative) Urine RBC (0-5) /hpf Urine Mucus (None) /hpf 02/28/19 02/28/19 Range/Units 06:44 11:39 RBC (3.80-5.40) m/uL Hgb (11.4-16.0) gm/dL Hct (34.0-46.0) % MCV (80.0-100.0) fL MCHC (31.0-37.0) g/dL RDW (11.5-15.5) % Lymphocytes # (1.0-4.8) k/uL PT (9.0-12.0) sec INR (<1.2) Potassium (3.5-5.1) mmol/L Chloride (98-107) mmol/L Carbon Dioxide (22-30) mmol/L BUN (7-17) mg/dL Glucose (74-99) mg/dL POC Glucose (mg/dL) 127 H 332 H (75-99) mg/dL Total Bilirubin (0.2-1.3) mg/dL AST (14-36) U/L Alkaline Phosphatase (38-126) U/L Ammonia (<30) umol/L Albumin (3.5-5.0) g/dL TSH (0.465-4.680) mIU/L Urine Protein (Negative) Urine Ketones (Negative) Urine Blood (Negative) Urine Bilirubin (Negative) Urine RBC (0-5) /hpf Urine Mucus (None) /hpf Assessment and Plan Assessment: 1. Increased weakness and falls. Hip x-ray completed showing no acute fracture dislocation in the pelvis or left hip. Old fracture deformity of the right inferior perinephric ramus. 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 PT OT consulted 2. Recent procedure at [facility] possible stent placement to common bile duct. Will attempt to obtain [facility] records. Total bili elevated at 4.6 AST 83 alkaline phosphatase 640. GI services have been consulted. 3. History of deafness patient communicates with sign language 4. History of CVA and TIA 5. History of diabetes mellitus type 2. maintained on Actos. Sliding scale insulin coverage added. Hemoglobin A1c will be ordered 6. History of hyperlipidemia 7. History of EtOH she quit 23 years ago 8. Ex-smoker 9. Elevated BNP. BNP elevated at 1440 2-D echo has been ordered fluids DC'd 10. Hypothyroidism. Patient continued on Synthroid. TSH 7.10. Synthroid increased to 112 mcgs PT/OT and social work services have been consulted Head CT completed showing no definitive acute process DVT prophylaxis heparin. GI prophylaxis Pepcid I performed an examination of the patient and discussed their management with the Nurse Practitioner. I have reviewed the Nurse Practitioner's notes and agree with the documented findings and plan of care
[2019-02-28] MEDS: INSULIN ASPART (NovoLOG) 100 UNIT/ML VIAL SQ SCH ×3 (12:05→21:18)
[2019-02-28] MEDS: HEPARIN SODIUM,PORCINE 5,000 UNIT/ML 1 ML VIAL SQ SCH ×2 (12:05→21:17)
[2019-02-28 15:39] VITALS: BMI 18.8
[2019-02-28 16:36] LABS: Glucose,Whole Blood 161 mg/dL (75-99)
[2019-02-28] MEDS: LACTULOSE 20 GM/30 ML CUP PO SCH ×2 (17:06→21:17)
[2019-02-28 18:04] LABS: Hemoglobin A1C 7.1 % (4.0-6.0)
--- NOTE | 2019-02-28 19:16 | XR ---
EXAMINATION TYPE: XR lumbar spine 2 or 3V DATE OF EXAM: 02/28/2019 COMPARISON: 03/07/2017 HISTORY: Back pain TECHNIQUE: 3 views FINDINGS: There is generalized osteopenia. There is 30% compression deformity of L4. There is 15% com pression of L5. There is also mild loss of height of L1 and T12. IMPRESSION: Multiple compression fractures have progressed at L4 and L5 compared to old exam. General ized osteopenia.
[2019-02-28 21:11] LABS: Glucose,Whole Blood 177 mg/dL (75-99)
--- NOTE | 2019-02-28 23:31 | CONS ---
CONSULTATION DATE OF DICTATION: 02/28/2019 REASON FOR CONSULTATION: Elevated liver enzymes. HISTORY OF PRESENT ILLNESS: The patient is a 68-year-old pleasant white female who was brought to the emergency room by her brother because she appeared somewhat confused and has been having frequent falls. The patient is deaf, and most of the history was obtained from the patient's nurse who was taking care of him because no family was available at the bedside. Apparently the patient was noted to have jaundice about a month ago. 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 Subsequently she was sent to [facility], where she underwent ERCP with stent placement at the hepaticojejunostomy site for stricture. She was discharged home with outpatient followup to see them in a month. In the meantime, because of the above symptoms, she was admitted to the hospital. She denies any abdominal pain. She reports no nausea, vomiting. No fever, chills, night sweats. In the ER, she had labs done which showed elevated LFTs with T-bilirubin up to 3.7. ALT and AST are 82 and 46, respectively. Alkaline phosphatase was 601. Labs about 3 weeks ago on February 05 showed a bilirubin of 5. Alkaline phosphatase was 459. ALT and AST were 99 and 42, respectively. PAST MEDICAL HISTORY: Her past medical history is significant for: 1. History of CVA, TIA. 2. Diabetes mellitus. 3. Deafness. 4. Hyperlipidemia. PAST SURGICAL HISTORY: 1. Gallbladder surgery in 2014 complicated by CBD injury followed by hepaticojejunostomy at [facility]. 2. Left carotid endarterectomy. MEDICATIONS: Her medications at home were: 1. Ursodiol. 2. Multivitamin. 3. Synthroid. 4. Prilosec. 5. Actos. 6. Guaifenesin. ALLERGIES: NONE. SOCIAL HISTORY: No smoking. No alcohol use. FAMILY HISTORY: Brother had CVA. Mother had dementia. REVIEW OF SYSTEMS: Review of systems could not be obtained, as no finger waver is available at the bedside. PHYSICAL EXAMINATION: She appears comfortable. No apparent distress. VITAL SIGNS: Stable. Blood pressure is 120/66, pulse rate 82, temperature 98.1. HEENT examination unremarkable. Conjunctivae pink. Sclerae slightly icteric. Oral cavity no lesions. NECK: No JVD or lymph node enlargement. CHEST: Clear to auscultation. HEART: Regular rate and rhythm. ABDOMEN: Soft. Bowel sounds are positive. No organomegaly. EXTREMITIES: No pedal edema. SKIN: No rashes. NEUROLOGIC: Alert and oriented x3. No focal deficits. LABS: WBC 5, hemoglobin 8.7, platelets 154. INR is 1.3. T-bilirubin today 3.7; yesterday it was 4.6. ALT and AST are 82 and 46, respectively. Alkaline phosphatase is 601. IMPRESSION: 1. Fatigue, weakness, confusion. 2. Elevated liver function tests with bilirubin up to 3.9 g/dL and alkaline phosphatase 609. She is status post ERCP at [facility] a week ago, which revealed stenosis at the hepaticojejunal anastomosis, for which he underwent stent placement. It appears that serum transaminases are gradually improving, and bilirubin has improved from 5 g/dL that was noted 2 weeks ago. The patient presently is maintained on Ursodiol 300 mg twice daily. 3. Frequent falls. 4. Mild anemia. Clinically no evidence of active bleeding. RECOMMENDATIONS: 1. Obtain all the records from [facility]. 2. In regard to the elevated serum transaminases, we will continue to monitor her on an outpatient basis. The patient is already scheduled to be seen at [facility] in 2 months as part of followup of stent placement. 3. Continue with Ursodiol 300 mg twice daily. Thank you for this consultation. Will follow her closely during the hospital stay. MMODL / IJN: [id number] /
[2019-03-01] MEDS: LEVOTHYROXINE 112 MCG TAB PO SCH (06:04)
--- NOTE | 2019-03-01 06:47 | ECHOF ---
Referral Reason:elevated BNP MEASUREMENTS -------- HEIGHT: 160.0 cm WEIGHT: 48.1 kg BP: 154/66 RVIDd: 3.1 cm (< 3.3) IVSd: 1.4 cm (0.6 - 1.1) LVIDd: 3.5 cm (3.9 - 5.3) LVPWd: 1.1 cm (0.6 - 1.1) IVSs: 1.5 cm LVIDs: 2.0 cm LVPWs: 1.4 cm LAESV Index (A-L): 44.02 ml/m EPSS: 0.4 cm Ao Diam: 2.2 cm (2.0 - 3.7) LA Diam: 1.5 cm (2.7 - 3.8) RVIDd: 4.8 cm (< 3.3) MV E Gurinder: 0.92 m/s MV DecT: 130 ms MV A Gurinder: 0.73 m/s MV E/A Ratio: 1.25 RAP: 5.00 mmHg RVSP: 35.06 mmHg MV EF SLOPE: 82.57 mm/s (70 - 150) MV EXCURSION: 1.16 cm (> 18.000) FINDINGS -------- Sinus rhythm. This was a technically good study. The left ventricular size is normal. There is moderate concentric left ventricular hypertrophy. O verall left ventricular systolic function is normal with, an EF between 65 - 70 %. Mitral Doppler i nflow pattern suggests diastolic filling abnormality. The right ventricle is normal in size. Left atrium is severely dilated by volume. RA appears enlarged Interatrial and interventricular septum intact. The aortic valve is trileaflet and appears structurally normal. There is mild aortic valve sclerosi s without stenosis. There is no evidence of aortic regurgitation. The mitral valve leaflets are mildly thickened. Mild mitral annular calcification present. Mild-t o-moderate mitral regurgitation is present. Mild tricuspid regurgitation present. There is mild pulmonary hypertension. The right ventricular systolic pressure, as measured by Doppler, is 35.06mmHg. Trace/mild (physiologic) pulmonic regurgitation. The aortic root size is normal. The inferior vena cava was not well visualized. There is no pericardial effusion. CONCLUSIONS -------- 1. Sinus rhythm. 2. This was a technically good study. 3. The left ventricular size is normal. 4. There is moderate concentric left ventricular hypertrophy. 5. Overall left ventricular systolic function is normal with, an EF between 65 - 70 %. 6. Mitral Doppler inflow pattern suggests diastolic filling abnormality. 7. The right ventricle is normal in size. 8. Left atrium is severely dilated by volume. 9. RA appears enlarged 10. Interatrial and interventricular septum intact. 11. The aortic valve is trileaflet and appears structurally normal. 12. There is mild aortic valve sclerosis without stenosis. 13. There is no evidence of aortic regurgitation. 14. The mitral valve leaflets are mildly thickened. 15. Mild mitral annular calcification present. 16. [id number] mitral regurgitation is present. 17. Mild tricuspid regurgitation present. 18. There is mild pulmonary hypertension. 19. The right ventricular systolic pressure, as measured by Doppler, is 35.06mmHg. 20. Trace/mild (physiologic) pulmonic regurgitation. 21. The aortic root size is normal. 22. The inferior vena cava was not well visualized. 23. There is no pericardial effusion. ARRESTING GEAR OPERATOR: Karen Sinclair RDCS
[2019-03-01 06:53] LABS: Glucose,Whole Blood 141 mg/dL (75-99)
[2019-03-01] MEDS: LACTULOSE 20 GM/30 ML CUP PO SCH ×2 (08:14→20:10)
[2019-03-01] MEDS: HEPARIN SODIUM,PORCINE 5,000 UNIT/ML 1 ML VIAL SQ SCH ×2 (08:14→20:10)
[2019-03-01] MEDS: FOLIC ACID 1 MG TAB PO SCH (08:14)
[2019-03-01] MEDS: PANTOPRAZOLE 40 MG TABLET PO SCH ×2 (08:14→18:19)
[2019-03-01] MEDS: INSULIN ASPART (NovoLOG) 100 UNIT/ML VIAL SQ SCH ×4 (08:14→21:01)
[2019-03-01] MEDS: URSODIOL 300 MG CAP PO SCH (08:15)
[2019-03-01] MEDS: MULTIVITAMINS, THERA 1 EACH TAB PO SCH (08:15)
[2019-03-01] MEDS: PIOGLITAZONE 15 MG TAB PO SCH (08:15)
[2019-03-01] MEDS: MORPHINE SULFATE 4 MG/ML SYRINGE IV PRN ×3 (08:28→20:22)
[2019-03-01 08:34] LABS: Anisocytosis Slight; Basophils % (A) 0 %; Eosinophils # (A) 0.1 k/uL (0-0.7); Eosinophils % (A) 2 %; HCT 28.8 % (34.0-46.0); HGB 9.1 gm/dL (11.4-16.0); Lymphocytes # (A) 0.9 k/uL (1.0-4.8); Lymphocytes % (A) 16 %; MCH 31.6 pg (25.0-35.0); MCHC 31.5 g/dL (31.0-37.0); MCV 100.2 fL (80.0-100.0); Macrocytosis Slight; Mean Platelet Volume 9.2; Monocytes # (A) 0.3 k/uL (0-1.0); Monocytes % (A) 4 %; Neutrophils # (A) 4.3 k/uL (1.3-7.7); Neutrophils % (A) 74 %; Platelet Count 179 k/uL (150-450); RBC 2.87 m/uL (3.80-5.40); RDW 18.1 % (11.5-15.5); WBC 5.7 k/uL (3.8-10.6)
[2019-03-01] MEDS ORDERED: FAMOTIDINE 20 MG TAB PO SCH (09:00)
[2019-03-01 09:05] LABS: ALT 45 U/L (9-52); AST 90 U/L (14-36); African American GFR (CKD) >90 (>60 ml/min/1.73 sqM); Albumin 2.5 g/dL (3.5-5.0); Alkaline Phosphatase 664 U/L (38-126); Anion Gap 7 mmol/L; Blood Urea Nitrogen 12 mg/dL (7-17); Calcium 8.8 mg/dL (8.4-10.2); Carbon Dioxide 19 mmol/L (22-30); Chloride 113 mmol/L (98-107); Glucose 144 mg/dL (74-99); Sodium 139 mmol/L (137-145); Total Bilirubin 3.5 mg/dL (0.2-1.3); Total Protein 7.9 g/dL (6.3-8.2)
[2019-03-01 11:00] LABS: Glucose,Whole Blood 161 mg/dL (75-99)
--- NOTE | 2019-03-01 11:40 | P.PN ---
Subjective Progress Note Date: 03/01/19 This is a 68-year-old female patient of Dr. Post. According to ER report and patient's brother at bedside patient was found to be on the floor next to her bed this AM. Patient has has been placed history of deafness in which case with sign language but per patient's brother patient does appear to be confused and not making sense through her sign language right. Patient does appear to be a poor historian. Per patient's family it appears that patient had fallen previously was taken to PCP and was taken to [facility] in which she underwent possible common bile duct stent and was discharged home. Additional medical history includes CVA, diabetes mellitus, hyperlipidemia, cholecystectomy and an xiety. According to ER report patient is complaining of bilateral hip pain. Hip x-ray completed showing no acute Dr. dislocation the pelvis or left hip. Old fracture deformity of the right inferior perinephric ramus. 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 GI services have been consulted attempting to obtain records from [facility]. Liver enzymes slightly improved today. Patient still having pain in bilateral hips. Repeat chest x-ray ordered. 2-D echo completed fluids DC'd. Patient denies any chest pain or shortness of breath. Patient denies nausea vomiting or diarrhea. Patient denies any urinary burning or frequency On 03/01/2019 patient is resting comfortably in bed. Repeat chest x-ray completed showing no acute pulmonary process. GI services have been following attempting to obtain records from [facility] but does appear patient underwent ERCP one week ago at [facility]. At this time patient denies any s pecific complaints Objective - Vital Signs Vital signs: Vital Signs Temp 98.5 F 03/01/19 05:20 Pulse 80 03/01/19 05:20 Resp 16 03/01/19 05:20 BP 133/60 03/01/19 05:20 Pulse Ox 97 03/01/19 05:20 Intake & Output 09/10/1303/01/19 03/01/19 18:59 06:59 18:59 Output Total 2 Balance -2 Weight 48.081 kg Output: Stool 2 Other: Voiding Method Bedpan Bedpan # Voids 1 2 # Bowel Movements 1 - Exam Head normocephalic Neck supple Lungs diminished bilaterally Heart regular rate and rhythm S1-S2, no rub or gallop Abdomen is soft nontender nondistended positive bowel sounds no hepatosplenomegaly Extremities no edema Neuro patient is deaf. Communicates through sign language Patient is jaundice - Labs CBC & Chem 7: 03/01/19 07:51 03/01/19 07:51 Labs: Abnormal Lab Results - Last 24 Hours (Table) 02/28/19 02/28/19 02/28/19 Range/Units 06:34 11:39 16:34 RBC (3.80-5.40) m/uL Hgb (11.4-16.0) gm/dL Hct (34.0-46.0) % MCV (80.0-100.0) fL RDW (11.5-15.5) % Lymphocytes # (1.0-4.8) k/uL Chloride (98-107) mmol/L Carbon Dioxide (22-30) mmol/L Glucose (74-99) mg/dL POC Glucose (mg/dL) 332 H 161 H (75-99) mg/dL Hemoglobin A1c 7.1 H (4.0-6.0) % Total Bilirubin (0.2-1.3) mg/dL AST (14-36) U/L Alkaline Phosphatase (38-126) U/L Ammonia (<30) umol/L Albumin (3.5-5.0) g/dL 02/28/19 03/01/19 03/01/19 Range/Units 21:10 06:51 07:51 RBC 2.87 L (3.80-5.40) m/uL Hgb 9.1 L (11.4-16.0) gm/dL Hct 28.8 L (34.0-46.0) % MCV 100.2 H (80.0-100.0) fL RDW 18.1 H (11.5-15.5) % Lymphocytes # 0.9 L (1.0-4.8) k/uL Chloride (98-107) mmol/L Carbon Dioxide (22-30) mmol/L Glucose (74-99) mg/dL POC Glucose (mg/dL) 177 H 141 H (75-99) mg/dL Hemoglobin A1c (4.0-6.0) % Total Bilirubin (0.2-1.3) mg/dL AST (14-36) U/L Alkaline Phosphatase (38-126) U/L Ammonia (<30) umol/L Albumin (3.5-5.0) g/dL 03/01/19 03/01/19 03/01/19 Range/Units 07:51 07:51 10:57 RBC (3.80-5.40) m/uL Hgb (11.4-16.0) gm/dL Hct (34.0-46.0) % MCV (80.0-100.0) fL RDW (11.5-15.5) % Lymphocytes # (1.0-4.8) k/uL Chloride 113 H (98-107) mmol/L Carbon Dioxide 19 L (22-30) mmol/L Glucose 144 H (74-99) mg/dL POC Glucose (mg/dL) 161 H (75-99) mg/dL Hemoglobin A1c (4.0-6.0) % Total Bilirubin 3.5 H (0.2-1.3) mg/dL AST 90 H (14-36) U/L Alkaline Phosphatase 664 H (38-126) U/L Ammonia 47 H (<30) umol/L Albumin 2.5 L (3.5-5.0) g/dL Microbiology - Last 24 Hours (Table) 02/27/19 14:12 Urine Culture - Preliminary Urine,Voided Gram Neg Bacilli Assessment and Plan Assessment: 1. Increased weakness and falls. Hip x-ray completed showing no acute fracture dislocation in the pelvis or left hip. Old fracture deformity of the right inferior perinephric ramus. 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 PT OT consulted 2. Elevated liver enzymes. Total bili elevated at 4.6 AST 83 alkaline phosphatase 640. Per GI services patient is status post ERCP at [facility] 1 week prior which revealed stenosis of the hepatojejunal anastomosis for which he underwent stent placement. Patient is maintained on Urosdiol . 3. History of deafness patient communicates with sign language 4. History of CVA and TIA 5. History of diabetes mellitus type 2. maintained on Actos. Sliding scale insulin coverage added. Hemoglobin A1c will be ordered 6. History of hyperlipidemia 7. History of EtOH she quit 23 years ago 8. Ex-smoker 9. Elevated BNP. BNP elevated at 1440 2-D echo completed showing an EF of 65- 70%. Repeat chest x-ray showing no acute pulmonary process 10. Hypothyroidism. Patient continued on Synthroid. TSH 7.10. Synthroid increased to 112 mcgs 11. Urine culture growing gram-negative bacilli patient started on Rocephin 12. Elevated ammonia level. Ammonia 47 patient maintained on lactulose 30 twice a day 13. Anemia. Iron studies will be ordered we'll continue to monitor no signs of active bleeding. PT/OT and social work services have been consulted Head CT completed showing no definitive acute process DVT prophylaxis heparin. GI prophylaxis Pepcid I performed an examination of the patient and discussed their management with the Nurse Practitioner. I have reviewed the Nurse Practitioner's notes and agree with the documented findings and plan of care
[2019-03-01 16:21] LABS: Iron Saturation 11.54 (12.00-45.00)
--- NOTE | 2019-03-01 16:30 | PN ---
PROGRESS NOTE DATE OF DICTATION: 03/01/2019 Patient is a 68-year-old pleasant white female with severe deafness. She was admitted to the hospital because of fatigue, weakness and back pain. She was noted to have elevated serum transaminases and jaundice with a bilirubin up to 3.5 and ALT and AST in the range of 90 and 45, respectively. Her alkaline phosphatase was 664. We are consulted in regards to this issue. The patient recently underwent ERCP with stent placement at [facility] a week ago for jaundice related to stricture at the hepaticojejunostomy site. Her bilirubin was up to 6.5 g/dL. It is gradually improving. Patient denies any symptoms today. She still continues to complain of low back pain. PHYSICAL EXAMINATION: She appears comfortable. No apparent distress. VITAL SIGNS: Stable. Blood pressure is 133/60, pulse rate 80, temperature 98.5. HEENT examination unremarkable. Conjunctivae pink. Sclerae anicteric. Oral cavity no lesions. NECK: No JVD or lymph node enlargement. CHEST: Clear to auscultation. HEART: Regular rate and rhythm. ABDOMEN: Soft. Bowel sounds are positive. No organomegaly. EXTREMITIES: No pedal edema. SKIN: No rashes. NEUROLOGIC: Alert and oriented x3. No focal deficits. IMAGING: Lumbar spinal x-rays showed multiple compression fractures at L4 and L5. LABS: Labs done today show bilirubin 3.5, AST 90, ALT 45, alkaline phosphatase 664. IMPRESSION: 1. Elevated liver function tests which are gradually improving. 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 She remains on Ursodiol 300 mg twice daily. 2. Weakness and frequent falls. X-ray showed L5-S1 fractures. PT/OT was consulted. RECOMMENDATIONS: Reviewed the labs with the patient. Sister was at the bedside. At this time I suggested that in regard to the elevated LFTs, we will continue to follow them closely. She will continue with Ursodiol 300 mg twice daily. She can follow up in office 2 weeks following discharge from the hospital and we will repeat her LFTs on an outpatient basis. If she continues to have persistent elevation of serum transaminases and jaundice, we may consider proceeding with an outpatient liver biopsy in order to assess for chronic liver disease related to prolonged biliary obstruction. For now we will follow her closely during her hospital stay. Thank you for this consultation. MMODL / IJN: [id number] /
[2019-03-01 17:02] LABS: Glucose,Whole Blood 128 mg/dL (75-99)
[2019-03-01] MEDS: RIFAXIMIN 200 MG TAB PO SCH ×2 (18:20→23:38)
[2019-03-01 20:40] LABS: Glucose,Whole Blood 143 mg/dL (75-99)
[2019-03-02] MEDS: MORPHINE SULFATE 4 MG/ML SYRINGE IV PRN ×5 (02:33→22:01)
[2019-03-02] MEDS: LEVOTHYROXINE 112 MCG TAB PO SCH (05:53)
[2019-03-02 06:54] LABS: Glucose,Whole Blood 123 mg/dL (75-99)
[2019-03-02] MEDS: INSULIN ASPART (NovoLOG) 100 UNIT/ML VIAL SQ SCH ×4 (07:29→20:26)
[2019-03-02 07:51] LABS: ALT 43 U/L (9-52); AST 83 U/L (14-36); African American GFR (CKD) >90 (>60 ml/min/1.73 sqM); Albumin 2.6 g/dL (3.5-5.0); Alkaline Phosphatase 702 U/L (38-126); Anion Gap 8 mmol/L; Blood Urea Nitrogen 13 mg/dL (7-17); Calcium 8.6 mg/dL (8.4-10.2); Carbon Dioxide 22 mmol/L (22-30); Chloride 108 mmol/L (98-107); Glucose 134 mg/dL (74-99); Potassium 3.7 mmol/L (3.5-5.1); Sodium 138 mmol/L (137-145); Total Bilirubin 3.2 mg/dL (0.2-1.3); Total Protein 7.8 g/dL (6.3-8.2)
[2019-03-02] MEDS: LACTULOSE 20 GM/30 ML CUP PO SCH ×2 (08:00→22:00)
[2019-03-02] MEDS: HEPARIN SODIUM,PORCINE 5,000 UNIT/ML 1 ML VIAL SQ SCH ×2 (08:03→22:00)
[2019-03-02] MEDS: URSODIOL 300 MG CAP PO SCH (08:03)
[2019-03-02] MEDS: PANTOPRAZOLE 40 MG TABLET PO SCH ×2 (08:03→16:32)
[2019-03-02] MEDS: MULTIVITAMINS, THERA 1 EACH TAB PO SCH (08:03)
[2019-03-02] MEDS: PIOGLITAZONE 15 MG TAB PO SCH (08:03)
[2019-03-02] MEDS: RIFAXIMIN 200 MG TAB PO SCH ×3 (08:03→22:00)
[2019-03-02] MEDS: FOLIC ACID 1 MG TAB PO SCH (08:04)
--- NOTE | 2019-03-02 08:24 | P.CNOR ---
History of Present Illness - [facility] Consult date: 03/02/19 Consult reason: low back pain History of present illness: Patient is seen and examined today at bedside. She is a 68-year-old female with long history of lumbar issues and is deaf since . She is seen accompanied with an triage assistant bedside. She has a history of high hepatic issues well and was admitted in regards to lateral balance Gen. weakness and low back pain with jaundice. Is somewhat difficult to determine how much of the conversation the patient is picking up but she is able to follow commands at bedside with the triage assistant. She nods in agreement and shakes her head in disagreement seemingly appropriately but does not always answer or respond. Review of Systems Apparently there has not been any new changes in her lower extremities or any acute change in her back or new injury. She has fallen a couple times at home though she does falls were unwitnessed and she denies any specific falls. I also discussed with her sister over the phone. In the past she has been treated for her discitis with Dr. Gallagher with IV antibiotics and home IV antibiotics back in 2016 2017 and had an appropriate response with this. Past Medical History Past Medical History: CVA/TIA, Diabetes Mellitus, Hearing Disorder / Deafness, Hyperlipidemia Additional Past Medical History / Comment(s): Pt is deaf-understands ASL and some lip reading, CVA residual "memory loss"; NIDDM type II. History of discitis at L3 4 in 2016- which was treated with long-term IV antibiotics. Dr. Gallagher with good resolution History of Any Multi-Drug Resistant Organisms: None Reported Past Surgical History: Cholecystectomy Additional Past Surgical History / Comment(s): september 2014- gallbladder removed, bypass of liver duct/stent done at [facility], left carotid endarterectomy September 2014, colonoscopy. Past Anesthesia/Blood Transfusion Reactions: No Reported Reaction Past Psychological History: Anxiety Additional Psychological History / Comment(s): PT LIVES alone. Brother lives next to her. She is indenpendent. She drives. Sister is the primary contact. Retired. No experience. Tobacco smoker stopped in 2013. 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 smoking: stopped 09/2014 1ppd Past Drug Use History: None Reported - Past Family History Brother(s) Family Medical History: CVA/TIA Mother Family Medical History: Memory Impairment Additional Family Medical History / Comment(s): "Alzheimer's". Mother is . Father Family Medical History: No Reported History Additional Family Medical History / Comment(s): Father is 93 yrs old. Medications and Allergies Home Medications Medication Instructions Recorded Confirmed Type Ursodiol 300 mg PO DAILY 08/22/15 02/27/19 History Multivitamins, Thera [Multivitamin 1 tab PO DAILY 03/07/17 02/27/19 History (formulary)] Folic Acid 1 mg PO DAILY 02/27/19 02/27/19 History Levothyroxine Sodium [Synthroid] 100 mcg PO DAILY 02/27/19 02/27/19 History Omeprazole [PriLOSEC] 40 mg PO BID 02/27/19 02/27/19 History Pioglitazone [Actos] 15 mg PO DAILY 02/27/19 02/27/19 History Thiamine [Vitamin B-1] 100 mg PO DAILY 02/27/19 02/27/19 History guaiFENesin [guaiFENesin Oral 200 mg PO Q4H PRN 02/27/19 02/27/19 History Solution] Allergies Allergy/AdvReac Type Severity Reaction Status Date / Time No Known Allergies Allergy Verified 02/27/19 14:41 Physical Examination Osteopathic Statement: *. No significant issues noted on an osteopathic structural exam other than those noted in the History and Physical/Consult. - L Spine: dermatomal strength & reflexes bilateral Strength: hip flexion: 5/5 (Her back she is quite thin she has diffuse tenderness and is uncomfortable with laying still. Her legs have good motion with dorsiflexion plantar flexion and EHL on flexion-extension. Her thighs Soft nontender.) Results The lumbar x-ray shows significant osteopenia. There is evidence of prior disc loss at L3 4 with anterior sloping and L4 disc. There is some inferior endplate and superior inferior endplate irregularity at L4 and superior endplate regularly L5 which may were present fracture - Labs Labs: Abnormal Lab Results - Last 24 Hours (Table) 03/01/19 03/01/19 03/01/19 Range/Units 07:51 07:51 07:51 RBC 2.87 L (3.80-5.40) m/uL Hgb 9.1 L (11.4-16.0) gm/dL Hct 28.8 L (34.0-46.0) % MCV 100.2 H (80.0-100.0) fL RDW 18.1 H (11.5-15.5) % Lymphocytes # 0.9 L (1.0-4.8) k/uL Chloride 113 H (98-107) mmol/L Carbon Dioxide 19 L (22-30) mmol/L Glucose 144 H (74-99) mg/dL POC Glucose (mg/dL) (75-99) mg/dL Iron (50-170) ug/dL Iron Saturation (12.00-45.00) Total Bilirubin 3.5 H (0.2-1.3) mg/dL AST 90 H (14-36) U/L Alkaline Phosphatase 664 H (38-126) U/L Ammonia 47 H (<30) umol/L Albumin 2.5 L (3.5-5.0) g/dL 03/01/19 03/01/19 03/01/19 Range/Units 07:51 10:57 17:01 RBC (3.80-5.40) m/uL Hgb (11.4-16.0) gm/dL Hct (34.0-46.0) % MCV (80.0-100.0) fL RDW (11.5-15.5) % Lymphocytes # (1.0-4.8) k/uL Chloride (98-107) mmol/L Carbon Dioxide (22-30) mmol/L Glucose (74-99) mg/dL POC Glucose (mg/dL) 161 H 128 H (75-99) mg/dL Iron 27 L (50-170) ug/dL Iron Saturation 11.54 L (12.00-45.00) Total Bilirubin (0.2-1.3) mg/dL AST (14-36) U/L Alkaline Phosphatase (38-126) U/L Ammonia (<30) umol/L Albumin (3.5-5.0) g/dL 03/01/19 03/02/19 03/02/19 Range/Units 20:39 06:53 07:13 RBC (3.80-5.40) m/uL Hgb (11.4-16.0) gm/dL Hct (34.0-46.0) % MCV (80.0-100.0) fL RDW (11.5-15.5) % Lymphocytes # (1.0-4.8) k/uL Chloride 108 H (98-107) mmol/L Carbon Dioxide (22-30) mmol/L Glucose 134 H (74-99) mg/dL POC Glucose (mg/dL) 143 H 123 H (75-99) mg/dL Iron (50-170) ug/dL Iron Saturation (12.00-45.00) Total Bilirubin 3.2 H (0.2-1.3) mg/dL AST 83 H (14-36) U/L Alkaline Phosphatase 702 H (38-126) U/L Ammonia (<30) umol/L Albumin 2.6 L (3.5-5.0) g/dL Microbiology - Last 24 Hours (Table) 02/27/19 14:12 Urine Culture - Final Urine,Voided Escherichia coli H & H 02/27/19 02/28/19 03/01/19 Range/Units 14:12 06:34 07:51 Hgb 9.0 L 8.7 L 9.1 L (11.4-16.0) gm/dL Hct 28.7 L 28.3 L 28.8 L (34.0-46.0) % Coagulation 02/27/19 Range/Units 14:12 INR 1.3 H (<1.2) Result Diagrams: 03/01/19 07:51 03/02/19 07:13 Assessment and Plan Assessment: Low back pain with some increase Electronically and balance with jaundice Patient is deaf history of L3 4 discitis in 2017 -2017 Possible new compression fractures at L4 and L5 Plan: Low back pain with some increase Electronically and balance with jaundice Patient is deaf history of L3 4 discitis in 2017 -2017 Possible new compression fractures at L4 and L5 The patient has some increase in her lower back pain and is uncertain etiology. She has some endplate irregularity at L4 and L5 which may represent new fracture but with her history of discitis and the irregularity as it seems, I think that we should obtain a new MRI with contrast to evaluate the bony structure and possible recurrent discitis. There is severe disc loss at L3 4 from her prior discitis which was treated with IV antibiotics with Dr. Elliott. The pain is worthwhile to have infectious disease consult on the patient again at this point for further evaluation. In speaking with the sister the patient does have a LSO brace apparently at home and they will try to bring it in for her which can be used whenever she is out of bed. We'll continue to follow along with you. She'll continue her medical management and workup in terms of her electronic and metabolic issues as well as her jaundice. Time with Patient: Greater than 30
[2019-03-02 08:33] LABS: Anisocytosis Slight; HCT 29.9 % (34.0-46.0); HGB 9.4 gm/dL (11.4-16.0); MCH 31.6 pg (25.0-35.0); MCHC 31.5 g/dL (31.0-37.0); MCV 100.6 fL (80.0-100.0); Macrocytosis Slight; Mean Platelet Volume 9.5; Platelet Count 185 k/uL (150-450); RBC 2.98 m/uL (3.80-5.40); RDW 18.4 % (11.5-15.5)
[2019-03-02 09:27] LABS: Basophils # (M) 0.05 k/uL (0-0.2); Eosinophils # (M) 0.15 k/uL (0-0.7); Lymphocytes # (M) 0.85 k/uL (1.0-4.8); Monocytes # (M) 0.45 k/uL (0-1.0); Neutrophils % (M) 70 %; Nucleated Red Blood Cells 0 /100 WBC (0-0); Rouleaux Present; Total Cells Counted 100
[2019-03-02 09:28] LABS: Poikilocytosis (M) Present
--- NOTE | 2019-03-02 09:46 | P.PN ---
Subjective Progress Note Date: 03/02/19 This is a 68-year-old female patient of Dr. Post. According to ER report and patient's brother at bedside patient was found to be on the floor next to her bed this AM. Patient has has been placed history of deafness in which case with sign language but per patient's brother patient does appear to be confused and not making sense through her sign language right. Patient does appear to be a poor historian. Per patient's family it appears that patient had fallen previously was taken to PCP and was taken to [facility] in which she underwent possible common bile duct stent and was discharged home. Additional medical history includes CVA, diabetes mellitus, hyperlipidemia, cholecystectomy and an xiety. According to ER report patient is complaining of bilateral hip pain. Hip x-ray completed showing no acute Dr. dislocation the pelvis or left hip. Old fracture deformity of the right inferior perinephric ramus. 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 GI services have been consulted attempting to obtain records from [facility]. Liver enzymes slightly improved today. Patient still having pain in bilateral hips. Repeat chest x-ray ordered. 2-D echo completed fluids DC'd. Patient denies any chest pain or shortness of breath. Patient denies nausea vomiting or diarrhea. Patient denies any urinary burning or frequency On 03/01/2019 patient is resting comfortably in bed. Repeat chest x-ray completed showing no acute pulmonary process. GI services have been following attempting to obtain records from [facility] but does appear patient underwent ERCP one week ago at [facility]. At this time patient denies any s pecific complaints 03/02/2019 patient is resting comfortably in bed. Acoustic Sensor Operator at bedside. MRI of the spine has been ordered for orthopedic services infectious disease consulted due to patient's history of discitis. At this time patient denies any chest pain or shortness of breath. Patient denies nausea vomiting or diarrhea. Patient denies any urinary burning or frequency Objective - Vital Signs Vital signs: Vital Signs Temp 97.8 F 03/02/19 04:40 Pulse 69 03/02/19 04:40 Resp 16 03/02/19 04:40 BP 123/70 03/02/19 04:40 Pulse Ox 97 03/02/19 04:40 Intake & Output 03/01/19 03/02/19 03/02/19 18:59 06:59 18:59 Intake Total 240 Balance 240 Intake: Oral 240 Other: Voiding Method Bedpan Bedpan # Voids 1 2 - Exam Head normocephalic Neck supple Lungs diminished bilaterally Heart regular rate and rhythm S1-S2, no rub or gallop Abdomen is soft nontender nondistended positive bowel sounds no hepatosplenomegaly Extremities no edema Neuro patient is deaf. Communicates through sign language Patient is jaundice - Labs CBC & Chem 7: 03/02/19 07:13 03/02/19 07:13 Labs: Abnormal Lab Results - Last 24 Hours (Table) 03/01/19 03/01/19 03/01/19 Range/Units 07:51 07:51 10:57 RBC (3.80-5.40) m/uL Hgb (11.4-16.0) gm/dL Hct (34.0-46.0) % MCV (80.0-100.0) fL RDW (11.5-15.5) % Chloride (98-107) mmol/L Glucose (74-99) mg/dL POC Glucose (mg/dL) 161 H (75-99) mg/dL Iron 27 L (50-170) ug/dL Iron Saturation 11.54 L (12.00-45.00) Total Bilirubin (0.2-1.3) mg/dL AST (14-36) U/L Alkaline Phosphatase (38-126) U/L Ammonia 47 H (<30) umol/L Albumin (3.5-5.0) g/dL 03/01/19 03/01/19 03/02/19 Range/Units 17:01 20:39 06:53 RBC (3.80-5.40) m/uL Hgb (11.4-16.0) gm/dL Hct (34.0-46.0) % MCV (80.0-100.0) fL RDW (11.5-15.5) % Chloride (98-107) mmol/L Glucose (74-99) mg/dL POC Glucose (mg/dL) 128 H 143 H 123 H (75-99) mg/dL Iron (50-170) ug/dL Iron Saturation (12.00-45.00) Total Bilirubin (0.2-1.3) mg/dL AST (14-36) U/L Alkaline Phosphatase (38-126) U/L Ammonia (<30) umol/L Albumin (3.5-5.0) g/dL 03/02/19 03/02/19 Range/Units 07:13 07:13 RBC 2.98 L (3.80-5.40) m/uL Hgb 9.4 L (11.4-16.0) gm/dL Hct 29.9 L (34.0-46.0) % MCV 100.6 H (80.0-100.0) fL RDW 18.4 H (11.5-15.5) % Chloride 108 H (98-107) mmol/L Glucose 134 H (74-99) mg/dL POC Glucose (mg/dL) (75-99) mg/dL Iron (50-170) ug/dL Iron Saturation (12.00-45.00) Total Bilirubin 3.2 H (0.2-1.3) mg/dL AST 83 H (14-36) U/L Alkaline Phosphatase 702 H (38-126) U/L Ammonia (<30) umol/L Albumin 2.6 L (3.5-5.0) g/dL Microbiology - Last 24 Hours (Table) 02/27/19 14:12 Urine Culture - Final Urine,Voided Escherichia coli Assessment and Plan Assessment: 1. Increased weakness and falls with multiple compression fracture progression of L4 to L5. Lumbar x-ray completed showing multiple compression fractures have progressed L4 and L5 compared to old exam generalized osteopenia Hip x-ray completed showing no acute fracture dislocation in the pelvis or left hip. Old fracture deformity of the right inferior perinephric ramus. 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 PT OT consulted. Per Dr. Jones with orthopedic services MRI has been ordered. Patient does have known history of discitis. Infectious disease has been consulted 2. Elevated liver enzymes. Total bili elevated at 4.6 AST 83 alkaline phosphatase 640. Per GI services patient is status post ERCP at [facility] 1 week prior which revealed stenosis of the hepatojejunal anastomosis for which he underwent stent placement. Patient is maintained on Urosdiol . 3. History of deafness patient communicates with sign language 4. History of CVA and TIA 5. History of diabetes mellitus type 2. maintained on Actos. Sliding scale insulin coverage added. Hemoglobin A1c will be ordered 6. History of hyperlipidemia 7. History of EtOH she quit 23 years ago 8. Ex-smoker 9. Elevated BNP. BNP elevated at 1440 2-D echo completed showing an EF of 65- 70%. Repeat chest x-ray showing no acute pulmonary process 10. Hypothyroidism. Patient continued on Synthroid. TSH 7.10. Synthroid increased to 112 mcgs 11. Urine culture growing gram-negative bacilli patient started on Rocephin. Urine culture growing E. coli 12. Elevated ammonia level. Ammonia 47 patient maintained on lactulose 30 twi ce a day. Xifaxan added. ammonia level improving to 22 13. Iron deficiency Anemia. Ferrous sulfate has been added 14. Severe calorie malnutrition ensure shakes have been ordered PT/OT and social work services have been consulted Head CT completed showing no definitive acute process DVT prophylaxis heparin. GI prophylaxis Pepcid I performed an examination of the patient and discussed their management with the Nurse Practitioner. I have reviewed the Nurse Practitioner's notes and nemesio cordero with the documented findings and plan of care
[2019-03-02 11:25] LABS: Glucose,Whole Blood 173 mg/dL (75-99)
--- NOTE | 2019-03-02 14:04 | MR ---
EXAMINATION TYPE: MR lumbar spine wo/w con DATE OF EXAM: 03/02/2019 COMPARISON: MRI of the lumbar spine dated 08/29/2017 HISTORY: Low back pain, h/o discitis l3-4. History also includes fracture of L4 and L5. TECHNIQUE: Multiplanar, multisequence images of the lumbar spine were acquired utilizing 4.5 mL intravenous Gada vist gadolinium contrast. FINDINGS: Again the same vertebral body counting system is used as was on the prior exams. There is a bnormal T2 fat sat signal in the L3 vertebral body. This doesn't demonstrate enhancement, however no abnormal signal is seen of the remaining diminutive intervertebral disc at this level. Deformity of t he L4 vertebral body from prior osteomyelitis/discitis is unchanged with superior endplate vertebral body height loss predominating anteriorly. Fracture deformity is also seen at what is denoted S2-S3 ( with adjacent perineural cyst. Rudimentary discs are seen of the visualized sacrum. The conus medulla ris terminates at L2-L3. L1-L2: A broad-based disc bulge is seen without spinal canal stenosis nor neural foraminal narrowing. Central annular tear is noted. L2-L3: A broad-based disc bulge and central annular tear as well as mild facet arthropathy are seen w ithout spinal canal stenosis nor neural foraminal narrowing. L3-L4: Most of the disc is no longer present from the prior osteomyelitis discitis. Residual disc dem onstrates broad-based bulge with posterior projecting osteophytes and facet arthropathy that create m ild bilateral neural foraminal narrowing. Ligamentum flavum buckling also slightly narrows the spinal canal in a transverse dimension. L4-L5: Broad-based disc bulge, facet arthropathy, and ligamentum flavum buckling create mild bilatera l neural foraminal narrowing. L5-S1: Left eccentric broad-based disc bulge and facet arthropathy creates moderate left neural josh inal narrowing and mild to moderate right neuroforaminal narrowing. No spinal canal stenosis. Too small to accurately characterize and only partially visualized left superior pole renal lesion is T2 hyperintense and nonenhancing, favored to represent a small cyst although again only partially vi sualized. IMPRESSION: 1. Abnormal bone marrow edema of the L3 vertebral body focally may be on the basis of recurrent or ch ronic osteomyelitis. There is only trace residual disc at L3-L4 that does not demonstrate abnormal si gnal nor enhancement to suggest osteomyelitis discitis. 2. Left eccentric disc bulge at L5-S1 creates moderate left and [id number] right neural foramin al narrowing. Mild multilevel degenerative disc disease throughout the remainder of the spine is deta iled above. 3. Vertebral body height loss from prior osteomyelitis discitis of the L4 vertebral body is unchanged .
--- NOTE | 2019-03-02 15:19 | CDI ---
Documentation Clarification Form Date: 03/02/2019 3:04:12 PM From: Ann HullJOSIAH waters, CCDS Admit Date: 02/28/2019 9:48:00 AM Patient Name: Malorie Márquez Visit Number: [id number] Discharge Date: ATTENTION: The Clinical Documentation Specialists (CDI) and [facility] Coding Staff appreciate your assistance in clarifying documentation. Please respond to the clarification below the line at the bottom and electronically sign. The CDI & [facility] Coding staff will review the response and follow-up if needed. Please note: Queries are made part of the Legal Health Record. If you have any questions, please contact the author of this message via ITS. Dr. Latoya Cr: Patient has been diagnosed with compression fracture to L4 - L5, progressive. History/Risk Factors: Generalized osteopenia, Discitis. Biliary stent placed week ago at [facility]. Deafness, uses sign language. Hx CVA & TIA. DM II, Hyperlipidemia, Hypothyroidism, EtOH, quit years ago, Former smoker. Clinical Indications: Presented with weakness & frequent falls. Found on the floor next to her bed, complaining of bilateral hip pain. RAD: Right hip XR & Pelvis: No acute fracture or dislocation. Old fracture deformity of the right inferior perinephric ramus. Mild - moderate bilateral femoral acetabular arthropathy. Treatment: IV Ms, IV fluid bolus, po KCL, IV fluid rate 75, IV Rocephin. In your professional opinion, please specify the following: Etiology of fracture: Traumatic Pathological (specify cause): o Osteoporosis o Other, please specify: Other (please specify): Unable to determine Episode of care: o Initial o Subsequent with delayed healing o Subsequent with malunion o Subsequent with nonunion o Sequela Also, indicate any associated diagnosis/conditions related to the Fracture in your documentation. (Last Revision: March 2017) Unable to determine MTDD
--- NOTE | 2019-03-02 16:34 | P.PN ---
Progress Note - Text Progress Note Date: 03/02/19 MRI of lumbar spine today reviewed. no new neurologic compression or abscess. No new vertebral collapse or fracture. Increase bone signal at L3/4 with complete disc height loss, unchanged from prior. No plans for surgical intervention for lumbar spine at this point. await Inf. Dis. eval to determine if need for poss treatment of chronic osteomylitis at L3 and L4.
[2019-03-02 17:17] LABS: Glucose,Whole Blood 106 mg/dL (75-99)
[2019-03-02 20:24] LABS: Glucose,Whole Blood 151 mg/dL (75-99)
[2019-03-02] MEDS: guaiFENesin SYRUP 100MG/5ML 200 MG/10 ML CUP PO PRN (22:00)
[2019-03-02] MEDS: FERROUS SULFATE 325 MG TAB PO SCH (22:00)
--- NOTE | 2019-03-02 23:17 | P.CONS ---
History of Present Illness - Reason for Consult Consult date: 03/02/19 ? Discitis Requesting physician: Latoya Cr - Chief Complaint weakness and falls x few days - History of Present Illness Patient is a 68-year-old female with a past medical history significant for deafness since and this patient did have L4 discitis with E. coli in the blood cultures back in February 2017 for which the patient has been treated with a prolonged course of IV antibiotic therapy patient currently off antibiotic almost 18 months and apparently the patient was doing well patient was recently diagnosed with jaundice for which the patient did have MRI which did shows proximal CBD stricture subsequently patient was sent to [facility] patient underwent ERCP with a stent placement at the hepatojejunostomy site for stricture subsequently patient had been discharged home however recently the patient has been falling more at home and seemed to be little bit weak and confused and the patient was complaining of some pain in bilateral hip area for which the patient has been brought back to the [facility] ER and subsequently has been admitted to hospital the patient had multiple x-rays including x-rays of the lumbar spine which shows multiple compression fracture has progressed at L4-L5 level for which orthopedics was consulted who did order an MRI and recommended infectious disease evaluation thi s patient has been afebrile throughout her hospital stay and her white count has been normal history provided mostly by the sister present at the bedside admitting the main symptom has been jaundiced weakness and pain in bilateral hip area with recent falls Review of Systems Positive points has been mentioned in the HPI , complete review is hard to obtain in this pt with deafness and language barrier Past Medical History Past Medical History: CVA/TIA, Diabetes Mellitus, Hearing Disorder / Deafness, Hyperlipidemia Additional Past Medical History / Comment(s): Pt is deaf-understands ASL and some lip reading, CVA residual "memory loss"; NIDDM type II. History of discitis at L3 4 in 2016- which was treated with long-term IV antibiotics. Dr. Gallagher with good resolution History of Any Multi-Drug Resistant Organisms: None Reported Past Surgical History: Cholecystectomy Additional Past Surgical History / Comment(s): september 2014- gallbladder removed, bypass of liver duct/stent done at [facility], left carotid endarterectomy September 2014, colonoscopy. Past Anesthesia/Blood Transfusion Reactions: No Reported Reaction Past Psychological History: Anxiety Additional Psychological History / Comment(s): PT LIVES alone. Brother lives next to her. She is indenpendent. She drives. Sister is the primary contact. Retired. No experience. Tobacco smoker stopped in 2013. 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 smoking: stopped 09/2014 1ppd Past Drug Use History: None Reported - Past Family History Brother(s) Family Medical History: CVA/TIA Mother Family Medical History: Memory Impairment Additional Family Medical History / Comment(s): "Alzheimer's". Mother is . Father Family Medical History: No Reported History Additional Family Medical History / Comment(s): Father is 93 yrs old. Medications and Allergies Home Medications Medication Instructions Recorded Confirmed Type Ursodiol 300 mg PO DAILY 08/22/15 02/27/19 History Multivitamins, Thera [Multivitamin 1 tab PO DAILY 03/07/17 02/27/19 History (formulary)] Folic Acid 1 mg PO DAILY 02/27/19 02/27/19 History Levothyroxine Sodium [Synthroid] 100 mcg PO DAILY 02/27/19 02/27/19 History Omeprazole [PriLOSEC] 40 mg PO BID 02/27/19 02/27/19 History Pioglitazone [Actos] 15 mg PO DAILY 02/27/19 02/27/19 History Thiamine [Vitamin B-1] 100 mg PO DAILY 02/27/19 02/27/19 History guaiFENesin [guaiFENesin Oral 200 mg PO Q4H PRN 02/27/19 02/27/19 History Solution] Allergies Allergy/AdvReac Type Severity Reaction Status Date / Time No Known Allergies Allergy Verified 02/27/19 14:41 Physical Exam Vitals: Vital Signs Temp Pulse Resp BP Pulse Ox 03/02/19 04:40 97.8 F 69 16 123/70 97 03/01/19 23:10 16 03/01/19 21:00 98 F 96 16 111/54 96 Intake and Output 03/01/19 03/02/19 03/02/19 22:59 06:59 14:59 Intake Total 120 120 Balance 120 120 Intake: Oral 120 120 Other: Voiding Method Bedpan Bedpan # Voids 1 2 GENERAL DESCRIPTION: Elderly female lying in bed, no distress. No tachypnea or accessory muscle of respiration use. HEENT: Shows Pallor , scleral icterus + Oral mucous membrane is dry. No pharyngeal erythema or thrush NECK: Trachea central, no thyromegaly. LUNGS: Unlabored breathing. Clear to auscultation anteriorly. No wheeze or crackle. HEART: S1, S2, regular rate and rhythm. No loud murmur ABDOMEN: Soft, no tenderness , guarding or rigidity, no organomegaly EXTREMITIES: No edema of feet. SKIN: No rash, no masses palpable. NEUROLOGICAL: The patient is awake, alert, mood and affect normal. Results CBC & Chem 7: 03/02/19 07:13 03/02/19 07:13 Labs: Abnormal Lab Results - Last 24 Hours (Table) 03/01/19 03/01/19 03/01/19 Range/Units 07:51 17:01 20:39 RBC (3.80-5.40) m/uL Hgb (11.4-16.0) gm/dL Hct (34.0-46.0) % MCV (80.0-100.0) fL RDW (11.5-15.5) % Lymphocytes # (Manual) (1.0-4.8) k/uL Chloride (98-107) mmol/L Glucose (74-99) mg/dL POC Glucose (mg/dL) 128 H 143 H (75-99) mg/dL Iron 27 L (50-170) ug/dL Iron Saturation 11.54 L (12.00-45.00) Total Bilirubin (0.2-1.3) mg/dL AST (14-36) U/L Alkaline Phosphatase (38-126) U/L Albumin (3.5-5.0) g/dL 03/02/19 03/02/19 03/02/19 Range/Units 06:53 07:13 07:13 RBC 2.98 L (3.80-5.40) m/uL Hgb 9.4 L (11.4-16.0) gm/dL Hct 29.9 L (34.0-46.0) % MCV 100.6 H (80.0-100.0) fL RDW 18.4 H (11.5-15.5) % Lymphocytes # (Manual) 0.85 L (1.0-4.8) k/uL Chloride 108 H (98-107) mmol/L Glucose 134 H (74-99) mg/dL POC Glucose (mg/dL) 123 H (75-99) mg/dL Iron (50-170) ug/dL Iron Saturation (12.00-45.00) Total Bilirubin 3.2 H (0.2-1.3) mg/dL AST 83 H (14-36) U/L Alkaline Phosphatase 702 H (38-126) U/L Albumin 2.6 L (3.5-5.0) g/dL 03/02/19 Range/Units 11:24 RBC (3.80-5.40) m/uL Hgb (11.4-16.0) gm/dL Hct (34.0-46.0) % MCV (80.0-100.0) fL RDW (11.5-15.5) % Lymphocytes # (Manual) (1.0-4.8) k/uL Chloride (98-107) mmol/L Glucose (74-99) mg/dL POC Glucose (mg/dL) 173 H (75-99) mg/dL Iron (50-170) ug/dL Iron Saturation (12.00-45.00) Total Bilirubin (0.2-1.3) mg/dL AST (14-36) U/L Alkaline Phosphatase (38-126) U/L Albumin (3.5-5.0) g/dL Microbiology - Last 24 Hours (Table) 02/27/19 14:12 Urine Culture - Final Urine,Voided Escherichia coli Assessment and Plan Assessment: 1-patient with a history of L 34 discitis diagnosed back in February 2017 for the patient has received adequate antibiotic therapy currently off antibiotic for more than 18 months now who has been admitted to the hospital with frequent falls with recent diagnosis of 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 coli low colony count in this patient who did not have any pyuria on the initial UA likely representing contamination/colonization or asymptomatic bacteriuria Plan: 1-we will follow-up on MRI results which has been ordered by orthopedics 2-we will obtain baseline sed rate and CRP 3-patient positive urine culture likely representing colonization versus contamination with low colony count and not to treat UTI as we will discontinue the Rocephin 4-if the MRI was suspicious would recommend interventional radiology evaluation for aspirate of the suspicious area which should be sent for cultures and if those cultures were positive only then antibiotic will be recommended, for now recommend no antibiotic therapy to increase the yield of any cultures that may be done in the future Time with Patient: Greater than 30
[2019-03-03] MEDS: MORPHINE SULFATE 4 MG/ML SYRINGE IVP PRN ×4 (02:00→17:37)
[2019-03-03] MEDS: LEVOTHYROXINE 112 MCG TAB PO SCH (06:25)
[2019-03-03] MEDS: guaiFENesin SYRUP 100MG/5ML 200 MG/10 ML CUP PO PRN (06:25)
[2019-03-03 07:57] LABS: Glucose,Whole Blood 144 mg/dL (75-99)
[2019-03-03 08:33] LABS: ALT 46 U/L (9-52); AST 94 U/L (14-36); African American GFR (CKD) >90 (>60 ml/min/1.73 sqM); Albumin 2.6 g/dL (3.5-5.0); Alkaline Phosphatase 756 U/L (38-126); Anion Gap 10 mmol/L; Blood Urea Nitrogen 13 mg/dL (7-17); Calcium 8.5 mg/dL (8.4-10.2); Carbon Dioxide 20 mmol/L (22-30); Chloride 107 mmol/L (98-107); Glucose 134 mg/dL (74-99); Potassium 3.6 mmol/L (3.5-5.1); Sodium 137 mmol/L (137-145); Total Protein 7.9 g/dL (6.3-8.2)
[2019-03-03 08:35] LABS: Anisocytosis Slight; Basophils % (A) 1 %; Eosinophils # (A) 0.2 k/uL (0-0.7); Eosinophils % (A) 3 %; HCT 29.3 % (34.0-46.0); HGB 9.4 gm/dL (11.4-16.0); Lymphocytes # (A) 0.7 k/uL (1.0-4.8); Lymphocytes % (A) 16 %; MCH 32.1 pg (25.0-35.0); MCV 100.5 fL (80.0-100.0); Macrocytosis Slight; Mean Platelet Volume 8.9; Monocytes # (A) 0.3 k/uL (0-1.0); Monocytes % (A) 7 %; Neutrophils # (A) 3.1 k/uL (1.3-7.7); Neutrophils % (A) 70 %; Platelet Count 196 k/uL (150-450); RBC 2.92 m/uL (3.80-5.40); RDW 18.4 % (11.5-15.5); WBC 4.4 k/uL (3.8-10.6)
[2019-03-03] MEDS: LACTULOSE 20 GM/30 ML CUP PO SCH ×2 (09:13→23:58)
[2019-03-03] MEDS: RIFAXIMIN 200 MG TAB PO SCH ×3 (09:14→23:58)
[2019-03-03] MEDS: PANTOPRAZOLE 40 MG TABLET PO SCH ×2 (09:16→17:34)
[2019-03-03] MEDS: MULTIVITAMINS, THERA 1 EACH TAB PO SCH (09:16)
[2019-03-03] MEDS: FERROUS SULFATE 325 MG TAB PO SCH ×2 (09:16→23:58)
[2019-03-03] MEDS: HEPARIN SODIUM,PORCINE 5,000 UNIT/ML 1 ML VIAL SQ SCH ×2 (09:16→23:58)
[2019-03-03] MEDS: FOLIC ACID 1 MG TAB PO SCH (09:17)
[2019-03-03] MEDS: INSULIN ASPART (NovoLOG) 100 UNIT/ML VIAL SQ SCH ×4 (09:17→20:05)
[2019-03-03] MEDS: URSODIOL 300 MG CAP PO SCH (09:18)
[2019-03-03] MEDS: PIOGLITAZONE 15 MG TAB PO SCH (09:33)
--- NOTE | 2019-03-03 10:42 | P.PN ---
Subjective Progress Note Date: 03/02/19 Principal diagnosis: Elevated liver enzymes Patient seen lying in bed with an engineering administrator to help provide communication with sign language. No acute complaints. No abdominal pain. Objective - Vital Signs Vital signs: Vital Signs Temp 98.2 F 03/02/19 11:56 Pulse 72 03/02/19 11:56 Resp 16 03/02/19 11:56 BP 102/62 03/02/19 11:56 Pulse Ox 96 03/02/19 11:56 Intake & Output 03/01/19 03/02/19 03/02/19 18:59 06:59 18:59 Intake Total 240 Balance 240 Intake: Oral 240 Other: Voiding Method Bedpan Bedpan # Voids 1 2 - Exam On physical examination, patient appears comfortable in no apparent distress. HEAD: Normocephalic, atraumatic. EYES: No scleral icterus. No conjunctival injection. MOUTH: No lesions, tongue midline. NECK: Trachea midline, no gross abnormalities. CHEST: Clear to auscultation with no wheezing or rhonchi appreciated. HEART: Regular rate and rhythm. ABDOMEN: Soft, thin. Bowel sounds are positive. No organomegaly. No guarding or rigidity. EXTREMITIES: No pedal edema. SKIN: No rashes, no jaundice. - Labs CBC & Chem 7: 03/03/19 08:00 03/03/19 08:00 Labs: Abnormal Lab Results - Last 24 Hours (Table) 03/01/19 03/01/19 03/01/19 Range/Units 07:51 17:01 20:39 RBC (3.80-5.40) m/uL Hgb (11.4-16.0) gm/dL Hct (34.0-46.0) % MCV (80.0-100.0) fL RDW (11.5-15.5) % Lymphocytes # (Manual) (1.0-4.8) k/uL ESR (0-20) mm/hr Chloride (98-107) mmol/L Glucose (74-99) mg/dL POC Glucose (mg/dL) 128 H 143 H (75-99) mg/dL Iron 27 L (50-170) ug/dL Iron Saturation 11.54 L (12.00-45.00) Total Bilirubin (0.2-1.3) mg/dL AST (14-36) U/L Alkaline Phosphatase (38-126) U/L C-Reactive Protein (<10.0) mg/L Albumin (3.5-5.0) g/dL 03/02/19 03/02/19 03/02/19 Range/Units 06:53 07:13 07:13 RBC 2.98 L (3.80-5.40) m/uL Hgb 9.4 L (11.4-16.0) gm/dL Hct 29.9 L (34.0-46.0) % MCV 100.6 H (80.0-100.0) fL RDW 18.4 H (11.5-15.5) % Lymphocytes # (Manual) 0.85 L (1.0-4.8) k/uL ESR (0-20) mm/hr Chloride 108 H (98-107) mmol/L Glucose 134 H (74-99) mg/dL POC Glucose (mg/dL) 123 H (75-99) mg/dL Iron (50-170) ug/dL Iron Saturation (12.00-45.00) Total Bilirubin 3.2 H (0.2-1.3) mg/dL AST 83 H (14-36) U/L Alkaline Phosphatase 702 H (38-126) U/L C-Reactive Protein (<10.0) mg/L Albumin 2.6 L (3.5-5.0) g/dL 03/02/19 03/02/19 03/02/19 Range/Units 11:24 12:02 12:02 RBC (3.80-5.40) m/uL Hgb (11.4-16.0) gm/dL Hct (34.0-46.0) % MCV (80.0-100.0) fL RDW (11.5-15.5) % Lymphocytes # (Manual) (1.0-4.8) k/uL ESR 119 H (0-20) mm/hr Chloride (98-107) mmol/L Glucose (74-99) mg/dL POC Glucose (mg/dL) 173 H (75-99) mg/dL Iron (50-170) ug/dL Iron Saturation (12.00-45.00) Total Bilirubin (0.2-1.3) mg/dL AST (14-36) U/L Alkaline Phosphatase (38-126) U/L C-Reactive Protein 59.8 H (<10.0) mg/L Albumin (3.5-5.0) g/dL Microbiology - Last 24 Hours (Table) 02/27/19 14:12 Urine Culture - Final Urine,Voided Escherichia coli Assessment and Plan (1) Elevated liver enzymes Narrative/Plan: 68-year-old female who presented for evaluation of weakness. She is status post ERCP with stent placement at 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 LFTs overall stable, with bilirubin somewhat improved since presentation. Currently on ursodiol 300 mg twice daily. Current Visit: Yes Status: Acute Code(s): R74.8 - ABNORMAL LEVELS OF OTHER SERUM ENZYMES SNOMED Code(s): 498894584 Plan: Supportive care Okay for diet Continue monitor liver enzymes Continue evaluation by infectious disease service Continue ursodiol 300 mg twice daily No plans for endoscopic intervention at this time Patient may benefit from liver biopsy in the outpatient setting if liver enzymes remain persistently elevated At this time the gastroenterology service will stand by, patient calls back with any questions or concerns
[2019-03-03 11:05] LABS: Glucose,Whole Blood 233 mg/dL (75-99)
--- NOTE | 2019-03-03 14:15 | P.PN ---
Subjective Progress Note Date: 03/03/19 This is a 68-year-old female patient of Dr. Post. According to ER report and patient's brother at bedside patient was found to be on the floor next to her bed this AM. Patient has has been placed history of deafness in which case with sign language but per patient's brother patient does appear to be confused and not making sense through her sign language right. Patient does appear to be a poor historian. Per patient's family it appears that patient had fallen previously was taken to PCP and was taken to [facility] in which she underwent possible common bile duct stent and was discharged home. Additional medical history includes CVA, diabetes mellitus, hyperlipidemia, cholecystectomy and an xiety. According to ER report patient is complaining of bilateral hip pain. Hip x-ray completed showing no acute Dr. dislocation the pelvis or left hip. Old fracture deformity of the right inferior perinephric ramus. 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 GI services have been consulted attempting to obtain records from [facility]. Liver enzymes slightly improved today. Patient still having pain in bilateral hips. Repeat chest x-ray ordered. 2-D echo completed fluids DC'd. Patient denies any chest pain or shortness of breath. Patient denies nausea vomiting or diarrhea. Patient denies any urinary burning or frequency On 03/01/2019 patient is resting comfortably in bed. Repeat chest x-ray completed showing no acute pulmonary process. GI services have been following attempting to obtain records from [facility] but does appear patient underwent ERCP one week ago at [facility]. At this time patient denies any s pecific complaints 03/02/2019 patient is resting comfortably in bed. 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 MRI of the spine has been ordered for orthopedic services infectious disease consulted due to patient's history of discitis. At this time patient denies any chest pain or shortness of breath. Patient denies nausea vomiting or diarrhea. Patient denies any urinary burning or frequency On 03/03/2019 patient was seen and examined on the medical floor she is alert slightly agitated due to pain, last night pain was not well controlled and dose of morphine was increased to 4 mg IV every 4 hours when necessary this morning patient is still slightly agitated due to pain at this point fentanyl patch 12 g every 72 hours was added to her regimen and consultation for and his Tesio for pain management was initiated Objective - Vital Signs Vital signs: Vital Signs Temp 97.8 F 03/03/19 05:00 Pulse 69 03/03/19 12:20 Resp 18 03/03/19 12:20 BP 133/60 03/03/19 12:20 Pulse Ox 96 03/03/19 12:20 Intake & Output 03/02/19 03/03/19 03/03/19 18:59 06:59 18:59 Intake Total 240 480 Balance 240 480 Intake: Oral 240 480 Other: Voiding Method Bedpan Diaper Bedpan Incontinent Diaper Incontinent # Voids 3 3 3 - Exam In general patient is alert slightly agitated due to pain Head normocephalic and atraumatic there is obvious jaundice Neck supple no JVD no goiter Lungs diminished bilaterally no crackles no wheezing Heart regular rate and rhythm S1-S2, no rub or gallop Abdomen is soft nontender nondistended positive bowel sounds no hepatosplen omegaly Extremities no edema no cyanosis or clubbing Neuro patient is deaf. Communicates through sign language no gross focal neurological deficits - Labs CBC & Chem 7: 03/03/19 08:00 03/03/19 08:00 Labs: Abnormal Lab Results - Last 24 Hours (Table) 03/02/19 03/02/19 03/03/19 Range/Units 17:16 20:23 07:55 RBC (3.80-5.40) m/uL Hgb (11.4-16.0) gm/dL Hct (34.0-46.0) % MCV (80.0-100.0) fL RDW (11.5-15.5) % Lymphocytes # (1.0-4.8) k/uL Carbon Dioxide (22-30) mmol/L Glucose (74-99) mg/dL POC Glucose (mg/dL) 106 H 151 H 144 H (75-99) mg/dL Total Bilirubin (0.2-1.3) mg/dL AST (14-36) U/L Alkaline Phosphatase (38-126) U/L Ammonia (<30) umol/L Albumin (3.5-5.0) g/dL 03/03/19 03/03/19 03/03/19 Range/Units 08:00 08:00 08:00 RBC 2.92 L (3.80-5.40) m/uL Hgb 9.4 L (11.4-16.0) gm/dL Hct 29.3 L (34.0-46.0) % MCV 100.5 H (80.0-100.0) fL RDW 18.4 H (11.5-15.5) % Lymphocytes # 0.7 L (1.0-4.8) k/uL Carbon Dioxide 20 L (22-30) mmol/L Glucose 134 H (74-99) mg/dL POC Glucose (mg/dL) (75-99) mg/dL Total Bilirubin 3.0 H (0.2-1.3) mg/dL AST 94 H (14-36) U/L Alkaline Phosphatase 756 H (38-126) U/L Ammonia 60 H (<30) umol/L Albumin 2.6 L (3.5-5.0) g/dL 03/03/19 Range/Units 11:03 RBC (3.80-5.40) m/uL Hgb (11.4-16.0) gm/dL Hct (34.0-46.0) % MCV (80.0-100.0) fL RDW (11.5-15.5) % Lymphocytes # (1.0-4.8) k/uL Carbon Dioxide (22-30) mmol/L Glucose (74-99) mg/dL POC Glucose (mg/dL) 233 H (75-99) mg/dL Total Bilirubin (0.2-1.3) mg/dL AST (14-36) U/L Alkaline Phosphatase (38-126) U/L Ammonia (<30) umol/L Albumin (3.5-5.0) g/dL Assessment and Plan Plan: 1. Increased weakness and falls with multiple compression fracture progression of L4 to L5. Lumbar x-ray completed showing multiple compression fractures have progressed L4 and L5 compared to old exam generalized osteopenia Hip x-ray completed showing no acute fracture dislocation in the pelvis or left hip. Old fracture deformity of the right inferior perinephric ramus. 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 PT OT consulted. Per Dr. Jones with orthopedic services MRI has been ordered. Patient does have known history of discitis. Infectious disease has been consulted 2. Elevated liver enzymes. Total bili elevated at 4.6 AST 83 alkaline phosphatase 640. Per GI services patient is status post ERCP at [facility] 1 week prior which revealed stenosis of the hepatojejunal anastomosis for which he underwent stent placement. Patient is maintained on Urosdiol . 3. History of deafness patient communicates with sign language 4. History of CVA and TIA 5. History of diabetes mellitus type 2. maintained on Actos. Sliding scale insulin coverage added. Hemoglobin A1c will be ordered 6. History of hyperlipidemia 7. History of EtOH she quit 23 years ago 8. Ex-smoker 9. Elevated BNP. BNP elevated at 1440 2-D echo completed showing an EF of 65- 70%. Repeat chest x-ray showing no acute pulmonary process 10. Hypothyroidism. Patient continued on Synthroid. TSH 7.10. Synthroid incr eased to 112 mcgs 11. Urine culture growing gram-negative bacilli patient started on Rocephin. Urine culture growing E. coli 12. Elevated ammonia level. Ammonia 47 patient maintained on lactulose 30 twice a day. Xifaxan added. ammonia level improving to 22 13. Iron deficiency Anemia. Ferrous sulfate has been added 14. Severe calorie malnutrition ensure shakes have been ordered PT/OT and social work services have been consulted Head CT completed showing no definitive acute process DVT prophylaxis heparin. GI prophylaxis Pepcid
[2019-03-03 16:47] LABS: Glucose,Whole Blood 90 mg/dL (75-99)
[2019-03-03 20:02] LABS: Glucose,Whole Blood 173 mg/dL (75-99)
[2019-03-04] MEDS: MORPHINE SULFATE 4 MG/ML SYRINGE IVP PRN ×4 (06:31→21:01)
[2019-03-04] MEDS: LEVOTHYROXINE 112 MCG TAB PO SCH (06:32)
[2019-03-04 06:56] LABS: Glucose,Whole Blood 139 mg/dL (75-99)
[2019-03-04 07:27] LABS: Anisocytosis Slight; Basophils # (A) 0.1 k/uL (0-0.2); Basophils % (A) 1 %; Eosinophils # (A) 0.1 k/uL (0-0.7); Eosinophils % (A) 2 %; HCT 30.3 % (34.0-46.0); HGB 9.6 gm/dL (11.4-16.0); Lymphocytes # (A) 1.1 k/uL (1.0-4.8); Lymphocytes % (A) 17 %; MCH 31.2 pg (25.0-35.0); MCHC 31.6 g/dL (31.0-37.0); MCV 98.8 fL (80.0-100.0); Macrocytosis Slight; Mean Platelet Volume 8.3; Monocytes # (A) 0.4 k/uL (0-1.0); Monocytes % (A) 6 %; Neutrophils # (A) 4.5 k/uL (1.3-7.7); Neutrophils % (A) 71 %; Platelet Count 208 k/uL (150-450); RBC 3.07 m/uL (3.80-5.40); RDW 17.5 % (11.5-15.5); WBC 6.4 k/uL (3.8-10.6)
[2019-03-04 07:45] LABS: ALT 49 U/L (9-52); AST 112 U/L (14-36); African American GFR (CKD) >90 (>60 ml/min/1.73 sqM); Albumin 2.6 g/dL (3.5-5.0); Alkaline Phosphatase 922 U/L (38-126); Anion Gap 10 mmol/L; Blood Urea Nitrogen 14 mg/dL (7-17); Carbon Dioxide 21 mmol/L (22-30); Chloride 108 mmol/L (98-107); Glucose 127 mg/dL (74-99); Potassium 3.9 mmol/L (3.5-5.1); Sodium 139 mmol/L (137-145); Total Protein 7.9 g/dL (6.3-8.2)
[2019-03-04] MEDS: INSULIN ASPART (NovoLOG) 100 UNIT/ML VIAL SQ SCH ×4 (07:50→20:57)
[2019-03-04] MEDS: HEPARIN SODIUM,PORCINE 5,000 UNIT/ML 1 ML VIAL SQ SCH ×2 (08:17→20:57)
[2019-03-04] MEDS: PANTOPRAZOLE 40 MG TABLET PO SCH ×2 (08:17→17:34)
[2019-03-04] MEDS: FERROUS SULFATE 325 MG TAB PO SCH ×2 (08:17→20:57)
[2019-03-04] MEDS: LACTULOSE 20 GM/30 ML CUP PO SCH ×2 (08:17→20:57)
[2019-03-04] MEDS: RIFAXIMIN 200 MG TAB PO SCH ×3 (08:18→20:57)
[2019-03-04] MEDS: FOLIC ACID 1 MG TAB PO SCH (08:18)
[2019-03-04] MEDS: URSODIOL 300 MG CAP PO SCH (08:18)
[2019-03-04] MEDS: MULTIVITAMINS, THERA 1 EACH TAB PO SCH (08:18)
[2019-03-04] MEDS: PIOGLITAZONE 15 MG TAB PO SCH (08:18)
[2019-03-04 11:03] LABS: Glucose,Whole Blood 156 mg/dL (75-99)
[2019-03-04 11:52] LABS: Glucose,Whole Blood 163 mg/dL (75-99)
--- NOTE | 2019-03-04 13:49 | P.PN ---
Subjective Progress Note Date: 03/04/19 This is a 68-year-old female patient of Dr. Post. According to ER report and patient's brother at bedside patient was found to be on the floor next to her bed this AM. Patient has has been placed history of deafness in which case with sign language but per patient's brother patient does appear to be confused and not making sense through her sign language right. Patient does appear to be a poor historian. Per patient's family it appears that patient had fallen previously was taken to PCP and was taken to [facility] in which she underwent possible common bile duct stent and was discharged home. Additional medical history includes CVA, diabetes mellitus, hyperlipidemia, cholecystectomy and an xiety. According to ER report patient is complaining of bilateral hip pain. Hip x-ray completed showing no acute Dr. dislocation the pelvis or left hip. Old fracture deformity of the right inferior perinephric ramus. 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 GI services have been consulted attempting to obtain records from [facility]. Liver enzymes slightly improved today. Patient still having pain in bilateral hips. Repeat chest x-ray ordered. 2-D echo completed fluids DC'd. Patient denies any chest pain or shortness of breath. Patient denies nausea vomiting or diarrhea. Patient denies any urinary burning or frequency On 03/01/2019 patient is resting comfortably in bed. Repeat chest x-ray completed showing no acute pulmonary process. GI services have been following attempting to obtain records from [facility] but does appear patient underwent ERCP one week ago at [facility]. At this time patient denies any s pecific complaints 03/02/2019 patient is resting comfortably in bed. 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 MRI of the spine has been ordered for orthopedic services infectious disease consulted due to patient's history of discitis. At this time patient denies any chest pain or shortness of breath. Patient denies nausea vomiting or diarrhea. Patient denies any urinary burning or frequency On 03/03/2019 patient was seen and examined on the medical floor she is alert slightly agitated due to pain, last night pain was not well controlled and dose of morphine was increased to 4 mg IV every 4 hours when necessary this morning patient is still slightly agitated due to pain at this point fentanyl patch 12 g every 72 hours was added to her regimen and consultation for anesthesia for pain management was initiated On 03/04/2019 patient was seen and examined on the medical floor she is alert and much more calm today she is answering questions appropriately she is still complaining of pain in the right lower back area otherwise she denies any complaints communication was done by writing patient also can somewhat dose some lip reading, at this time will increase dose of fentanyl patch to 25 g change every 72 hours, awaiting anesthesia consultation for pain management. Objective - Vital Signs Vital signs: Vital Signs Temp 97.5 F L 03/04/19 11:31 Pulse 85 03/04/19 11:31 Resp 20 03/04/19 11:31 BP 128/72 03/04/19 11:31 Pulse Ox 99 03/04/19 11:31 Intake & Output 03/03/19 03/04/19 03/04/19 18:59 06:59 18:59 Intake Total 220 Balance 220 Intake: Oral 220 Other: Voiding Method Bedpan Diaper Diaper Diaper Incontinent Incontinent Incontinent # Voids 1 1 1 - Exam In general patient is alert slightly agitated due to pain Head normocephalic and atraumatic there is obvious jaundice Neck supple no JVD no goiter Lungs diminished bilaterally no crackles no wheezing Heart regular rate and rhythm S1-S2, no rub or gallop Abdomen is soft nontender nondistended positive bowel sounds no hepatosplenomegaly Extremities no edema no cyanosis or clubbing Neuro patient is deaf. Communicates through sign language no gross focal neurological deficits - Labs CBC & Chem 7: 03/04/19 06:35 03/04/19 06:35 Labs: Abnormal Lab Results - Last 24 Hours (Table) 03/03/19 03/04/19 03/04/19 Range/Units 19:56 06:35 06:35 RBC 3.07 L (3.80-5.40) m/uL Hgb 9.6 L (11.4-16.0) gm/dL Hct 30.3 L (34.0-46.0) % RDW 17.5 H (11.5-15.5) % Chloride 108 H (98-107) mmol/L Carbon Dioxide 21 L (22-30) mmol/L Glucose 127 H (74-99) mg/dL POC Glucose (mg/dL) 173 H (75-99) mg/dL Total Bilirubin 3.0 H (0.2-1.3) mg/dL AST 112 H (14-36) U/L Alkaline Phosphatase 922 H (38-126) U/L Albumin 2.6 L (3.5-5.0) g/dL 03/04/19 03/04/19 03/04/19 Range/Units 06:55 11:01 11:50 RBC (3.80-5.40) m/uL Hgb (11.4-16.0) gm/dL Hct (34.0-46.0) % RDW (11.5-15.5) % Chloride (98-107) mmol/L Carbon Dioxide (22-30) mmol/L Glucose (74-99) mg/dL POC Glucose (mg/dL) 139 H 156 H 163 H (75-99) mg/dL Total Bilirubin (0.2-1.3) mg/dL AST (14-36) U/L Alkaline Phosphatase (38-126) U/L Albumin (3.5-5.0) g/dL Microbiology - Last 24 Hours (Table) 03/03/19 08:42 Blood Culture - Preliminary Blood No Growth after 24 hours 03/03/19 08:00 Blood Culture - Preliminary Blood No Growth after 24 hours 03/02/19 12:02 Blood Culture - Preliminary Blood No Growth after 24 hours Assessment and Plan Plan: 1. Increased weakness and falls with multiple compression fracture progression of L4 to L5. Lumbar x-ray completed showing multiple compression fractures have progressed L4 and L5 compared to old exam generalized osteopenia Hip x-ray completed showing no acute fracture dislocation in the pelvis or left hip. Old fracture deformity of the right inferior perinephric ramus. 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 PT OT consulted. Per Dr. Jones with orthopedic services MRI has been ordered. Patient does have known history of discitis. Infectious disease has been consulted 2. Elevated liver enzymes. Total bili elevated at 4.6 AST 83 alkaline phosphatase 640. Per GI services patient is status post ERCP at [facility] 1 week prior which revealed stenosis of the hepatojejunal anastomosis for which he underwent stent placement. Patient is maintained on Urosdiol . 3. History of deafness patient communicates with sign language 4. History of CVA and TIA 5. History of diabetes mellitus type 2. maintained on Actos. Sliding scale insulin coverage added. Hemoglobin A1c will be ordered 6. History of hyperlipidemia 7. History of EtOH she quit 23 years ago 8. Ex-smoker 9. Elevated BNP. BNP elevated at 1440 2-D echo completed showing an EF of 65- 70%. Repeat chest x-ray showing no acute pulmonary process 10. Hypothyroidism. Patient continued on Synthroid. TSH 7.10. Synthroid increased to 112 mcgs 11. Urine culture growing gram-negative bacilli patient started on Rocephin. Urine culture growing E. coli 12. Elevated ammonia level. Ammonia 47 patient maintained on lactulose 30 twice a day. Xifaxan added. ammonia level improving to 22 13. Iron deficiency Anemia. Ferrous sulfate has been added 14. Severe calorie malnutrition ensure shakes have been ordered PT/OT and social work services have been consulted Head CT completed showing no definitive acute process DVT prophylaxis heparin. GI prophylaxis Pepcid
[2019-03-04 16:56] LABS: Glucose,Whole Blood 165 mg/dL (75-99)
[2019-03-04 20:26] LABS: Glucose,Whole Blood 160 mg/dL (75-99)
--- NOTE | 2019-03-05 01:12 | PN ---
PROGRESS NOTE DATE OF SERVICE: 03/04/2019 REASON FOR FOLLOW UP: Abnormal MRI of the back with question of diskitis. INTERVAL HISTORY: The patient is currently afebrile. Patient has been breathing comfortably. Currently does not have any distress. No nausea, vomiting or diarrhea. The patient is scheduled for a CT-guided aspirate of the infected area on the spine tomorrow. PHYSICAL EXAMINATION: Blood pressure is 95/57 with a pulse of 84, temperature 98.6. She is 92% on room air. General description is an elderly female lying in bed in no distress. Respiratory system: Unlabored breathing. Clear to auscultation anteriorly. Heart S1, S2. Regular rate and rhythm. Abdomen soft. Extremities, no edema of the feet. LABS: No new labs have been obtained today, though blood cultures remain to be negative. DIAGNOSTIC IMPRESSION AND PLAN: Patient with abnormal MRI in this patient in the hospital with back pain. Apparently recently did have a fall, likely mechanical ( ) patient low for underlying diskitis as the patient has no fever or elevated white count. Waiting for the CT-guided aspirate of this area. Recommend holding on any systemic antibiotic therapy at this point, ( ) of the culture and monitor clinical course closely. MMODL / IJN: [id number] /
[2019-03-05] MEDS: LEVOTHYROXINE 112 MCG TAB PO SCH (06:18)
[2019-03-05 06:57] LABS: Glucose,Whole Blood 145 mg/dL (75-99)
[2019-03-05 07:54] LABS: Anisocytosis Slight; Basophils # (A) 0.1 k/uL (0-0.2); Basophils % (A) 1 %; Eosinophils # (A) 0.1 k/uL (0-0.7); Eosinophils % (A) 1 %; HCT 32.1 % (34.0-46.0); HGB 10.5 gm/dL (11.4-16.0); Lymphocytes # (A) 0.8 k/uL (1.0-4.8); Lymphocytes % (A) 8 %; MCH 32.3 pg (25.0-35.0); MCHC 32.8 g/dL (31.0-37.0); MCV 98.6 fL (80.0-100.0); Macrocytosis Slight; Mean Platelet Volume 8.3; Monocytes # (A) 0.3 k/uL (0-1.0); Monocytes % (A) 3 %; Neutrophils # (A) 8.1 k/uL (1.3-7.7); Neutrophils % (A) 86 %; Platelet Count 224 k/uL (150-450); RBC 3.25 m/uL (3.80-5.40); RDW 17.6 % (11.5-15.5); WBC 9.5 k/uL (3.8-10.6)
[2019-03-05 08:13] LABS: ALT 59 U/L (9-52); AST 129 U/L (14-36); African American GFR (CKD) >90 (>60 ml/min/1.73 sqM); Albumin 2.7 g/dL (3.5-5.0); Alkaline Phosphatase 1106 U/L (38-126); Anion Gap 10 mmol/L; Blood Urea Nitrogen 12 mg/dL (7-17); Calcium 8.9 mg/dL (8.4-10.2); Carbon Dioxide 21 mmol/L (22-30); Chloride 107 mmol/L (98-107); Glucose 162 mg/dL (74-99); Potassium 3.8 mmol/L (3.5-5.1); Sodium 138 mmol/L (137-145); Total Bilirubin 3.7 mg/dL (0.2-1.3); Total Protein 8.1 g/dL (6.3-8.2)
[2019-03-05] MEDS: INSULIN ASPART (NovoLOG) 100 UNIT/ML VIAL SQ SCH ×4 (09:03→21:04)
[2019-03-05] MEDS: LACTULOSE 20 GM/30 ML CUP PO SCH ×2 (09:04→21:04)
[2019-03-05] MEDS: FOLIC ACID 1 MG TAB PO SCH (09:04)
[2019-03-05] MEDS: MULTIVITAMINS, THERA 1 EACH TAB PO SCH (09:04)
[2019-03-05] MEDS: PIOGLITAZONE 15 MG TAB PO SCH (09:04)
[2019-03-05] MEDS: FERROUS SULFATE 325 MG TAB PO SCH ×2 (09:04→21:04)
[2019-03-05] MEDS: PANTOPRAZOLE 40 MG TABLET PO SCH ×2 (09:04→17:31)
[2019-03-05] MEDS: URSODIOL 300 MG CAP PO SCH (09:04)
[2019-03-05] MEDS: HEPARIN SODIUM,PORCINE 5,000 UNIT/ML 1 ML VIAL SQ SCH ×2 (09:04→21:04)
--- NOTE | 2019-03-05 09:56 | P.PN ---
Subjective Progress Note Date: 03/05/19 This is a 68-year-old female patient of Dr. Post. According to ER report and patient's brother at bedside patient was found to be on the floor next to her bed this AM. Patient has has been placed history of deafness in which case with sign language but per patient's brother patient does appear to be confused and not making sense through her sign language right. Patient does appear to be a poor historian. Per patient's family it appears that patient had fallen previously was taken to PCP and was taken to [facility] in which she underwent possible common bile duct stent and was discharged home. Additional medical history includes CVA, diabetes mellitus, hyperlipidemia, cholecystectomy and an xiety. According to ER report patient is complaining of bilateral hip pain. Hip x-ray completed showing no acute Dr. dislocation the pelvis or left hip. Old fracture deformity of the right inferior perinephric ramus. 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 GI services have been consulted attempting to obtain records from [facility]. Liver enzymes slightly improved today. Patient still having pain in bilateral hips. Repeat chest x-ray ordered. 2-D echo completed fluids DC'd. Patient denies any chest pain or shortness of breath. Patient denies nausea vomiting or diarrhea. Patient denies any urinary burning or frequency On 03/01/2019 patient is resting comfortably in bed. Repeat chest x-ray completed showing no acute pulmonary process. GI services have been following attempting to obtain records from [facility] but does appear patient underwent ERCP one week ago at [facility]. At this time patient denies any s pecific complaints 03/02/2019 patient is resting comfortably in bed. [employer] Cutter at bedside. MRI of the spine has been ordered for orthopedic services infectious disease consulted due to patient's history of discitis. At this time patient denies any chest pain or shortness of breath. Patient denies nausea vomiting or diarrhea. Patient denies any urinary burning or frequency On 03/03/2019 patient was seen and examined on the medical floor she is alert slightly agitated due to pain, last night pain was not well controlled and dose of morphine was increased to 4 mg IV every 4 hours when necessary this morning patient is still slightly agitated due to pain at this point fentanyl patch 12 g every 72 hours was added to her regimen and consultation for anesthesia for pain management was initiated On 03/04/2019 patient was seen and examined on the medical floor she is alert and much more calm today she is answering questions appropriately she is still complaining of pain in the right lower back area otherwise she denies any complaints communication was done by writing patient also can somewhat dose some lip reading, at this time will increase dose of fentanyl patch to 25 g change every 72 hours, awaiting anesthesia consultation for pain management. On 03/05/2019 patient is currently resting comfortably in bed. Patient is sleepy but does awake to commands. Patient's spinal patch was increased for adequate pain control. Patient is not displaying any signs of pain at this time. Awaiting pain management consult. Objective - Vital Signs Vital signs: Vital Signs Temp 98.1 F 03/05/19 05:00 Pulse 95 03/05/19 05:00 Resp 16 03/05/19 05:00 BP 127/65 03/05/19 05:00 Pulse Ox 97 03/05/19 05:00 Intake & Output 03/04/19 03/05/19 03/05/19 18:59 06:59 18:59 Intake Total 690 Balance 690 Intake: Oral 690 Other: Voiding Method Diaper Bedpan Incontinent Diaper Incontinent # Voids 3 3 # Bowel Movements 1 - Exam Head normocephalic Neck supple Lungs diminished bilaterally Heart regular rate and rhythm S1-S2, no rub or gallop Abdomen is soft nontender nondistended positive bowel sounds no hepatosplenom egaly Extremities no edema Neuro patient is deaf. Communicates through sign language Patient is jaundice - Labs CBC & Chem 7: 03/05/19 07:40 03/05/19 07:40 Labs: Abnormal Lab Results - Last 24 Hours (Table) 03/04/19 03/04/19 03/04/19 Range/Units 11:01 11:50 16:54 RBC (3.80-5.40) m/uL Hgb (11.4-16.0) gm/dL Hct (34.0-46.0) % RDW (11.5-15.5) % Neutrophils # (1.3-7.7) k/uL Lymphocytes # (1.0-4.8) k/uL Carbon Dioxide (22-30) mmol/L Glucose (74-99) mg/dL POC Glucose (mg/dL) 156 H 163 H 165 H (75-99) mg/dL Total Bilirubin (0.2-1.3) mg/dL AST (14-36) U/L ALT (9-52) U/L Alkaline Phosphatase (38-126) U/L Albumin (3.5-5.0) g/dL 03/04/19 03/05/19 03/05/19 Range/Units 20:25 06:55 07:40 RBC (3.80-5.40) m/uL Hgb (11.4-16.0) gm/dL Hct (34.0-46.0) % RDW (11.5-15.5) % Neutrophils # (1.3-7.7) k/uL Lymphocytes # (1.0-4.8) k/uL Carbon Dioxide 21 L (22-30) mmol/L Glucose 162 H (74-99) mg/dL POC Glucose (mg/dL) 160 H 145 H (75-99) mg/dL Total Bilirubin 3.7 H (0.2-1.3) mg/dL AST 129 H (14-36) U/L ALT 59 H (9-52) U/L Alkaline Phosphatase 1106 H (38-126) U/L Albumin 2.7 L (3.5-5.0) g/dL 03/05/19 Range/Units 07:40 RBC 3.25 L (3.80-5.40) m/uL Hgb 10.5 L (11.4-16.0) gm/dL Hct 32.1 L (34.0-46.0) % RDW 17.6 H (11.5-15.5) % Neutrophils # 8.1 H (1.3-7.7) k/uL Lymphocytes # 0.8 L (1.0-4.8) k/uL Carbon Dioxide (22-30) mmol/L Glucose (74-99) mg/dL POC Glucose (mg/dL) (75-99) mg/dL Total Bilirubin (0.2-1.3) mg/dL AST (14-36) U/L ALT (9-52) U/L Alkaline Phosphatase (38-126) U/L Albumin (3.5-5.0) g/dL Microbiology - Last 24 Hours (Table) 03/02/19 12:02 Blood Culture - Preliminary Blood No Growth after 48 hours 03/03/19 08:42 Blood Culture - Preliminary Blood No Growth after 24 hours 03/03/19 08:00 Blood Culture - Preliminary Blood No Growth after 24 hours Assessment and Plan Assessment: 1. Increased weakness and falls with multiple compression fracture progression of L4 to L5. Lumbar x-ray completed showing multiple compression fractures have progressed L4 and L5 compared to old exam generalized osteopenia Hip x-ray completed showing no acute fracture dislocation in the pelvis or left hip. Old fracture deformity of the right inferior perinephric ramus. 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 PT OT consulted. Per Dr. Jones with orthopedic services MRI has been ordered. Patient does have known history of di scitis. MRI of the lumbar spine completed showing abnormal bone marrow edema L3 vertebral body focally may be the basis of recurrent or chronic osteomyelitis). There is only trace residual disc at L3 to L4 that is not demonstrate abnormal signal nor enhancement to suggest osteomyelitis discitis. Per infectious disease recommending holding on systemic antibiotic therapy at this time will continue to monitor cultures. 2. Elevated liver enzymes. Total bili elevated at 4.6 AST 83 alkaline phosp hatase 640. Per GI services patient is status post ERCP at [facility] 1 week prior which revealed stenosis of the hepatojejunal anastomosis for which he underwent stent placement. Patient is maintained on Urosdiol . 3. History of deafness patient communicates with sign language 4. History of CVA and TIA 5. History of diabetes mellitus type 2. maintained on Actos. Sliding scale i nsulin coverage added. Hemoglobin A1c 7.1 6. History of hyperlipidemia 7. History of EtOH she quit 23 years ago 8. Ex-smoker 9. Elevated BNP. BNP elevated at 1440 2-D echo completed showing an EF of 65- 70%. Repeat chest x-ray showing no acute pulmonary process 10. Hypothyroidism. Patient continued on Synthroid. TSH 7.10. Synthroid increased to 112 mcgs 11. Urine culture growing gram-negative bacilli patient started on Rocephin. Urine culture growing E. coli 12. Elevated ammonia level. Ammonia 47 patient maintained on lactulose 30 twice a day. Xifaxan added. ammonia level improving to 22 13. Iron deficiency Anemia. Ferrous sulfate has been added 14. Severe calorie malnutrition ensure shakes have been ordered PT/OT and social work services have been consulted Head CT completed showing no definitive acute process Pain services consulted DVT prophylaxis heparin. GI prophylaxis Pepcid I performed an examination of the patient and discussed their management with the Nurse Practitioner. I have reviewed the Nurse Practitioner's notes and agree with the documented findings and plan of care
[2019-03-05 10:01] LABS: INR 1.4 (<1.2); Prothrombin Time 14.3 sec (9.0-12.0)
[2019-03-05] MEDS: RIFAXIMIN 200 MG TAB PO SCH ×3 (10:39→21:04)
[2019-03-05 11:25] LABS: Glucose,Whole Blood 137 mg/dL (75-99)
[2019-03-05] MEDS: MORPHINE SULFATE 4 MG/ML SYRINGE IVP PRN ×2 (12:58→17:37)
[2019-03-05 17:17] LABS: Glucose,Whole Blood 163 mg/dL (75-99)
[2019-03-05 20:09] LABS: Glucose,Whole Blood 91 mg/dL (75-99)
--- NOTE | 2019-03-05 20:39 | P.PN ---
Progress Note - Text Progress Note Date: 03/05/19 I tried to examine the patient, today at 1900 , patient was confused, were not able to get history, and I was not able to communicate with the patient because she was confused, ( the abalone fisherman present ,) patient reported that she did everything is fine and she had 0 pain, for this reason I recommend to decrease the morphine dose to 2 mg every 4 hours when necessary, and we will evaluate her tomorrow, I was not able to do any history or physical examination on this patient, Even though the abalone fisherman was present.
--- NOTE | 2019-03-05 22:58 | PN ---
PROGRESS NOTE DATE OF SERVICE: 03/05/2019. REASON FOR FOLLOWUP: Abnormal MRI with question of diskitis. INTERVAL HISTORY: The patient is currently afebrile. She was noted to be less responsive this morning however, improved after removal of the Duragesic patch. The patient main concern remains to be low back pain, though. No worsening. No nausea, vomiting or any diarrhea reported. PHYSICAL EXAMINATION: Blood pressure is 134/68 with a pulse of 95, temperature 96.5. She is 98% on room air. General description is an elderly female lying in bed in no distress. Respiratory system: Unlabored breathing. Clear to auscultation anteriorly. Heart S1, S2. Regular. The abdomen soft, no tenderness. LABS: Hemoglobin is 10.1, white count 9.5, BUN of 12, creatinine 0.65. Blood culture has been negative. MRI was reviewed with interventional radiologist. Did not show evidence of enhancement and marrow signal has decreased in intensity compared to previous MRI a year and a half ago. There is some suspicious of a pelvic fracture. DIAGNOSTIC IMPRESSION AND PLAN: Patient with abnormal MRI with concern for possible diskitis. However, the marrow signal has decreased compared to MRI done about a year and a half ago making it to be less likely infectious as the patient has not been on antibiotics in last 18 months. The patient did have recent fall with possible pelvic fracture. For which CT will be ordered. MRI will be discussed further with back surgeon and continue to hold on systemic antibiotic therapy. Sister was present at bedside. Questions and concerns were answered. MMODL / IJN: [id number] /
--- NOTE | 2019-03-05 23:00 | CT ---
EXAMINATION TYPE: CT pelvis wo con DATE OF EXAM: 03/05/2019 COMPARISON: CT abdomen and pelvis March 11, 2017. Pelvic and right hip x-ray February 27, 2019. HISTORY: Fall injury with pelvic pain. CT DLP: 286 mGycm Automated exposure control for dose reduction was used. FINDINGS: Demineralization is present. Old injury through the right superior pelvic ramus at level of pubic sym physis is present. There is acute comminuted slightly displaced fracture involving the right lateral aspect of the superior pelvic ramus with the anterior column extension felt present axial image 49 an d coronal image 30. Sclerotic focus right iliac bone favors benign bone island. Moderate narrowing of both hip joints. Similar sclerotic focus left iliac bone axial image 35 redemonstrated. Old fracture right sacrum felt present. Sacroiliac joints are maintained. Prominent fecal material in the sigmoid colon especially rectum. IMPRESSION: 1. Acute comminuted slightly displaced fracture through the lateral aspect right superior pelvic christy s involving anterior column of acetabulum near hip joint. 2. Severe rectal fecal stasis or impaction. A [place] level critical message alert has been initiated for Latoya Cr MD via the [facility] Critical Results System on 03/05/2019 10:58 PM. This message alert has been sent to Latoya Cr MD via the preferences provided by the clinician for the receipt of Radiology Critical Findings. Message ID [id number].
[2019-03-06] MEDS: LEVOTHYROXINE 112 MCG TAB PO SCH (06:04)
[2019-03-06 07:13] LABS: Glucose,Whole Blood 132 mg/dL (75-99)
[2019-03-06 07:46] LABS: Anisocytosis Slight; Basophils % (A) 0 %; Eosinophils # (A) 0.1 k/uL (0-0.7); Eosinophils % (A) 2 %; HCT 29.7 % (34.0-46.0); HGB 9.2 gm/dL (11.4-16.0); Lymphocytes % (A) 18 %; MCHC 31.1 g/dL (31.0-37.0); MCV 99.6 fL (80.0-100.0); Macrocytosis Slight; Mean Platelet Volume 8.4; Monocytes # (A) 0.3 k/uL (0-1.0); Monocytes % (A) 5 %; Neutrophils % (A) 72 %; Platelet Count 234 k/uL (150-450); RBC 2.98 m/uL (3.80-5.40); RDW 18.7 % (11.5-15.5); WBC 5.6 k/uL (3.8-10.6)
[2019-03-06 07:55] LABS: ALT 57 U/L (9-52); AST 123 U/L (14-36); African American GFR (CKD) >90 (>60 ml/min/1.73 sqM); Albumin 2.5 g/dL (3.5-5.0); Alkaline Phosphatase 932 U/L (38-126); Anion Gap 9 mmol/L; Blood Urea Nitrogen 15 mg/dL (7-17); Carbon Dioxide 20 mmol/L (22-30); Chloride 107 mmol/L (98-107); Glucose 132 mg/dL (74-99); Potassium 3.7 mmol/L (3.5-5.1); Sodium 136 mmol/L (137-145); Total Bilirubin 3.6 mg/dL (0.2-1.3); Total Protein 7.6 g/dL (6.3-8.2)
[2019-03-06] MEDS: LACTULOSE 20 GM/30 ML CUP PO SCH ×2 (08:09→21:32)
[2019-03-06] MEDS: HEPARIN SODIUM,PORCINE 5,000 UNIT/ML 1 ML VIAL SQ SCH ×2 (08:10→21:32)
[2019-03-06] MEDS: RIFAXIMIN 200 MG TAB PO SCH ×3 (08:10→21:32)
[2019-03-06] MEDS: MULTIVITAMINS, THERA 1 EACH TAB PO SCH (08:10)
[2019-03-06] MEDS: PIOGLITAZONE 15 MG TAB PO SCH (08:10)
[2019-03-06] MEDS: FOLIC ACID 1 MG TAB PO SCH (08:10)
[2019-03-06] MEDS: INSULIN ASPART (NovoLOG) 100 UNIT/ML VIAL SQ SCH ×4 (08:10→21:32)
[2019-03-06] MEDS: FERROUS SULFATE 325 MG TAB PO SCH ×2 (08:10→21:32)
[2019-03-06] MEDS: URSODIOL 300 MG CAP PO SCH (08:10)
[2019-03-06] MEDS: PANTOPRAZOLE 40 MG TABLET PO SCH ×2 (08:10→17:49)
[2019-03-06] MEDS: MORPHINE SULFATE 2 MG/ML SYRINGE IVP PRN (08:11)
[2019-03-06] MEDS ORDERED: NA PHOS,M-B/NA PHOS,DI-BA 133 ML ENEMA RECTAL ONE (11:00)
[2019-03-06 11:46] LABS: Glucose,Whole Blood 130 mg/dL (75-99)
--- NOTE | 2019-03-06 12:02 | P.PN ---
Subjective Progress Note Date: 03/06/19 This is a 68-year-old female patient of Dr. Post. According to ER report and patient's brother at bedside patient was found to be on the floor next to her bed this AM. Patient has has been placed history of deafness in which case with sign language but per patient's brother patient does appear to be confused and not making sense through her sign language right. Patient does appear to be a poor historian. Per patient's family it appears that patient had fallen previously was taken to PCP and was taken to [facility] in which she underwent possible common bile duct stent and was discharged home. Additional medical history includes CVA, diabetes mellitus, hyperlipidemia, cholecystectomy and an xiety. According to ER report patient is complaining of bilateral hip pain. Hip x-ray completed showing no acute Dr. dislocation the pelvis or left hip. Old fracture deformity of the right inferior perinephric ramus. 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 GI services have been consulted attempting to obtain records from [facility]. Liver enzymes slightly improved today. Patient still having pain in bilateral hips. Repeat chest x-ray ordered. 2-D echo completed fluids DC'd. Patient denies any chest pain or shortness of breath. Patient denies nausea vomiting or diarrhea. Patient denies any urinary burning or frequency On 03/01/2019 patient is resting comfortably in bed. Repeat chest x-ray completed showing no acute pulmonary process. GI services have been following attempting to obtain records from [facility] but does appear patient underwent ERCP one week ago at [facility]. At this time patient denies any s pecific complaints 03/02/2019 patient is resting comfortably in bed. Outside Sales Account Manager at bedside. MRI of the spine has been ordered for orthopedic services infectious disease consulted due to patient's history of discitis. At this time patient denies any chest pain or shortness of breath. Patient denies nausea vomiting or diarrhea. Patient denies any urinary burning or frequency On 03/03/2019 patient was seen and examined on the medical floor she is alert slightly agitated due to pain, last night pain was not well controlled and dose of morphine was increased to 4 mg IV every 4 hours when necessary this morning patient is still slightly agitated due to pain at this point fentanyl patch 12 g every 72 hours was added to her regimen and consultation for anesthesia for pain management was initiated On 03/04/2019 patient was seen and examined on the medical floor she is alert and much more calm today she is answering questions appropriately she is still complaining of pain in the right lower back area otherwise she denies any complaints communication was done by writing patient also can somewhat dose some lip reading, at this time will increase dose of fentanyl patch to 25 g change every 72 hours, awaiting anesthesia consultation for pain management. On 03/05/2019 patient is currently resting comfortably in bed. Patient is sleepy but does awake to commands. Patient's fentenyl patch was increased for adequate pain control. Patient is not displaying any signs of pain at this time. Awaiting pain management consult. On 03/06/2019 patient is awake but remains confused. Outside Sales Account Manager at bedside. Patient's sister at bedside. Patient denies any specific complaints. CT of pelvis completed per ID recommendation. Orthopedic services to review. Pain services also consulted. Patient's sentinel patch remove due to increased lethargy. Objective - Vital Signs Vital signs: Vital Signs Temp 97.6 F 03/06/19 05:00 Pulse 70 03/06/19 05:00 Resp 16 03/06/19 05:00 BP 107/61 03/06/19 05:00 Pulse Ox 95 03/06/19 05:00 Intake & Output 03/05/19 03/06/19 03/06/19 18:59 06:59 18:59 Intake Total 240 480 Output Total 2 Balance 240 478 Intake: Oral 240 480 Output: Stool 2 Other: Voiding Method Bedpan Bedpan Bedpan Diaper Diaper Diaper Incontinent Incontinent # Voids 3 2 # Bowel Movements 2 - Exam Head normocephalic Neck supple Lungs diminished bilaterally Heart regular rate and rhythm S1-S2, no rub or gallop Abdomen is soft nontender nondistended positive bowel sounds no hepatosplenomega ly Extremities no edema Neuro patient is deaf. Communicates through sign language Patient is jaundice - Labs CBC & Chem 7: 03/06/19 07:15 03/06/19 07:15 Labs: Abnormal Lab Results - Last 24 Hours (Table) 03/05/19 03/06/19 03/06/19 Range/Units 17:16 07:11 07:15 RBC 2.98 L (3.80-5.40) m/uL Hgb 9.2 L (11.4-16.0) gm/dL Hct 29.7 L (34.0-46.0) % RDW 18.7 H (11.5-15.5) % Sodium (137-145) mmol/L Carbon Dioxide (22-30) mmol/L Glucose (74-99) mg/dL POC Glucose (mg/dL) 163 H 132 H (75-99) mg/dL Total Bilirubin (0.2-1.3) mg/dL AST (14-36) U/L ALT (9-52) U/L Alkaline Phosphatase (38-126) U/L Ammonia (<30) umol/L Albumin (3.5-5.0) g/dL 03/06/19 03/06/19 03/06/19 Range/Units 07:15 07:15 11:38 RBC (3.80-5.40) m/uL Hgb (11.4-16.0) gm/dL Hct (34.0-46.0) % RDW (11.5-15.5) % Sodium 136 L (137-145) mmol/L Carbon Dioxide 20 L (22-30) mmol/L Glucose 132 H (74-99) mg/dL POC Glucose (mg/dL) 130 H (75-99) mg/dL Total Bilirubin 3.6 H (0.2-1.3) mg/dL AST 123 H (14-36) U/L ALT 57 H (9-52) U/L Alkaline Phosphatase 932 H (38-126) U/L Ammonia 108 H (<30) umol/L Albumin 2.5 L (3.5-5.0) g/dL Microbiology - Last 24 Hours (Table) 03/03/19 08:42 Blood Culture - Preliminary Blood No Growth after 72 hours 03/03/19 08:00 Blood Culture - Preliminary Blood No Growth after 72 hours 03/02/19 12:02 Blood Culture - Preliminary Blood No Growth after 72 hours Assessment and Plan Assessment: 1. Increased weakness and falls with multiple compression fracture progression of L4 to L5. Lumbar x-ray completed showing multiple compression fractures have progressed L4 and L5 compared to old exam generalized osteopenia Hip x-ray completed showing no acute fracture dislocation in the pelvis or left hip. Old fracture deformity of the right inferior perinephric ramus. 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 PT OT consulted. Per Dr. Jones with orthopedic services MRI has been ordered. Patient does have known history of discitis. MRI of the lumbar spine completed showing abnormal bone marrow edema L3 vertebral body focally may be the basis of recurrent or chronic osteomyelitis). There is only trace residual disc at L3 to L4 that is not demonstrate abnormal signal nor enhancement to suggest osteomyelitis discitis. Per infectious disease recommending holding on systemic antibiotic therapy at this time will continue to monitor cultures. CT of pelvis completed showing acute community did slightly displaced fracture through the lateral aspect right superior pelvic ramus involving anterior column of acetabulum near hip joint. Discussed case with orthopedic PA. Aware of results 2. Elevated liver enzymes. Total bili elevated at 4.6 AST 83 alkaline phosphatase 640. Per GI services patient is status post ERCP at [facility] 1 week prior which revealed stenosis of the hepatojejunal anastomosis for which he underwent stent placement. Patient is maintained on Urosdiol . 3. History of deafness patient communicates with sign language 4. History of CVA and TIA 5. History of diabetes mellitus type 2. maintained on Actos. Sliding scale insulin coverage added. Hemoglobin A1c 7.1 6. History of hyperlipidemia 7. History of EtOH she quit 23 years ago 8. Ex-smoker 9. Elevated BNP. BNP elevated at 1440 2-D echo completed showing an EF of 65- 70%. Repeat chest x-ray showing no acute pulmonary process 10. Hypothyroidism. Patient continued on Synthroid. TSH 7.10. Synthroid increased to 112 mcgs 11. Urine culture growing gram-negative bacilli patient started on Rocephin. Urine culture growing E. coli 12. Elevated ammonia level. Ammonia 47 patient maintained on lactulose 30 twice a day. Xifaxan added. Daily ammonia levels have been ordered 13. Iron deficiency Anemia. Ferrous sulfate has been added 14. Severe calorie malnutrition ensure shakes have been ordered 15. Rectal fecal stasis seen on computed tomography scan enemas have been ordered. Patient maintained on lactulose PT/OT and social work services have been consulted Head CT completed showing no definitive acute process Pain services consulted DVT prophylaxis heparin. GI prophylaxis Pepcid I performed an examination of the patient and discussed their management with the Nurse Practitioner. I have reviewed the Nurse Practitioner's notes and agree with the documented findings and plan of care
--- NOTE | 2019-03-06 12:27 | P.PN ---
Progress Note - Text Progress Note Date: 03/06/19 The patient is seen and examined today at bedside. She is completely by her sister who is able to act as a accounting practice manager for sign language. The patient was able to sit up at side at bedside today with therapy and seems to be more comfortable. Her pain is primary total left side when she has pain. She has not been having fevers. She has not had a bowel movement and was received Fleet Enema today. Assessment and plan History of discitis and osteomyelitis L3 4 Significant pain with difficulty ambulating and mobilizing New superior pubic Rami fracture and anterior column fracture to the pelvis I have reviewed the MRI scan from 03/02 as well as a computed tomography scan done yesterday. There are chronic changes at L3 4 with complete disc height loss and some increased signal at the vertebral bodies of L3 and L4 as reported on prior notes. The signal seems to be somewhat decreased from her imaging done several months ago and I agree with Dr. Gallagher that this represents some improvement of her old osteomyelitis and does not seem to represent new infectious process. She does have some foraminal stenosis but this does not correlate well with her new symptoms. We have been hesitant to try to treat with any steroid due to her history of infection. We do not have any plans for surgical intervention at her lumbar spine at this point and would recommend continued therapy. The computed tomography scan does show a new acute superior column fracture of her pelvis. There is no incongruency at her hip joint. Certainly this can cause significant pain for her and may have resulted due to her recent fall. It is okay for her to try to mobilize and to try to weight-bear if she is able to tolerate. She is having significant difficulty with this thus far but has been able to move somewhat improved with therapy. I think that she will require inpatient rehabilitation or halfway to continue her therapy and pain control and assist with her mobilization.
[2019-03-06 17:15] LABS: Glucose,Whole Blood 133 mg/dL (75-99)
[2019-03-06] MEDS: SODIUM CHLORIDE 0.9% 1,000 ML IV SCH (20:20)
[2019-03-06] MEDS: ACETAMINOPHEN TAB 325 MG TAB PO PRN (20:29)
[2019-03-06 21:41] LABS: Glucose,Whole Blood 181 mg/dL (75-99)
--- NOTE | 2019-03-06 23:40 | PN ---
PROGRESS NOTE DATE OF SERVICE: 03/06/2019. REASON FOR FOLLOWUP: Abnormal MR and question of diskitis. INTERVAL HISTORY: The patient is afebrile. Currently, the patient pain control today. He does not have any distress. No nausea, no vomiting. No abdominal pain. No diarrhea. The patient is constipated. Did have an enema today. PHYSICAL EXAMINATION: Blood pressure is 192/48 with a pulse of 81, temperature of 98. She is 95% on room air. General description this is an elderly female lying in bed in no distress. Respiratory system: Unlabored breathing clear to auscultation anteriorly. Heart S1, S2. Regular rate and rhythm. No tenderness. LABS: Hemoglobin 9.2 with white count 5.6, BUN of 15, creatinine 0.641. Blood cultures remain to be negative. DIAGNOSTIC IMPRESSION AND PLAN: Patient had abnormal MRI with concern for possible diskitis. However, the MRI was reviewed with radiologist and did show overall improvement compared to MRI in August of 2017, nicotine dependence, likely infectious likely diskitis slight diskitis. The patient has been admitted to hospital with pain more likely secondary to pelvic rami fractures bilateral on the left side. Ortho is on the case. No need for any systemic antibiotic therapy. Started at the bedside, questions answered. MMODL / IJN: [id number] /
[2019-03-07] MEDS: LEVOTHYROXINE 112 MCG TAB PO SCH (06:05)
[2019-03-07 07:13] LABS: Glucose,Whole Blood 157 mg/dL (75-99)
[2019-03-07] MEDS: URSODIOL 300 MG CAP PO SCH (08:10)
[2019-03-07] MEDS: LACTULOSE 20 GM/30 ML CUP PO SCH ×2 (08:10→20:33)
[2019-03-07] MEDS: FOLIC ACID 1 MG TAB PO SCH (08:10)
[2019-03-07] MEDS: INSULIN ASPART (NovoLOG) 100 UNIT/ML VIAL SQ SCH ×4 (08:10→20:32)
[2019-03-07] MEDS: RIFAXIMIN 200 MG TAB PO SCH ×3 (08:10→21:13)
[2019-03-07] MEDS: PIOGLITAZONE 15 MG TAB PO SCH (08:10)
[2019-03-07] MEDS: FERROUS SULFATE 325 MG TAB PO SCH ×2 (08:10→20:32)
[2019-03-07] MEDS: HEPARIN SODIUM,PORCINE 5,000 UNIT/ML 1 ML VIAL SQ SCH ×2 (08:10→20:32)
[2019-03-07] MEDS: MULTIVITAMINS, THERA 1 EACH TAB PO SCH (08:10)
[2019-03-07] MEDS: PANTOPRAZOLE 40 MG TABLET PO SCH ×2 (08:10→17:13)
[2019-03-07] MEDS: MORPHINE SULFATE 2 MG/ML SYRINGE IVP PRN ×2 (08:11→19:08)
[2019-03-07 08:29] LABS: ALT 55 U/L (9-52); AST 111 U/L (14-36); African American GFR (CKD) >90 (>60 ml/min/1.73 sqM); Albumin 2.4 g/dL (3.5-5.0); Alkaline Phosphatase 809 U/L (38-126); Anion Gap 9 mmol/L; Blood Urea Nitrogen 16 mg/dL (7-17); Calcium 8.7 mg/dL (8.4-10.2); Carbon Dioxide 19 mmol/L (22-30); Chloride 111 mmol/L (98-107); Glucose 143 mg/dL (74-99); Potassium 3.8 mmol/L (3.5-5.1); Sodium 139 mmol/L (137-145); Total Bilirubin 2.6 mg/dL (0.2-1.3); Total Protein 7.4 g/dL (6.3-8.2)
[2019-03-07 08:55] LABS: Anisocytosis Slight; HCT 28.5 % (34.0-46.0); HGB 9.1 gm/dL (11.4-16.0); Hypochromasia Slight; MCH 32.2 pg (25.0-35.0); MCV 100.8 fL (80.0-100.0); Macrocytosis Slight; Mean Platelet Volume 9.8; Platelet Count 189 k/uL (150-450); RBC 2.83 m/uL (3.80-5.40); RDW 17.7 % (11.5-15.5); WBC 4.8 k/uL (3.8-10.6)
[2019-03-07] MEDS: SODIUM CHLORIDE 0.9% 1,000 ML IV SCH ×2 (09:26→22:18)
[2019-03-07 09:27] LABS: Eosinophils # (M) 0.05 k/uL (0-0.7); Lymphocytes # (M) 1.15 k/uL (1.0-4.8); Monocytes # (M) 0.38 k/uL (0-1.0); Neutrophils % (M) 67 %; Nucleated Red Blood Cells 0 /100 WBC (0-0); Poikilocytosis (M) Present; Polychromasia Present; Target Cells Present; Total Cells Counted 100
[2019-03-07 09:28] LABS: Large Platelets Present
--- NOTE | 2019-03-07 10:40 | P.PN ---
Subjective Progress Note Date: 03/07/19 This is a 68-year-old female patient of Dr. Post. According to ER report and patient's brother at bedside patient was found to be on the floor next to her bed this AM. Patient has has been placed history of deafness in which case with sign language but per patient's brother patient does appear to be confused and not making sense through her sign language right. Patient does appear to be a poor historian. Per patient's family it appears that patient had fallen previously was taken to PCP and was taken to [facility] in which she underwent possible common bile duct stent and was discharged home. Additional medical history includes CVA, diabetes mellitus, hyperlipidemia, cholecystectomy and an xiety. According to ER report patient is complaining of bilateral hip pain. Hip x-ray completed showing no acute Dr. dislocation the pelvis or left hip. Old fracture deformity of the right inferior perinephric ramus. 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 GI services have been consulted attempting to obtain records from [facility]. Liver enzymes slightly improved today. Patient still having pain in bilateral hips. Repeat chest x-ray ordered. 2-D echo completed fluids DC'd. Patient denies any chest pain or shortness of breath. Patient denies nausea vomiting or diarrhea. Patient denies any urinary burning or frequency On 03/01/2019 patient is resting comfortably in bed. Repeat chest x-ray completed showing no acute pulmonary process. GI services have been following attempting to obtain records from [facility] but does appear patient underwent ERCP one week ago at [facility]. At this time patient denies any s pecific complaints 03/02/2019 patient is resting comfortably in bed. Tractor Sweeper Driver at bedside. MRI of the spine has been ordered for orthopedic services infectious disease consulted due to patient's history of discitis. At this time patient denies any chest pain or shortness of breath. Patient denies nausea vomiting or diarrhea. Patient denies any urinary burning or frequency On 03/03/2019 patient was seen and examined on the medical floor she is alert slightly agitated due to pain, last night pain was not well controlled and dose of morphine was increased to 4 mg IV every 4 hours when necessary this morning patient is still slightly agitated due to pain at this point fentanyl patch 12 g every 72 hours was added to her regimen and consultation for anesthesia for pain management was initiated On 03/04/2019 patient was seen and examined on the medical floor she is alert and much more calm today she is answering questions appropriately she is still complaining of pain in the right lower back area otherwise she denies any complaints communication was done by writing patient also can somewhat dose some lip reading, at this time will increase dose of fentanyl patch to 25 g change every 72 hours, awaiting anesthesia consultation for pain management. On 03/05/2019 patient is currently resting comfortably in bed. Patient is sleepy but does awake to commands. Patient's fentenyl patch was increased for adequate pain control. Patient is not displaying any signs of pain at this time. Awaiting pain management consult. On 03/06/2019 patient is awake but remains confused. Tractor Sweeper Driver at bedside. Patient's sister at bedside. Patient denies any specific complaints. CT of pelvis completed per ID recommendation. Orthopedic services to review. Pain services also consulted. Patient's sentinel patch remove due to increased lethargy. On 03/07/2019 patient is awake and alert. Patient does seem less confused than yesterday. Tractor Sweeper Driver is at bedside. Infectious disease and orthopedic service repeat scans no further workup at this time. No systemic antibiotics. Continue with physical therapy. Awaiting pain services to evaluate patient to switch to oral pain medications. At this time patient denies chest pain or shortness of breath. Patient denies nausea vomiting or diarrhea. Patient does reports she did have a large BM. Patient denies any urinary burning or frequency Objective - Vital Signs Vital signs: Vital Signs Temp 98.0 F 03/06/19 19:59 Pulse 73 03/07/19 05:00 Resp 16 03/07/19 05:00 BP 91/50 03/07/19 05:00 Pulse Ox 98 03/07/19 05:00 Intake & Output 03/06/19 03/07/19 03/07/19 18:59 06:59 18:59 Intake Total 240 740 Balance 240 740 Weight 48.081 kg Intake: Intake, IV Titration 150 Amount Sodium Chloride 0.9% 1, 150 000 ml @ 75 mls/hr IV . [id number] MEGHAN Rx#:[id number] Oral 240 590 Other: Voiding Method Bedpan Bedpan Diaper Diaper # Voids 2 1 # Bowel Movements 1 - Exam Head normocephalic Neck supple Lungs diminished bilaterally Heart regular rate and rhythm S1-S2, no rub or gallop Abdomen is soft nontender nondistended positive bowel sounds no hepatosplenomegaly Extremities no edema Neuro patient is deaf. Communicates through sign language Patient is jaundice - Labs CBC & Chem 7: 03/07/19 07:39 03/07/19 07:39 Labs: Abnormal Lab Results - Last 24 Hours (Table) 03/06/19 03/06/19 03/06/19 Range/Units 11:38 17:10 21:25 RBC (3.80-5.40) m/uL Hgb (11.4-16.0) gm/dL Hct (34.0-46.0) % MCV (80.0-100.0) fL RDW (11.5-15.5) % Chloride (98-107) mmol/L Carbon Dioxide (22-30) mmol/L Glucose (74-99) mg/dL POC Glucose (mg/dL) 130 H 133 H 181 H (75-99) mg/dL Total Bilirubin (0.2-1.3) mg/dL AST (14-36) U/L ALT (9-52) U/L Alkaline Phosphatase (38-126) U/L Ammonia (<30) umol/L Albumin (3.5-5.0) g/dL 03/07/19 03/07/19 03/07/19 Range/Units 07:12 07:39 07:39 RBC 2.83 L (3.80-5.40) m/uL Hgb 9.1 L (11.4-16.0) gm/dL Hct 28.5 L (34.0-46.0) % MCV 100.8 H (80.0-100.0) fL RDW 17.7 H (11.5-15.5) % Chloride 111 H (98-107) mmol/L Carbon Dioxide 19 L (22-30) mmol/L Glucose 143 H (74-99) mg/dL POC Glucose (mg/dL) 157 H (75-99) mg/dL Total Bilirubin 2.6 H (0.2-1.3) mg/dL AST 111 H (14-36) U/L ALT 55 H (9-52) U/L Alkaline Phosphatase 809 H (38-126) U/L Ammonia (<30) umol/L Albumin 2.4 L (3.5-5.0) g/dL 03/07/19 Range/Units 07:39 RBC (3.80-5.40) m/uL Hgb (11.4-16.0) gm/dL Hct (34.0-46.0) % MCV (80.0-100.0) fL RDW (11.5-15.5) % Chloride (98-107) mmol/L Carbon Dioxide (22-30) mmol/L Glucose (74-99) mg/dL POC Glucose (mg/dL) (75-99) mg/dL Total Bilirubin (0.2-1.3) mg/dL AST (14-36) U/L ALT (9-52) U/L Alkaline Phosphatase (38-126) U/L Ammonia 32 H (<30) umol/L Albumin (3.5-5.0) g/dL Microbiology - Last 24 Hours (Table) 03/03/19 08:00 Blood Culture - Preliminary Blood No Growth after 96 hours 03/02/19 12:02 Blood Culture - Preliminary Blood No Growth after 96 hours 03/03/19 08:42 Blood Culture - Preliminary Blood No Growth after 72 hours Assessment and Plan Assessment: 1. Increased weakness and falls with multiple compression fracture progression of L4 to L5. Lumbar x-ray completed showing multiple compression fractures have progressed L4 and L5 compared to old exam generalized osteopenia Hip x-ray completed showing no acute fracture dislocation in the pelvis or left hip. Old fracture deformity of the right inferior perinephric ramus. 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 PT OT consulted. Per Dr. Jones with orthopedic services MRI has been ordered. Patient does have known history of discitis. MRI of the lumbar spine completed showing abnormal bone marrow edema L3 vertebral body focally may be the basis of recurrent or chronic osteomyelitis). There is only trace residual disc at L3 to L4 that is not demonstrate abnormal signal nor enhancement to suggest osteomyelitis discitis. Per infectious disease recommending holding on systemic antibiotic therapy at this time will continue to monitor cultures. CT of pelvis completed showing acute community did slightly displaced fracture through the lateral aspect right superior pelvic ramus involving anterior column of acetabulum near hip joint. Discussed case with orthopedic PA. Aware of results 2. Elevated liver enzymes. Total bili elevated at 4.6 AST 83 alkaline phosphatase 640. Per GI services patient is status post ERCP at [facility] 1 week prior which revealed stenosis of the hepatojejunal anastomosis for which he underwent stent placement. Patient is maintained on Urosdiol . 3. History of deafness patient communicates with sign language 4. History of CVA and TIA 5. History of diabetes mellitus type 2. maintained on Actos. Sliding scale insulin coverage added. Hemoglobin A1c 7.1 6. History of hyperlipidemia 7. History of EtOH she quit 23 years ago 8. Ex-smoker 9. Elevated BNP. BNP elevated at 1440 2-D echo completed showing an EF of 65- 70%. Repeat chest x-ray showing no acute pulmonary process 10. Hypothyroidism. Patient continued on Synthroid. TSH 7.10. Synthroid increased to 112 mcgs 11. Urine culture growing gram-negative bacilli patient started on Rocephin. Urine culture growing E. coli. Completed treatment antibiotics DC'd per infectious disease 12. Elevated ammonia level. Ammonia 47 patient maintained on lactulose 30 twice a day. Xifaxan added. Daily ammonia levels have been ordered 13. Iron deficiency Anemia. Ferrous sulfate has been added 14. Severe calorie malnutrition ensure shakes have been ordered 15. Rectal fecal stasis seen on computed tomography scan enemas have been ordered. Patient maintained on lactulose. Enema given. Patient had large BM today PT/OT and social work services have been consulted Head CT completed showing no definitive acute process Pain services consulted Social work following plans to be DC'd to [facility] DVT prophylaxis heparin. GI prophylaxis Pepcid I performed an examination of the patient and discussed their management with the Nurse Practitioner. I have reviewed the Nurse Practitioner's notes and agree with the documented findings and plan of care
--- NOTE | 2019-03-07 11:10 | P.PN ---
Progress Note - Text Progress Note Date: 03/07/19 The patient is again seen and examined. I discussed the case and reviewed the computed tomography scan again. I discussed case at length with Dr. Gallagher with infectious disease. On exam the patient's Lessig given pain around her pelvis and over her left hemipelvis. She has some pubic pain as well. She has sustained dorsal flexion plantar flexion and EHL intact. Computed tomography scan is again reviewed and shows evidence of the anterior column/superior pubic Rami fracture on the right side. There is also evidence of a left sacral ala fracture involving the SI joint which is not fully detailed in this report. There is no widening of the SI joint. Assessment and plan Inability to ambulate with low back pain History of osteomyelitis L3 4 disc without further evidence of active infection Acute new superior pubic rami/anterior column fracture on the right with acute new left sacral ala fracture which appears to be a close book pelvis fracture pattern due to a fall With the findings of the sacral ala fracture and the P rami fracture think the patient has a close book pelvis fracture pattern which would well account for her symptoms on the left and right and her acute pain. It has been quite difficult to communicate appropriately with her but the fracture pattern would explain her significant pain and difficulty with her mobility. In terms of the fracture is okay for her to try to mobilize but she should be nonweightbearing on bilateral lower extremities for her the next 6 weeks to allow appropriate fracture healing. With the pattern itself we would not plan any surgical intervention or internal fixation. The fracture should do well with expectant management and healing with continued therapy for mobilization and nonweightbearing. It is okay for her to transfer to snf or rehab for continued monitoring from orthopedic spine standpoint. There does not seem to be evidence of active infection at her lumbar spine. She has been through an back treatment for discitis over a year ago and has not had any antibiotics for several months without any worsening at the site. Indeed there is actually been some improvement at the site itself and I do not think there is active infection or osteomyelitis at this point area and infectious disease has discontinued antibiotics at this point and I think that is appropriate. I do not think that she needs acute antibiotics at this point. I discussed this at length with Dr. Gallagher. It is okay for the patient to discharge to snf when stable with medicine and she should follow up with our service in approximately 2-3 weeks for recheck evaluation and repeat x-rays of her pelvis.
[2019-03-07 11:26] LABS: Glucose,Whole Blood 198 mg/dL (75-99)
[2019-03-07 17:09] LABS: Glucose,Whole Blood 126 mg/dL (75-99)
--- NOTE | 2019-03-07 18:04 | PN ---
PROGRESS NOTE DATE OF SERVICE: 03/07/2019 REASON FOR FOLLOWUP: 1. Abnormal MRI. 2. Positive urine culture. INTERVAL HISTORY: The patient is currently afebrile. The patient has been feeling better. Pain is better controlled today. No nausea, no vomiting, no abdominal pain or any diarrhea reported. PHYSICAL EXAMINATION: Blood pressure is 94/51 with a pulse of 72, temperature 97.6. She is 93% on room air. General description is an elderly female lying in bed in no distress. RESPIRATORY SYSTEM: Unlabored breathing. Clear to auscultation anteriorly. HEART: S1, S2. Regular rate and rhythm. ABDOMEN: Soft. No tenderness. EXTREMITIES: No edema of the feet. LABS: Hemoglobin 9.1, white count 4.9, BUN of 16, creatinine 0.59. DIAGNOSTIC IMPRESSION AND PLAN: Patient with abnormal MRI of the lumbar spine in this with a previous history of diskitis. However, the MRI this admission shows improvement compared to her last MRI in August of 2017; and during this time the patient was not on antibiotic; more likely representing no evidence of any infectious diskitis or osteomyelitis. Patient with no fever or elevated white count and blood cultures have been negative. Hence recommend no systemic antibiotic therapy. This has been discussed in detail with the orthopedic surgeon, who agrees with the plan. MMODL / IJN: [id number] /
[2019-03-07 20:00] LABS: Glucose,Whole Blood 223 mg/dL (75-99)
[2019-03-07] MEDS: guaiFENesin SYRUP 100MG/5ML 200 MG/10 ML CUP PO PRN (20:33)
[2019-03-08] MEDS: MORPHINE SULFATE 2 MG/ML SYRINGE IVP PRN ×3 (03:04→20:55)
[2019-03-08] MEDS: LEVOTHYROXINE 112 MCG TAB PO SCH (06:27)
[2019-03-08 06:54] LABS: Glucose,Whole Blood 110 mg/dL (75-99)
[2019-03-08] MEDS: INSULIN ASPART (NovoLOG) 100 UNIT/ML VIAL SQ SCH ×4 (07:27→20:52)
[2019-03-08] MEDS: RIFAXIMIN 200 MG TAB PO SCH ×3 (07:43→23:04)
[2019-03-08] MEDS: LACTULOSE 20 GM/30 ML CUP PO SCH ×2 (07:43→20:52)
[2019-03-08] MEDS: FOLIC ACID 1 MG TAB PO SCH (07:44)
[2019-03-08] MEDS: URSODIOL 300 MG CAP PO SCH (07:44)
[2019-03-08] MEDS: PIOGLITAZONE 15 MG TAB PO SCH (07:44)
[2019-03-08] MEDS: MULTIVITAMINS, THERA 1 EACH TAB PO SCH (07:44)
[2019-03-08] MEDS: PANTOPRAZOLE 40 MG TABLET PO SCH ×2 (07:44→17:46)
[2019-03-08] MEDS: FERROUS SULFATE 325 MG TAB PO SCH ×2 (07:44→20:52)
[2019-03-08] MEDS: HEPARIN SODIUM,PORCINE 5,000 UNIT/ML 1 ML VIAL SQ SCH ×2 (07:44→20:52)
[2019-03-08 08:48] LABS: Anisocytosis Slight; Basophils # (A) 0.1 k/uL (0-0.2); Basophils % (A) 1 %; Eosinophils # (A) 0.1 k/uL (0-0.7); Eosinophils % (A) 2 %; HGB 10.3 gm/dL (11.4-16.0); Hypochromasia Moderate; Lymphocytes # (A) 1.2 k/uL (1.0-4.8); Lymphocytes % (A) 23 %; MCH 31.7 pg (25.0-35.0); MCHC 31.3 g/dL (31.0-37.0); MCV 101.3 fL (80.0-100.0); Macrocytosis Moderate; Mean Platelet Volume 8.6; Monocytes # (A) 0.4 k/uL (0-1.0); Monocytes % (A) 7 %; Neutrophils # (A) 3.4 k/uL (1.3-7.7); Neutrophils % (A) 63 %; Platelet Count 245 k/uL (150-450); RBC 3.25 m/uL (3.80-5.40); RDW 17.7 % (11.5-15.5); WBC 5.4 k/uL (3.8-10.6)
[2019-03-08 09:06] LABS: ALT 52 U/L (9-52); AST 108 U/L (14-36); African American GFR (CKD) >90 (>60 ml/min/1.73 sqM); Albumin 2.5 g/dL (3.5-5.0); Alkaline Phosphatase 856 U/L (38-126); Anion Gap 11 mmol/L; Blood Urea Nitrogen 11 mg/dL (7-17); Carbon Dioxide 18 mmol/L (22-30); Chloride 112 mmol/L (98-107); Glucose 160 mg/dL (74-99); Potassium 3.4 mmol/L (3.5-5.1); Sodium 141 mmol/L (137-145); Total Bilirubin 2.6 mg/dL (0.2-1.3); Total Protein 7.7 g/dL (6.3-8.2)
[2019-03-08] MEDS ORDERED: Potassium Replacement Protocol 1 EACH MISC MISCELLANE PRN (10:15)
--- NOTE | 2019-03-08 10:19 | P.PN ---
Subjective Progress Note Date: 03/08/19 This is a 68-year-old female patient of Dr. Post. According to ER report and patient's brother at bedside patient was found to be on the floor next to her bed this AM. Patient has has been placed history of deafness in which case with sign language but per patient's brother patient does appear to be confused and not making sense through her sign language right. Patient does appear to be a poor historian. Per patient's family it appears that patient had fallen previously was taken to PCP and was taken to [facility] in which she underwent possible common bile duct stent and was discharged home. Additional medical history includes CVA, diabetes mellitus, hyperlipidemia, cholecystectomy and an xiety. According to ER report patient is complaining of bilateral hip pain. Hip x-ray completed showing no acute Dr. dislocation the pelvis or left hip. Old fracture deformity of the right inferior perinephric ramus. 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 GI services have been consulted attempting to obtain records from [facility]. Liver enzymes slightly improved today. Patient still having pain in bilateral hips. Repeat chest x-ray ordered. 2-D echo completed fluids DC'd. Patient denies any chest pain or shortness of breath. Patient denies nausea vomiting or diarrhea. Patient denies any urinary burning or frequency On 03/01/2019 patient is resting comfortably in bed. Repeat chest x-ray completed showing no acute pulmonary process. GI services have been following attempting to obtain records from [facility] but does appear patient underwent ERCP one week ago at [facility]. At this time patient denies any s pecific complaints 03/02/2019 patient is resting comfortably in bed. Rug Layer at bedside. MRI of the spine has been ordered for orthopedic services infectious disease consulted due to patient's history of discitis. At this time patient denies any chest pain or shortness of breath. Patient denies nausea vomiting or diarrhea. Patient denies any urinary burning or frequency On 03/03/2019 patient was seen and examined on the medical floor she is alert slightly agitated due to pain, last night pain was not well controlled and dose of morphine was increased to 4 mg IV every 4 hours when necessary this morning patient is still slightly agitated due to pain at this point fentanyl patch 12 g every 72 hours was added to her regimen and consultation for anesthesia for pain management was initiated On 03/04/2019 patient was seen and examined on the medical floor she is alert and much more calm today she is answering questions appropriately she is still complaining of pain in the right lower back area otherwise she denies any complaints communication was done by writing patient also can somewhat dose some lip reading, at this time will increase dose of fentanyl patch to 25 g change every 72 hours, awaiting anesthesia consultation for pain management. On 03/05/2019 patient is currently resting comfortably in bed. Patient is sleepy but does awake to commands. Patient's fentenyl patch was increased for adequate pain control. Patient is not displaying any signs of pain at this time. Awaiting pain management consult. On 03/06/2019 patient is awake but remains confused. Rug Layer at bedside. Patient's sister at bedside. Patient denies any specific complaints. CT of pelvis completed per ID recommendation. Orthopedic services to review. Pain services also consulted. Patient's sentinel patch remove due to increased lethargy. On 03/07/2019 patient is awake and alert. Patient does seem less confused than yesterday. Rug Layer is at bedside. Infectious disease and orthopedic service repeat scans no further workup at this time. No systemic antibiotics. Continue with physical therapy. Awaiting pain services to evaluate patient to switch to oral pain medications. At this time patient denies chest pain or shortness of breath. Patient denies nausea vomiting or diarrhea. Patient does reports she did have a large BM. Patient denies any urinary burning or frequency On 03/08/2019 patient is alert and awake. Rug Layer is at bedside. This time patient does respond to questions but does get confused. Per nursing staffing analyst patient has moments of clarity episodes of confusion. Patient denies any specific complaints. Patient denies chest pain or shortness of breath. Patient denies nausea vomiting or diarrhea. Patient denies any urinary burning or frequency. Discussed with nursing staff that pain services need to be recontacted to reevaluate patient for pain control. Objective - Vital Signs Vital signs: Vital Signs Temp 98.2 F 09/12/19 03:56 Pulse 80 03/08/19 03:56 Resp 16 03/08/19 03:56 BP 94/55 03/08/19 03:56 Pulse Ox 98 03/08/19 03:56 Intake & Output 03/07/19 03/08/19 03/08/19 18:59 06:59 18:59 Intake Total 862.5 Balance 862.5 Weight 48.081 kg Intake: Intake, IV Titration 862.5 Amount Sodium Chloride 0.9% 1, 862.5 000 ml @ 75 mls/hr IV . [id number] MEGHAN Rx#:[id number] Other: Voiding Method Bedpan Bedpan Diaper Diaper # Voids 3 1 # Bowel Movements 1 - Exam Head normocephalic Neck supple Lungs diminished bilaterally Heart regular rate and rhythm S1-S2, no rub or gallop Abdomen is soft nontender nondistended positive bowel sounds no hepatosplenomegaly Extremities no edema Neuro patient is deaf. Communicates through sign language Patient is jaundice - Labs CBC & Chem 7: 03/08/19 08:19 03/08/19 08:19 Labs: Abnormal Lab Results - Last 24 Hours (Table) 03/07/19 03/07/19 03/07/19 Range/Units 11:24 17:09 19:59 RBC (3.80-5.40) m/uL Hgb (11.4-16.0) gm/dL Hct (34.0-46.0) % MCV (80.0-100.0) fL RDW (11.5-15.5) % Potassium (3.5-5.1) mmol/L Chloride (98-107) mmol/L Carbon Dioxide (22-30) mmol/L Glucose (74-99) mg/dL POC Glucose (mg/dL) 198 H 126 H 223 H (75-99) mg/dL Total Bilirubin (0.2-1.3) mg/dL AST (14-36) U/L Alkaline Phosphatase (38-126) U/L Ammonia (<30) umol/L Albumin (3.5-5.0) g/dL 03/08/19 03/08/19 03/08/19 Range/Units 06:53 08:19 08:19 RBC 3.25 L (3.80-5.40) m/uL Hgb 10.3 L (11.4-16.0) gm/dL Hct 33.0 L (34.0-46.0) % MCV 101.3 H (80.0-100.0) fL RDW 17.7 H (11.5-15.5) % Potassium 3.4 L (3.5-5.1) mmol/L Chloride 112 H (98-107) mmol/L Carbon Dioxide 18 L (22-30) mmol/L Glucose 160 H (74-99) mg/dL POC Glucose (mg/dL) 110 H (75-99) mg/dL Total Bilirubin 2.6 H (0.2-1.3) mg/dL AST 108 H (14-36) U/L Alkaline Phosphatase 856 H (38-126) U/L Ammonia (<30) umol/L Albumin 2.5 L (3.5-5.0) g/dL 03/08/19 Range/Units 08:19 RBC (3.80-5.40) m/uL Hgb (11.4-16.0) gm/dL Hct (34.0-46.0) % MCV (80.0-100.0) fL RDW (11.5-15.5) % Potassium (3.5-5.1) mmol/L Chloride (98-107) mmol/L Carbon Dioxide (22-30) mmol/L Glucose (74-99) mg/dL POC Glucose (mg/dL) (75-99) mg/dL Total Bilirubin (0.2-1.3) mg/dL AST (14-36) U/L Alkaline Phosphatase (38-126) U/L Ammonia 40 H (<30) umol/L Albumin (3.5-5.0) g/dL Microbiology - Last 24 Hours (Table) 03/03/19 08:00 Blood Culture - Preliminary Blood No Growth after 120 hours 03/02/19 12:02 Blood Culture - Preliminary Blood No Growth after 120 hours 03/03/19 08:42 Blood Culture - Preliminary Blood No Growth after 96 hours Assessment and Plan Assessment: 1. Increased weakness and falls with multiple compression fracture progression of L4 to L5. Lumbar x-ray completed showing multiple compression fractures have progressed L4 and L5 compared to old exam generalized osteopenia Hip x-ray completed showing no acute fracture dislocation in the pelvis or left hip. Old fracture deformity of the right inferior perinephric ramus. 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 PT OT consulted. Per Dr. Jones with orthopedic services MRI has been ordered. Patient does have known history of discitis. MRI of the lumbar spine completed showing abnormal bone marrow edema L3 vertebral body focally may be the basis of recurrent or chronic osteomyelitis). There is only trace residual disc at L3 to L4 that is not demonstrate abnormal signal nor enhancement to suggest osteomyelitis discitis. Per infectious disease recommending holding on systemic antibiotic therapy at this time will continue to monitor cultures. CT of pelvis completed showing acute community did slightly displaced fracture through the lateral aspect right superior pelvic ramus involving anterior column of acetabulum near hip joint. Discussed case with orthopedic PA. Aware of results. Per orthopedic services no surgical intervention planned. Per infectious disease no need for antibiotics 2. Elevated liver enzymes. Total bili elevated at 4.6 AST 83 alkaline phosphatase 640. Per GI services patient is status post ERCP at [facility] 1 week prior which revealed stenosis of the hepatojejunal anastomosis for which he underwent stent placement. Patient is maintained on Urosdiol . 3. History of deafness patient communicates with sign language 4. History of CVA and TIA 5. History of diabetes mellitus type 2. maintained on Actos. Sliding scale insulin coverage added. Hemoglobin A1c 7.1 6. History of hyperlipidemia 7. History of EtOH she quit 23 years ago 8. Ex-smoker 9. Elevated BNP. BNP elevated at 1440 2-D echo completed showing an EF of 65- 70%. Repeat chest x-ray showing no acute pulmonary process 10. Hypothyroidism. Patient continued on Synthroid. TSH 7.10. Synthroid increased to 112 mcgs 11. Urine culture growing gram-negative bacilli patient started on Rocephin. Urine culture growing E. coli. Completed treatment antibiotics DC'd per inf ectious disease 12. Elevated ammonia level. Ammonia 47 patient maintained on lactulose 30 twice a day. Xifaxan added. Daily ammonia levels have been ordered 13. Iron deficiency Anemia. Ferrous sulfate has been added 14. Severe calorie malnutrition ensure shakes have been ordered 15. Rectal fecal stasis seen on computed tomography scan enemas have been ordered. Patient maintained on lactulose. Enema given. Patient had large BM today 16. Hypokalemia. Potassium 3.4. Replaced per protocol PT/OT and social work services have been consulted Head CT completed showing no definitive acute process Pain services consulted Social work following plans to be DC'd to [facility] DVT prophylaxis heparin. GI prophylaxis Pepcid I performed an examination of the patient and discussed their management with the Nurse Practitioner. I have reviewed the Nurse Practitioner's notes and agree with the documented findings and plan of care
[2019-03-08] MEDS: POTASSIUM CHLORIDE ER 20 MEQ TAB.ER PO SCH ×2 (10:54→12:57)
[2019-03-08 11:07] LABS: Glucose,Whole Blood 163 mg/dL (75-99)
[2019-03-08] MEDS: SODIUM CHLORIDE 0.9% 1,000 ML IV SCH (13:01)
[2019-03-08] MEDS ORDERED: HYDROcodone/APAP 5-325MG 1 EACH TAB PO PRN (15:14)
--- NOTE | 2019-03-08 15:40 | P.PAINCN ---
History of Present Illness - Reason for Consult Consult date: 03/08/19 - History of Present Illness This is 68 years old female, with a chronic history of low back pain she this since , patient had a history of L3 4 discitis/osteomyelitis and she had back pain issue for several years, patient was started on fentanyl patch 12 g, and patient was continued to have severe low back pain, and then fentanyl patch was increased to 25 and patient was oversedated, patient was on morphine sulfate 4 mg, when necessary, and also patient was oversedated for this reason the morphine was decreased to 2 mg every 2 hours when necessary Past Medical History Past Medical History: CVA/TIA, Diabetes Mellitus, Hearing Disorder / Deafness, Hyperlipidemia Additional Past Medical History / Comment(s): Pt is deaf-understands ASL and some lip reading, CVA residual "memory loss"; NIDDM type II. History of discitis at L3 4 in 2016- which was treated with long-term IV antibiotics. Dr. Gallagher with good resolution History of Any Multi-Drug Resistant Organisms: None Reported Past Surgical History: Cholecystectomy Additional Past Surgical History / Comment(s): september 2014- gallbladder removed, bypass of liver duct/stent done at [facility], left carotid endarterectomy September 2014, colonoscopy. Past Anesthesia/Blood Transfusion Reactions: No Reported Reaction Past Psychological History: Anxiety Additional Psychological History / Comment(s): PT LIVES alone. Brother lives next to her. She is indenpendent. She drives. Sister is the primary contact. Retired. No experience. Tobacco smoker stopped in 2013. 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 smoking: stopped 09/2014 1ppd Past Drug Use History: None Reported - Past Family History Brother(s) Family Medical History: CVA/TIA Mother Family Medical History: Memory Impairment Additional Family Medical History / Comment(s): "Alzheimer's". Mother is . Father Family Medical History: No Reported History Additional Family Medical History / Comment(s): Father is 93 yrs old. Medications and Allergies Home Medications Medication Instructions Recorded Confirmed Type Ursodiol 300 mg PO DAILY 08/22/15 02/27/19 History Multivitamins, Thera [Multivitamin 1 tab PO DAILY 03/07/17 02/27/19 History (formulary)] Folic Acid 1 mg PO DAILY 02/27/19 02/27/19 History Levothyroxine Sodium [Synthroid] 100 mcg PO DAILY 02/27/19 02/27/19 History Omeprazole [PriLOSEC] 40 mg PO BID 02/27/19 02/27/19 History Pioglitazone [Actos] 15 mg PO DAILY 02/27/19 02/27/19 History Thiamine [Vitamin B-1] 100 mg PO DAILY 02/27/19 02/27/19 History guaiFENesin [guaiFENesin Oral 200 mg PO Q4H PRN 02/27/19 02/27/19 History Solution] Allergies Allergy/AdvReac Type Severity Reaction Status Date / Time No Known Allergies Allergy Verified 02/27/19 14:41 Physical Exam Vitals: Vital Signs Temp Pulse Resp BP Pulse Ox 03/08/19 11:25 97.9 F 73 16 100/57 94 L 03/08/19 03:56 98.2 F 80 16 94/55 98 03/07/19 21:00 98.5 F 79 16 105/54 96 Intake and Output 03/08/19 03/08/19 03/08/19 06:59 14:59 22:59 Intake Total 600 840 Balance 600 840 Intake: Intake, IV Titration 600 600 Amount Sodium Chloride 0.9% 1, 600 600 000 ml @ 75 mls/hr IV . [id number] [facility] Rx#:[id number] Oral 240 Other: Voiding Method Bedpan Bedpan Diaper Diaper # Voids 1 3 # Bowel Movements 2 Weight 48.081 kg Head normocephalic Neck supple Lungs diminished bilaterally Heart regular rate and rhythm S1-S2, no rub or gallop Abdomen is soft nontender nondistended positive bowel sounds no he patosplenomegaly Extremities no edema Neuro patient is deaf. Communicates through sign language Patient is jaundice Results CBC & Chem 7: 03/08/19 08:19 03/08/19 08:19 Labs: Abnormal Lab Results - Last 24 Hours (Table) 03/07/19 03/07/19 03/08/19 Range/Units 17:09 19:59 06:53 RBC (3.80-5.40) m/uL Hgb (11.4-16.0) gm/dL Hct (34.0-46.0) % MCV (80.0-100.0) fL RDW (11.5-15.5) % Potassium (3.5-5.1) mmol/L Chloride (98-107) mmol/L Carbon Dioxide (22-30) mmol/L Glucose (74-99) mg/dL POC Glucose (mg/dL) 126 H 223 H 110 H (75-99) mg/dL Total Bilirubin (0.2-1.3) mg/dL AST (14-36) U/L Alkaline Phosphatase (38-126) U/L Ammonia (<30) umol/L Albumin (3.5-5.0) g/dL 03/08/19 03/08/19 03/08/19 Range/Units 08:19 08:19 08:19 RBC 3.25 L (3.80-5.40) m/uL Hgb 10.3 L (11.4-16.0) gm/dL Hct 33.0 L (34.0-46.0) % MCV 101.3 H (80.0-100.0) fL RDW 17.7 H (11.5-15.5) % Potassium 3.4 L (3.5-5.1) mmol/L Chloride 112 H (98-107) mmol/L Carbon Dioxide 18 L (22-30) mmol/L Glucose 160 H (74-99) mg/dL POC Glucose (mg/dL) (75-99) mg/dL Total Bilirubin 2.6 H (0.2-1.3) mg/dL AST 108 H (14-36) U/L Alkaline Phosphatase 856 H (38-126) U/L Ammonia 40 H (<30) umol/L Albumin 2.5 L (3.5-5.0) g/dL 03/08/19 Range/Units 11:06 RBC (3.80-5.40) m/uL Hgb (11.4-16.0) gm/dL Hct (34.0-46.0) % MCV (80.0-100.0) fL RDW (11.5-15.5) % Potassium (3.5-5.1) mmol/L Chloride (98-107) mmol/L Carbon Dioxide (22-30) mmol/L Glucose (74-99) mg/dL POC Glucose (mg/dL) 163 H (75-99) mg/dL Total Bilirubin (0.2-1.3) mg/dL AST (14-36) U/L Alkaline Phosphatase (38-126) U/L Ammonia (<30) umol/L Albumin (3.5-5.0) g/dL Microbiology - Last 24 Hours (Table) 03/02/19 12:02 Blood Culture - Final Blood No Growth after 144 hours 03/03/19 08:42 Blood Culture - Preliminary Blood No Growth after 120 hours 03/03/19 08:00 Blood Culture - Preliminary Blood No Growth after 120 hours Assessment and Plan Plan: Assessment and plan= chronic low back pain and history of osteomyelitis and pelvic fracture Patient had no benefits from fentanyl patch 12 g and she is oversedated from fentanyl 25 g Recommend salt patient on [place] 5/325 every 6 hours when necessary, and morphine 2 mg every 8 hours when necessary Patient is not candidate for any interventional pain management. Patient need long-term rehab Time with Patient: Less than 30 PQRS Measure Charge Sheet PQRS Narrative: Smoking Status Former smoker Do You Want the Pneumonia Vaccine Up to Date Vaccine AT THIS TIME? Blood Pressure [Left Arm] 100/57 Blood Pressure [Right Arm] 93/53 Blood Pressure 124/75 Pain Intensity [None] 0 Pain Intensity [Back] 0 Pain Intensity 1 Pain Scale Used Non Verbal Pain Indicator Scale Used Numeric (1 - 10) Home Medications: Ambulatory Orders Ursodiol 300 mg PO DAILY 08/22/15 Multivitamins, Thera [Multivitamin (formulary)] 1 tab PO DAILY 03/07/17 Folic Acid 1 mg PO DAILY 02/27/19 Levothyroxine Sodium [Synthroid] 100 mcg PO DAILY 02/27/19 Omeprazole [PriLOSEC] 40 mg PO BID 02/27/19 Pioglitazone [Actos] 15 mg PO DAILY 02/27/19 Thiamine [Vitamin B-1] 100 mg PO DAILY 02/27/19 guaiFENesin [guaiFENesin Oral Solution] 200 mg PO Q4H PRN 02/27/19
[2019-03-08 17:20] LABS: Glucose,Whole Blood 271 mg/dL (75-99)
--- NOTE | 2019-03-08 19:44 | PN ---
PROGRESS NOTE DATE OF SERVICE: 03/08/2019 REASON FOR FOLLOWUP: 1. Abnormal MRI and a question of possible diskitis. 2. Positive urine culture. INTERVAL HISTORY: The patient is currently afebrile. The patient has been breathing comfortably. The patient pain's to the leg area is currently controlled. No chest pain, shortness of breath or cough. No abdominal pain or any diarrhea. PHYSICAL EXAMINATION: Her blood pressure is 100/57 with a pulse of 73, temperature 97.9. She is 94% on room air. General description is an elderly female lying in bed in no distress. RESPIRATORY SYSTEM: Unlabored breathing. Clear to auscultation anteriorly. HEART: S1, S2. Regular rate and rhythm. ABDOMEN: Soft. No tenderness. EXTREMITIES: No edema of the feet. LABS: Blood culture remains negative. DIAGNOSTIC IMPRESSION AND PLAN: 1. Patient with abnormal MRI. Clinically the patient is not behaving as diskitis, as the patient has shown overall clinical improvement in the MRI finding without any antibiotic treatment. Hence no need for any systemic antibiotic therapy at this point. The patient is afebrile. Her white count is normal. 2. Patient with positive urine culture with Escherichia coli, likely asymptomatic bacteriuria. Patient without any symptoms. No need for any systemic antibiotic therapy for the same. Sister at the bedside. Questions were answered. MMODL / IJN: [id number] /
[2019-03-08 20:31] LABS: Glucose,Whole Blood 146 mg/dL (75-99)
[2019-03-09] MEDS: MORPHINE SULFATE 2 MG/ML SYRINGE IVP PRN ×2 (03:48→08:35)
[2019-03-09] MEDS: SODIUM CHLORIDE 0.9% 1,000 ML IV SCH (06:14)
[2019-03-09] MEDS: LEVOTHYROXINE 112 MCG TAB PO SCH (06:14)
[2019-03-09 07:04] LABS: Glucose,Whole Blood 115 mg/dL (75-99)
[2019-03-09] MEDS: INSULIN ASPART (NovoLOG) 100 UNIT/ML VIAL SQ SCH ×3 (07:35→17:42)
[2019-03-09 07:39] LABS: Anisocytosis Slight; Basophils # (A) 0.1 k/uL (0-0.2); Basophils % (A) 1 %; Eosinophils # (A) 0.1 k/uL (0-0.7); Eosinophils % (A) 3 %; HCT 30.8 % (34.0-46.0); HGB 9.7 gm/dL (11.4-16.0); Hypochromasia Slight; Lymphocytes # (A) 1.4 k/uL (1.0-4.8); Lymphocytes % (A) 25 %; MCH 32.3 pg (25.0-35.0); MCHC 31.4 g/dL (31.0-37.0); MCV 102.7 fL (80.0-100.0); Macrocytosis Moderate; Mean Platelet Volume 8.6; Monocytes # (A) 0.4 k/uL (0-1.0); Monocytes % (A) 7 %; Neutrophils # (A) 3.3 k/uL (1.3-7.7); Neutrophils % (A) 60 %; Platelet Count 237 k/uL (150-450); RBC 2.99 m/uL (3.80-5.40); RDW 18.4 % (11.5-15.5); WBC 5.4 k/uL (3.8-10.6)
[2019-03-09 07:45] LABS: ALT 59 U/L (9-52); AST 104 U/L (14-36); African American GFR (CKD) >90 (>60 ml/min/1.73 sqM); Albumin 2.3 g/dL (3.5-5.0); Alkaline Phosphatase 784 U/L (38-126); Anion Gap 8 mmol/L; Blood Urea Nitrogen 9 mg/dL (7-17); Calcium 8.7 mg/dL (8.4-10.2); Carbon Dioxide 18 mmol/L (22-30); Chloride 113 mmol/L (98-107); Glucose 115 mg/dL (74-99); Potassium 3.8 mmol/L (3.5-5.1); Sodium 139 mmol/L (137-145); Total Bilirubin 2.3 mg/dL (0.2-1.3); Total Protein 7.2 g/dL (6.3-8.2)
[2019-03-09] MEDS: HEPARIN SODIUM,PORCINE 5,000 UNIT/ML 1 ML VIAL SQ SCH (08:37)
[2019-03-09] MEDS: FERROUS SULFATE 325 MG TAB PO SCH (08:37)
[2019-03-09] MEDS: MULTIVITAMINS, THERA 1 EACH TAB PO SCH (08:37)
[2019-03-09] MEDS: PANTOPRAZOLE 40 MG TABLET PO SCH ×2 (08:37→17:44)
[2019-03-09] MEDS: FOLIC ACID 1 MG TAB PO SCH (08:37)
[2019-03-09] MEDS: LACTULOSE 20 GM/30 ML CUP PO SCH (08:37)
[2019-03-09] MEDS: RIFAXIMIN 200 MG TAB PO SCH ×2 (08:41→17:44)
[2019-03-09] MEDS: PIOGLITAZONE 15 MG TAB PO SCH (08:42)
[2019-03-09] MEDS: URSODIOL 300 MG CAP PO SCH (08:43)
--- NOTE | 2019-03-09 09:54 | P.DS ---
Providers Date of admission: 02/28/19 09:48 Expected date of discharge: 03/09/19 Attending physician: Latoya Cr Consults: 03/01/19 12:35 Consult Physician Routine Consulting Provider: May Black Consult Reason/Comments: compression fractures Do you want consulting provider notified?: Yes 03/02/19 08:26 Consult Physician Routine Consulting Provider: Renae Gallagher Consult Reason/Comments: h/o L3/4 discitis, new L4/5 irregularity an dincreased LBP Do you want consulting provider notified?: Yes 03/03/19 12:37 Consult to Anesthesia Routine Consulting Provider: Anesthesia,Services Consult Reason/Comments: pain management Primary care physician: Capri Post Hospital Course: Discharge diagnosis Patient will not be discharged on Xifaxan 1. Increased weakness and falls with multiple compression fracture progression of L4 to L5. Lumbar x-ray completed showing multiple compression fractures have progressed L4 and L5 compared to old exam generalized osteopenia Hip x-ray completed showing no acute fracture dislocation in the pelvis or left hip. Old fracture deformity of the right inferior perinephric ramus. Mild to moderate bi lateral femoral cerebellar arthopathy. PT OT consulted. Per Dr. Jones with orthopedic services MRI has been ordered. Patient does have known history of discitis. MRI of the lumbar spine completed showing abnormal bone marrow edema L3 vertebral body focally may be the basis of recurrent or chronic osteomyelitis). There is only trace residual disc at L3 to L4 that is not demonstrate abnormal signal nor enhancement to suggest osteomyelitis discitis. Per infectious disease recommending holding on systemic antibiotic therapy at this time will continue to monitor cultures. CT of pelvis completed showing acute community did slightly displaced fracture through the lateral aspect right superior pelvic ramus involving anterior column of acetabulum near hip joint. Discussed case with orthopedic PA. Aware of results. Per orthopedic services no surgical intervention planned. Per infectious disease no need for antibiotics. Paper prescription written for Vicoprofen upon discharge for pain control. 2. Elevated liver enzymes. Total bili elevated at 4.6 AST 83 alkaline phosphatase 640. Per GI services patient is status post ERCP at [facility] 1 week prior which revealed stenosis of the hepatojejunal anastomosis for which he underwent stent placement. Patient is maintained on Urosdiol . 3. History of deafness patient communicates with sign language 4. History of CVA and TIA 5. History of diabetes mellitus type 2. maintained on Actos. Sliding scale insulin coverage added. Hemoglobin A1c 7.1 6. History of hyperlipidemia 7. History of EtOH she quit 23 years ago 8. Ex-smoker 9. Elevated BNP. BNP elevated at 1440 2-D echo completed showing an EF of 65- 70%. Repeat chest x-ray showing no acute pulmonary process 10. Hypothyroidism. Patient continued on Synthroid. TSH 7.10. Synthroid increased to 112 mcgs 11. Urine culture growing gram-negative bacilli patient started on Rocephin. Urine culture growing E. coli. Completed treatment antibiotics DC'd per infectious disease 12. Elevated ammonia level. Ammonia 47 patient maintained on lactulose 30 twice a day. Xifaxan added. Daily ammonia levels have been ordered. Xifaxan will be DC'd upon discharge. Patient to be maintained on lactulose 13. Iron deficiency Anemia. Ferrous sulfate has been added 14. Severe calorie malnutrition ensure shakes have been ordered 15. Rectal fecal stasis seen on computed tomography scan enemas have been ordered. Patient maintained on lactulose. Enema given. Patient had large BM today 16. Hypokalemia. Potassium 3.4. Replaced per protocol. Resolved Hospital course This is a 68-year-old female patient of Dr. Post. According to ER report and patient's brother at bedside patient was found to be on the floor next to her bed this AM. Patient has has been placed history of deafness in which case with sign language but per patient's brother patient does appear to be confused and not making sense through her sign language right. Patient does appear to be a poor historian. Per patient's family it appears that patient had fallen previously was taken to PCP and was taken to [facility] in which she underwent possible common bile duct stent and was discharged home. Additional medical history includes CVA, diabetes mellitus, hyperlipidemia, cholecystectomy and anxiety. According to ER report patient is complaining of bilateral hip pain. Hip x-ray completed showing no acute Dr. dislocation the pelvis or left hip. Old fracture deformity of the right inferior perinephric ramus. 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 GI services have been consulted attempting to obtain records from [facility]. Liver enzymes slightly improved today. Patient still having pain in bilateral hips. Repeat chest x- ray ordered. 2-D echo completed fluids DC'd. Patient denies any chest pain or shortness of breath. Patient denies nausea vomiting or diarrhea. Patient denies any urinary burning or frequency On 03/01/2019 patient is resting comfortably in bed. Repeat chest x-ray completed showing no acute pulmonary process. GI services have been following attempting to obtain records from [facility] but does appear patient underwent ERCP one week ago at [facility]. At this time patient denies any specific complaints 03/02/2019 patient is resting comfortably in bed. Video Production Intern at bedside. MRI of the spine has been ordered for orthopedic services infectious disease consulted due to patient's history of discitis. At this time patient denies any chest pain or shortness of breath. Patient denies nausea vomiting or diarrhea. Patient denies any urinary burning or frequency On 03/03/2019 patient was seen and examined on the medical floor she is alert slightly agitated due to pain, last night pain was not well controlled and dose of morphine was increased to 4 mg IV every 4 hours when necessary this morning patient is still slightly agitated due to pain at this point fentanyl patch 12 g every 72 hours was added to her regimen and consultation for anesthesia for pain management was initiated On 03/04/2019 patient was seen and examined on the medical floor she is alert and much more calm today she is answering questions appropriately she is still complaining of pain in the right lower back area otherwise she denies any complaints communication was done by writing patient also can somewhat dose some lip reading, at this time will increase dose of fentanyl patch to 25 g change every 72 hours, awaiting anesthesia consultation for pain management. On 03/05/2019 patient is currently resting comfortably in bed. Patient is sleepy but does awake to commands. Patient's fentenyl patch was increased for adequate pain control. Patient is not displaying any signs of pain at this time. Awaiting pain management consult. On 03/06/2019 patient is awake but remains confused. Video Production Intern at bedside. Patient's sister at bedside. Patient denies any specific complaints. CT of pelvis completed per ID recommendation. Orthopedic services to review. Pain services also consulted. Patient's sentinel patch remove due to increased lethargy. On 03/07/2019 patient is awake and alert. Patient does seem less confused than yesterday. Video Production Intern is at bedside. Infectious disease and orthopedic service repeat scans no further workup at this time. No systemic antibiotics. Continue with physical therapy. Awaiting pain services to evaluate patient to switch to oral pain medications. At this time patient denies chest pain or shortness of breath. Patient denies nausea vomiting or diarrhea. Patient does reports she did have a large BM. Patient denies any urinary burning or frequency On 03/08/2019 patient is alert and awake. Video Production Intern is at bedside. This time patient does respond to questions but does get confused. Per nursing staff radiation therapist patient has moments of clarity episodes of confusion. Patient denies any specific complaints. Patient denies chest pain or shortness of breath. Patient denies nausea vomiting or diarrhea. Patient denies any urinary burning or frequency. Discussed with nursing staff that pain services need to be recontacted to reevaluate patient for pain control. On 03/09/2019 patient alert and oriented 3. Video Production Intern at bedside. Patient is eating breakfast with no complaints. Patient to be discharged to [facility] today. Patient will be discharged with Vicoprofen for pain control. At this time patient denies chest pain or shortness of breath. Patient denies nausea vomiting or diarrhea. Patient denies and urinary burning or frequency Patient will be discharged to [facility] I performed an examination of the patient and discussed their management with the Nurse Practitioner. I have reviewed the Nurse Practitioner's notes and agree with the documented findings and plan of care Patient Condition at Discharge: Stable Plan - Discharge Summary New Discharge Prescriptions: No Action Ursodiol 300 mg PO DAILY Multivitamins, Thera [Multivitamin (formulary)] 1 tab PO DAILY Thiamine [Vitamin B-1] 100 mg PO DAILY Pioglitazone [Actos] 15 mg PO DAILY Omeprazole [PriLOSEC] 40 mg PO BID Levothyroxine Sodium [Synthroid] 100 mcg PO DAILY guaiFENesin [guaiFENesin Oral Solution] 200 mg PO Q4H PRN PRN Reason: Cough Folic Acid 1 mg PO DAILY Discharge Medication List Ursodiol 300 mg PO DAILY 08/22/15 [History] Multivitamins, Thera [Multivitamin (formulary)] 1 tab PO DAILY 03/07/17 [History] Folic Acid 1 mg PO DAILY 02/27/19 [History] Levothyroxine Sodium [Synthroid] 100 mcg PO DAILY 02/27/19 [History] Omeprazole [PriLOSEC] 40 mg PO BID 02/27/19 [History] Pioglitazone [Actos] 15 mg PO DAILY 02/27/19 [History] Thiamine [Vitamin B-1] 100 mg PO DAILY 02/27/19 [History] guaiFENesin [guaiFENesin Oral Solution] 200 mg PO Q4H PRN 02/27/19 [History] Follow up Appointment(s)/Referral(s): Capri Post MD [Primary Care Provider] - 1-2 days May Black DO [Doctor of Osteopathic Medicine] - 2 Weeks (For pelvis fracture and right pubic rami and left sacral ala) Kinza Rubio MD [STAFF PHYSICIAN] - 2 Weeks
[2019-03-09] MEDS ORDERED: IBUPROFEN 400 MG TAB PO PRN (09:59)
[2019-03-09] MEDS ORDERED: MORPHINE SULFATE ER 15 MG TABLET PO PRN (10:23)
[2019-03-09 11:13] LABS: Glucose,Whole Blood 178 mg/dL (75-99)
[2019-03-09 12:39] VITALS: BP 93/49; PULSE 70; RESP 17; TEMP 97.4
--- NOTE | 2019-03-09 15:32 | PN ---
PROGRESS NOTE DATE OF SERVICE: 03/09/2019 REASON FOR FOLLOWUP: Abnormal MRI and a question of diskitis. INTERVAL COURSE: The patient is currently afebrile. The patient remains hemodynamically stable. He has been breathing comfortably. Pain is better controlled. No nausea, vomiting or any diarrhea reported. PHYSICAL EXAMINATION: Blood pressure 114/56, pulse of 78, temperature 98. He is 98% on room air. General description is an elderly female lying in bed in no distress. RESPIRATORY SYSTEM: Unlabored breathing. Clear to auscultation anteriorly. HEART: S1, S2. Regular rate and rhythm. ABDOMEN: Soft. No tenderness. LABS: Hemoglobin 9.7, white count 5.4, BUN of 9, creatinine 0.55. Blood culture remains negative. DIAGNOSTIC IMPRESSION AND PLAN: 1. Patient with abnormal MRI. Clinically doubt diskitis. MRI has shown improvement over the last 18 months without antibiotics infection at this time. Blood culture negative. No fever or elevated white count. No need for antibiotic therapy. bedside. Questions and concerns were answered. 2. Positive urinalysis, likely asymptomatic bacteria. No need for any systemic antibiotic therapy for the same. MMODL / IJN: [id number] /
[2019-03-09 17:05] LABS: Glucose,Whole Blood 129 mg/dL (75-99)
== END 2019-03-09 21:01 | DRG 535 ==
LOC: EC 12:36 → 1SOBS 16:25 → OBSVTOIN 02-28 09:48 → 3NMEDONC 02-28 20:40
PROVIDERS: ADMIT Internal Medicine; ATTEND Internal Medicine
DX: S32.511A Fracture of superior rim of right pubis, initial encounter for closed fracture (principal); E43 Unspecified severe protein-calorie malnutrition; S32.10XA Unspecified fracture of sacrum, initial encounter for closed fracture; S32.048A Other fracture of fourth lumbar vertebra, initial encounter for closed fracture; S32.058A Other fracture of fifth lumbar vertebra, initial encounter for closed fracture; R17 Unspecified jaundice; E72.20 Disorder of urea cycle metabolism, unspecified; I69.911 Memory deficit following unspecified cerebrovascular disease; G89.29 Other chronic pain; D50.9 Iron deficiency anemia, unspecified; E03.9 Hypothyroidism, unspecified; E11.9 Type 2 diabetes mellitus without complications; E78.5 Hyperlipidemia, unspecified; E87.6 Hypokalemia; F41.9 Anxiety disorder, unspecified; H91.93 Unspecified hearing loss, bilateral; K59.8 Other specified functional intestinal disorders; M12.9 Arthropathy, unspecified; M48.00 Spinal stenosis, site unspecified; M85.859 Other specified disorders of bone density and structure, unspecified thigh; R29.6 Repeated falls; R32 Unspecified urinary incontinence; Z79.84 Long term (current) use of oral hypoglycemic drugs; Z79.890 Hormone replacement therapy; Z90.49 Acquired absence of other specified parts of digestive tract; Z87.891 Personal history of nicotine dependence; Z82.3 Family history of stroke; Z82.0 Family history of epilepsy and other diseases of the nervous system; W19.XXXA Unspecified fall, initial encounter
CPT/HCPCS: 36415; 70450; 71045; 71046; 72100; 72158; 72192; 73502; 80053; 81001; 82140; 82550; 82553; 82728; 83036; 83540; 83550; 83605; 83735; 83880; 84439; 84443; 84484; 85025; 85610; 85652; 85730; 86140; 87040; 87077; 87086; 87186; 93005; 93306; 96361; 96374; 99285

== ENCOUNTER → 2020-08-26 | Outpatient (CLI) | payer MEDICARE, OTHER ==
--- NOTE | 2020-08-26 17:15 | XR ---
EXAMINATION TYPE: XR wrist limited LT DATE OF EXAM: 08/26/2020 COMPARISON: NONE HISTORY: Fell. Pain. TECHNIQUE: 2 views FINDINGS: There is mildly impacted transverse fracture distal radial metaphysis. There is nondisplace d ulnar styloid process. Carpal bones are intact. There is spurring at the first carpometacarpal join t. Metacarpals are intact. IMPRESSION: Acute or subacute fracture distal radius and ulna as above. No significant displacement.
--- NOTE | 2020-08-26 17:16 | XR ---
EXAMINATION TYPE: XR forearm LT DATE OF EXAM: 08/26/2020 COMPARISON: NONE HISTORY: Pain TECHNIQUE: 2 views FINDINGS: There is some osteopenia. There are transverse fractures of the distal radius and ulna desc ribed in the wrist x-ray report. There is no significant displacement. Elbow joint is intact. IMPRESSION: Acute or subacute fractures distal radius and ulna.
== END ==
LOC: RADXRMAIN 15:54
PROVIDERS: ATTEND Nurse Practitioner
DX: S52.592A Other fractures of lower end of left radius, initial encounter for closed fracture (principal); S52.692A Other fracture of lower end of left ulna, initial encounter for closed fracture

== ENCOUNTER 2022-03-03 18:04 | Inpatient (IN) | payer MEDICARE, OTHER ==
[2022-03-03] MEDS ORDERED: SODIUM CHLORIDE 0.9% 1,000 ML IV STA (18:17)
--- NOTE | 2022-03-03 18:39 | ED ---
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 Patient was found down by her sister according to the neighbor she had not been out in her dog did not been out in 2 days. Sister states she last saw her on Tuesday. Patient was found on her left side she had a sore on her left buttocks and left foot. Patient told the sister through sign language that she was not having any pain and had no complaints. Patient has obvious ecchymosis to the left side of her face. Patient does not remember falling down she doesn't know why she was down. Patient denies any chest pain or difficulty breathing. Patient denies any abdominal pain. Patient denies any extremity pain. - Related Data Home Medications Medication Instructions Recorded Confirmed ursodioL [Ursodiol] 300 mg PO DAILY 08/22/15 02/27/19 Multivitamins, Thera [Multivitamin 1 tab PO DAILY 03/07/17 02/27/19 (formulary)] Folic Acid 1 mg PO DAILY 02/27/19 02/27/19 Omeprazole [PriLOSEC] 40 mg PO BID 02/27/19 02/27/19 Pioglitazone [Actos] 15 mg PO DAILY 02/27/19 02/27/19 Thiamine [Vitamin B-1] 100 mg PO DAILY 02/27/19 02/27/19 guaiFENesin [guaiFENesin Oral 200 mg PO Q4H PRN 02/27/19 02/27/19 Solution] Previous Rx's Medication Instructions Recorded Ferrous Sulfate [Iron (65 MG 325 mg PO BID #0 tab 03/09/19 Elemental)] INSULIN ASPART (NovoLOG) [NovoLOG 0 unit SQ ACHS vial 03/09/19 (formulary)] Ibuprofen [Motrin] 400 mg PO Q6HR PRN tab 03/09/19 Lactulose [Cephulac] 30 gm PO BID ml 03/09/19 Levothyroxine Sodium [Synthroid] 112 mcg PO DAILY@0630 tab 03/09/19 Morphine Sulfate ER [Ms Contin] 15 mg PO Q8HR PRN 7 Days #21 tablet 03/09/19 Allergies Allergy/AdvReac Type Severity Reaction Status Date / Time No Known Allergies Allergy Verified 02/27/19 14:41 Review of Systems ROS Statement: Those systems with pertinent positive or pertinent negative responses have been documented in the HPI. ROS Other: All systems not noted in ROS Statement are negative. Past Medical History Past Medical History: CVA/TIA, Diabetes Mellitus, Hearing Disorder / Deafness, Hyperlipidemia Additional Past Medical History / Comment(s): Pt is deaf-understands ASL and some lip reading, CVA residual "memory loss"; NIDDM type II. History of discitis at L3 4 in 2016- which was treated with long-term IV antibiotics. D r. Elliott with good resolution History of Any Multi-Drug Resistant Organisms: None Reported Past Surgical History: Cholecystectomy Additional Past Surgical History / Comment(s): september 2014- gallbladder removed, bypass of liver duct/stent done at [facility], left carotid endarterectomy September 2014, colonoscopy. Past Anesthesia/Blood Transfusion Reactions: No Reported Reaction Past Psychological History: Anxiety Past Alcohol Use History: None Reported Past Drug Use History: None Reported - Past Family History Brother(s) Family Medical History: CVA/TIA Mother Family Medical History: Memory Impairment Additional Family Medical History / Comment(s): "Alzheimer's". Mother is . Father Family Medical History: No Reported History Additional Family Medical History / Comment(s): Father is 93 yrs old. General Exam - General Exam Comments Initial Comments: GENERAL: Patient is well-developed and well-nourished. Patient is nontoxic and well- hydrated and is in mild distress. ENT: Neck is soft and supple. No significant lymphadenopathy is noted. Oropharynx is clear. Moist mucous membranes. Patient is in a c-collar. EYES: The sclera were anicteric and conjunctiva were pink and moist. Extraocular movements were intact and pupils were equal round and reactive to light. Patient has tenderness around the left orbit. Eyelids were unremarkable. PULMONARY: Unlabored respirations. Good breath sounds bilaterally. No audible rales rhonchi or wheezing was noted. CARDIOVASCULAR: There is a regular rate and rhythm without any murmurs gallops or rubs. ABDOMEN: Soft and nontender with normal bowel sounds. SKIN: Patient has ecchymosis around the left orbit and on the left temporal region of the. Patient also has what appears to be a stage I decubitus ulcer on her left buttocks and a stage II on her anterior left foot. NEUROLOGIC: Patient is alert and oriented x3. Cranial nerves II through XII are grossly intact. Motor and sensory are also intact. Normal speech, volume and content. Symmetrical smile. MUSCULOSKELETAL: Normal extremities with adequate strength and full range of motion. LYMPHATICS: No significant lymphadenopathy is noted PSYCHIATRIC: Normal psychiatric evaluation. Limitations: language barrier, altered mental status Course Vital Signs 03/03/22 03/03/22 18:19 19:07 Temperature 98.6 F Pulse Rate 75 86 Respiratory 16 16 Rate Blood Pressure 155/72 148/85 O2 Sat by Pulse 96 99 Oximetry Medical Decision Making - Medical Decision Making EKG shows sinus rhythm at 76 bpm MT interval is 137 QRS is 70 QT interval 41 QTC is 431. Patient's EKG shows no ST segment elevation or depression. Patient does have Q waves in V1 and V2. Sister arrived and was able to talk the patient she had no recollection of the event that led her to fall or why she was on the ground. CT of the brain and C-spine showed no acute normalities. CT the patient also notes a mallet. I spoke with Dr. Stephens and he agreed the patient will be better served to go to medicine and he will be on consult. I tried to ambulate the patient patient was unable to ambulate I spoke with Dr. Cr he agreed to admit the patient admitted the patient I wrote admitting orders. - Lab Data Result diagrams: 03/03/22 18:30 03/03/22 18:30 Lab Results 03/03/22 03/03/22 03/03/22 Range/Units 18:30 18:30 18:30 WBC 3.6 L (3.8-10.6) k/uL RBC 4.03 (3.80-5.40) m/uL Hgb 14.3 (11.4-16.0) gm/dL Hct 42.8 (34.0-46.0) % MCV 106.3 H (80.0-100.0) fL MCH 35.5 H (25.0-35.0) pg MCHC 33.4 (31.0-37.0) g/dL RDW 13.9 (11.5-15.5) % Plt Count 104 L (150-450) k/uL MPV 8.9 Neutrophils % 63 % Lymphocytes % 19 % Monocytes % 13 % Eosinophils % 1 % Basophils % 0 % Neutrophils # 2.3 (1.3-7.7) k/uL Lymphocytes # 0.7 L (1.0-4.8) k/uL Monocytes # 0.5 (0-1.0) k/uL Eosinophils # 0.1 (0-0.7) k/uL Basophils # 0.0 (0-0.2) k/uL Macrocytosis Moderate PT 11.4 (9.0-12.0) sec INR 1.1 (<1.2) APTT 24.1 (22.0-30.0) sec Sodium (137-145) mmol/L Potassium (3.5-5.1) mmol/L Chloride (98-107) mmol/L Carbon Dioxide (22-30) mmol/L Anion Gap mmol/L BUN (7-17) mg/dL Creatinine (0.52-1.04) mg/dL Est GFR (CKD-EPI)AfAm (>60 ml/min/1.73 sqM) Est GFR (CKD-EPI)NonAf (>60 ml/min/1.73 sqM) Glucose (74-99) mg/dL Calcium (8.4-10.2) mg/dL Magnesium (1.6-2.3) mg/dL Total Bilirubin (0.2-1.3) mg/dL AST (14-36) U/L ALT (4-34) U/L Alkaline Phosphatase (38-126) U/L Creatine Kinase (30-135) U/L Troponin I (0.000-0.034) ng/mL Total Protein (6.3-8.2) g/dL Albumin (3.5-5.0) g/dL Urine Color Yellow Urine Appearance Cloudy H (Clear) Urine pH 6.5 (5.0-8.0) Ur Specific [place] 1.023 (1.001-1.035) Urine Protein Trace H (Negative) Urine Glucose (UA) Negative (Negative) Urine Ketones 3+ H (Negative) Urine Blood Negative (Negative) Urine Nitrite Positive H (Negative) Urine Bilirubin Negative (Negative) Urine Urobilinogen 8.0 (<2.0) mg/dL Ur Leukocyte Esterase Negative (Negative) Urine RBC 2 (0-5) /hpf Urine WBC 5 (0-5) /hpf Ur Squamous Epith Cells 3 (0-4) /hpf Ur Renal Epithelial Cell <1 (0) /hpf Urine Bacteria Rare H (None) /hpf Urine Mucus Occasional H (None) /hpf 03/03/22 03/03/22 Range/Units 18:30 18:30 WBC (3.8-10.6) k/uL RBC (3.80-5.40) m/uL Hgb (11.4-16.0) gm/dL Hct (34.0-46.0) % MCV (80.0-100.0) fL MCH (25.0-35.0) pg MCHC (31.0-37.0) g/dL RDW (11.5-15.5) % Plt Count (150-450) k/uL MPV Neutrophils % % Lymphocytes % % Monocytes % % Eosinophils % % Basophils % % Neutrophils # (1.3-7.7) k/uL Lymphocytes # (1.0-4.8) k/uL Monocytes # (0-1.0) k/uL Eosinophils # (0-0.7) k/uL Basophils # (0-0.2) k/uL Macrocytosis PT (9.0-12.0) sec INR (<1.2) APTT (22.0-30.0) sec Sodium 139 (137-145) mmol/L Potassium 4.2 (3.5-5.1) mmol/L Chloride 108 H (98-107) mmol/L Carbon Dioxide 20 L (22-30) mmol/L Anion Gap 11 mmol/L BUN 17 (7-17) mg/dL Creatinine 0.52 (0.52-1.04) mg/dL Est GFR (CKD-EPI)AfAm >90 (>60 ml/min/1.73 sqM) Est GFR (CKD-EPI)NonAf >90 (>60 ml/min/1.73 sqM) Glucose 102 H (74-99) mg/dL Calcium 8.8 (8.4-10.2) mg/dL Magnesium 1.7 (1.6-2.3) mg/dL Total Bilirubin 2.1 H (0.2-1.3) mg/dL AST 110 H (14-36) U/L ALT 59 H (4-34) U/L Alkaline Phosphatase 120 (38-126) U/L Creatine Kinase 247 H (30-135) U/L Troponin I <0.012 (0.000-0.034) ng/mL Total Protein 7.2 (6.3-8.2) g/dL Albumin 3.6 (3.5-5.0) g/dL Urine Color Urine Appearance (Clear) Urine pH (5.0-8.0) Ur Specific [place] (1.001-1.035) Urine Protein (Negative) Urine Glucose (UA) (Negative) Urine Ketones (Negative) Urine Blood (Negative) Urine Nitrite (Negative) Urine Bilirubin (Negative) Urine Urobilinogen (<2.0) mg/dL Ur Leukocyte Esterase (Negative) Urine RBC (0-5) /hpf Urine WBC (0-5) /hpf Ur Squamous Epith Cells (0-4) /hpf Ur Renal Epithelial Cell (0) /hpf Urine Bacteria (None) /hpf Urine Mucus (None) /hpf Disposition Clinical Impression: Fall, Decubitus ulcer of foot, Facial trauma, Inability to walk Disposition: ADMITTED IP TO THIS HOSP Referrals: Capri Post MD [Primary Care Provider] - 1-2 days Time of Disposition: 21:28
[2022-03-03 19:08] LABS: Basophils % (A) 0 %; Eosinophils # (A) 0.1 k/uL (0-0.7); Eosinophils % (A) 1 %; HCT 42.8 % (34.0-46.0); HGB 14.3 gm/dL (11.4-16.0); Lymphocytes # (A) 0.7 k/uL (1.0-4.8); Lymphocytes % (A) 19 %; MCH 35.5 pg (25.0-35.0); MCHC 33.4 g/dL (31.0-37.0); MCV 106.3 fL (80.0-100.0); Macrocytosis Moderate; Mean Platelet Volume 8.9; Monocytes # (A) 0.5 k/uL (0-1.0); Monocytes % (A) 13 %; Neutrophils # (A) 2.3 k/uL (1.3-7.7); Neutrophils % (A) 63 %; Platelet Count 104 k/uL (150-450); RBC 4.03 m/uL (3.80-5.40); RDW 13.9 % (11.5-15.5); WBC 3.6 k/uL (3.8-10.6)
[2022-03-03 19:17] LABS: ALT 59 U/L (4-34); AST 110 U/L (14-36); African American GFR (CKD) >90 (>60 ml/min/1.73 sqM); Albumin 3.6 g/dL (3.5-5.0); Alkaline Phosphatase 120 U/L (38-126); Anion Gap 11 mmol/L; Blood Urea Nitrogen 17 mg/dL (7-17); Calcium 8.8 mg/dL (8.4-10.2); Carbon Dioxide 20 mmol/L (22-30); Chloride 108 mmol/L (98-107); Creatine Kinase 247 U/L (30-135); Glucose 102 mg/dL (74-99); Magnesium 1.7 mg/dL (1.6-2.3); Non-African American GFR(CKD) >90 (>60 ml/min/1.73 sqM); Sodium 139 mmol/L (137-145); Total Bilirubin 2.1 mg/dL (0.2-1.3); Total Protein 7.2 g/dL (6.3-8.2)
[2022-03-03 19:41] LABS: Appearance,Urine Cloudy (Clear); Bacteria,Urine Rare /hpf; Bilirubin,Urine Negative (Negative); Blood,Urine Negative (Negative); Color,Urine Yellow; Glucose,Urine (UA) Negative (Negative); Leukocyte Esterase,Urine Negative (Negative); Mucus,Urine Occasional /hpf; Nitrite,Urine Positive (Negative); PH, Urine 6.5 (5.0-8.0); Protein,Urine Trace (Negative); RBC,Urine 2 /hpf (0-5); Renal Epithelial Cells,Urine <1 /hpf (0); Specific Gravity,Urine 1.023 (1.001-1.035); Squamous Epithelial Cell,Urine 3 /hpf (0-4); WBC,Urine 5 /hpf (0-5)
[2022-03-03 19:45] LABS: Ketones,Urine 3+ (Negative)
[2022-03-03 19:46] LABS: Potassium 4.2 mmol/L (3.5-5.1)
[2022-03-03 19:56] LABS: INR 1.1 (<1.2); Partial Thromboplastin Time 24.1 sec (22.0-30.0); Prothrombin Time 11.4 sec (9.0-12.0)
--- NOTE | 2022-03-03 21:00 | CT ---
EXAM: CT Head Without Intravenous Contrast CLINICAL HISTORY: ITS.REASON CT Reason: Trauma TECHNIQUE: Axial computed tomography images of the head/brain without intravenous contrast. CTDI is 37.07 mGy and DLP is 1020.1 mGy-cm. This CT exam was performed using one or more of the following dose reduction techniques: automated exposure control, adjustment of the mA and/or kV according to patient size, and/or use of iterative reconstruction technique. Mild motion artifact. COMPARISON: None. FINDINGS: Brain: Multifocal, chronic subcortical infarct left parietal and posterior frontal lobes. Chronic atrophy and white matter disease. No edema or acute infarct. No acute or chronic hemorrhage. Atherosclerosis bilateral cavernous ICA, left greater than right. Ventricles: No hydrocephalus or midline shift. Bones/joints: No skull fracture. Soft tissues: No scalp hematoma. Sinuses: Clear. Mastoid air cells: No mastoid effusion. IMPRESSION: 1. Multifocal chronic subcortical infarct left frontal and parietal lobes. 2. Intracranial atherosclerosis, chronic white matter disease and atrophy. 3. No skull fracture, acute bleed, or acute intracranial abnormality. EXAM: CT Cervical Spine Without Intravenous Contrast CLINICAL HISTORY: ITS. REASON CT Reason: Trauma TECHNIQUE: Axial computed tomography images of the cervical spine without intravenous contrast. This CT exam was performed using one or more of the following dose reduction techniques: automated exposure control, adjustment of the mA and/or kV according to patient size, and/or use of iterative reconstruction technique. Moderate artifact from motion and dental amalgam. COMPARISON: No relevant prior studies available. FINDINGS: Vertebrae: Sclerosis C4 vertebrae, nonspecific, no aggressive features, possible atypical hemangioma. Metastatic disease not excluded. Suspect component of osteoporosis. No acute fracture. Discs/spinal canal/neural foramina: Mild degenerative disc disease and facet hypertrophy. Soft tissues: Unremarkable. IMPRESSION: 1. Nonspecific sclerosis of the C4 vertebral body, no aggressive features, could reflect atypical hemangioma. Cannot rule out metastatic disease. 2. Mild degenerative disc disease. 3. No definite fracture or acute bony abnormality, with moderate artifact limiting evaluation.
--- NOTE | 2022-03-03 21:06 | CT ---
EXAM: CT Maxillofacial Without Intravenous Contrast CLINICAL HISTORY: ITS. REASON CT Reason: Trauma TECHNIQUE: Axial computed tomography images of the face without intravenous contrast. CTDI is 37.07 mGy and DLP is 1023.6 mGy-cm. This CT exam was performed using one or more of the following dose reduction techniques: automated exposure control, adjustment of the mA and/or kV according to patient size, and/or use of iterative reconstruction technique. Mild to moderate motion artifact. COMPARISON: No relevant prior studies available. FINDINGS: Bones/joints: No acute fracture. Soft tissues: Unremarkable. Orbits: Unremarkable. Sinuses: Generally clear. No air-fluid levels. IMPRESSION: 1. No nasal bone, orbital wall or facial fracture.
[2022-03-03] MEDS ORDERED: SODIUM CHLORIDE 0.9% 1,000 ML IV ONE (21:30)
[2022-03-03 22:41] LABS: Lactic Acid, Venous 1.3 mmol/L (0.7-2.0); Lipase 272 U/L (23-300)
--- NOTE | 2022-03-04 00:12 | XR ---
EXAM: XR Pelvis, 1 or 2 Views CLINICAL HISTORY: ITS.REASON XR Reason: fall TECHNIQUE: Frontal view of the pelvis. Significant limited evaluation due to body habitus and osteoporosis. COMPARISON: No relevant prior studies available. FINDINGS: Bones/joints: Degenerative change bilateral hips, fairly symmetrical. Osteoporosis and body habitus significantly limits evaluation. No definite acute fracture. No dislocation. Soft tissues: Moderate fecal loading of the colon and fecal impaction rectosigmoid. IMPRESSION: 1. Osteoporosis and degenerative change. 2. No definite fracture, with limited evaluation due to body habitus.
--- NOTE | 2022-03-04 00:20 | XR ---
EXAM: XR Chest, 2 Views CLINICAL HISTORY: ITS. REASON XR Reason: Chest Pain TECHNIQUE: Frontal and lateral views of the chest. Mild breathing motion artifact. COMPARISON: None. FINDINGS: Lungs: Mild interstitial thickening, fairly symmetrical, likely chronic. No focal infiltrate or consolidation. Pleural space: No pneumothorax. Heart: Mild cardiomegaly. Mediastinum: Unremarkable. Bones/Soft Tissues: No acute abnormality. IMPRESSION: 1. No definite acute process in the chest.
[2022-03-04] MEDS ORDERED: DEXTROSE 50% SYRINGE 50 ML IVP PRN ×2 (07:42)
[2022-03-04 08:36] LABS: ALT 43 U/L (4-34); AST 65 U/L (14-36); African American GFR (CKD) >90 (>60 ml/min/1.73 sqM); Albumin 2.7 g/dL (3.5-5.0); Alkaline Phosphatase 117 U/L (38-126); Anion Gap 5 mmol/L; Bilirubin,Unconjugated 0.9 mg/dL (0.0-1.1); Blood Urea Nitrogen 11 mg/dL (7-17); Carbon Dioxide 22 mmol/L (22-30); Chloride 111 mmol/L (98-107); Globulin 2.8 g/dL; Glucose 79 mg/dL (74-99); Magnesium 1.6 mg/dL (1.6-2.3); Non-African American GFR(CKD) >90 (>60 ml/min/1.73 sqM); Potassium 3.1 mmol/L (3.5-5.1); Sodium 138 mmol/L (137-145); Total Bilirubin 1.2 mg/dL (0.2-1.3); Total Protein 5.5 g/dL (6.3-8.2)
[2022-03-04 09:06] LABS: Basophils % (A) 0 %; Eosinophils # (A) 0.1 k/uL (0-0.7); Eosinophils % (A) 3 %; HCT 40.4 % (34.0-46.0); HGB 13.2 gm/dL (11.4-16.0); Lymphocytes # (A) 0.7 k/uL (1.0-4.8); Lymphocytes % (A) 22 %; MCH 34.9 pg (25.0-35.0); MCHC 32.8 g/dL (31.0-37.0); MCV 106.3 fL (80.0-100.0); Macrocytosis Moderate; Mean Platelet Volume 9.3; Monocytes # (A) 0.4 k/uL (0-1.0); Monocytes % (A) 14 %; Neutrophils # (A) 1.8 k/uL (1.3-7.7); Neutrophils % (A) 57 %; RDW 13.9 % (11.5-15.5); WBC 3.1 k/uL (3.8-10.6)
[2022-03-04] MEDS: CHOLECALCIFEROL 25 MCG (1000 IU) TABLET PO SCH (10:00)
[2022-03-04] MEDS: LEVOTHYROXINE 100 MCG TAB PO SCH (10:01)
--- NOTE | 2022-03-04 11:52 | P.CONS ---
History of Present Illness - Reason for Consult Consult date: 03/04/22 wound care - History of Present Illness This is a 71-year-old patient who suffered a fall been seen by the wound care center on [address] for nonhealing ulcerations to the bilateral dorsal feet.. The patient is deaf and mute. Her family members at the bedside. Patient is unsure of how long she laid in the position after a fall. Patient has 2 ulcerations to the bilateral dorsal feet. The left dorsal foot ulceration shows significant amount of slough and minimal granulation. Wound edges are attached to the wound base. The ulceration measures approximately 4 x 6 x 0.1 cm. No tunneling or undermining noted. The right dorsal foot ulceration measures approximately 2.5 x 1.5 x 0.1 cm with fat layer exposure minimal granulation noted with Slough. The wound edges are attached to the wound base there is no tunneling or undermining. Review Of Systems: Constitutional: No fever, no chills, no night sweats. No weight change. No weakness, fatigue or lethargy. No daytime sleepiness. Integumentary:reports wounds, no lesions. No rash or pruritus. No unusual bruising. No change in hair or nails. Physical exam: General Appearance: Alert, cooperative, no distress, appears stated age. Skin: See HPI all other Skin color, texture, tugor normal, no rashes or lesions. Neurologic: Alert oriented x3 Assessment: 1. Nonhealing ulceration to the left dorsal foot with fat layer exposure 2. Nonhealing ulceration to the right dorsal foot with fat layer exposure Plan: 1. Apply Santyl, saline moistened gauze, dry gauze, rolled gauze and secure with paper tape. Change daily. If patient does not tolerate the Santyl may utilize zinc barrier cream to the right dorsal foot. Thank you for the consultation any questions please contact the wound care center DNP note has been reviewed and discussed with Dr. Coelho and the impression and plan of care has been directed as dictated. Past Medical History Past Medical History: CVA/TIA, Diabetes Mellitus, Hearing Disorder / Deafness, Hyperlipidemia Additional Past Medical History / Comment(s): Pt is deaf-understands ASL and some lip reading, CVA residual "memory loss"; NIDDM type II. History of discitis at L3 4 in 2017- which was treated with long-term IV antibiotics. Dr. Gallagher with good resolution History of Any Multi-Drug Resistant Organisms: None Reported Past Surgical History: Cholecystectomy Additional Past Surgical History / Comment(s): september 2014- gallbladder removed, bypass of liver duct/stent done at [facility], left carotid endarterectomy September 2014, colonoscopy. Past Anesthesia/Blood Transfusion Reactions: No Reported Reaction Past Psychological History: Anxiety Past Alcohol Use History: None Reported Past Drug Use History: None Reported - Past Family History Brother(s) Family Medical History: CVA/TIA Mother Family Medical History: Memory Impairment Additional Family Medical History / Comment(s): "Alzheimer's". Mother is . Father Family Medical History: No Reported History Additional Family Medical History / Comment(s): Father is 93 yrs old. Medications and Allergies Home Medications Medication Instructions Recorded Confirmed Type Omeprazole [PriLOSEC] 40 mg PO BID 02/27/19 03/03/22 History Cholecalciferol [Vitamin D3 (25 25 mcg PO DAILY 03/03/22 03/03/22 History Mcg = 1000 Iu)] Levothyroxine Sodium [Synthroid] 100 mcg PO DAILY 03/03/22 03/03/22 History Multivit-Min/Iron/Folic/Lutein 1 tab PO DAILY 03/03/22 03/03/22 History [Centrum Silver Women Tablet] Pioglitazone [Actos] 45 mg PO DAILY 03/03/22 03/03/22 History Vit C/E/Zn/Coppr/Lutein/Zeaxan 1 cap PO DAILY 03/03/22 03/03/22 History [Preservision Areds 2 Softgel] Zinc Gluconate [Zinc] 50 mg PO DAILY 03/03/22 03/03/22 History Allergies Allergy/AdvReac Type Severity Reaction Status Date / Time No Known Allergies Allergy Verified 02/27/19 14:41 Physical Exam Vitals: Vital Signs Temp Pulse Pulse Resp BP BP Pulse Ox 03/04/22 05:00 98.4 F 80 20 132/73 91 L 03/03/22 22:20 98 F 70 16 122/50 97 03/03/22 19:07 86 16 148/85 99 03/03/22 18:19 98.6 F 75 16 155/72 96 Intake and Output 03/03/22 03/04/22 03/04/22 22:59 06:59 14:59 Intake Total 900 Balance 900 Intake: Intake, IV Titration 900 Amount Sodium Chloride 0.9% 1, 900 000 ml @ 75 mls/hr IV . [id number] ONE Rx#:[id number] Other: Weight 63.503 kg Results CBC & Chem 7: 03/04/22 07:54 03/04/22 07:54 Labs: Abnormal Lab Results - Last 24 Hours (Table) 03/03/22 03/03/22 03/03/22 Range/Units 18:30 18:30 18:30 WBC 3.6 L (3.8-10.6) k/uL MCV 106.3 H (80.0-100.0) fL MCH 35.5 H (25.0-35.0) pg Plt Count 104 L (150-450) k/uL Lymphocytes # 0.7 L (1.0-4.8) k/uL Potassium (3.5-5.1) mmol/L Chloride 108 H (98-107) mmol/L Carbon Dioxide 20 L (22-30) mmol/L Creatinine (0.52-1.04) mg/dL Glucose 102 H (74-99) mg/dL Hemoglobin A1c (0.0-6.0) % Calcium (8.4-10.2) mg/dL Total Bilirubin 2.1 H (0.2-1.3) mg/dL AST 110 H (14-36) U/L ALT 59 H (4-34) U/L Creatine Kinase 247 H (30-135) U/L Total Protein (6.3-8.2) g/dL Albumin (3.5-5.0) g/dL Urine Appearance Cloudy H (Clear) Urine Protein Trace H (Negative) Urine Ketones 3+ H (Negative) Urine Nitrite Positive H (Negative) Urine Bacteria Rare H (None) /hpf Urine Mucus Occasional H (None) /hpf 03/04/22 03/04/22 03/04/22 Range/Units 07:54 07:54 07:54 WBC 3.1 L (3.8-10.6) k/uL MCV 106.3 H (80.0-100.0) fL MCH (25.0-35.0) pg Plt Count (150-450) k/uL Lymphocytes # (1.0-4.8) k/uL Potassium 3.1 L (3.5-5.1) mmol/L Chloride 111 H (98-107) mmol/L Carbon Dioxide (22-30) mmol/L Creatinine 0.50 L (0.52-1.04) mg/dL Glucose (74-99) mg/dL Hemoglobin A1c 6.4 H (0.0-6.0) % Calcium 8.0 L (8.4-10.2) mg/dL Total Bilirubin (0.2-1.3) mg/dL AST 65 H (14-36) U/L ALT 43 H (4-34) U/L Creatine Kinase (30-135) U/L Total Protein 5.5 L (6.3-8.2) g/dL Albumin 2.7 L (3.5-5.0) g/dL Urine Appearance (Clear) Urine Protein (Negative) Urine Ketones (Negative) Urine Nitrite (Negative) Urine Bacteria (None) /hpf Urine Mucus (None) /hpf Assessment and Plan (1) Non-pressure chronic ulcer of other part of left foot with fat layer exposed Current Visit: Yes Status: Acute Code(s): L97.522 - NON-PRS CHRONIC ULCER OTH PRT LEFT FOOT W FAT LAYER EXPOSED SNOMED Code(s): 265998348 (2) Non-pressure chronic ulcer of other part of right foot with fat layer exposed Current Visit: Yes Status: Acute Code(s): L97.512 - NON-PRS CHRONIC ULCER OTH PRT RIGHT FOOT W FAT LAYER EXPOSED SNOMED Code(s): 193097571 (3) Type 2 diabetes mellitus with foot ulcer Current Visit: Yes Status: Acute Code(s): E11.621 - TYPE 2 DIABETES MELLITUS WITH FOOT ULCER; L97.509 - NON-PRESSURE CHRONIC ULCER OTH PRT UNSP FOOT W UNSP SEVERITY SNOMED Code(s): 267794483
--- NOTE | 2022-03-04 12:35 | P.HPIM ---
History of Present Illness This is a pleasant 71 years old female with past medical history of hypothyroidism, type 2 diabetes mellitus, CVA, hyperlipidemia Patient is found on the floor unknown amount of time covered in feces and urine. Patient can follow direction with lip reading. Patient with hematoma to the left orbit with bruising. Moves all extremities. Open ulcer to the left hip. Patient could not provide information so it was obtained from stop her records ((Patient is deaf and mute. Patient was found down by her sister according to the neighbor she had not been out in her dog did not been out in 2 days. Sister states she last saw her on Tuesday. Patient was found on her left side she had a sore on her left buttocks and left foot. Patient told the sister through sign language that she was not having any pain and had no complaints. Patient has obvious ecchymosis to the left side of her face.)) This time the sister also was at bedside at could come to K to the patient. Patient looks confused although she could recognize her sister but she thought she is in her house. However she follows commands appropriately and she does no t seems to have focal neurological deficit As per sister the neighbor's last saw her on Tuesday morning. Usually she lives by herself and ambulates without assistance. Does not look the patient complains from any pain. Her abdomen looks soft. Hemodynamically she is a stable and she is afebrile. WBC 3.6 which is low, hemoglobin normal, low platelets 140. INR is 1.1. BMP is unremarkable. Mildly elevated liver enzymes AST 110 and ALT 59 and total bilirubin is 2.1, ammonia is low. Creatinine kinase 247. Troponin is negative. TSH is normal 3.4. Lipase normal to 72. Urine analysis is not suspicious of infection although it looks cloudy with ketones. Chest x-ray: No definitive acute process Pelvic x-ray osteoporosis and degenerative changes. No definitive failure EKG: Normal sinus rhythm at 76, no significant ST-T changes and QTC 431 CT of the face: No fracture CT of the head and neck: Multifocal chronic subcortical infarct of the left frontal and parietal lobes react no skull fracture. In the emergency room patient was started on ceftriaxone and received a total normal saline Review of Systems Review of systems (through the sign language and the sister) CONSTITUTIONAL: No fever, no malaise, no fatigue. HEENT: No recent visual problems or hearing problems. Denied any sore throat. CARDIOVASCULAR: No orthopnea, PND, no palpitations, no syncope. PULMONARY: No shortness of breath, no cough, no hemoptysis. GASTROINTESTINAL: No diarrhea, no nausea, no vomiting, no abdominal pain. Normoactive bowel sounds. NEUROLOGICAL: No headaches, no weakness, no numbness. HEMATOLOGICAL: Denies any bleeding or petechiae. GENITOURINARY: Denies any burning micturition, frequency, or urgency. MUSCULOSKELETAL/RHEUMATOLOGICAL: Denies any joint pain, swelling, or any muscle pain. ENDOCRINE: Denies any polyuria or polydipsia. Past Medical History Past Medical History: CVA/TIA, Diabetes Mellitus, Hearing Disorder / Deafness, Hyperlipidemia Additional Past Medical History / Comment(s): Pt is deaf-understands ASL and some lip reading, CVA residual "memory loss"; NIDDM type II. History of discitis at L3 4 in 2016- which was treated with long-term IV antibiotics. Dr. Gallagher with good resolution History of Any Multi-Drug Resistant Organisms: None Reported Past Surgical History: Cholecystectomy Additional Past Surgical History / Comment(s): september 2014- gallbladder removed, bypass of liver duct/stent done at [facility], left carotid endarterectomy September 2014, colonoscopy. Past Anesthesia/Blood Transfusion Reactions: No Reported Reaction Past Psychological History: Anxiety Past Alcohol Use History: None Reported Past Drug Use History: None Reported - Past Family History Brother(s) Family Medical History: CVA/TIA Mother Family Medical History: Memory Impairment Additional Family Medical History / Comment(s): "Alzheimer's". Mother is . Father Family Medical History: No Reported History Additional Family Medical History / Comment(s): Father is 93 yrs old. Medications and Allergies Home Medications Medication Instructions Recorded Confirmed Type Omeprazole [PriLOSEC] 40 mg PO BID 02/27/19 03/03/22 History Cholecalciferol [Vitamin D3 (25 25 mcg PO DAILY 03/03/22 03/03/22 History Mcg = 1000 Iu)] Levothyroxine Sodium [Synthroid] 100 mcg PO DAILY 03/03/22 03/03/22 History Multivit-Min/Iron/Folic/Lutein 1 tab PO DAILY 03/03/22 03/03/22 History [Centrum Silver Women Tablet] Pioglitazone [Actos] 45 mg PO DAILY 03/03/22 03/03/22 History Vit C/E/Zn/Coppr/Lutein/Zeaxan 1 cap PO DAILY 03/03/22 03/03/22 History [Preservision Areds 2 Softgel] Zinc Gluconate [Zinc] 50 mg PO DAILY 03/03/22 03/03/22 History Allergies Allergy/AdvReac Type Severity Reaction Status Date / Time No Known Allergies Allergy Verified 02/27/19 14:41 Physical Exam Vitals: Vital Signs Temp Pulse Pulse Resp BP BP Pulse Ox 03/04/22 05:00 98.4 F 80 20 132/73 91 L 03/03/22 22:20 98 F 70 16 122/50 97 03/03/22 19:07 86 16 148/85 99 03/03/22 18:19 98.6 F 75 16 155/72 96 Intake and Output 03/03/22 03/04/22 03/04/22 22:59 06:59 14:59 Intake Total 900 Balance 900 Intake: Intake, IV Titration 900 Amount Sodium Chloride 0.9% 1, 900 000 ml @ 75 mls/hr IV . [id number] ONE Rx#:[id number] Other: Weight 63.503 kg -GENERAL: The patient is alert and awake and follows commands. Patient is nonverbal at baseline and can indicate with saline, not in any acute distress. Well developed, well nourished. -HEENT: Pupils are round and equally reacting to light. EOMI. No scleral icterus. No conjunctival pallor. Normocephalic, atraumatic. No pharyngeal erythema. No thyromegaly. Large bleeders around her left eye CARDIOVASCULAR: S1 and S2 present. No murmurs, rubs, or gallops. PULMONARY: Chest is clear to auscultation, no wheezing or crackles. ABDOMEN: Soft, nontender, nondistended, normoactive bowel sounds. No palpable organomegaly. MUSCULOSKELETAL: No joint swelling or deformity. EXTREMITIES: No cyanosis, clubbing, or pedal edema. NEUROLOGICAL: Gross neurological examination did not reveal any focal deficits. SKIN: No rashes. no petechiae. Results CBC & Chem 7: 03/04/22 07:54 03/04/22 07:54 Labs: Abnormal Lab Results - Last 24 Hours (Table) 03/03/22 03/03/22 03/03/22 Range/Units 18:30 18:30 18:30 WBC 3.6 L (3.8-10.6) k/uL MCV 106.3 H (80.0-100.0) fL MCH 35.5 H (25.0-35.0) pg Plt Count 104 L (150-450) k/uL Lymphocytes # 0.7 L (1.0-4.8) k/uL Chloride 108 H (98-107) mmol/L Carbon Dioxide 20 L (22-30) mmol/L Glucose 102 H (74-99) mg/dL Total Bilirubin 2.1 H (0.2-1.3) mg/dL AST 110 H (14-36) U/L ALT 59 H (4-34) U/L Creatine Kinase 247 H (30-135) U/L Urine Appearance Cloudy H (Clear) Urine Protein Trace H (Negative) Urine Ketones 3+ H (Negative) Urine Nitrite Positive H (Negative) Urine Bacteria Rare H (None) /hpf Urine Mucus Occasional H (None) /hpf Assessment and Plan Assessment: Fall, patient found on the floor , with bad hygiene with ulcers in her feet. Last seen about 2 days earlier Left hip and bilateral feet pressure ulcers Abnormal UA, Suspected UTI. Patient has been provided limited history. Follow- up urine culture Mild confusion, most likely metabolic/toxic encephalopathy. Rule out acute stroke although it's felt less likely Chronic hearing loss and the mutism Multifocal chronic subcortical infarct of the left frontal and parietal lobes. Patient has history of stroke in the left frontal lobe in 2016 Hypothyroidism Type 2 diabetes mellitus Osteoporosis suspected on x-ray Plan: This is a pleasant 71 years old female who presents with fall and decubitus ulcer. Also she looks confused Check hemoglobin A1c, and vitamin B12 Follow-up with the trauma surgeon Monitor liver enzymes Consult neurology service Checked with the staff to repeat urine analysis and the bladder scan Labs and medication were reviewed.. Continue same treatment. Continue with symptomatic treatment. Resume home medication. Monitor lytes and vitals. DVT and GI prophylaxis. Further recommendations as per clinical course of the patient DVT prophylaxis: Subcutaneous heparin GI Prophylaxis: Pepcid PT/OT: Pending Prognosis is guarded
[2022-03-04] MEDS: COLLAGENASE 250 UNIT/GM OINTMENT 30 GM TUBE TOPICAL SCH (14:13)
[2022-03-04] MEDS: INSULIN ASPART (NovoLOG) 100 UNIT/ML VIAL SQ SCH ×3 (14:38→20:55)
[2022-03-04 14:39] LABS: Glucose,Whole Blood 200 mg/dL (70-110)
[2022-03-04 14:49] LABS: Platelet Count 89 k/uL (150-450)
--- NOTE | 2022-03-04 15:26 | P.GSCN ---
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 Patient was brought into the ER after having a fall at home. Patient was found on the floor for unknown amount of time covered with feces and urine. Patient has bruising around the left orbit. And abrasions on the top portion of both fe et. Imaging that was completed shows no evidence of fracture or any brain bleed. Patient has not reported any abdominal pain. Denies any nausea or vomiting. Patient seen and examined with Dr. viera PAST MEDICAL HISTORY: History of CVA, diabetes mellitus, deaf and hyperlipidemia PAST SURGICAL HISTORY: Cholecystectomy, ERCP procedure, bypass of liver duct/stent done at [facility], MEDICATIONS: See list. ALLERGIES: See list. SOCIAL HISTORY: No illicit drug use. REVIEW OF SYSTEMS: CONSTITUTIONAL: Denies fever or chills. HEENT: Denies blurred vision, vision changes, or eye pain. Denies hemoptysis CARDIOVASCULAR: Denies chest pain or pressure. RESPIRATORY: No shortness of breath. GASTROINTESTINAL: See HPI for pertinent findings HEMATOLOGIC: Denies bleeding disorders. GENITOURINARY: Denies any blood in urine or increased urinary frequency. SKIN: Denies pruitis. Denies rash. PHYSICAL EXAM: VITAL SIGNS: Reviewed GENERAL: Well-developed in no acute distress. HEENT: No sclera icterus. Extraocular movements grossly intact. Moist buccal mucosa. Head is normocephalic. No nasal drainage. She does have periorbital ecchymosis of the left eye. Patient is able to open the eyelid ABDOMEN: Soft. Nondistended. Nontender NEUROLOGIC: Awake and alert. Extremities: Abrasions and wounds on the top of patient's feet LABORATORY DATA: WBC 3.1 HGB 13.2 platelets 89 Sodium 138 potassium 3.1 creatinine 0.50 Glucose 200 total bilirubin 2.19 1.2 AST 110 down to 65 ALT 59 down to 43 Ammonia less than 9 IMAGING: Computed tomography scan of head multifocal chronic subcortical infarct left frontal and parietal lobes. Intracranial atherosclerosis, chronic white matter disease and atrophy. No skull fracture, acute bleed or acute intracranial abnormality. CT cervical spine nonspecific sclerosis of C4 vertebral body, no aggressive features, could reflect atypical hemangioma. Cannot rule out metastatic disease. Mild degenerative disc disease. No definite fracture or acute bony abnormality with moderate artifact limiting evaluation Facial CT no nasal bone, orbital wall or facial fracture Pelvic x-ray osteoporosis and degenerative change. No definite fracture Chest x-ray no definite acute process ASSESSMENT: 1. Fall with trauma 2. Left periorbital ecchymosis 3. Ulcerations bilateral feet PLAN: -Continue supportive care -No surgical intervention planned -Wound care consulted for ulcerations on feet -Agree with PT OT consult and possible placement Thank you for this consultation Physician Residential Specialist note has been reviewed by physician. Signing provider agrees with the documented findings, assessment, and plan of care. Past Medical History Past Medical History: CVA/TIA, Diabetes Mellitus, Hearing Disorder / Deafness, Hyperlipidemia Additional Past Medical History / Comment(s): Pt is deaf-understands ASL and some lip reading, CVA residual "memory loss"; NIDDM type II. History of discitis at L3 4 in 2016- which was treated with long-term IV antibiotics. Dr. Gallagher with good resolution History of Any Multi-Drug Resistant Organisms: None Reported Past Surgical History: Cholecystectomy Additional Past Surgical History / Comment(s): september 2014- gallbladder removed, bypass of liver duct/stent done at [facility], left carotid endarterectomy September 2014, colonoscopy. Past Anesthesia/Blood Transfusion Reactions: No Reported Reaction Past Psychological History: Anxiety Past Alcohol Use History: None Reported Past Drug Use History: None Reported - Past Family History Brother(s) Family Medical History: CVA/TIA Mother Family Medical History: Memory Impairment Additional Family Medical History / Comment(s): "Alzheimer's". Mother is . Father Family Medical History: No Reported History Additional Family Medical History / Comment(s): Father is 93 yrs old. Medications and Allergies Home Medications Medication Instructions Recorded Confirmed Type Omeprazole [PriLOSEC] 40 mg PO BID 02/27/19 03/03/22 History Cholecalciferol [Vitamin D3 (25 25 mcg PO DAILY 03/03/22 03/03/22 History Mcg = 1000 Iu)] Levothyroxine Sodium [Synthroid] 100 mcg PO DAILY 03/03/22 03/03/22 History Multivit-Min/Iron/Folic/Lutein 1 tab PO DAILY 03/03/22 03/03/22 History [Centrum Silver Women Tablet] Pioglitazone [Actos] 45 mg PO DAILY 03/03/22 03/03/22 History Vit C/E/Zn/Coppr/Lutein/Zeaxan 1 cap PO DAILY 03/03/22 03/03/22 History [Preservision Areds 2 Softgel] Zinc Gluconate [Zinc] 50 mg PO DAILY 03/03/22 03/03/22 History Folic Acid 1 mg PO DAILY 03/04/22 03/04/22 History ursodioL [Ursodiol] 500 mg PO BID 03/04/22 03/04/22 History Allergies Allergy/AdvReac Type Severity Reaction Status Date / Time No Known Allergies Allergy Verified 02/27/19 14:41 Surgical - Exam Vital Signs Temp Pulse Resp BP Pulse Ox 98.6 F 75 16 155/72 96 03/03/22 18:19 03/03/22 18:19 03/03/22 18:19 03/03/22 18:19 03/03/22 18:19 Results - Labs 03/04/22 07:54 03/04/22 07:54 Abnormal Lab Results - Last 24 Hours (Table) 03/03/22 03/03/22 03/03/22 Range/Units 18:30 18:30 18:30 WBC 3.6 L (3.8-10.6) k/uL MCV 106.3 H (80.0-100.0) fL MCH 35.5 H (25.0-35.0) pg Plt Count 104 L (150-450) k/uL Lymphocytes # 0.7 L (1.0-4.8) k/uL Potassium (3.5-5.1) mmol/L Chloride 108 H (98-107) mmol/L Carbon Dioxide 20 L (22-30) mmol/L Creatinine (0.52-1.04) mg/dL Glucose 102 H (74-99) mg/dL Calcium (8.4-10.2) mg/dL Total Bilirubin 2.1 H (0.2-1.3) mg/dL AST 110 H (14-36) U/L ALT 59 H (4-34) U/L Creatine Kinase 247 H (30-135) U/L Total Protein (6.3-8.2) g/dL Albumin (3.5-5.0) g/dL Urine Appearance Cloudy H (Clear) Urine Protein Trace H (Negative) Urine Ketones 3+ H (Negative) Urine Nitrite Positive H (Negative) Urine Bacteria Rare H (None) /hpf Urine Mucus Occasional H (None) /hpf 03/04/22 03/04/22 Range/Units 07:54 07:54 WBC 3.1 L (3.8-10.6) k/uL MCV 106.3 H (80.0-100.0) fL MCH (25.0-35.0) pg Plt Count (150-450) k/uL Lymphocytes # (1.0-4.8) k/uL Potassium 3.1 L (3.5-5.1) mmol/L Chloride 111 H (98-107) mmol/L Carbon Dioxide (22-30) mmol/L Creatinine 0.50 L (0.52-1.04) mg/dL Glucose (74-99) mg/dL Calcium 8.0 L (8.4-10.2) mg/dL Total Bilirubin (0.2-1.3) mg/dL AST 65 H (14-36) U/L ALT 43 H (4-34) U/L Creatine Kinase (30-135) U/L Total Protein 5.5 L (6.3-8.2) g/dL Albumin 2.7 L (3.5-5.0) g/dL Urine Appearance (Clear) Urine Protein (Negative) Urine Ketones (Negative) Urine Nitrite (Negative) Urine Bacteria (None) /hpf Urine Mucus (None) /hpf Diabetes panel 03/03/22 03/04/22 Range/Units 18:30 07:54 Sodium 139 138 (137-145) mmol/L Potassium 4.2 3.1 L (3.5-5.1) mmol/L Chloride 108 H 111 H (98-107) mmol/L Carbon Dioxide 20 L 22 (22-30) mmol/L BUN 17 11 (7-17) mg/dL Creatinine 0.52 0.50 L (0.52-1.04) mg/dL Glucose 102 H 79 (74-99) mg/dL Calcium 8.8 8.0 L (8.4-10.2) mg/dL AST 110 H 65 H (14-36) U/L ALT 59 H 43 H (4-34) U/L Alkaline Phosphatase 120 117 (38-126) U/L Total Protein 7.2 5.5 L (6.3-8.2) g/dL Albumin 3.6 2.7 L (3.5-5.0) g/dL Thyroid panel 03/03/22 Range/Units 22:20 TSH 3.400 (0.465-4.680) mIU/L Calcium panel 03/03/22 03/04/22 Range/Units 18:30 07:54 Calcium 8.8 8.0 L (8.4-10.2) mg/dL Albumin 3.6 2.7 L (3.5-5.0) g/dL Pituitary panel 03/03/22 03/03/22 03/04/22 Range/Units 18:30 22:20 07:54 Sodium 139 138 (137-145) mmol/L Potassium 4.2 3.1 L (3.5-5.1) mmol/L Chloride 108 H 111 H (98-107) mmol/L Carbon Dioxide 20 L 22 (22-30) mmol/L BUN 17 11 (7-17) mg/dL Creatinine 0.52 0.50 L (0.52-1.04) mg/dL Glucose 102 H 79 (74-99) mg/dL Calcium 8.8 8.0 L (8.4-10.2) mg/dL TSH 3.400 (0.465-4.680) mIU/L Adrenal panel 03/03/22 03/04/22 Range/Units 18:30 07:54 Sodium 139 138 (137-145) mmol/L Potassium 4.2 3.1 L (3.5-5.1) mmol/L Chloride 108 H 111 H (98-107) mmol/L Carbon Dioxide 20 L 22 (22-30) mmol/L BUN 17 11 (7-17) mg/dL Creatinine 0.52 0.50 L (0.52-1.04) mg/dL Glucose 102 H 79 (74-99) mg/dL Calcium 8.8 8.0 L (8.4-10.2) mg/dL Total Bilirubin 2.1 H 1.2 (0.2-1.3) mg/dL AST 110 H 65 H (14-36) U/L ALT 59 H 43 H (4-34) U/L Alkaline Phosphatase 120 117 (38-126) U/L Total Protein 7.2 5.5 L (6.3-8.2) g/dL Albumin 3.6 2.7 L (3.5-5.0) g/dL
[2022-03-04] MEDS ORDERED: Potassium Replacement Protocol 1 EACH MISC MISCELLANE PRN (16:57)
[2022-03-04 17:33] LABS: Glucose,Whole Blood 137 mg/dL (70-110)
[2022-03-04] MEDS: POTASSIUM CHLORIDE ER 20 MEQ TAB.ER PO SCH ×2 (17:48→21:10)
[2022-03-04 18:17] LABS: Vitamin B12 >2000.0 pg/mL (200.0-944.0)
[2022-03-04 20:46] LABS: Glucose,Whole Blood 125 mg/dL (70-110)
[2022-03-05] MEDS: LEVOTHYROXINE 100 MCG TAB PO SCH (05:53)
[2022-03-05 07:11] LABS: Glucose,Whole Blood 116 mg/dL (70-110)
[2022-03-05] MEDS: INSULIN ASPART (NovoLOG) 100 UNIT/ML VIAL SQ SCH ×5 (07:16→21:02)
[2022-03-05] MEDS: CHOLECALCIFEROL 25 MCG (1000 IU) TABLET PO SCH (08:26)
[2022-03-05] MEDS: HEPARIN SODIUM,PORCINE/PF 5,000 UNIT/0.5 ML SYRINGE SQ SCH ×2 (08:27→20:52)
[2022-03-05] MEDS: PIOGLITAZONE 45 MG TAB PO SCH (08:28)
[2022-03-05] MEDS: FAMOTIDINE 20 MG/2 ML VIAL IV SCH ×2 (08:28→20:52)
[2022-03-05] MEDS: COLLAGENASE 250 UNIT/GM OINTMENT 30 GM TUBE TOPICAL SCH (08:32)
[2022-03-05 09:05] LABS: Basophils # (A) 0.01 X 10*3/uL (0.00-0.10); Basophils % (A) 0.3 %; Eosinophils # (A) 0.12 X 10*3/uL (0.04-0.35); Eosinophils % (A) 3.2 %; HCT 37.2 % (37.2-46.3); HGB 12.5 g/dL (12.0-15.0); Immature Grans, Automated 0.5 %; Lymphocytes # (A) 0.83 X 10*3/uL (0.90-5.00); Lymphocytes % (A) 21.9 %; MCH 34.3 pg (27.0-32.0); MCHC 33.6 g/dL (32.0-37.0); MCV 102.2 fL (80.0-97.0); Mean Platelet Volume 11.3 fL (9.5-12.2); Monocytes # (A) 0.72 X 10*3/uL (0.20-1.00); NRBC Per 100 WBC 0 /100 WBCS (0.0-0.0); Neutrophils # (A) 2.09 X 10*3/uL (1.80-7.70); Neutrophils % (A) 55.1 %; Platelet Count 99 X 10*3/uL (140-440); RBC 3.64 X 10*6/uL (4.10-5.20); RDW 13.9 % (11.5-14.5); WBC 3.79 X 10*3/uL (4.50-10.00)
[2022-03-05 09:26] LABS: African American GFR (CKD) 107.8 (60.0-200.0); Anion Gap 10.6 mmol/L (10.00-18.00); BUN/Creat Ratio 19.83 Ratio (12.00-20.00); Blood Urea Nitrogen 11.9 mg/dL (9.0-27.0); Calcium 8.2 mg/dL (8.7-10.3); Carbon Dioxide 18.4 mmol/L (20.0-27.5); Magnesium 1.9 mg/dL (1.5-2.4); Potassium 3.6 mmol/L (3.5-5.5)
[2022-03-05 09:53] LABS: Appearance,Urine Clear (Clear); Bilirubin,Urine Negative (Negative); Blood,Urine Negative (Negative); Color,Urine Yellow; Glucose,Urine (UA) Negative (Negative); Ketones,Urine 1+ (Negative); Leukocyte Esterase,Urine Negative (Negative); Nitrite,Urine Negative (Negative); PH, Urine 6.5 (5.0-8.0); Protein,Urine Negative (Negative); Specific Gravity,Urine 1.016 (1.001-1.035); Urobilinogen,Urine <2.0 mg/dL (<2.0)
[2022-03-05 11:21] LABS: Glucose,Whole Blood 175 mg/dL (70-110)
[2022-03-05 12:19] VITALS: BMI 24.7
--- NOTE | 2022-03-05 13:27 | P.PN ---
Subjective Progress Note Date: 03/05/22 CHIEF COMPLAINT: Fall HISTORY OF PRESENT ILLNESS: The patient is deaf and mute. She had a fall at home. She is lying in bed comfortably. Her pain is controlled. She is eating. She did require assistance to get to the bedside commode. She is having bowel movements. Denies any nausea or vomiting. Afebrile. Patient evaluated by physical therapy working on discharge planning to the subacute rehab next week. WBC 3.79HB 12.5. Patient seen by wound care service for her feet and recommending Santyl cream PHYSICAL EXAM: VITAL SIGNS: Reviewed. GENERAL: Well-developed in no acute distress. HEENT: Periorbital bruising around the left eye. Patient's eyes are open. ABDOMEN: Soft. Nondistended. Nontender. NEUROLOGIC: Alert and oriented. Cranial nerves II through XII grossly intact. ASSESSMENT: 1. Fall with trauma to the face and feet 2. Left periorbital ecchymosis 3. Ulcerations bilateral feet PLAN: -Continue supportive care -Continue work with PT OT -Patient will require placement at [facility] at discharge -Continue local wound care to her feet -No surgical intervention Physician Reconciliation Accountant note has been reviewed by physician. Signing provider agrees with the documented findings, assessment, and plan of care. Objective - Vital Signs Vital signs: Vital Signs Temp 98.4 F 03/05/22 11:42 Pulse 74 03/05/22 11:42 Resp 16 03/05/22 11:42 BP 137/70 03/05/22 11:42 Pulse Ox 95 03/05/22 11:42 FiO2 Intake & Output 03/04/22 03/05/22 03/05/22 18:59 06:59 18:59 Output Total 28 Balance -28 Weight 63.503 kg 63.503 kg Output: Post Void Residual 28 Other: Voiding Method Incontinent Diaper Bedside Commode Incontinent Diaper Incontinent # Voids 1 1 1 # Bowel Movements 1 1 - Labs CBC & Chem 7: 03/05/22 05:46 03/05/22 05:46 Labs: Abnormal Lab Results - Last 24 Hours (Table) 03/04/22 03/04/22 03/04/22 Range/Units 07:54 07:54 07:54 WBC (4.50-10.00) X 10*3/uL RBC (4.10-5.20) X 10*6/uL MCV (80.0-97.0) fL MCH (27.0-32.0) pg Plt Count 89 L (150-450) k/uL Lymphocytes # 0.7 L (1.0-4.8) k/uL Chloride (96-109) mmol/L Carbon Dioxide (20.0-27.5) mmol/L Glucose (70-110) mg/dL POC Glucose (mg/dL) (70-110) mg/dL Hemoglobin A1c (0.0-6.0) % Calcium (8.7-10.3) mg/dL Vitamin B12 >2000.0 H (200.0-944.0) pg/mL Procalcitonin 0.11 H (0.02-0.09) ng/mL Urine Ketones (Negative) 03/04/22 03/04/22 03/04/22 Range/Units 14:36 17:32 20:45 WBC (4.50-10.00) X 10*3/uL RBC (4.10-5.20) X 10*6/uL MCV (80.0-97.0) fL MCH (27.0-32.0) pg Plt Count (150-450) k/uL Lymphocytes # (1.0-4.8) k/uL Chloride (96-109) mmol/L Carbon Dioxide (20.0-27.5) mmol/L Glucose (70-110) mg/dL POC Glucose (mg/dL) 200 H 137 H 125 H (70-110) mg/dL Hemoglobin A1c (0.0-6.0) % Calcium (8.7-10.3) mg/dL Vitamin B12 (200.0-944.0) pg/mL Procalcitonin (0.02-0.09) ng/mL Urine Ketones (Negative) 03/05/22 03/05/22 03/05/22 Range/Units 05:46 05:46 05:46 WBC 3.79 L (4.50-10.00) X 10*3/uL RBC 3.64 L (4.10-5.20) X 10*6/uL MCV 102.2 H (80.0-97.0) fL MCH 34.3 H (27.0-32.0) pg Plt Count 99 L (150-450) k/uL Lymphocytes # 0.83 L (1.0-4.8) k/uL Chloride 110 H (96-109) mmol/L Carbon Dioxide 18.4 L (20.0-27.5) mmol/L Glucose 112 H (70-110) mg/dL POC Glucose (mg/dL) (70-110) mg/dL Hemoglobin A1c 6.7 H (0.0-6.0) % Calcium 8.2 L (8.7-10.3) mg/dL Vitamin B12 (200.0-944.0) pg/mL Procalcitonin (0.02-0.09) ng/mL Urine Ketones (Negative) 03/05/22 03/05/22 03/05/22 Range/Units 07:04 09:15 11:17 WBC (4.50-10.00) X 10*3/uL RBC (4.10-5.20) X 10*6/uL MCV (80.0-97.0) fL MCH (27.0-32.0) pg Plt Count (150-450) k/uL Lymphocytes # (1.0-4.8) k/uL Chloride (96-109) mmol/L Carbon Dioxide (20.0-27.5) mmol/L Glucose (70-110) mg/dL POC Glucose (mg/dL) 116 H 175 H (70-110) mg/dL Hemoglobin A1c (0.0-6.0) % Calcium (8.7-10.3) mg/dL Vitamin B12 (200.0-944.0) pg/mL Procalcitonin (0.02-0.09) ng/mL Urine Ketones 1+ H (Negative)
[2022-03-05 17:11] LABS: Glucose,Whole Blood 143 mg/dL (70-110)
--- NOTE | 2022-03-05 17:25 | P.CNNES ---
History of Present Illness Consult date: 03/05/22 Requesting physician: Lev Huerta Reason for Consult: mild confusion , h/o stroke History of Present Illness: Patient is a 71-year-old right-handed female who is speech and hearing impaired since , uses sign language, currently lives by herself, and family members keep a close watch on her, was brought to the hospital by ambulance on Tuesday03/03/2022 at 6:04 PM after she was found laying on the floor in her home with complete loss of bowels and bladder. EMS flow sheet is not available in the chart. I spoke to patient's sister on the phone, who provided detailed history. Patient lives alone, and drives. However because of her speech and hearing impaired, patient texts her sister every night about her well-being. Patient's brother's girlfriend and friends in the neighborhood also check on her fr equently. She apparently was fine on Tuesday when she apparently drove up down for shopping. She also walks her dog in the neighborhood almost daily. Patient did not text her sister on Tuesday night. Patient's sister felt that she may be just forgetful, therefore did not make of it. Nobody saw her on Tuesday whole day and patient did not text her sister Tuesday night. On Tuesday, jodi salazar's neighbors who also watches her also got concerned, as she has not walked the dog in the neighborhood since Tuesday. They rang her Olson, but patient did not answer. They called patient's sister, who went in and found patient laying on the floor and had messed up herself all around. Patient did not remember what happened. She called the ambulance and patient was brought to the hospital. Her blood sugars checked by EMS was in 120s. Vital signs arrival blood pressure 155/72, pulse is 75 temperature 90.6. Patient's blood test shows WBC 3.6, hemoglobin 14.3, elevated MCV 106.3, platelets are 104. PT/PTT normal, electrolytes are normal. Cranial functions normal. AST was elevated 110, ALT 59. CK 247, troponin negative. B12 is normal. TSH normal. UA shows positive nitrite, negative leukocyte esterase. CT head showed multifocal chronic subcortical infarct left frontal and parietal lobes. Intracranial atherosclerosis, chronic white matter disease and atrophy. No skull fracture, acute bleed or acute intracranial abnormality. I personally reviewed CT head, agree with the findings. I could not pull previous films for comparison, due to problems with [employer]. CT of the cervical spine showed nonspecific sclerosis of the C4 vertebral body, no aggressive features, could reflect atypical hemangioma. Cannot rule out metastatic disease. Mild degenerative disc disease. No definite fracture or acute bony abnormality with moderate artifact limiting evaluation. CT of the face negative for any fracture. EKG shows sinus rhythm. Chest x-ray showed no acute process. Pelvic x-ray showed no fracture. Osteoporosis and degenerative change. In 2016 patient underwent gallbladder surgery which was complicated because of making the liver. Patient had "frontal lobe CVA", which affected her arm on the right. Physically she recovered. Patient's sister has noticed that she has some memory affected since then, and she often repeats. Patient currently does not take any antiplatelet medication. "It was not prescribed" but patient's sister. No previous history of seizures. Patient's home medications include folic acid, multivitamin, Actos, omeprazole. Patient is not on any antiplatelet medication. Patient has smoked more than one pack per day since she was very young. She stopped smoking after she suffered from a stroke in 2016. She never got , has no children. Patient's sister states that she has a 4 pronged cane, but does not use it frequently. She believes that patient will be better with walker. Patient has diabetes for 2-3 years. Patient's sister believes that she is not better today she walked in the [place]. Her communications have improved. She believes that she is overall 80% better. She is still slightly confused and weak. Review of Systems Patient not able to provide review of systems. Patient's sister not available to ask her directly at this time. ROS unobtainable: due to mental status Constitutional: Denies chills, Denies fever Ears: bilateral: decreased hearing Past Medical History Past Medical History: CVA/TIA, Diabetes Mellitus, Hearing Disorder / Deafness, Hyperlipidemia Additional Past Medical History / Comment(s): Pt is deaf-understands ASL and some lip reading, CVA residual "memory loss"; NIDDM type II. History of discitis at L3 4 in 2017-18 which was treated with long-term IV antibiotics. Dr. Gallagher with good resolution History of Any Multi-Drug Resistant Organisms: None Reported Past Surgical History: Cholecystectomy Additional Past Surgical History / Comment(s): september 2014- gallbladder removed, bypass of liver duct/stent done at [facility], left carotid endarterectomy September 2014, colonoscopy. Past Anesthesia/Blood Transfusion Reactions: No Reported Reaction Past Psychological History: Anxiety Past Alcohol Use History: None Reported Past Drug Use History: None Reported - Past Family History Brother(s) Family Medical History: CVA/TIA Mother Family Medical History: Memory Impairment Additional Family Medical History / Comment(s): "Alzheimer's". Mother is . Father Family Medical History: No Reported History Additional Family Medical History / Comment(s): Father is 93 yrs old. Medications and Allergies Home Medications Medication Instructions Recorded Confirmed Type Omeprazole [PriLOSEC] 40 mg PO BID 02/27/19 03/03/22 History Cholecalciferol [Vitamin D3 (25 25 mcg PO DAILY 03/03/22 03/03/22 History Mcg = 1000 Iu)] Levothyroxine Sodium [Synthroid] 100 mcg PO DAILY 03/03/22 03/03/22 History Multivit-Min/Iron/Folic/Lutein 1 tab PO DAILY 03/03/22 03/03/22 History [Centrum Silver Women Tablet] Pioglitazone [Actos] 45 mg PO DAILY 03/03/22 03/03/22 History Vit C/E/Zn/Coppr/Lutein/Zeaxan 1 cap PO DAILY 03/03/22 03/03/22 History [Preservision Areds 2 Softgel] Zinc Gluconate [Zinc] 50 mg PO DAILY 03/03/22 03/03/22 History Folic Acid 1 mg PO DAILY 03/04/22 03/04/22 History ursodioL [Ursodiol] 500 mg PO BID 03/04/22 03/04/22 History Allergies Allergy/AdvReac Type Severity Reaction Status Date / Time No Known Allergies Allergy Verified 02/27/19 14:41 Physical Examination - Vital Signs Vital Signs: Vital Signs Temp Pulse Resp BP Pulse Ox 03/05/22 04:41 98.6 F 74 18 133/61 92 L 03/04/22 20:20 99.2 F 80 16 130/69 93 L 03/04/22 12:31 98.3 F 67 16 125/61 92 L Intake and Output 09/08/22 09/09/22 09/09/22 22:59 06:59 14:59 Other: Voiding Method Diaper Incontinent # Voids 1 1 1 # Bowel Movements 1 1 Patient is an elderly very pleasant female, in no acute distress. Patient is laying comfortably in the bed. Patient is alert awake. Affect appears normal. Orientation cannot be assessed because of speech and hearing impairment. Attention, concentration and fund of knowledge is impaired. Patient is mute. On cranial nerve examination, pupils are equal, round and reacting to light, visual vivar were very difficult to assess, very unreliable. Uncertain if there is some deficit on the right. Extraocular muscles are intact with no nystagmus. Face is symmetric, tongue protrudes to the midline. Palatal elevation and sensation normal, hearing is completely impaired and shoulder shrug normal, facial sensation could not be assessed. On muscle strength testing, there is no pronator drift and the strength appears normal in arms and legs distally and proximally. Examination was limited because of patient's noncooperation. Deep tendon reflexes are (right/left) biceps 0/0, brachioradialis 0/0, knee 1/0 and plantars are downgoing bilaterally. Sensory to touch could not be assessed. She was feeling both sides. Cerebellar function showed no ataxia for [id number] testing. Tone and bulk of muscles normal. Gait deferred.. On general examination, there is no carotid bruit or murmur, S1-S2 audible. Chest is clear on consultation. Abdomen is soft nontender. No organomegaly, bowel sounds present. Peripheral pulses are present. No edema. Results - Laboratory Findings CBC and BMP: 03/05/22 05:46 03/05/22 05:46 Abnormal Lab Findings: Abnormal Labs 03/03/22 03/03/22 03/03/22 18:30 18:30 18:30 WBC 3.6 L RBC MCV 106.3 H MCH 35.5 H Plt Count 104 L Lymphocytes # 0.7 L Potassium Chloride 108 H Carbon Dioxide 20 L Creatinine Glucose 102 H POC Glucose (mg/dL) Hemoglobin A1c Calcium Total Bilirubin 2.1 H AST 110 H ALT 59 H Creatine Kinase 247 H Total Protein Albumin Vitamin B12 Procalcitonin Urine Appearance Cloudy H Urine Protein Trace H Urine Ketones 3+ H Urine Nitrite Positive H Urine Bacteria Rare H Urine Mucus Occasional H 03/04/22 03/04/22 03/04/22 07:54 07:54 07:54 WBC RBC MCV MCH Plt Count Lymphocytes # Potassium 3.1 L Chloride 111 H Carbon Dioxide Creatinine 0.50 L Glucose POC Glucose (mg/dL) Hemoglobin A1c 6.4 H Calcium 8.0 L Total Bilirubin AST 65 H ALT 43 H Creatine Kinase Total Protein 5.5 L Albumin 2.7 L Vitamin B12 >2000.0 H Procalcitonin 0.11 H Urine Appearance Urine Protein Urine Ketones Urine Nitrite Urine Bacteria Urine Mucus 03/04/22 03/04/22 03/04/22 07:54 14:36 17:32 WBC 3.1 L RBC MCV 106.3 H MCH Plt Count 89 L Lymphocytes # 0.7 L Potassium Chloride Carbon Dioxide Creatinine Glucose POC Glucose (mg/dL) 200 H 137 H Hemoglobin A1c Calcium Total Bilirubin AST ALT Creatine Kinase Total Protein Albumin Vitamin B12 Procalcitonin Urine Appearance Urine Protein Urine Ketones Urine Nitrite Urine Bacteria Urine Mucus 03/04/22 03/05/22 03/05/22 20:45 05:46 05:46 WBC 3.79 L RBC 3.64 L MCV 102.2 H MCH 34.3 H Plt Count 99 L Lymphocytes # 0.83 L Potassium Chloride 110 H Carbon Dioxide 18.4 L Creatinine Glucose 112 H POC Glucose (mg/dL) 125 H Hemoglobin A1c Calcium 8.2 L Total Bilirubin AST ALT Creatine Kinase Total Protein Albumin Vitamin B12 Procalcitonin Urine Appearance Urine Protein Urine Ketones Urine Nitrite Urine Bacteria Urine Mucus 03/05/22 03/05/22 07:04 09:15 WBC RBC MCV MCH Plt Count Lymphocytes # Potassium Chloride Carbon Dioxide Creatinine Glucose POC Glucose (mg/dL) 116 H Hemoglobin A1c Calcium Total Bilirubin AST ALT Creatine Kinase Total Protein Albumin Vitamin B12 Procalcitonin Urine Appearance Urine Protein Urine Ketones 1+ H Urine Nitrite Urine Bacteria Urine Mucus Assessment and Plan Assessment: * Episode of unresponsiveness, with a very prolonged postictal state. Patient has lost control of bowels and bladder during this period of unresponsiveness. Patient did not communicate with the family for 48 hours, and has no memory of the event, therefore uncertain how long she was down for. Rule out seizure with prolonged postictal state, arrhythmia, versus CVA. * Speech and hearing impaired since , uses sign language * History of CVA in the left MCA territory in 2016 after gallbladder surgery, with no significant residual deficits. * Diabetes * X tobacco use Plan: * Per patient's sister statement, patient is not back to baseline. She may be 80% better, but has not reached to baseline yet. She still has some confusion. * Patient will need full workup including an MRI of the brain rule out CVA * Carotid Doppler * 2-D echo * EEG to rule out any epileptiform activity * Fasting a.m. lipid panel, * Hemoglobin A1c 6.7 * B12 is normal > 2000. Folate pending * Telemetric monitoring rule out arrhythmia. * Start aspirin 81 mg daily, as patient has history of the stroke, and has multiple vascular risk factors. * Because of the episode of unresponsiveness, patient should not drive for 6 months. This is relayed to patient's sister. * I had a prolonged discussion with the patient's sister. * Neurology will follow. Thank you for the consult. Time with Patient: Greater than 30 (Spent over 70 minutes in history, examination and coordinating care)
[2022-03-05] MEDS: ASPIRIN 81 MG PO SCH (18:07)
--- NOTE | 2022-03-05 18:12 | US ---
EXAMINATION TYPE: US carotid duplex BILAT DATE OF EXAM: 03/05/2022 COMPARISON: NONE CLINICAL HISTORY: syncope, history of CVA. SyncopeSyncope TECHNIQUE: Carotid duplex ultrasound examination. Indirect Doppler criteria was utilized. Limited due to patient being deaf and couldn't position correctly FINDINGS: EXAM MEASUREMENTS: RIGHT: Peak Systolic Velocity (PSV) cm/sec ----- Right CCA: 80.1 ----- Right ICA: 152.9 ----- Right ECA: 103.9 ICA/CCA ratio: 1.9 RIGHT: End Diastole cm/sec ----- Right CCA: 11.4 ----- Right ICA: 20.9 ----- Right ECA: 6.1 LEFT: Peak Systolic Velocity (PSV) cm/sec ----- Left CCA: 77.9 ----- Left ICA: 105.5 ----- Left ECA: 166.7 ICA/CCA ratio: 1.4 LEFT: End Diastole cm/sec ----- Left CCA: 11.0 ----- Left ICA: 16.9 ----- Left ECA: 15.0 VERTEBRALS (direction of flow): Right Vertebral: Antegrade Left Vertebral: Antegrade Rhythm: Normal PROCTOLOGIST NOTES: Plaque seen in bilateral bulbs and throughout left CCA. IMPRESSION: 1. 50-69% stenosis of the right carotid bifurcation. 2. Less than 50% stenosis of the left carotid bifurcation. 3. Criteria for Assigning % of Stenosis / Diameter reduction (Estimation based on the indirect measurements of the internal carotid artery velocities (ICA PSV). 1. Normal (no stenosis)=ICA PSV < 125 cm/s: ratio < 2.0: ICA EDV<40 cm/s. 2. Less than 50% stenosis=ICA PSV < 125 cm/s: ratio < 2.0: ICA EDV<40 cm/s. 3. 50 to 69% stenosis=ICA PSV of 125 to 230 cm/s: ration 2.0 ? 4.0: ICA EDV 40-100 cm/s. 4. Greater than 70% stenosis to near occlusion= ICA PSV > 230 cm/s: ratio > 4.0: ICA EDV > 100 cm/s. 5. Near occlusion= ICA PSV velocities may be low or undetectable: variable ratio and ICA EDV. 6. Total occlusion=unable to detect flow.
--- NOTE | 2022-03-05 19:47 | P.PN ---
Subjective This is a pleasant 71 years old female with past medical history of hypothyroidism, type 2 diabetes mellitus, CVA, hyperlipidemia Patient is found on the floor unknown amount of time covered in feces and urine. Patient can follow direction with lip reading. Patient with hematoma to the left orbit with bruising. Moves all extremities. Open ulcer to the left hip. Patient could not provide information so it was obtained from stop her records ((Patient is deaf and mute. Patient was found down by her sister according to the neighbor she had not been out in her dog did not been out in 2 days. Sister states she last saw her on Tuesday. Patient was found on her left side she had a sore on her left buttocks and left foot. Patient told the sister through sign language that she was not having any pain and had no complaints. Patient has ob vious ecchymosis to the left side of her face.)) This time the sister also was at bedside at could come to K to the patient. Patient looks confused although she could recognize her sister but she thought she is in her house. However she follows commands appropriately and she does not seems to have focal neurological deficit As per sister the neighbor's last saw her on Tuesday morning. Usually she lives by herself and ambulates without assistance. Does not look the patient complains from any pain. Her abdomen looks soft. Hemodynamically she is a stable and she is afebrile. WBC 3.6 which is low, hemoglobin normal, low platelets 140. INR is 1.1. BMP is unremarkable. Mildly elevated liver enzymes AST 110 and ALT 59 and total bilirubin is 2.1, ammonia is low. Creatinine kinase 247. Troponin is negative. TSH is normal 3.4. Lipase normal to 72. Urine analysis is not suspicious of infection although it looks cloudy with ketones. Chest x-ray: No definitive acute process Pelvic x-ray osteoporosis and degenerative changes. No definitive failure EKG: Normal sinus rhythm at 76, no significant ST-T changes and QTC 431 CT of the face: No fracture CT of the head and neck: Multifocal chronic subcortical infarct of the left frontal and parietal lobes react no skull fracture. In the emergency room patient was started on ceftriaxone and received a total normal saline 03/05/2022 Patient is more awake and interactive today however she still somewhat confused, she could not tell where she is at despite several attempts from her sister at bedside to talk to her lip reading and sign language. As per sister she is not completely back to her baseline although she has shown significant improvement. Patient does not seem to complain from any new weakness. Her urine analysis when repeated came back negative. Most likely patient other she had mild UTI or finished therapy. No need for further antibiotic especially patient does not have complained from her urinary symptoms. EEG, MRI of the brain and echocardiogram were ordered. Also patient is on telemetry. Patient also got accepted to [facility] on discharge however she is medically stable. She started tolerating diet and "can be lowered Objective - Vital Signs Vital signs: Vital Signs Temp 98.4 F 03/05/22 11:42 Pulse 74 03/05/22 11:42 Resp 16 03/05/22 11:42 BP 137/70 03/05/22 11:42 Pulse Ox 95 03/05/22 11:42 FiO2 Intake & Output 03/04/22 03/05/22 03/05/22 18:59 06:59 18:59 Output Total 28 Balance -28 Weight 63.503 kg Output: Post Void Residual 28 Other: Voiding Method Incontinent Diaper Bedside Commode Incontinent Diaper Incontinent # Voids 1 1 1 # Bowel Movements 1 1 - Exam GENERAL: The patient is alert and oriented x3, not in any acute distress. Well developed, well nourished. HEENT: Pupils are round and equally reacting to light. EOMI. No scleral icterus. No conjunctival pallor. Normocephalic, atraumatic. No pharyngeal erythema. No thyromegaly. CARDIOVASCULAR: S1 and S2 present. No murmurs, rubs, or gallops. PULMONARY: Chest is clear to auscultation, no wheezing or crackles. ABDOMEN: Soft, nontender, nondistended, normoactive bowel sounds. No palpable organomegaly. MUSCULOSKELETAL: No joint swelling or deformity. EXTREMITIES: No cyanosis, clubbing, or pedal edema. NEUROLOGICAL: Gross neurological examination did not reveal any focal deficits. SKIN: No rashes. no petechiae. - Labs CBC & Chem 7: 03/05/22 05:46 03/05/22 05:46 Labs: Abnormal Lab Results - Last 24 Hours (Table) 03/04/22 03/04/22 03/04/22 Range/Units 07:54 07:54 07:54 WBC (4.50-10.00) X 10*3/uL RBC (4.10-5.20) X 10*6/uL MCV (80.0-97.0) fL MCH (27.0-32.0) pg Plt Count 89 L (150-450) k/uL Lymphocytes # 0.7 L (1.0-4.8) k/uL Chloride (96-109) mmol/L Carbon Dioxide (20.0-27.5) mmol/L Glucose (70-110) mg/dL POC Glucose (mg/dL) (70-110) mg/dL Hemoglobin A1c (0.0-6.0) % Calcium (8.7-10.3) mg/dL Vitamin B12 >2000.0 H (200.0-944.0) pg/mL Procalcitonin 0.11 H (0.02-0.09) ng/mL Urine Ketones (Negative) 03/04/22 03/04/22 03/04/22 Range/Units 14:36 17:32 20:45 WBC (4.50-10.00) X 10*3/uL RBC (4.10-5.20) X 10*6/uL MCV (80.0-97.0) fL MCH (27.0-32.0) pg Plt Count (150-450) k/uL Lymphocytes # (1.0-4.8) k/uL Chloride (96-109) mmol/L Carbon Dioxide (20.0-27.5) mmol/L Glucose (70-110) mg/dL POC Glucose (mg/dL) 200 H 137 H 125 H (70-110) mg/dL Hemoglobin A1c (0.0-6.0) % Calcium (8.7-10.3) mg/dL Vitamin B12 (200.0-944.0) pg/mL Procalcitonin (0.02-0.09) ng/mL Urine Ketones (Negative) 03/05/22 03/05/22 03/05/22 Range/Units 05:46 05:46 05:46 WBC 3.79 L (4.50-10.00) X 10*3/uL RBC 3.64 L (4.10-5.20) X 10*6/uL MCV 102.2 H (80.0-97.0) fL MCH 34.3 H (27.0-32.0) pg Plt Count 99 L (150-450) k/uL Lymphocytes # 0.83 L (1.0-4.8) k/uL Chloride 110 H (96-109) mmol/L Carbon Dioxide 18.4 L (20.0-27.5) mmol/L Glucose 112 H (70-110) mg/dL POC Glucose (mg/dL) (70-110) mg/dL Hemoglobin A1c 6.7 H (0.0-6.0) % Calcium 8.2 L (8.7-10.3) mg/dL Vitamin B12 (200.0-944.0) pg/mL Procalcitonin (0.02-0.09) ng/mL Urine Ketones (Negative) 03/05/22 03/05/22 03/05/22 Range/Units 07:04 09:15 11:17 WBC (4.50-10.00) X 10*3/uL RBC (4.10-5.20) X 10*6/uL MCV (80.0-97.0) fL MCH (27.0-32.0) pg Plt Count (150-450) k/uL Lymphocytes # (1.0-4.8) k/uL Chloride (96-109) mmol/L Carbon Dioxide (20.0-27.5) mmol/L Glucose (70-110) mg/dL POC Glucose (mg/dL) 116 H 175 H (70-110) mg/dL Hemoglobin A1c (0.0-6.0) % Calcium (8.7-10.3) mg/dL Vitamin B12 (200.0-944.0) pg/mL Procalcitonin (0.02-0.09) ng/mL Urine Ketones 1+ H (Negative) Assessment and Plan Assessment: Fall, patient found on the floor , with bad hygiene with ulcers in her feet. Last seen about 2 days earlier. Rule out stroke Left hip and bilateral feet pressure ulcers Abnormal UA, Suspected UTI. Patient has been provided limited history. Follow- up urine culture Mild confusion, most likely metabolic/toxic encephalopathy. Rule out acute stroke Right internal carotid artery stenosis 50-69%, this could be an incidental finding as the stroke is on the left side of the brain Chronic hearing loss and the mutism Multifocal chronic subcortical infarct of the left frontal and parietal lobes. Patient has history of stroke in the left frontal lobe in 2016 Hypothyroidism Type 2 diabetes mellitus Osteoporosis suspected on x-ray Plan: This is a pleasant 71 years old female who presents with fall and decubitus ulcer. Also she looks confused Check continue within urology for Neurology consult and follow-up workup as above Follow-up with the trauma surgeon Discontinue antibiotic Labs and medication were reviewed.. Continue same treatment. Continue with symptomatic treatment. Resume home medication. Monitor lytes and vitals. DVT and GI prophylaxis. Further recommendations as per clinical course of the patient DVT prophylaxis: Subcutaneous heparin GI Prophylaxis: Pepcid PT/OT: Pending Prognosis is guarded
[2022-03-05 20:43] LABS: Glucose,Whole Blood 189 mg/dL (70-110)
[2022-03-05] MEDS: IPRATROPIUM-ALBUTEROL 3 ML NEB INHALATION SCH (21:40)
[2022-03-06 07:32] LABS: Glucose,Whole Blood 124 mg/dL (70-110)
[2022-03-06] MEDS: INSULIN ASPART (NovoLOG) 100 UNIT/ML VIAL SQ SCH ×4 (07:34→20:51)
[2022-03-06] MEDS: HEPARIN SODIUM,PORCINE/PF 5,000 UNIT/0.5 ML SYRINGE SQ SCH ×2 (08:15→20:51)
[2022-03-06] MEDS: ASPIRIN 81 MG PO SCH (08:15)
[2022-03-06] MEDS: CHOLECALCIFEROL 25 MCG (1000 IU) TABLET PO SCH (08:15)
[2022-03-06] MEDS: LEVOTHYROXINE 100 MCG TAB PO SCH (08:15)
[2022-03-06] MEDS: PIOGLITAZONE 45 MG TAB PO SCH (08:15)
--- NOTE | 2022-03-06 09:05 | P.PN ---
Progress Note - Text Progress Note Date: 03/06/22 Patient remains clinically unchanged. Her facial ecchymosis is stable. She has no real complaints. Patient is difficult to examine due to her being deaf and mute. We. Upon exam vital signs appear stable. Abdomen soft. Status post ground level fall with facial trauma. Patient continue receive supportive care.
[2022-03-06] MEDS ORDERED: ALBUTEROL HFA INHALER INHALATION PRN (09:17)
[2022-03-06] MEDS: IPRATROPIUM-ALBUTEROL 3 ML NEB INHALATION SCH (09:19)
[2022-03-06] MEDS: FAMOTIDINE 20 MG/2 ML VIAL IV SCH ×2 (11:14→20:51)
[2022-03-06 11:36] LABS: Glucose,Whole Blood 206 mg/dL (70-110)
[2022-03-06 11:39] LABS: BUN/Creat Ratio 18.46 Ratio (12.00-20.00); Chol/HDL Ratio 3.81 Ratio; LDL Cholesterol,Calculated 78.9 mg/dL (0.0-131.0); VLDL Calculation 13.96 mg/dL (5.00-40.00)
[2022-03-06 11:40] LABS: ALT 39 U/L (8-44); AST 41 U/L (13-35); African American GFR (CKD) 110.4 (60.0-200.0); Albumin 2.7 g/dL (3.8-4.9); Alkaline Phosphatase 97 U/L (41-126); Bilirubin, Conjugated <0.20 mg/dL (0.20-0.40); Blood Urea Nitrogen 10.3 mg/dL (9.0-27.0); Calcium 8.3 mg/dL (8.7-10.3); Carbon Dioxide 20.5 mmol/L (20.0-27.5); Chloride 107 mmol/L (96-109); Globulin 2.7 g/dL (1.6-3.3); Glucose 113 mg/dL (70-110); Magnesium 1.7 mg/dL (1.5-2.4); Non-African American GFR(CKD) 95.3 (60.0-200.0); Potassium 3.6 mmol/L (3.5-5.5); Sodium 137 mmol/L (135-145); Total Protein 5.3 g/dL (6.2-8.2)
[2022-03-06] MEDS: COLLAGENASE 250 UNIT/GM OINTMENT 30 GM TUBE TOPICAL SCH (11:49)
[2022-03-06] MEDS: ALBUTEROL HFA INHALER INHALATION SCH ×3 (12:24→19:38)
[2022-03-06 12:49] LABS: Basophils # (A) 0.01 X 10*3/uL (0.00-0.10); Basophils % (A) 0.3 %; Eosinophils # (A) 0.13 X 10*3/uL (0.04-0.35); Eosinophils % (A) 3.8 %; HCT 37.7 % (37.2-46.3); HGB 12.4 g/dL (12.0-15.0); Immature Grans, Automated 0.9 %; Lymphocytes # (A) 0.87 X 10*3/uL (0.90-5.00); Lymphocytes % (A) 25.3 %; MCH 34.2 pg (27.0-32.0); MCHC 32.9 g/dL (32.0-37.0); MCV 103.9 fL (80.0-97.0); Mean Platelet Volume 11.7 fL (9.5-12.2); Monocytes # (A) 0.61 X 10*3/uL (0.20-1.00); Monocytes % (A) 17.7 %; NRBC Per 100 WBC 0 /100 WBCS (0.0-0.0); Neutrophils # (A) 1.79 X 10*3/uL (1.80-7.70); Platelet Count 101 X 10*3/uL (140-440); RBC 3.63 X 10*6/uL (4.10-5.20); RDW 13.8 % (11.5-14.5); WBC 3.44 X 10*3/uL (4.50-10.00)
[2022-03-06 16:45] LABS: Glucose,Whole Blood 178 mg/dL (70-110)
[2022-03-06 20:29] LABS: Glucose,Whole Blood 121 mg/dL (70-110)
--- NOTE | 2022-03-06 22:15 | P.PN ---
Subjective This is a pleasant 71 years old female with past medical history of hypothyroidism, type 2 diabetes mellitus, CVA, hyperlipidemia Patient is found on the floor unknown amount of time covered in feces and urine. Patient can follow direction with lip reading. Patient with hematoma to the left orbit with bruising. Moves all extremities. Open ulcer to the left hip. Patient could not provide information so it was obtained from stop her records ((Patient is deaf and mute. Patient was found down by her sister according to the neighbor she had not been out in her dog did not been out in 2 days. Sister states she last saw her on Tuesday. Patient was found on her left side she had a sore on her left buttocks and left foot. Patient told the sister through sign language that she was not having any pain and had no complaints. Patient has ob vious ecchymosis to the left side of her face.)) This time the sister also was at bedside at could come to K to the patient. Patient looks confused although she could recognize her sister but she thought she is in her house. However she follows commands appropriately and she does not seems to have focal neurological deficit As per sister the neighbor's last saw her on Tuesday morning. Usually she lives by herself and ambulates without assistance. Does not look the patient complains from any pain. Her abdomen looks soft. Hemodynamically she is a stable and she is afebrile. WBC 3.6 which is low, hemoglobin normal, low platelets 140. INR is 1.1. BMP is unremarkable. Mildly elevated liver enzymes AST 110 and ALT 59 and total bilirubin is 2.1, ammonia is low. Creatinine kinase 247. Troponin is negative. TSH is normal 3.4. Lipase normal to 72. Urine analysis is not suspicious of infection although it looks cloudy with ketones. Chest x-ray: No definitive acute process Pelvic x-ray osteoporosis and degenerative changes. No definitive failure EKG: Normal sinus rhythm at 76, no significant ST-T changes and QTC 431 CT of the face: No fracture CT of the head and neck: Multifocal chronic subcortical infarct of the left frontal and parietal lobes react no skull fracture. In the emergency room patient was started on ceftriaxone and received a total normal saline 03/05/2022 Patient is more awake and interactive today however she still somewhat confused, she could not tell where she is at despite several attempts from her sister at bedside to talk to her lip reading and sign language. As per sister she is not completely back to her baseline although she has shown significant improvement. Patient does not seem to complain from any new weakness. Her urine analysis when repeated came back negative. Most likely patient other she had mild UTI or finished therapy. No need for further antibiotic especially patient does not have complained from her urinary symptoms. EEG, MRI of the brain and echocardiogram were ordered. Also patient is on telemetry. Patient also got accepted to [facility] on discharge however she is medically stable. She started tolerating diet and "can be lowered 03/06/2020 patient today is lying in bed by herself, sister not bedside. She is calm. No new complaint. Vitals and labs are stable. She is currently on normal saline 75 mL/h and aspirin 81 mg. Further workup is still pending including EEG, MRI and echocardiogram. Patient has incidental positive test for Covid, patient is asymptomatic but transferred to fourth floor for monitoring Objective - Vital Signs Vital signs: Vital Signs Temp 98.6 F 03/06/22 08:47 Pulse 66 03/06/22 08:47 Resp 17 03/06/22 08:47 BP 107/70 03/06/22 08:47 Pulse Ox 93 L 03/06/22 08:47 FiO2 Intake & Output 03/05/22 03/06/22 03/06/22 18:59 06:59 18:59 Weight 63.503 kg Other: Voiding Method Bedside Commode Bedside Commode Bedside Commode Diaper Diaper Diaper Incontinent Incontinent Incontinent # Voids 1 1 # Bowel Movements 1 - Exam GENERAL: The patient is alert and oriented x3, not in any acute distress. Well developed, well nourished. HEENT: Pupils are round and equally reacting to light. EOMI. No scleral icterus. No conjunctival pallor. Normocephalic, atraumatic. No pharyngeal erythema. No thyromegaly. CARDIOVASCULAR: S1 and S2 present. No murmurs, rubs, or gallops. PULMONARY: Chest is clear to auscultation, no wheezing or crackles. ABDOMEN: Soft, nontender, nondistended, normoactive bowel sounds. No palpable organomegaly. MUSCULOSKELETAL: No joint swelling or deformity. EXTREMITIES: No cyanosis, clubbing, or pedal edema. NEUROLOGICAL: Gross neurological examination did not reveal any focal deficits. SKIN: No rashes. no petechiae. - Labs CBC & Chem 7: 03/06/22 07:24 03/06/22 07:24 Labs: Abnormal Lab Results - Last 24 Hours (Table) 03/05/22 03/05/22 03/05/22 Range/Units 05:46 09:15 11:17 POC Glucose (mg/dL) 175 H (70-110) mg/dL Hemoglobin A1c 6.7 H (0.0-6.0) % Urine Ketones 1+ H (Negative) Coronavirus (PCR) (Not Detectd) 03/05/22 03/05/22 03/05/22 Range/Units 17:10 20:41 21:05 POC Glucose (mg/dL) 143 H 189 H (70-110) mg/dL Hemoglobin A1c (0.0-6.0) % Urine Ketones (Negative) Coronavirus (PCR) Detected A (Not Detectd) 03/06/22 Range/Units 07:30 POC Glucose (mg/dL) 124 H (70-110) mg/dL Hemoglobin A1c (0.0-6.0) % Urine Ketones (Negative) Coronavirus (PCR) (Not Detectd) Assessment and Plan Assessment: Fall, patient found on the floor , with bad hygiene with ulcers in her feet. Last seen about 2 days earlier. Rule out stroke Left hip and bilateral feet pressure ulcers Abnormal UA, Suspected UTI. Patient has been provided limited history. Follow- up urine culture Mild confusion, most likely metabolic/toxic encephalopathy. Rule out acute stroke Right internal carotid artery stenosis 50-69%, this could be an incidental finding as the stroke is on the left side of the brain Chronic hearing loss and the mutism Multifocal chronic subcortical infarct of the left frontal and parietal lobes. Patient has history of stroke in the left frontal lobe in 2016 Hypothyroidism Type 2 diabetes mellitus Osteoporosis suspected on x-ray Plan: This is a pleasant 71 years old female who presents with fall and decubitus ulcer. Also she looks confused Check continue within urology for Neurology consult and follow-up workup as above Follow-up with the trauma surgeon Discontinue antibiotic Labs and medication were reviewed.. Continue same treatment. Continue with symptomatic treatment. Resume home medication. Monitor lytes and vitals. DVT and GI prophylaxis. Further recommendations as per clinical course of the patient DVT prophylaxis: Subcutaneous heparin GI Prophylaxis: Pepcid PT/OT: Pending Prognosis is guarded
[2022-03-07] MEDS: LEVOTHYROXINE 100 MCG TAB PO SCH (05:47)
[2022-03-07 06:59] LABS: Glucose,Whole Blood 110 mg/dL (70-110)
[2022-03-07] MEDS: ALBUTEROL HFA INHALER INHALATION SCH ×4 (07:49→20:40)
--- NOTE | 2022-03-07 10:33 | P.PN ---
Progress Note - Text Progress Note Date: 03/07/22 Patient has no new complaints. She is clinically unchanged. No surgical intervention is planned.
[2022-03-07] MEDS: INSULIN ASPART (NovoLOG) 100 UNIT/ML VIAL SQ SCH ×4 (10:55→20:53)
[2022-03-07] MEDS: FAMOTIDINE 20 MG/2 ML VIAL IV SCH ×2 (10:59→20:52)
[2022-03-07] MEDS: CHOLECALCIFEROL 25 MCG (1000 IU) TABLET PO SCH (11:00)
[2022-03-07] MEDS: ASPIRIN 81 MG PO SCH (11:00)
[2022-03-07] MEDS: HEPARIN SODIUM,PORCINE/PF 5,000 UNIT/0.5 ML SYRINGE SQ SCH ×2 (11:00→20:53)
[2022-03-07] MEDS: PIOGLITAZONE 45 MG TAB PO SCH (11:00)
[2022-03-07 11:35] LABS: Glucose,Whole Blood 199 mg/dL (70-110)
--- NOTE | 2022-03-07 11:42 | P.PN ---
Subjective This is a pleasant 71 years old female with past medical history of hypothyroidism, type 2 diabetes mellitus, CVA, hyperlipidemia Patient is found on the floor unknown amount of time covered in feces and urine. Patient can follow direction with lip reading. Patient with hematoma to the left orbit with bruising. Moves all extremities. Open ulcer to the left hip. Patient could not provide information so it was obtained from stop her records ((Patient is deaf and mute. Patient was found down by her sister according to the neighbor she had not been out in her dog did not been out in 2 days. Sister states she last saw her on Tuesday. Patient was found on her left side she had a sore on her left buttocks and left foot. Patient told the sister through sign language that she was not having any pain and had no complaints. Patient has ob vious ecchymosis to the left side of her face.)) This time the sister also was at bedside at could come to K to the patient. Patient looks confused although she could recognize her sister but she thought she is in her house. However she follows commands appropriately and she does not seems to have focal neurological deficit As per sister the neighbor's last saw her on Tuesday morning. Usually she lives by herself and ambulates without assistance. Does not look the patient complains from any pain. Her abdomen looks soft. Hemodynamically she is a stable and she is afebrile. WBC 3.6 which is low, hemoglobin normal, low platelets 140. INR is 1.1. BMP is unremarkable. Mildly elevated liver enzymes AST 110 and ALT 59 and total bilirubin is 2.1, ammonia is low. Creatinine kinase 247. Troponin is negative. TSH is normal 3.4. Lipase normal to 72. Urine analysis is not suspicious of infection although it looks cloudy with ketones. Chest x-ray: No definitive acute process Pelvic x-ray osteoporosis and degenerative changes. No definitive failure EKG: Normal sinus rhythm at 76, no significant ST-T changes and QTC 431 CT of the face: No fracture CT of the head and neck: Multifocal chronic subcortical infarct of the left frontal and parietal lobes react no skull fracture. In the emergency room patient was started on ceftriaxone and received a total normal saline 03/05/2022 Patient is more awake and interactive today however she still somewhat confused, she could not tell where she is at despite several attempts from her sister at bedside to talk to her lip reading and sign language. As per sister she is not completely back to her baseline although she has shown significant improvement. Patient does not seem to complain from any new weakness. Her urine analysis when repeated came back negative. Most likely patient other she had mild UTI or finished therapy. No need for further antibiotic especially patient does not have complained from her urinary symptoms. EEG, MRI of the brain and echocardiogram were ordered. Also patient is on telemetry. Patient also got accepted to [facility] on discharge however she is medically stable. She started tolerating diet and "can be lowered 03/06/2020 patient today is lying in bed by herself, sister not bedside. She is calm. No new complaint. Vitals and labs are stable. She is currently on normal saline 75 mL/h and aspirin 81 mg. Further workup is still pending including EEG, MRI and echocardiogram. Patient has incidental positive test for Covid, patient is asymptomatic but transferred to fourth floor for monitoring 03/07/2022 Patient clinically looks the same, she is awake and alert, she follows commands she does not look in distress area examination is unchanged from previous No family at bedside. She is normal sinus rhythm and her telemetry is unremarkable which can be discontinued as well MRI of the brain is pending Patient will benefit from ECF upon discharge No respiratory symptoms recurred and her Covid infection Objective - Vital Signs Vital signs: Vital Signs Temp 98.2 F 03/07/22 05:49 Pulse 73 03/07/22 05:49 Resp 18 03/07/22 05:49 BP 124/63 03/07/22 05:49 Pulse Ox 94 L 03/07/22 05:49 FiO2 Intake & Output 03/06/22 03/07/22 03/07/22 18:59 06:59 18:59 Other: Voiding Method Bedside Commode Toilet Diaper Diaper Incontinent Incontinent # Voids 2 1 - Exam GENERAL: The patient is alert and oriented x3, not in any acute distress. Well developed, well nourished. HEENT: Pupils are round and equally reacting to light. EOMI. No scleral icterus. No conjunctival pallor. Normocephalic, atraumatic. No pharyngeal erythema. No thyromegaly. CARDIOVASCULAR: S1 and S2 present. No murmurs, rubs, or gallops. PULMONARY: Chest is clear to auscultation, no wheezing or crackles. ABDOMEN: Soft, nontender, nondistended, normoactive bowel sounds. No palpable organomegaly. MUSCULOSKELETAL: No joint swelling or deformity. EXTREMITIES: No cyanosis, clubbing, or pedal edema. NEUROLOGICAL: Gross neurological examination did not reveal any focal deficits. SKIN: No rashes. no petechiae. - Labs CBC & Chem 7: 03/06/22 07:24 03/06/22 07:24 Labs: Abnormal Lab Results - Last 24 Hours (Table) 03/06/22 03/06/22 03/06/22 Range/Units 07:24 07:24 11:35 WBC 3.44 L (4.50-10.00) X 10*3/uL RBC 3.63 L (4.10-5.20) X 10*6/uL MCV 103.9 H (80.0-97.0) fL MCH 34.2 H (27.0-32.0) pg Plt Count 101 L (140-440) X 10*3/uL Neutrophils # 1.79 L (1.80-7.70) X 10*3/uL Lymphocytes # 0.87 L (0.90-5.00) X 10*3/uL Anion Gap 9.30 L (10.00-18.00) mmol/L Glucose 113 H (70-110) mg/dL POC Glucose (mg/dL) 206 H (70-110) mg/dL Calcium 8.3 L (8.7-10.3) mg/dL Conjugated Bilirubin <0.20 L (0.20-0.40) mg/dL AST 41 H (13-35) U/L Total Protein 5.3 L (6.2-8.2) g/dL Albumin 2.7 L (3.8-4.9) g/dL Albumin/Globulin Ratio 1.00 L (1.60-3.17) g/dL HDL Cholesterol 33.10 L (40.00-60.00) mg/dL 03/06/22 03/06/22 Range/Units 16:43 20:27 WBC (4.50-10.00) X 10*3/uL RBC (4.10-5.20) X 10*6/uL MCV (80.0-97.0) fL MCH (27.0-32.0) pg Plt Count (140-440) X 10*3/uL Neutrophils # (1.80-7.70) X 10*3/uL Lymphocytes # (0.90-5.00) X 10*3/uL Anion Gap (10.00-18.00) mmol/L Glucose (70-110) mg/dL POC Glucose (mg/dL) 178 H 121 H (70-110) mg/dL Calcium (8.7-10.3) mg/dL Conjugated Bilirubin (0.20-0.40) mg/dL AST (13-35) U/L Total Protein (6.2-8.2) g/dL Albumin (3.8-4.9) g/dL Albumin/Globulin Ratio (1.60-3.17) g/dL HDL Cholesterol (40.00-60.00) mg/dL Assessment and Plan Assessment: Fall, patient found on the floor , with bad hygiene with ulcers in her feet. Last seen about 2 days earlier. Rule out stroke Left hip and bilateral feet pressure ulcers Abnormal UA, Suspected UTI. Patient has been provided limited history. Follow- up urine culture Mild confusion, most likely metabolic/toxic encephalopathy. Rule out acute stro ke Right internal carotid artery stenosis 50-69%, this could be an incidental finding as the stroke is on the left side of the brain Chronic hearing loss and the mutism Multifocal chronic subcortical infarct of the left frontal and parietal lobes. Patient has history of stroke in the left frontal lobe in 2016 Hypothyroidism Type 2 diabetes mellitus Osteoporosis suspected on x-ray Plan: This is a pleasant 71 years old female who presents with fall and decubitus ulc er. Also she looks confused Check continue within urology for Neurology consult and follow-up workup as above Follow-up with the trauma surgeon Discontinue antibiotic Labs and medication were reviewed.. Continue same treatment. Continue with symptomatic treatment. Resume home medication. Monitor lytes and vitals. DVT and GI prophylaxis. Further recommendations as per clinical course of the patient DVT prophylaxis: Subcutaneous heparin GI Prophylaxis: Pepcid PT/OT: Pending Prognosis is guarded
[2022-03-07] MEDS: COLLAGENASE 250 UNIT/GM OINTMENT 30 GM TUBE TOPICAL SCH (16:06)
[2022-03-07 16:59] LABS: Glucose,Whole Blood 167 mg/dL (70-110)
[2022-03-07 20:51] LABS: Glucose,Whole Blood 140 mg/dL (70-110)
--- NOTE | 2022-03-08 01:08 | P.PN ---
Subjective Progress Note Date: 03/07/22 Patient was seen for a follow-up. Patient offers no complaints. Per nursing report, she is confused. She is alert oriented 1. She is obsessed about her glasses and her teeth. Objective - Vital Signs Vital signs: Vital Signs Temp 98.3 F 03/07/22 18:00 Pulse 83 03/07/22 18:00 Resp 17 03/07/22 18:00 BP 121/75 03/07/22 18:00 Pulse Ox 96 03/07/22 18:00 FiO2 Intake & Output 03/07/22 03/07/22 03/08/22 06:59 18:59 06:59 Other: Voiding Method Toilet Toilet Toilet Diaper Incontinent # Voids 1 4 # Bowel Movements 1 - Exam Patient is laying comfortably in the bed. Offers no complaints. Patient is speech impaired, and hearing impaired. Patient uses sign language. She is giving me two thumbs-up. - Labs CBC & Chem 7: 03/06/22 07:24 03/06/22 07:24 Labs: Abnormal Lab Results - Last 24 Hours (Table) 03/07/22 03/07/22 03/07/22 Range/Units 11:33 16:58 20:49 POC Glucose (mg/dL) 199 H 167 H 140 H (70-110) mg/dL Assessment and Plan Assessment: * Episode of unresponsiveness, with a very prolonged postictal state. Patient lost control of bowels and bladder during this period of unresponsiveness. Patient did not communicate with the family for 48 hours, and has no memory of the event, therefore uncertain how long she was down for. Rule out seizure with prolonged postictal state, arrhythmia, versus CVA. * Speech and hearing impaired since , uses sign language * History of CVA in the left MCA territory in 2016 after gallbladder surgery, with no significant residual deficits. * Diabetes * Acute Covid-19 infection. * X tobacco use Plan: * Per patient's sister statement, patient is not back to baseline. She may be 80% better, but has not reached to baseline yet. She still has some confusion. * Await MRI of the brain rule out CVA * Carotid Doppler revealed 50-69% stenosis right carotid bifurcation. Less than 50% stenosis of the left carotid bifurcation. Antegrade flow in both vertebral arteries. * 2-D echo * EEG to rule out any epileptiform activity * Fasting a.m. lipid panel with cholesterol 126, LDL 78, HDL 33 and triglycerides 69. LDL is well controlled. * Hemoglobin A1c 6.7 * B12 is normal > 2000. Folate 19.3 * Telemetric monitoring rule out arrhythmia. * Start aspirin 81 mg daily, as patient has history of the stroke, and has multiple vascular risk factors. * Because of the episode of unresponsiveness, patient should not drive for 6 months. This is relayed to patient's sister. * Dr. Jeyson Galaviz Will resume neurology service in the morning.
[2022-03-08] MEDS: LEVOTHYROXINE 100 MCG TAB PO SCH (05:31)
[2022-03-08 07:09] LABS: Glucose,Whole Blood 115 mg/dL (70-110)
[2022-03-08] MEDS: INSULIN ASPART (NovoLOG) 100 UNIT/ML VIAL SQ SCH ×4 (08:14→21:48)
[2022-03-08] MEDS: ALBUTEROL HFA INHALER INHALATION SCH ×4 (08:42→19:48)
[2022-03-08] MEDS: ASPIRIN 81 MG PO SCH (10:17)
[2022-03-08] MEDS: CHOLECALCIFEROL 25 MCG (1000 IU) TABLET PO SCH (10:17)
[2022-03-08] MEDS: PIOGLITAZONE 45 MG TAB PO SCH (10:17)
[2022-03-08] MEDS: HEPARIN SODIUM,PORCINE/PF 5,000 UNIT/0.5 ML SYRINGE SQ SCH ×2 (10:17→21:58)
[2022-03-08] MEDS: FAMOTIDINE 20 MG/2 ML VIAL IV SCH (10:38)
[2022-03-08 11:27] LABS: Glucose,Whole Blood 205 mg/dL (70-110)
--- NOTE | 2022-03-08 11:56 | CA ---
Transthoracic Echo Report Name: Malorie Márquez Age: 71 Gender: F : 1950 Exam Date: 03/08/2022 09:30 Exam Location: [facility] Ht (in): 63 Wt (lb): 140 Ordering Physician: Cha Foss MD Attending/Referring Phys: Assistant Media Buyer Karen Sinclair RDCS Procedure CPT: Indications: syncope vs seizure Cardiac Hx: Technical Quality: Fair Contrast 1: Total Dose (mL): Contrast 2: Total Dose (mL): MEASUREMENTS (Male / Female) Normal Values 2D ECHO LV Diastolic Diameter PLAX 4.1 cm 4.2 - 5.9 / 3.9 - 5.3 cm LV Systolic Diameter PLAX 2.5 cm IVS Diastolic Thickness 1.0 cm 0.6 - 1.0 / 0.6 - 0.9 cm LVPW Diastolic Thickness 1.2 cm 0.6 - 1.0 / 0.6 - 0.9 cm LV Relative Wall Thickness 0.5 LA Volume 71.3 cm??? 18 - 58 / 22 - 52 cm??? DOPPLER AV Peak Velocity 167.2 cm/s AV Peak Gradient 11.2 mmHg LVOT Peak Velocity 126.4 cm/s LVOT Peak Gradient 6.4 mmHg MV Area PHT 1.8 cm??? Mitral E Point Velocity 81.0 cm/s Mitral A Point Velocity 85.0 cm/s Mitral E to A Ratio 1.0 MV Deceleration Time 423.2 ms TR Peak Velocity 239.5 cm/s TR Peak Gradient 23.0 mmHg Right Ventricular Systolic Press 28.0 mmHg FINDINGS Left Ventricle Mildly increased left ventricular wall thickness. Normal left ventricular systolic function with no obvious regional wall motion abnormalities. Left ventricular ejection fraction is estimated at 55-60%. Right Ventricle Normal right ventricular size. Right ventricular systolic pressure within normal limits. Right Atrium Normal right atrial size. Left Atrium Moderately increased left atrial volume. Mitral Valve Mild mitral annular calcification. [id number] mitral regurgitation. Aortic Valve No aortic valve stenosis or regurgitation. Tricuspid Valve Structurally normal tricuspid valve. Mild tricuspid regurgitation. Pulmonic Valve Trace pulmonic regurgitation. Pericardium No pericardial effusion. Aorta Normal size aortic root and proximal ascending aorta. CONCLUSIONS LVH with ejection fraction greater than 55% Previewed by: Dr. Lázaro Tim MD (Electronically Signed) Final Date: 08 March 2022 11:55
--- NOTE | 2022-03-08 12:33 | P.PN ---
Subjective Progress Note Date: 03/08/22 I am seeing the patient for the first time during this admission. Please refer to Dr. Foss for further details. Patient is deaf so was hard to obtain history. Per Dr. Foss's notes, It seems the patient had an episode of unresponsiveness with prolonged postictal stated and does not recall of the event. There is concern for seizure vs stroke. Per nurse she is doing well. Currently is having her lunch and per nurse no events. Objective - Vital Signs Vital signs: Vital Signs Temp 98.4 F 03/08/22 05:39 Pulse 70 03/08/22 05:39 Resp 16 03/08/22 05:39 BP 116/71 03/08/22 05:39 Pulse Ox 92 L 03/08/22 05:39 FiO2 Intake & Output 03/07/22 03/08/22 03/08/22 18:59 06:59 18:59 Intake Total 200 Balance 200 Intake: Oral 200 Other: Voiding Method Toilet Toilet Toilet # Voids 4 2 1 # Bowel Movements 1 1 1 - Exam GENERAL: The patient is sitting in a recliner chair having her lunch. Vuong not appear in acute distress. NEUROLOGICAL: Hard to assess since patient is deaf. Higher mental function: The patient is awake. She is showing a thumbs up and mimicking me. Cranial nerves: The pupils are round, equal and reactive to light. Is tracking throughout the room. No facial weakness. Motor: The is hard to assess individual muscles but is lifting bilateral upper above gravity without focality. Normal tone and bulk. - Labs CBC & Chem 7: 03/06/22 07:24 03/06/22 07:24 Labs: Abnormal Lab Results - Last 24 Hours (Table) 03/07/22 03/07/22 03/07/22 Range/Units 11:33 16:58 20:49 POC Glucose (mg/dL) 199 H 167 H 140 H (70-110) mg/dL 03/08/22 03/08/22 Range/Units 07:07 11:26 POC Glucose (mg/dL) 115 H 205 H (70-110) mg/dL Assessment and Plan Assessment: * Reported Episode of unresponsiveness, with a very prolonged postictal state. Patient lost control of bowels and bladder during this period of unresponsiveness. Patient did not communicate with the family for 48 hours, and it seems she has no memory of the event, therefore uncertain how long she was down for. Rule out seizure with prolonged postictal state, arrhythmia, versus CVA. * Speech and hearing impaired since , uses sign language * Acute Covid-19 infection. * History of CVA in the left MCA territory in 2016 after gallbladder surgery, with no significant residual deficits. * Diabetes * X tobacco use Plan: * Await MRI of the brain rule out CVA * Carotid Doppler revealed 50-69% stenosis right carotid bifurcation. Less than 50% stenosis of the left carotid bifurcation. Antegrade flow in both vertebral arteries. * 2-D echo * EEG to rule out any epileptiform activity * Fasting a.m. lipid panel with cholesterol 126, LDL 78, HDL 33 and triglycerides 69. LDL is well controlled. * Hemoglobin A1c 6.7 * B12 is normal > 2000. Folate 19.3 * Telemetric monitoring rule out arrhythmia. * Dr. Foss started the patient on aspirin 81 mg daily, as patient has history of the stroke, and has multiple vascular risk factors. * Per Dr. Foss, because of the episode of unresponsiveness, patient should not drive for 6 months and relayed this to his sister. The plan is discussed with the nurse. Jeyson Galaviz M.D. Neuro-Hospitalist Time with Patient: Less than 30
--- NOTE | 2022-03-08 12:43 | P.PN ---
Subjective Progress Note Date: 03/08/22 CHIEF COMPLAINT: Fall HISTORY OF PRESENT ILLNESS: The patient is deaf and mute. She had a fall at home. She is lying in bed comfortably. She is getting an EEG completed. She is having neuro workup completed for seizure versus stroke. Afebrile. MRI of the brain and EEG pending. She is covered positive PHYSICAL EXAM: VITAL SIGNS: Reviewed. GENERAL: Well-developed in no acute distress. HEENT: Periorbital bruising around the left eye. Patient's eyes are open. ABDOMEN: Soft. Nondistended. Nontender. NEUROLOGIC: Patient is awake and alert ASSESSMENT: 1. Fall with trauma to the face and feet 2. Left periorbital ecchymosis 3. Ulcerations bilateral feet PLAN: -Continue supportive care -Continue work with PT OT -Patient will require placement at ECF at discharge -Continue local wound care to her feet -Okay to discharge from, surgical standpoint when cleared by neurology and is medically cleared Physician Windows Server Architect note has been reviewed by physician. Signing provider agrees with the documented findings, assessment, and plan of care. Objective - Vital Signs Vital signs: Vital Signs Temp 98.1 F 03/08/22 10:00 Pulse 77 03/08/22 10:00 Resp 14 03/08/22 10:00 BP 101/53 03/08/22 10:00 Pulse Ox 92 L 03/08/22 10:00 FiO2 Intake & Output 03/07/22 03/08/22 03/08/22 18:59 06:59 18:59 Intake Total 200 Balance 200 Intake: Oral 200 Other: Voiding Method Toilet Toilet Toilet # Voids 4 2 1 # Bowel Movements 1 1 1 - Labs CBC & Chem 7: 03/06/22 07:24 03/06/22 07:24 Labs: Abnormal Lab Results - Last 24 Hours (Table) 03/07/22 03/07/22 03/08/22 Range/Units 16:58 20:49 07:07 POC Glucose (mg/dL) 167 H 140 H 115 H (70-110) mg/dL 03/08/22 Range/Units 11:26 POC Glucose (mg/dL) 205 H (70-110) mg/dL
[2022-03-08] MEDS: COLLAGENASE 250 UNIT/GM OINTMENT 30 GM TUBE TOPICAL SCH (14:12)
[2022-03-08 16:48] LABS: Glucose,Whole Blood 148 mg/dL (70-110)
--- NOTE | 2022-03-08 17:22 | P.PN ---
Subjective Progress Note Date: 03/08/22 dayana Márquez, is a 71-year-old female who presented to [facility] emergency room on 03/04/2022 after being found on the floor of her home, patient had a hematoma to the left orbit and an open ulcer to the left hip, she was evaluated in the emergency room she was evaluated in the emergency room her vital exam reveals a temperature of 98.6 pulse 75 respiration 16 blood pressure 155/72 pulse ox 96% on room air, laboratory data revealed a white blood count of 3.1 hemoglobin 13.2 platelet count 89 sodium 138 potassium 3.1 chloride 111 CO2 22 BUN 11 creatinine 0.5 A1c 6.4 AST and ALT slightly elevated at 65 and 43 he tolerated level was mildly elevated at 0.11 Testing in the emergency room revealed computed tomography scan of the head and cervical spine revealed nonspecific sclerosis of C4 vertebral body, computed tomography scan of the brain revealed chronic supple cortical infarct in the left parietal and posterior frontal lobes and chronic atrophy and white matter disease no edema or acute infarct. Patient was admitted to medical floor, neurology consultation was requested, at this time patient is scheduled to have an MRI of the brain, and an EEG will follow closely on testing results and specialist opinion. I saw the patient today with her sister in the room, her sister stated that patient is not back to her baseline she was able to call me indicates with her b tu, patient uses sign language, and also she was able to write, at this time she is able to read but has not been responding by writing. Objective - Vital Signs Vital signs: Vital Signs Temp 97.9 F 03/08/22 14:00 Pulse 76 03/08/22 14:00 Resp 16 03/08/22 14:00 BP 120/57 03/08/22 14:00 Pulse Ox 95 03/08/22 14:00 FiO2 Intake & Output 03/07/22 03/08/22 03/08/22 18:59 06:59 18:59 Intake Total 200 Balance 200 Intake: Oral 200 Other: Voiding Method Toilet Toilet Toilet # Voids 4 2 1 # Bowel Movements 1 1 1 - Exam In general patient is alert, responsive in no distress HEENT head normocephalic and atraumatic Neck is supple no JVD no goiter no lymphadenopathy no carotid bruit Chest examination is clear to auscultation no crackles no wheezing Cardiac exam reveals regular heart sounds S1 and S2 no gallops no murmurs Abdomen is soft nontender no organomegaly with normal bowel sounds Extremity exam reveals no edema no cyanosis or clubbing Neurological examination reveals no gross acute deficit, other than patient is n ot able to write at this time which for her sister was able to do about 10 days ago - Labs CBC & Chem 7: 03/06/22 07:24 03/06/22 07:24 Labs: Abnormal Lab Results - Last 24 Hours (Table) 03/07/22 03/07/22 03/08/22 Range/Units 16:58 20:49 07:07 POC Glucose (mg/dL) 167 H 140 H 115 H (70-110) mg/dL 03/08/22 Range/Units 11:26 POC Glucose (mg/dL) 205 H (70-110) mg/dL Assessment and Plan Plan: Fall with prolonged stay on the floor, no evidence of rhabdomyolysis on admission Poor hygiene at home Possible acute to subacute stroke, awaiting MRI and EEG and recommendation by neurology Previous history of stroke in the past 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
--- NOTE | 2022-03-08 18:45 | MR ---
EXAMINATION TYPE: MR brain wo/w con DATE OF EXAM: 03/08/2022 COMPARISON: None HISTORY: Syncope vs seizure, CVA vs TIA. CONTRAST: Standard multiplanar, multisequence MRI departmental protocol images were obtained without contrast a nd with 7 mL intravenous Gadavist gadolinium contrast. Diffusion images show no sign of an acute infarct. There is cerebral cortical atrophy. There is no ma ss effect nor midline shift. No evidence of intracranial hemorrhage. There is grade white matter incr eased signal on the T2 and FLAIR images in the left posterior parietal and occipital lobe. This area overall measures approximately 6 x 2.5 cm. There is coalescent increased signal in the periventricula r white matter on the T2 and FLAIR images. There is some thinning of the corpus callosum. Sella turci ca is intact. No evidence of orbital mass. No evidence of posterior fossa mass. The brainstem is inta ct. The contrast images show no pathologic enhancement. There is normal enhancement of the venous sinuses . IMPRESSION: Cerebral atrophy. Old left posterior parietal and occipital lobe infarcts. Increased periventricular white matter signal suggestive of extensive chronic small vessel ischemia. Demyelinating disease not excluded. No acute cortical infarct.
[2022-03-08 20:30] LABS: Glucose,Whole Blood 134 mg/dL (70-110)
[2022-03-08] MEDS: FAMOTIDINE 20 MG TAB PO SCH (21:58)
--- NOTE | 2022-03-08 22:55 | EEG ---
ELECTROENCEPHALOGRAM REPORT CLINICAL HISTORY: This is a 71-year-old woman with a reported episode of unresponsiveness. The video EEG is obtained to evaluate for seizure and epileptiform activity. RELEVANT MEDICATION: The patient is not on any antiepileptic drug. EEG TYPE: A routine 21-channel EEG is performed with video using the 10/20 electrode placement system. DESCRIPTION: Wakefulness is obtained. During awake state, the background consists of low-to- moderate voltage of 6.5 to 7.5 Hz activity. At times, the background consists of diffuse nonrhythmic delta intermixed with theta activity. There is no physiological stage II sleep architecture. INTERICTAL AND ICTAL: None. ACTIVATION PROCEDURE: Photic stimulation did not evoke a posterior driving response. There is no abnormality during the photic stimulation. Hyperventilation is not performed. CLINICAL INTERPRETATION: This is an abnormal routine EEG. The background slowing is suggestive of mild-to- moderate encephalopathy. Otherwise, there is no focal slowing, epileptiform discharge, or seizure on the EEG. Clinical correlation is recommended. MMMENDEL / RICKIN: [id number] / VANCE
[2022-03-09] MEDS: LEVOTHYROXINE 100 MCG TAB PO SCH (06:06)
[2022-03-09 06:59] LABS: Glucose,Whole Blood 120 mg/dL (70-110)
[2022-03-09] MEDS: INSULIN ASPART (NovoLOG) 100 UNIT/ML VIAL SQ SCH ×4 (07:13→21:40)
[2022-03-09] MEDS: ALBUTEROL HFA INHALER INHALATION SCH ×4 (08:55→20:15)
[2022-03-09] MEDS: CHOLECALCIFEROL 25 MCG (1000 IU) TABLET PO SCH (09:07)
[2022-03-09] MEDS: FAMOTIDINE 20 MG TAB PO SCH ×2 (09:07→21:32)
[2022-03-09] MEDS: ASPIRIN 81 MG PO SCH (09:07)
[2022-03-09] MEDS: PIOGLITAZONE 45 MG TAB PO SCH (09:08)
[2022-03-09] MEDS: COLLAGENASE 250 UNIT/GM OINTMENT 30 GM TUBE TOPICAL SCH (09:08)
[2022-03-09] MEDS: HEPARIN SODIUM,PORCINE/PF 5,000 UNIT/0.5 ML SYRINGE SQ SCH ×2 (09:08→21:38)
--- NOTE | 2022-03-09 10:16 | P.PN ---
Subjective Progress Note Date: 03/09/22 The patient is seen at bedside and per nurse she is doing extremely well. An highway administrative engineer has been used and patient feels great and denies of any complaints. Objective - Vital Signs Vital signs: Vital Signs Temp 98.7 F 03/09/22 00:19 Pulse 74 03/09/22 00:19 Resp 18 03/09/22 00:19 BP 149/74 03/09/22 00:19 Pulse Ox 96 03/09/22 00:19 FiO2 Intake & Output 03/08/22 03/09/22 03/09/22 18:59 06:59 18:59 Other: Voiding Method Toilet Toilet # Voids 4 # Bowel Movements 1 - Exam GENERAL: The patient is sitting in a recliner chair. Vuong not appear in acute distress. NEUROLOGICAL: Hard to assess since patient is deaf. Higher mental function: The patient is awake. She is showing a thumbs up. Cranial nerves: The pupils are round, equal and reactive to light. Is tracking throughout the room. No facial weakness. Motor: The is hard to assess individual muscles but is lifting bilateral upper above gravity without focality. Normal tone and bulk. SOME OF THE WORK-UP DURING THIS HOSPITAL VISIT: * MRI of the brain: As reported as cerebral atrophy. Old left posterior parietal and occipital lobe infarct. Increased periventricular white matter signal suggestive of extensive chronic small vessel ischemic. Demyelinating disease on excluded. No acute cortical infarct. I personally reviewed the MRI and there is no acute subacute ischemia. The patient does have old left parietal occipital stroke. * Carotid Doppler revealed 50-69% stenosis right carotid bifurcation. Less than 50% stenosis of the left carotid bifurcation. Antegrade flow in both vertebral arteries. * 2-D echo: Was reported as left ventricular hypertrophy with ejection fraction of greater than 55%. Left atrium moderately increased left atrial volume. * Routine EEG: Is abnormal. The background slowing suggestive of mild to moderate encephalopathy. Otherwise there is no focal slowing, epileptiform discharges or seizure on the EEG. * Fasting a.m. lipid panel with cholesterol 126, LDL 78, HDL 33 and triglycerides 69. * Hemoglobin A1c 6.7 * B12 is normal > 2000. Folate 19.3 - Labs CBC & Chem 7: 03/06/22 07:24 03/06/22 07:24 Labs: Abnormal Lab Results - Last 24 Hours (Table) 03/08/22 03/08/22 03/08/22 Range/Units 11:26 16:47 20:28 POC Glucose (mg/dL) 205 H 148 H 134 H (70-110) mg/dL 03/09/22 Range/Units 06:57 POC Glucose (mg/dL) 120 H (70-110) mg/dL Assessment and Plan Assessment: * Reported Episode of unresponsiveness, with a very prolonged postictal state. Patient lost control of bowels and bladder during this period of unresponsiveness. Patient did not communicate with the family for 48 hours, and it seems she has no memory of the event, therefore uncertain how long she was down for. Unknown exact cause but cannot rule out seizure especially with hx of old stroke. No acute or subacute stroke on MRI Brain. * Speech and hearing impaired since , uses sign language * Acute Covid-19 infection. * History of CVA in the left MCA territory in 2016 after gallbladder surgery, with no significant residual deficits. * Diabetes * X tobacco use Plan: * MRI of the brain: As reported as cerebral atrophy. Old left posterior parietal and occipital lobe infarct. Increased periventricular white matter signal suggestive of extensive chronic small vessel ischemic. Demyelinating disease on excluded. No acute cortical infarct. I personally reviewed the MRI and there is no acute subacute ischemia. The patient does have old left parietal occipital stroke. * Routine EEG: Is abnormal. The background slowing suggestive of mild to moderate encephalopathy. Otherwise there is no focal slowing, epileptiform discharges or seizure on the EEG. * Recommend prolonged ambulatory EEG as outpatient. * Dr. Foss started the patient on aspirin 81 mg daily, as patient has history of the stroke, and has multiple vascular risk factors. * Per Dr. Foss, because of the episode of unresponsiveness, patient should not drive for 6 months and relayed this to his sister. * Recommend patient to follow-up with neurologist as outpatient within 1-2 weeks. The plan is discussed with the nurse. No additional work-up is needed. She is clear for discharge. Please notify [facility] team if any further concerns. Jeyson Galaviz M.D. Neuro-Hospitalist Time with Patient: Less than 30
[2022-03-09 10:59] LABS: African American GFR (CKD) 107.8 (60.0-200.0); Albumin 2.7 g/dL (3.8-4.9); Albumin/Globulin Ratio 1.04 (1.60-3.17); Anion Gap 7.8 mmol/L (10.00-18.00); BUN/Creat Ratio 20.17 Ratio (12.00-20.00); Blood Urea Nitrogen 12.1 mg/dL (9.0-27.0); Calcium 8.5 mg/dL (8.7-10.3); Carbon Dioxide 24.2 mmol/L (20.0-27.5); Globulin 2.6 g/dL (1.6-3.3); Potassium 3.8 mmol/L (3.5-5.5); Total Bilirubin 0.5 mg/dL (0.30-1.20); Total Protein 5.3 g/dL (6.2-8.2)
[2022-03-09 11:37] LABS: Glucose,Whole Blood 135 mg/dL (70-110)
[2022-03-09 11:59] LABS: Basophils # (A) 0.01 X 10*3/uL (0.00-0.10); Basophils % (A) 0.3 %; Eosinophils # (A) 0.13 X 10*3/uL (0.04-0.35); Eosinophils % (A) 3.3 %; HCT 35.9 % (37.2-46.3); HGB 11.8 g/dL (12.0-15.0); Immature Grans, Automated 0.5 %; Lymphocytes # (A) 1.12 X 10*3/uL (0.90-5.00); Lymphocytes % (A) 28.8 %; MCHC 32.9 g/dL (32.0-37.0); MCV 103.5 fL (80.0-97.0); Mean Platelet Volume 11.4 fL (9.5-12.2); Monocytes # (A) 0.58 X 10*3/uL (0.20-1.00); Monocytes % (A) 14.9 %; NRBC Per 100 WBC 0 /100 WBCS (0.0-0.0); Neutrophils # (A) 2.03 X 10*3/uL (1.80-7.70); Neutrophils % (A) 52.2 %; Platelet Count 142 X 10*3/uL (140-440); RBC 3.47 X 10*6/uL (4.10-5.20); RDW 13.9 % (11.5-14.5); WBC 3.89 X 10*3/uL (4.50-10.00)
--- NOTE | 2022-03-09 12:50 | CDI ---
Documentation Clarification Form Date: 03/09/2022 12:37:11 PM From: Carol Meng RN CCDS Admit Date: 03/03/2022 09:31:00 PM Patient Name: Malorie Márquez Visit Number: [id number] Discharge Date: ATTENTION: The Clinical Documentation Specialists (CDI) and [facility] Coding Staff appreciate your assistance in clarifying documentation. Please respond to the clarification below the line at the bottom and electronically sign. The CDI & [facility] Coding staff will review the response and follow-up if needed. Please note: Queries are made part of the Legal Health Record. If you have any questions, please contact the author of this message via ITS. Dr. Arjnu Cr MD A Right dorsal foot pressure ulcer is documented 03/04, Nursing pressure ulcer assessment. Additional clarification regarding the stage of the pressure ulcer is requested. History/Risk Factors: 71-year-old female found on the floor, last seen about two days earlier. Medical history: DM2; HLD; CVA/TIA and Deafness. Clinical Indicators: Location: Right dorsal foot Wound description: length 2.5cm; width 2.5cm; small drainage. Stage 2. Treatment: Gauze/Sponge Santyl to wound base, Saline moistened gauze Please clarify the stage of pressure ulcer Right dorsal foot if known: [ xxx ] Stage 2 Pressure Ulcer Right dorsal foot [ ] Other condition, please specify [ ] Unable to determine Clinical Definitions: Stage 1 Pressure Ulcer: intact skin, non-blanching redness of local area Stage 2 Pressure Ulcer: Partial thickness, loss of dermis, pink wound bed Stage 3 Pressure Ulcer: Full thickness tissue loss Stage 4 Pressure Ulcer: Full thickness tissue loss with exposed bone, tendon, or muscle. Unstageable pressure ulcer: Full thickness tissue loss in which the base of the ulcer is covered by slough (yellow, barrera, anderson, green or brown) and/or eschar (barrera, brown or black) in the wound bed. (Template Last Revised: August 2020) MTDD
--- NOTE | 2022-03-09 13:03 | CDI ---
Documentation Clarification Form Date: 03/09/2022 12:51:26 PM From: Carol Meng RN CCDS Admit Date: 03/03/2022 09:31:00 PM Patient Name: Malorie Márquez Visit Number: [id number] Discharge Date: ATTENTION: The Clinical Documentation Specialists (CDI) and [facility] Coding Staff appreciate your assistance in clarifying documentation. Please respond to the clarification below the line at the bottom and electronically sign. The CDI & [facility] Coding staff will review the response and follow-up if needed. Please note: Queries are made part of the Legal Health Record. If you have any questions, please contact the author of this message via ITS. Dr. Arjun Cr A Left dorsal foot pressure ulcer is documented 03/04, Nursing pressure ulcer assessment. Additional clarification regarding the stage of the pressure ulcer is requested. History/Risk Factors: 71-year-old female found on the floor, last seen about two days earlier. Medical history: DM2; HLD; CVA/TIA and Deafness. Clinical Indicators: Location: Left Dorsal foot Wound description: Length 5cm; Width 4cm; Erythema; Stage 2 Treatment: Saline Irrigant Enzymatic Agent; Gauze / sponge Santyl to wound base, Saline moistened gauze. Please clarify the stage of pressure ulcer Left dorsal foot , if known: [ xxx ] Left dorsal foot Pressure Ulcer Stage 2 [ ] Other condition, please specify [ ] Unable to determine Clinical Definitions: Stage 1 Pressure Ulcer: intact skin, non-blanching redness of local area Stage 2 Pressure Ulcer: Partial thickness, loss of dermis, pink wound bed Stage 3 Pressure Ulcer: Full thickness tissue loss Stage 4 Pressure Ulcer: Full thickness tissue loss with exposed bone, tendon, or muscle. Unstageable pressure ulcer: Full thickness tissue loss in which the base of the ulcer is covered by slough (yellow, barrera, anderson, green or brown) and/or eschar (barrera, brown or black) in the wound bed. (Template Last Revised: August 2020) MTDD
--- NOTE | 2022-03-09 13:19 | CDI ---
Documentation Clarification Form Date: 03/09/2022 01:10:37 PM From: Carol Meng RN CCDS Admit Date: 03/03/2022 09:31:00 PM Patient Name: Malorie Márquez Visit Number: [id number] Discharge Date: ATTENTION: The Clinical Documentation Specialists (CDI) and [facility] Coding Staff appreciate your assistance in clarifying documentation. Please respond to the clarification below the line at the bottom and electronically sign. The CDI & [facility] Coding staff will review the response and follow-up if needed. Please note: Queries are made part of the Legal Health Record. If you have any questions, please contact the author of this message via ITS. Dr.Riad Cr A Left hip pressure ulcer is documented 03/04, Nursing pressure ulcer assessment. Additional clarification regarding the stage of the pressure ulcer is requested. History/Risk Factors: 71-year-old female found on the floor, last seen about two days earlier. Medical history: DM2; HLD; CVA/TIA and Deafness. Clinical Indicators: Location: Left Hip Wound description: Length 3cm; Width 2.5cm Treatment: Saline Irrigant; Enzymatic Agent; Gauze/ Sponge; Foam with Border; Turn 2QH. Please clarify the stage of pressure ulcer left hip, if known: [ xxx ] Stage 1 Pressure Ulcer Left hip [ ] Stage 2 Pressure Ulcer Left hip [ ] Other condition, please specify [ ] Unable to determine Clinical Definitions: Stage 1 Pressure Ulcer: intact skin, non-blanching redness of local area Stage 2 Pressure Ulcer: Partial thickness, loss of dermis, pink wound bed Stage 3 Pressure Ulcer: Full thickness tissue loss Stage 4 Pressure Ulcer: Full thickness tissue loss with exposed bone, tendon, or muscle. Unstageable pressure ulcer: Full thickness tissue loss in which the base of the ulcer is covered by slough (yellow, barrera, anderson, green or brown) and/or eschar (barrera, brown or black) in the wound bed. (Template Last Revised: August 2020) MTDD
--- NOTE | 2022-03-09 14:25 | P.PN ---
Subjective Progress Note Date: 03/09/22 CHIEF COMPLAINT: Fall HISTORY OF PRESENT ILLNESS: The patient is deaf and mute. She had a fall at home. She is sitting at bedside chair. Patient apparently was found to have bedbugs. She has been showered and changed to a new room. She denies any abdominal pain. She has no new complaints. She is tolerating diet. She is having bowel movements. Her MRI had showed no evidence of an old CVA and EEG had showed evidence of encephalopathy. She's been seen evaluated by neurology service and they've cleared her for discharge. She is getting an EEG completed. She is having neuro workup completed for seizure versus stroke. Afebrile. MRI of the brain and EEG pending. Afebrile. WBC 3.89 PHYSICAL EXAM: VITAL SIGNS: Reviewed. GENERAL: Well-developed in no acute distress. HEENT: Periorbital bruising around the left eye. Patient's eyes are open. ABDOMEN: Soft. Nondistended. Nontender. NEUROLOGIC: Patient is awake and alert ASSESSMENT: 1. Fall with trauma to the face and feet 2. Left periorbital ecchymosis 3. Ulcerations bilateral feet PLAN: -Continue supportive care -Continue work with PT OT -Patient will require placement at [facility] at discharge -Continue local wound care to her feet -Okay to discharge from surgical standpoint when cleared by neurology and is medically cleared Physician Ice Cream Man note has been reviewed by physician. Signing provider agrees with the documented findings, assessment, and plan of care. Objective - Vital Signs Vital signs: Vital Signs Temp 97.5 F L 03/09/22 10:00 Pulse 65 03/09/22 10:00 Resp 14 03/09/22 10:00 BP 119/68 03/09/22 10:00 Pulse Ox 95 03/09/22 10:00 FiO2 Intake & Output 03/08/22 03/09/22 03/09/22 18:59 06:59 18:59 Other: Voiding Method Toilet Toilet # Voids 4 # Bowel Movements 1 - Labs CBC & Chem 7: 03/09/22 07:13 03/09/22 07:13 Labs: Abnormal Lab Results - Last 24 Hours (Table) 03/08/22 03/08/22 03/09/22 Range/Units 16:47 20:28 06:57 WBC (4.50-10.00) X 10*3/uL RBC (4.10-5.20) X 10*6/uL Hgb (12.0-15.0) g/dL Hct (37.2-46.3) % MCV (80.0-97.0) fL MCH (27.0-32.0) pg Anion Gap (10.00-18.00) mmol/L BUN/Creatinine Ratio (12.00-20.00) Ratio Glucose (70-110) mg/dL POC Glucose (mg/dL) 148 H 134 H 120 H (70-110) mg/dL Calcium (8.7-10.3) mg/dL Total Protein (6.2-8.2) g/dL Albumin (3.8-4.9) g/dL Albumin/Globulin Ratio (1.60-3.17) g/dL 03/09/22 03/09/22 03/09/22 Range/Units 07:13 07:13 11:36 WBC 3.89 L (4.50-10.00) X 10*3/uL RBC 3.47 L (4.10-5.20) X 10*6/uL Hgb 11.8 L (12.0-15.0) g/dL Hct 35.9 L (37.2-46.3) % MCV 103.5 H (80.0-97.0) fL MCH 34.0 H (27.0-32.0) pg Anion Gap 7.80 L (10.00-18.00) mmol/L BUN/Creatinine Ratio 20.17 H (12.00-20.00) Ratio Glucose 115 H (70-110) mg/dL POC Glucose (mg/dL) 135 H (70-110) mg/dL Calcium 8.5 L (8.7-10.3) mg/dL Total Protein 5.3 L (6.2-8.2) g/dL Albumin 2.7 L (3.8-4.9) g/dL Albumin/Globulin Ratio 1.04 L (1.60-3.17) g/dL
[2022-03-09 16:23] LABS: Glucose,Whole Blood 136 mg/dL (70-110)
--- NOTE | 2022-03-09 18:04 | P.PN ---
Subjective Progress Note Date: 03/09/22 dayana Márquez, is a 71-year-old female who presented to [facility] emergency room on 03/04/2022 after being found on the floor of her home, patient had a hematoma to the left orbit and an open ulcer to the left hip, she was evaluated in the emergency room she was evaluated in the emergency room her vital exam reveals a temperature of 98.6 pulse 75 respiration 16 blood pressure 155/72 pulse ox 96% on room air, laboratory data revealed a white blood count of 3.1 hemoglobin 13.2 platelet count 89 sodium 138 potassium 3.1 chloride 111 CO2 22 BUN 11 creatinine 0.5 A1c 6.4 AST and ALT slightly elevated at 65 and 43 he tolerated level was mildly elevated at 0.11 Testing in the emergency room revealed computed tomography scan of the head and cervical spine revealed nonspecific sclerosis of C4 vertebral body, computed tomography scan of the brain revealed chronic supple cortical infarct in the left parietal and posterior frontal lobes and chronic atrophy and white matter disease no edema or acute infarct. Patient was admitted to medical floor, neurology consultation was requested, at this time patient is scheduled to have an MRI of the brain, and an EEG will follow closely on testing results and specialist opinion. I saw the patient today with her sister in the room, her sister stated that patient is not back to her baseline she was able to call me indicates with her b tu, patient uses sign language, and also she was able to write, at this time she is able to read but has not been responding by writing. On 03/09/2022 patient was seen and examined on the medical floor she is alert and responsive in no apparent distress, she is answering questions by nodding her head, she is denying any complaints at this time. EEG and MRI are done we are awaiting results and further recommendation from neurology, plan is for transfer to [facility] for rehab in the next 24 hours Objective - Vital Signs Vital signs: Vital Signs Temp 97.5 F L 03/09/22 10:00 Pulse 65 03/09/22 10:00 Resp 14 03/09/22 10:00 BP 119/68 03/09/22 10:00 Pulse Ox 95 03/09/22 10:00 FiO2 Intake & Output 03/08/22 03/09/22 03/09/22 18:59 06:59 18:59 Other: Voiding Method Toilet Toilet # Voids 4 # Bowel Movements 1 - Exam In general patient is alert, responsive in no distress HEENT head normocephalic and atraumatic Neck is supple no JVD no goiter no lymphadenopathy no carotid bruit Chest examination is clear to auscultation no crackles no wheezing Cardiac exam reveals regular heart sounds S1 and S2 no gallops no murmurs Abdomen is soft nontender no organomegaly with normal bowel sounds Extremity exam reveals no edema no cyanosis or clubbing Neurological examination reveals no gross acute deficit, other than patient is not able to write at this time which for her sister was able to do about 10 days ago - Labs CBC & Chem 7: 03/09/22 07:13 03/09/22 07:13 Labs: Abnormal Lab Results - Last 24 Hours (Table) 03/08/22 03/09/22 03/09/22 Range/Units 20:28 06:57 07:13 WBC 3.89 L (4.50-10.00) X 10*3/uL RBC 3.47 L (4.10-5.20) X 10*6/uL Hgb 11.8 L (12.0-15.0) g/dL Hct 35.9 L (37.2-46.3) % MCV 103.5 H (80.0-97.0) fL MCH 34.0 H (27.0-32.0) pg Anion Gap (10.00-18.00) mmol/L BUN/Creatinine Ratio (12.00-20.00) Ratio Glucose (70-110) mg/dL POC Glucose (mg/dL) 134 H 120 H (70-110) mg/dL Calcium (8.7-10.3) mg/dL Total Protein (6.2-8.2) g/dL Albumin (3.8-4.9) g/dL Albumin/Globulin Ratio (1.60-3.17) g/dL 03/09/22 03/09/22 03/09/22 Range/Units 07:13 11:36 16:21 WBC (4.50-10.00) X 10*3/uL RBC (4.10-5.20) X 10*6/uL Hgb (12.0-15.0) g/dL Hct (37.2-46.3) % MCV (80.0-97.0) fL MCH (27.0-32.0) pg Anion Gap 7.80 L (10.00-18.00) mmol/L BUN/Creatinine Ratio 20.17 H (12.00-20.00) Ratio Glucose 115 H (70-110) mg/dL POC Glucose (mg/dL) 135 H 136 H (70-110) mg/dL Calcium 8.5 L (8.7-10.3) mg/dL Total Protein 5.3 L (6.2-8.2) g/dL Albumin 2.7 L (3.8-4.9) g/dL Albumin/Globulin Ratio 1.04 L (1.60-3.17) g/dL Assessment and Plan Plan: Fall with prolonged stay on the floor, no evidence of rhabdomyolysis on admission Poor hygiene at home Possible acute to subacute stroke, awaiting MRI and EEG and recommendation by neurology Previous history of stroke in the past 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
[2022-03-09 21:06] LABS: Glucose,Whole Blood 157 mg/dL (70-110)
[2022-03-10] MEDS: LEVOTHYROXINE 100 MCG TAB PO SCH (05:36)
[2022-03-10 07:23] LABS: Glucose,Whole Blood 113 mg/dL (70-110)
[2022-03-10] MEDS: FAMOTIDINE 20 MG TAB PO SCH (07:44)
[2022-03-10] MEDS: CHOLECALCIFEROL 25 MCG (1000 IU) TABLET PO SCH (07:44)
[2022-03-10] MEDS: ASPIRIN 81 MG PO SCH (07:44)
[2022-03-10] MEDS: INSULIN ASPART (NovoLOG) 100 UNIT/ML VIAL SQ SCH ×2 (07:45→12:05)
[2022-03-10] MEDS: HEPARIN SODIUM,PORCINE/PF 5,000 UNIT/0.5 ML SYRINGE SQ SCH (07:45)
[2022-03-10] MEDS: PIOGLITAZONE 45 MG TAB PO SCH (07:45)
[2022-03-10] MEDS: COLLAGENASE 250 UNIT/GM OINTMENT 30 GM TUBE TOPICAL SCH (07:48)
[2022-03-10] MEDS: ALBUTEROL HFA INHALER INHALATION SCH ×2 (08:25→12:29)
[2022-03-10 12:03] LABS: Glucose,Whole Blood 114 mg/dL (70-110)
--- NOTE | 2022-03-10 13:28 | P.PN ---
Subjective Progress Note Date: 03/10/22 CHIEF COMPLAINT: Fall HISTORY OF PRESENT ILLNESS: The patient is deaf and mute. She had a fall at home. Patient sitting in bed comfortably. She reports no new complaints. She's been cleared by neurology for discharge. She is awaiting ECF placement. Afebrile. PHYSICAL EXAM: VITAL SIGNS: Reviewed. GENERAL: Well-developed in no acute distress. HEENT: Periorbital bruising around the left eye. Patient's eyes are open. ABDOMEN: Soft. Nondistended. Nontender. NEUROLOGIC: Patient is awake and alert ASSESSMENT: 1. Fall with trauma to the face and feet 2. Left periorbital ecchymosis 3. Ulcerations bilateral feet PLAN: -Patient can be discharged surgical standpoint when cleared medically -Surgical service will sign off. Please call with any questions or concerns -Continue local wound care to her feet [employer] note has been reviewed by physician. Signing provider agrees with the documented findings, assessment, and plan of care. Objective - Vital Signs Vital signs: Vital Signs Temp 98.3 F 03/10/22 10:00 Pulse 74 03/10/22 10:00 Resp 19 03/10/22 10:00 BP 140/65 03/10/22 10:00 Pulse Ox 93 L 03/10/22 10:00 FiO2 Intake & Output 03/09/22 03/10/22 03/10/22 18:59 06:59 18:59 Other: Voiding Method Toilet Toilet # Voids 1 2 - Labs CBC & Chem 7: 03/09/22 07:13 03/09/22 07:13 Labs: Abnormal Lab Results - Last 24 Hours (Table) 03/09/22 03/09/22 03/10/22 Range/Units 16:21 21:05 07:22 POC Glucose (mg/dL) 136 H 157 H 113 H (70-110) mg/dL 03/10/22 Range/Units 12:02 POC Glucose (mg/dL) 114 H (70-110) mg/dL
--- NOTE | 2022-03-10 13:58 | P.DS ---
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 Underlying history of hypothyroidism Underlying history of diabetes mellitus type 2 Abnormal sclerosis of C4, this will need to be further investigated as outpatient Positive COVID-19 PCR testing For DVT prophylaxis patient is on subcu heparin for GI prophylaxis patient is on oral Pepcid Hospital course: dayana Márquez, is a 71-year-old female who presented to [facility] emergency room on 03/04/2022 after being found on the floor of her home, patient had a hematoma to the left orbit and an open ulcer to the left hip, she was evaluated in the emergency room she was evaluated in the emergency room her vital exam reveals a temperature of 98.6 pulse 75 respiration 16 blood pressure 155/72 pulse ox 96% on room air, laboratory data revealed a white blood count of 3.1 hemoglobin 13.2 platelet count 89 sodium 138 potassium 3.1 chloride 111 CO2 22 BUN 11 creatinine 0.5 A1c 6.4 AST and ALT slightly elevated at 65 and 43 he tolerated level was mildly elevated at 0.11 Testing in the emergency room revealed computed tomography scan of the head and cervical spine revealed nonspecific sclerosis of C4 vertebral body, computed tomography scan of the brain revealed chronic supple cortical infarct in the left parietal and posterior frontal lobes and chronic atrophy and white matter disease no edema or acute infarct. Patient was admitted to medical floor, neurology consultation was requested, at this time patient is scheduled to have an MRI of the brain, and an EEG will follow closely on testing results and specialist opinion. I saw the patient today with her sister in the room, her sister stated that patient is not back to her baseline she was able to call me indicates with her better, patient uses sign language, and also she was able to write, at this time she is able to read but has not been responding by writing. On 03/09/2022 patient was seen and examined on the medical floor she is alert and responsive in no apparent distress, she is answering questions by nodding her head, she is denying any complaints at this time. EEG and MRI are done we are awaiting results and further recommendation from neurology, plan is for transfer to [facility] for rehab in the next 24 hours On 914 patient was seen and examined she is alert and responsive in no apparent distress, patient underwent MRI of the brain and EEG yesterday, results reviewed, neurology consultation reviewed, no recommendation to change any of her medications at this time, patient is stable she will be discharged to [facility] for rehab today Plan - Discharge Summary Discharge Rx Participant: Yes New Discharge Prescriptions: New Aspirin 81 mg PO DAILY tab Albuterol Inhaler [Ventolin Hfa Inhaler] 2 puff INHALATION RT-QID each Albuterol Inhaler [Ventolin Hfa Inhaler] 2 puff INHALATION RT-QID PRN each PRN Reason: Shortness Of Breath Or Wheezing Collagenase [Santyl Ointment] 1 applic TOPICAL DAILY each Continue Omeprazole [PriLOSEC] 40 mg PO BID Cholecalciferol [Vitamin D3 (25 Mcg = 1000 Iu)] 25 mcg PO DAILY Folic Acid 1 mg PO DAILY Zinc Gluconate [Zinc] 50 mg PO DAILY Pioglitazone [Actos] 45 mg PO DAILY Multivit-Min/Iron/Folic/Lutein [Centrum Silver Women Tablet] 1 tab PO DAILY Levothyroxine Sodium [Synthroid] 100 mcg PO DAILY Vit C/E/Zn/Coppr/Lutein/Zeaxan [Preservision Areds 2 Softgel] 1 cap PO DAILY ursodioL [Ursodiol] 500 mg PO BID Discharge Medication List Omeprazole [PriLOSEC] 40 mg PO BID 02/27/19 [History] Cholecalciferol [Vitamin D3 (25 Mcg = 1000 Iu)] 25 mcg PO DAILY 03/03/22 [History] Levothyroxine Sodium [Synthroid] 100 mcg PO DAILY 03/03/22 [History] Multivit-Min/Iron/Folic/Lutein [Centrum Silver Women Tablet] 1 tab PO DAILY 03/03/22 [History] Pioglitazone [Actos] 45 mg PO DAILY 03/03/22 [History] Vit C/E/Zn/Coppr/Lutein/Zeaxan [Preservision Areds 2 Softgel] 1 cap PO DAILY 03/03/22 [History] Zinc Gluconate [Zinc] 50 mg PO DAILY 03/03/22 [History] Folic Acid 1 mg PO DAILY 03/04/22 [History] ursodioL [Ursodiol] 500 mg PO BID 03/04/22 [History] Albuterol Inhaler [Ventolin Hfa Inhaler] 2 puff INHALATION RT-QID each 03/10/22 [Rx] Albuterol Inhaler [Ventolin Hfa Inhaler] 2 puff INHALATION RT-QID PRN each 03/10/22 [Rx] Aspirin 81 mg PO DAILY tab 03/10/22 [Rx] Collagenase [Santyl Ointment] 1 applic TOPICAL DAILY each 03/10/22 [Rx] Follow up Appointment(s)/Referral(s): [facility] [NON-STAFF] - 1 Week Capri Post MD [Primary Care Provider] - 1-2 days
[2022-03-10 16:09] VITALS: BP 101/56; PULSE 78; RESP 18; TEMP 98.5
== END 2022-03-10 16:12 | DRG 689 ==
LOC: SUPCPDRO 18:04 → EC 18:04 → 5NMEDONC 21:31 → 4SSUR 03-06 06:58
PROVIDERS: ADMIT Internal Medicine; ATTEND Internal Medicine
PROC: 4A10X4Z Monitoring of Central Nervous Electrical Activity, External Approach (ICD-10-PCS; principal; 2022-03-08)
DX: N39.0 Urinary tract infection, site not specified (principal); G92.8 Other toxic encephalopathy; U07.1 COVID-19; R47.01 Aphasia; S00.12XA Contusion of left eyelid and periocular area, initial encounter; G31.89 Other specified degenerative diseases of nervous system; I69.311 Memory deficit following cerebral infarction; I08.1 Rheumatic disorders of both mitral and tricuspid valves; I37.1 Nonrheumatic pulmonary valve insufficiency; E11.621 Type 2 diabetes mellitus with foot ulcer; L89.892 Pressure ulcer of other site, stage 2; L89.221 Pressure ulcer of left hip, stage 1; L89.209 Pressure ulcer of unspecified hip, unspecified stage; Z20.822 Contact with and (suspected) exposure to COVID-19; H91.3 Deaf nonspeaking, not elsewhere classified; E03.9 Hypothyroidism, unspecified; Z79.890 Hormone replacement therapy; M81.0 Age-related osteoporosis without current pathological fracture; D69.6 Thrombocytopenia, unspecified; E78.5 Hyperlipidemia, unspecified; F41.9 Anxiety disorder, unspecified; Z79.4 Long term (current) use of insulin; Z79.84 Long term (current) use of oral hypoglycemic drugs; Z87.891 Personal history of nicotine dependence; I67.2 Cerebral atherosclerosis; Y92.009 Unspecified place in unspecified non-institutional (private) residence as the place of occurrence of the external cause; Z87.19 Personal history of other diseases of the digestive system; Z79.899 Other long term (current) drug therapy
CPT/HCPCS: 36415; 70450; 70486; 70553; 71046; 72125; 72170; 80048; 80053; 80061; 80076; 81001; 81003; 82140; 82550; 82607; 82746; 83036; 83605; 83690; 83735; 84145; 84443; 84484; 85025; 85610; 85730; 87635; 93005; 93306; 93880; 94640; 95816; 96361; 96365; 99285